=== PATIENT | female | born 1960 | race Caucasian/White ===

== ENCOUNTER 2016-10-06 00:36 | Emergency (ER) | payer OTHER ==
[~2016-10-06 00:36] MED LIST: ADV250INH INH; ALBU17IN INH; ASPI81TA85 PO; ATOR40TA PO; CLAR10CA3 PO; FLON1SPR; GLUC1TAB6 PO; LIDO5DIS36 TD; LISI10TA4 PO; MELO15TA4 PO; METF1000 PO; NEXI40CA PO; SITA50TAB PO; ZOFR20TA PO
[2016-10-06] MEDS ORDERED: diphenhydrAMINE 25 MG CAP As Ordered ONE (02:10)
[2016-10-06] MEDS ORDERED: predniSONE 20 MG TAB As Ordered ONE (02:10)
--- NOTE | 2016-10-06 02:18 | EDDOCDS ---
Nurse's Notes [facility] Name: Ginny Méndez Age: 55 yrs Sex: Female : 1960 Arrival Date: 10/06/2016 Time: 00:36 Bed I4 / M4 Private MD: Diagnosis: Rash and other nonspecific skin eruption-allergic reaction, possibly to ketoconazole Presentation: 10/06 00:48 Presenting complaint: Patient states: rash all over body that started 2 days ago. pt dsf states the rash is spreading and it is very itchy. Onset: The symptoms/episode began/occurred 2 day(s) ago. This patient has not experienced a previous allergic reaction. Anaphylaxis evaluation, the patient reports or I have noted the following symptoms which indicate a significant risk of anaphylaxis: no signs or symptoms of anaphylaxis were noted. Adult Sepsis Screening: The patient does not have new or worsening altered mentation. Patient's respiratory rate is less than 22. Systolic blood pressure is greater than 100. Patient has a qSOFA score of 0- Negative Sepsis Screen. Suicide/Homicide risk assessment- the patient denies having any suicidal and/or homicidal ideations and does not present with any other emotional, behavioral or mental health complaints. Status: The patient is a dependent. Transition of care: patient was not received from another setting of care. 00:48 Acuity: YOIL Level 4 dsf 00:48 Method Of Arrival: Walkin/Carried/Asstd dsf Triage Assessment: 00:53 General: Appears in no apparent distress, Behavior is appropriate for age, cooperative. dsf Pain: Denies pain. Pt Declines HIV testing. Respiratory: Airway is patent Respiratory effort is even, unlabored, Respiratory pattern is regular, symmetrical, Reports no respiratory complaints. Derm: Reports itching. Historical: - Allergies: Keflex (Hives); - Home Meds: 1. Benadryl 50 mg Oral cap as needed (Last dose: 10/05/2016 21:00) 2. Advair Diskus 250-50 mcg/dose Inhl dsdv 1 puff 2 times per day 3. Flonase 50 mcg/actuation Nasal spsn 2 sprays once daily 4. metformin 1,000 mg Oral tab 1 tab 2 times per day 5. Januvia 100 mg oral tab 1 tab once daily 6. lisinopril 10 mg Oral tab 1 tab once daily 7. Nexium 40 mg Oral cpDR 1 cap once daily 8. meloxicam 15 mg oral tab 1 tab once daily 9. aspirin 81 mg Oral chew 1 tab once daily 10. loratadine 10 mg Oral tab 1 tab once daily 11. glipizide 5 mg Oral tab 1 tab once daily 12. albuterol sulfate 90 mcg/actuation Inhl HFAA 2 puffs every 4 hours - PMHx: Hypercholesterolemia; Hypertension; Diabetes - NIDDM: controlled; Sleep Apnea w/ CPAP; Asthma; - PSHx: tummy tuck; Cholecystectomy (2009); Gastric Bypass (2007); right ankle compound fx 2005; - Social history: Smoking status: Patient states was never smoker of tobacco. No barriers to communication noted, The patient speaks fluent Japanese, Speaks appropriately for age. - Family history: Not pertinent. - : The pt / caregiver states he / she is not on anticoagulants. Home medication list is obtained from the patient. - Exposure Risk Screening:: None identified. Screenin:16 Screening information is obtained from the patient. Fall risk: No risks identified. ld5 Assistance ADL's: requires no assistance with activities of daily living. Abuse/DV Screen: The patient / caregiver reports he/she is: not in a situation that causes fear, pain or injury. Nutritional screening: No deficits noted. Advance Directives: There is no active DNR order. home support is adequate. Assessment: 02:16 General: Appears in no apparent distress, Behavior is cooperative. Pain: Denies pain. ld5 Neurological: Level of Consciousness is awake, alert. Respiratory: Airway is patent Respiratory effort is even, unlabored. Derm: Reports itchy rash throughout body. Vital Signs: 00:48 BP 181 / 93; Pulse 86; Resp 20; Temp 97.7(O); Pulse Ox 100% on R/A; Weight 120.2 kg dsf (R); Height 5 ft. 9 in. (175.26 cm) (R); Pain 0/10; 02:16 BP 167 / 72 LA (man/); ld5 00:48 Body Mass Index 39.13 (120.20 kg, 175.26 cm) [facility] Vitals: 00:48 Log In Time: October 06, 2016 at 00:36. [facility] ED Course: 00:38 Patient visited by Carolina Chavez. gjb 00:38 Patient moved to Waiting gjb 00:46 Patient moved to Triage 1 cz 00:49 Triage Initiated dsf 00:54 Patient moved to Pre RCE dsf 01:50 Patient moved to I4 / M4 cz 01:52 Patient visited by Benjamin Christian PCA. kb5 01:56 Addy Murillo [facility]-C [facility]. ar2 01:56 Papa Souza DO is Attending Physician. ar2 01:56 Patient visited by Addy Murillo PA-C. ar2 02:16 The patient / caregiver is instructed regarding the plan of care and ED course. Patient ld5 has correct armband on for positive identification. 02:16 No IV's were initiated during this patient's visit. No procedures done that require ld5 assistance. 02:17 Patient visited by Juanita Dumont RN. ld5 Administered Medications: 02:15 Drug: diphenhydrAMINE 50 mg [diphenhydramine 25 mg capsule (2 caps)] Route: PO; ld5 02:15 Drug: predniSONE 20 mg [prednisone 20 mg tablet (1 tabs)] Route: PO; ld5 Order Results: There are currently no results for this order. Outcome: 02:09 Discharge ordered by Provider. ar2 02:16 Discharge Assessment: Patient awake, alert and oriented x 3. No cognitive and/or ld5 functional deficits noted. Patient verbalized understanding of disposition instructions. patient administered narcotics - no. The following High Risk Discharge criteria are identified: None. Discharged to home ambulatory, with significant other. Condition: stable. Discharge instructions given to patient, Instructed on discharge instructions, follow up and referral plans. medication usage, no driving heavy equipment, Demonstrated understanding of instructions, medications, Pt was receptive of discharge instructions/ teaching. Prescriptions given X 2. No special radiology studies were completed. Property :Personal belongings accompany Pt. 02:17 Patient left the ED. ld5 Signatures: Sivakumar Asif RN RN cz Bancroft, Kristopher, PCA [employer] kb5 Addy Murillo PA-C PA-C ar2 Juanita Dumont RN RN ld5 Alexus Saleh RN RN dsf Beck, Gabriela [facility] MTDD
--- NOTE | 2016-10-06 02:18 | EDDOCDS ---
Physician Documentation [facility] Name: Ginny Méndez Age: 55 yrs Sex: Female : 1960 Arrival Date: 10/06/2016 Time: 00:36 Bed I4 / M4 Private MD: Disposition: 10/06/16 02:09 Discharged to Home/Self Care. Impression: Rash and other nonspecific skin eruption - allergic reaction, possibly to ketoconazole. - Condition is Stable. - Discharge Instructions: Drug Rash. - Prescriptions for Benadryl 25 mg Oral Capsule - take 1 capsule by ORAL route every 6 hours As needed; 30 tablet. Prednisone 20 mg Oral Tablet - take 1 tablet by ORAL route once daily for 4 days; 4 tablet. - Medication Reconciliation, Local Pharmacy Hours form. - Follow up: Emergency Department; When: As needed; Reason: Trouble breathing, Worsening of conditions. - Problem is new. - Symptoms are unchanged. Historical: - Allergies: Keflex (Hives); - Home Meds: 1. Benadryl 50 mg Oral cap as needed (Last dose: 10/05/2016 21:00) 2. Advair Diskus 250-50 mcg/dose Inhl dsdv 1 puff 2 times per day 3. Flonase 50 mcg/actuation Nasal spsn 2 sprays once daily 4. metformin 1,000 mg Oral tab 1 tab 2 times per day 5. Januvia 100 mg oral tab 1 tab once daily 6. lisinopril 10 mg Oral tab 1 tab once daily 7. Nexium 40 mg Oral cpDR 1 cap once daily 8. meloxicam 15 mg oral tab 1 tab once daily 9. aspirin 81 mg Oral chew 1 tab once daily 10. loratadine 10 mg Oral tab 1 tab once daily 11. glipizide 5 mg Oral tab 1 tab once daily 12. albuterol sulfate 90 mcg/actuation Inhl HFAA 2 puffs every 4 hours - PMHx: Hypercholesterolemia; Hypertension; Diabetes - NIDDM: controlled; Sleep Apnea w/ CPAP; Asthma; - PSHx: tummy tuck; Cholecystectomy (2009); Gastric Bypass (2007); right ankle compound fx 2005; - Social history: Smoking status: Patient states was never smoker of tobacco. No barriers to communication noted, The patient speaks fluent Cuban, Speaks appropriately for age. - Family history: Not pertinent. - : The pt / caregiver states he / she is not on anticoagulants. Home medication list is obtained from the patient. - Exposure Risk Screening:: None identified. Vital Signs: 10/06 00:48 BP 181 / 93; Pulse 86; Resp 20; Temp 97.7(O); Pulse Ox 100% on R/A; Weight 120.2 kg / dsf 265 lbs (R); Height 5 ft. 9 in. (175.26 cm) (R); Pain 0/10; 02:16 BP 167 / 72 LA (man/); ld5 00:48 Body Mass Index 39.13 (120.20 kg, 175.26 cm) dsf MDM: 02:06 diphenhydrAMINE 50 mg PO once ordered. ar2 02:06 predniSONE 20 mg PO once; administer with food or milk ordered. ar2 Administered Medications: 02:15 Drug: diphenhydrAMINE 50 mg [diphenhydramine 25 mg capsule (2 caps)] Route: PO; ld5 02:15 Drug: predniSONE 20 mg [prednisone 20 mg tablet (1 tabs)] Route: PO; ld5 Signatures: Addy Murillo PA-C PA-C ar2 Juanita Dumont RN RN ld5 Alexus Saleh RN RN dsf MTDD
--- NOTE | 2016-10-08 03:18 | EDDOCDS ---
Nurse's Notes [facility] Name: Ginny Méndez Age: 55 yrs Sex: Female : 1960 Arrival Date: 10/06/2016 Time: 00:36 Bed I4 / M4 Private MD: Diagnosis: Rash and other nonspecific skin eruption-allergic reaction, possibly to ketoconazole Presentation: 10/06 00:48 Presenting complaint: Patient states: rash all over body that started 2 days ago. pt dsf states the rash is spreading and it is very itchy. Onset: The symptoms/episode began/occurred 2 day(s) ago. This patient has not experienced a previous allergic reaction. Anaphylaxis evaluation, the patient reports or I have noted the following symptoms which indicate a significant risk of anaphylaxis: no signs or symptoms of anaphylaxis were noted. Adult Sepsis Screening: The patient does not have new or worsening altered mentation. Patient's respiratory rate is less than 22. Systolic blood pressure is greater than 100. Patient has a qSOFA score of 0- Negative Sepsis Screen. Suicide/Homicide risk assessment- the patient denies having any suicidal and/or homicidal ideations and does not present with any other emotional, behavioral or mental health complaints. Status: The patient is a dependent. Transition of care: patient was not received from another setting of care. 00:48 Acuity: YOLI Level 4 dsf 00:48 Method Of Arrival: Walkin/Carried/Asstd dsf Triage Assessment: 00:53 General: Appears in no apparent distress, Behavior is appropriate for age, cooperative. dsf Pain: Denies pain. Pt Declines HIV testing. Respiratory: Airway is patent Respiratory effort is even, unlabored, Respiratory pattern is regular, symmetrical, Reports no respiratory complaints. Derm: Reports itching. Historical: - Allergies: Keflex (Hives); - Home Meds: 1. Benadryl 50 mg Oral cap as needed (Last dose: 10/05/2016 21:00) 2. Advair Diskus 250-50 mcg/dose Inhl dsdv 1 puff 2 times per day 3. Flonase 50 mcg/actuation Nasal spsn 2 sprays once daily 4. metformin 1,000 mg Oral tab 1 tab 2 times per day 5. Januvia 100 mg oral tab 1 tab once daily 6. lisinopril 10 mg Oral tab 1 tab once daily 7. Nexium 40 mg Oral cpDR 1 cap once daily 8. meloxicam 15 mg oral tab 1 tab once daily 9. aspirin 81 mg Oral chew 1 tab once daily 10. loratadine 10 mg Oral tab 1 tab once daily 11. glipizide 5 mg Oral tab 1 tab once daily 12. albuterol sulfate 90 mcg/actuation Inhl HFAA 2 puffs every 4 hours - PMHx: Hypercholesterolemia; Hypertension; Diabetes - NIDDM: controlled; Sleep Apnea w/ CPAP; Asthma; - PSHx: tummy tuck; Cholecystectomy (2009); Gastric Bypass (2007); right ankle compound fx 2005; - Social history: Smoking status: Patient states was never smoker of tobacco. No barriers to communication noted, The patient speaks fluent Amharic, Speaks appropriately for age. - Family history: Not pertinent. - : The pt / caregiver states he / she is not on anticoagulants. Home medication list is obtained from the patient. - Exposure Risk Screening:: None identified. Screenin:16 Screening information is obtained from the patient. Fall risk: No risks identified. ld5 Assistance ADL's: requires no assistance with activities of daily living. Abuse/DV Screen: The patient / caregiver reports he/she is: not in a situation that causes fear, pain or injury. Nutritional screening: No deficits noted. Advance Directives: There is no active DNR order. home support is adequate. Assessment: 02:16 General: Appears in no apparent distress, Behavior is cooperative. Pain: Denies pain. ld5 Neurological: Level of Consciousness is awake, alert. Respiratory: Airway is patent Respiratory effort is even, unlabored. Derm: Reports itchy rash throughout body. Vital Signs: 00:48 BP 181 / 93; Pulse 86; Resp 20; Temp 97.7(O); Pulse Ox 100% on R/A; Weight 120.2 kg dsf (R); Height 5 ft. 9 in. (175.26 cm) (R); Pain 0/10; 02:16 BP 167 / 72 LA (man/); ld5 00:48 Body Mass Index 39.13 (120.20 kg, 175.26 cm) [facility] Vitals: 00:48 Log In Time: October 06, 2016 at 00:36. [facility] ED Course: 00:38 Patient visited by Chavez, Carolina. gjb 00:38 Patient moved to Waiting gjb 00:46 Patient moved to Triage 1 cz 00:49 Triage Initiated dsf 00:54 Patient moved to Pre RCE dsf 01:50 Patient moved to I4 / M4 cz 01:52 Patient visited by Benjamin Christian PCA. kb5 01:56 Addy Murillo PA-C is PHCP. ar2 01:56 Papa Souza DO is Attending Physician. ar2 01:56 Patient visited by Addy Murillo PA-C. ar2 02:16 The patient / caregiver is instructed regarding the plan of care and ED course. Patient ld5 has correct armband on for positive identification. 02:16 No IV's were initiated during this patient's visit. No procedures done that require ld5 assistance. 02:17 Patient visited by Juanita Dumont RN. ld5 12:02 [facility] Payment Agreement was scanned into [employer] and attached to record. lg 02 12:13 T-Sheet-- Draft Copy was scanned into [employer] and attached to record. gb Administered Medications: 10/06 02:15 Drug: diphenhydrAMINE 50 mg [diphenhydramine 25 mg capsule (2 caps)] Route: PO; ld5 02:15 Drug: predniSONE 20 mg [prednisone 20 mg tablet (1 tabs)] Route: PO; ld5 Order Results: There are currently no results for this order. Outcome: 02:09 Discharge ordered by Provider. ar2 02:16 Discharge Assessment: Patient awake, alert and oriented x 3. No cognitive and/or ld5 functional deficits noted. Patient verbalized understanding of disposition instructions. patient administered narcotics - no. The following High Risk Discharge criteria are identified: None. Discharged to home ambulatory, with significant other. Condition: stable. Discharge instructions given to patient, Instructed on discharge instructions, follow up and referral plans. medication usage, no driving heavy equipment, Demonstrated understanding of instructions, medications, Pt was receptive of discharge instructions/ teaching. Prescriptions given X 2. No special radiology studies were completed. Property :Personal belongings accompany Pt. 02:17 Patient left the ED. ld5 Signatures: Sivakumar Asif RN RN cz Barnhardt, Gloria, Reg Reg gb Corrie Cardoso, Reg Reg lg Benjamin Christian PCA [employer] G[employer] SPECIALIST kb5 Addy Murillo, PAPatrick PAHarjitC ar2 Juanita Dumont,RN RN ld5 Alexus Saleh,RN RN Carolina Cano Chart Complete MTDD
--- NOTE | 2016-10-08 03:18 | EDDOCDS ---
Physician Documentation [facility] Name: Ginny Méndez Age: 55 yrs Sex: Female : 1960 Arrival Date: 10/06/2016 Time: 00:36 Bed I4 / M4 Private MD: Disposition: 10/06/16 02:09 Discharged to Home/Self Care. Impression: Rash and other nonspecific skin eruption - allergic reaction, possibly to ketoconazole. - Condition is Stable. - Discharge Instructions: Drug Rash. - Prescriptions for Benadryl 25 mg Oral Capsule - take 1 capsule by ORAL route every 6 hours As needed; 30 tablet. Prednisone 20 mg Oral Tablet - take 1 tablet by ORAL route once daily for 4 days; 4 tablet. - Medication Reconciliation, Local Pharmacy Hours form. - Follow up: Emergency Department; When: As needed; Reason: Trouble breathing, Worsening of conditions. - Problem is new. - Symptoms are unchanged. Historical: - Allergies: Keflex (Hives); - Home Meds: 1. Benadryl 50 mg Oral cap as needed (Last dose: 10/05/2016 21:00) 2. Advair Diskus 250-50 mcg/dose Inhl dsdv 1 puff 2 times per day 3. Flonase 50 mcg/actuation Nasal spsn 2 sprays once daily 4. metformin 1,000 mg Oral tab 1 tab 2 times per day 5. Januvia 100 mg oral tab 1 tab once daily 6. lisinopril 10 mg Oral tab 1 tab once daily 7. Nexium 40 mg Oral cpDR 1 cap once daily 8. meloxicam 15 mg oral tab 1 tab once daily 9. aspirin 81 mg Oral chew 1 tab once daily 10. loratadine 10 mg Oral tab 1 tab once daily 11. glipizide 5 mg Oral tab 1 tab once daily 12. albuterol sulfate 90 mcg/actuation Inhl HFAA 2 puffs every 4 hours - PMHx: Hypercholesterolemia; Hypertension; Diabetes - NIDDM: controlled; Sleep Apnea w/ CPAP; Asthma; - PSHx: tummy tuck; Cholecystectomy (2009); Gastric Bypass (2007); right ankle compound fx 2005; - Social history: Smoking status: Patient states was never smoker of tobacco. No barriers to communication noted, The patient speaks fluent Cape Verdean, Speaks appropriately for age. - Family history: Not pertinent. - : The pt / caregiver states he / she is not on anticoagulants. Home medication list is obtained from the patient. - Exposure Risk Screening:: None identified. Vital Signs: 10/06 00:48 BP 181 / 93; Pulse 86; Resp 20; Temp 97.7(O); Pulse Ox 100% on R/A; Weight 120.2 kg / dsf 265 lbs (R); Height 5 ft. 9 in. (175.26 cm) (R); Pain 0/10; 02:16 BP 167 / 72 LA (man/); ld5 00:48 Body Mass Index 39.13 (120.20 kg, 175.26 cm) dsf MDM: 02:06 diphenhydrAMINE 50 mg PO once ordered. ar2 02:06 predniSONE 20 mg PO once; administer with food or milk ordered. ar2 12:02 [facility] Payment Agreement was scanned into [employer] and attached to record. lg 10/07 12:13 T-Sheet-- Draft Copy was scanned into [employer] and attached to record. gb Administered Medications: 10/06 02:15 Drug: diphenhydrAMINE 50 mg [diphenhydramine 25 mg capsule (2 caps)] Route: PO; ld5 02:15 Drug: predniSONE 20 mg [prednisone 20 mg tablet (1 tabs)] Route: PO; ld5 Signatures: Judi Rapp, Reg Reg gb Corrie Cardoso, Reg Reg lg Addy Murillo PA-C PA-C ar2 Juanita Dumont RN RN ld5 Alexus Saleh RN RN dsf The chart was reviewed and I authenticate all verbal orders and agree with the evaluation and treatment provided.Attachments: 12: [facility] Payment Agreement 10/07 12:13 T-Sheet-- Draft Copy gb Chart Complete MTDD
--- NOTE | 2016-10-08 03:18 | EDDOCDS ---
Physician Documentation [facility] Name: Ginny Méndez Age: 55 yrs Sex: Female : 1960 Arrival Date: 10/06/2016 Time: 00:36 Bed I4 / M4 Private MD: Disposition: 10/06/16 02:09 Discharged to Home/Self Care. Impression: Rash and other nonspecific skin eruption - allergic reaction, possibly to ketoconazole. - Condition is Stable. - Discharge Instructions: Drug Rash. - Prescriptions for Benadryl 25 mg Oral Capsule - take 1 capsule by ORAL route every 6 hours As needed; 30 tablet. Prednisone 20 mg Oral Tablet - take 1 tablet by ORAL route once daily for 4 days; 4 tablet. - Medication Reconciliation, Local Pharmacy Hours form. - Follow up: Emergency Department; When: As needed; Reason: Trouble breathing, Worsening of conditions. - Problem is new. - Symptoms are unchanged. Historical: - Allergies: Keflex (Hives); - Home Meds: 1. Benadryl 50 mg Oral cap as needed (Last dose: 10/05/2016 21:00) 2. Advair Diskus 250-50 mcg/dose Inhl dsdv 1 puff 2 times per day 3. Flonase 50 mcg/actuation Nasal spsn 2 sprays once daily 4. metformin 1,000 mg Oral tab 1 tab 2 times per day 5. Januvia 100 mg oral tab 1 tab once daily 6. lisinopril 10 mg Oral tab 1 tab once daily 7. Nexium 40 mg Oral cpDR 1 cap once daily 8. meloxicam 15 mg oral tab 1 tab once daily 9. aspirin 81 mg Oral chew 1 tab once daily 10. loratadine 10 mg Oral tab 1 tab once daily 11. glipizide 5 mg Oral tab 1 tab once daily 12. albuterol sulfate 90 mcg/actuation Inhl HFAA 2 puffs every 4 hours - PMHx: Hypercholesterolemia; Hypertension; Diabetes - NIDDM: controlled; Sleep Apnea w/ CPAP; Asthma; - PSHx: tummy tuck; Cholecystectomy (2009); Gastric Bypass (2007); right ankle compound fx 2005; - Social history: Smoking status: Patient states was never smoker of tobacco. No barriers to communication noted, The patient speaks fluent Japanese, Speaks appropriately for age. - Family history: Not pertinent. - : The pt / caregiver states he / she is not on anticoagulants. Home medication list is obtained from the patient. - Exposure Risk Screening:: None identified. Vital Signs: 10/06 00:48 BP 181 / 93; Pulse 86; Resp 20; Temp 97.7(O); Pulse Ox 100% on R/A; Weight 120.2 kg / dsf 265 lbs (R); Height 5 ft. 9 in. (175.26 cm) (R); Pain 0/10; 02:16 BP 167 / 72 LA (man/); ld5 00:48 Body Mass Index 39.13 (120.20 kg, 175.26 cm) dsf MDM: 02:06 diphenhydrAMINE 50 mg PO once ordered. ar2 02:06 predniSONE 20 mg PO once; administer with food or milk ordered. ar2 12:02 [facility] Payment Agreement was scanned into [employer] and attached to record. lg 10/07 12:13 T-Sheet-- Draft Copy was scanned into [employer] and attached to record. gb Administered Medications: 10/06 02:15 Drug: diphenhydrAMINE 50 mg [diphenhydramine 25 mg capsule (2 caps)] Route: PO; ld5 02:15 Drug: predniSONE 20 mg [prednisone 20 mg tablet (1 tabs)] Route: PO; ld5 Signatures: Judi Rapp, Reg Reg gb Corrie Cardoso, Reg Reg lg Addy Murillo PA-C PA-C ar2 Juanita Dumont RN RN ld5 Alexus Saleh RN RN dsf The chart was reviewed and I authenticate all verbal orders and agree with the evaluation and treatment provided.Attachments: 12: [facility] Payment Agreement 10/07 12:13 T-Sheet-- Draft Copy gb Chart Complete MTDD
== END 2016-10-06 02:17 | disposition home or self-care (01) ==
LOC: M ED 00:36
DX: T78.40XA Allergy, unspecified, initial encounter (principal); R21 Rash and other nonspecific skin eruption; Y92.89 Other specified places as the place of occurrence of the external cause; I10 Essential (primary) hypertension; E11.9 Type 2 diabetes mellitus without complications; J45.909 Unspecified asthma, uncomplicated; G47.33 Obstructive sleep apnea (adult) (pediatric); E78.00 Pure hypercholesterolemia, unspecified; Z98.84 Bariatric surgery status; Z79.899 Other long term (current) drug therapy; Z79.84 Long term (current) use of oral hypoglycemic drugs; Z79.82 Long term (current) use of aspirin; Z88.1 Allergy status to other antibiotic agents

== ENCOUNTER → 2016-10-22 | Outpatient (REF) | payer OTHER ==
[2016-10-22 19:24] LABS: PERCENT SATURATION 9.9 % (13.2-37.4)
[2016-10-26 15:11] LABS: SOLUBLE TRANSFERRIN RECEPTOR 17.7 nmol/L (12.2-27.3)
== END ==
LOC: M LAB REF 16:50
PROVIDERS: ATTEND Internal Medicine Medical Oncology
DX: D50.9 Iron deficiency anemia, unspecified (principal)

== ENCOUNTER 2016-11-23 14:38 | Emergency (ER) | payer OTHER ==
[~2016-11-23] VITALS: Ht 175.3 cm; Wt 120.2 kg
[2016-11-23] MEDS ORDERED: TYLE325T5 PO (15:00)
[2016-11-23] MEDS ORDERED: ACETAMINOPHEN 325 MG TAB PO ONE (16:15)
[2016-11-23 16:34] VITALS: BP 152/81
--- NOTE | 2016-11-24 07:25 | REP ---
LEFT KNEE SERIES, COMPLETE: 11/23/2016. Comparison: MRI 04/16/2012. Clinical history: Knee pain. There is tricompartment osteoarthritis with spurs of the tibial spines, medial lateral margin of the knee and at the patellofemoral joint where the largest spurs are noted. Small suprapatellar effusion is difficult to exclude and in fact suspected. There is narrowing of the patellofemoral joint laterally with significant chondromalacia, medially also shows mild narrowing. There are some calcific deposits or loose bodies in the intercondylar notch. Spur at the insertion of the patellar tendon on the tibial tubercle. Tiny spur at the quadriceps insertion. No tibial plateau fracture. I see no loose body or osteochondral defect. Proximal tibia and fibula show normal articulation. Impression: 1. Tricompartment osteoarthritis, most severe in the patellofemoral joint with some small loose bodies suggested in the intercondylar notch and small suprapatellar effusion. 2. No other significant finding. Signed by Monster Cash MD 11/24/2016 08:04 A
== END 2016-11-23 16:36 | disposition home or self-care (01) ==
LOC: M ED 15:47
DX: M17.12 Unilateral primary osteoarthritis, left knee (principal); J45.909 Unspecified asthma, uncomplicated; K21.9 Gastro-esophageal reflux disease without esophagitis; E11.9 Type 2 diabetes mellitus without complications; E78.00 Pure hypercholesterolemia, unspecified; Z79.899 Other long term (current) drug therapy; Z79.84 Long term (current) use of oral hypoglycemic drugs; Z79.51 Long term (current) use of inhaled steroids; Z79.82 Long term (current) use of aspirin; Z88.8 Allergy status to other drugs, medicaments and biological substances

== ENCOUNTER → 2016-12-23 | Outpatient (REF) | payer OTHER ==
[~2016-12-23] MED LIST changes: +TYLE325T5 PO
[2016-12-23 13:46] LABS: PERCENT SATURATION 24.5 % (13.2-37.4)
== END ==
LOC: M LAB REF 12:55
PROVIDERS: ATTEND Internal Medicine Medical Oncology
DX: D50.9 Iron deficiency anemia, unspecified (principal)

== ENCOUNTER → 2017-04-28 | Outpatient (REF) | payer OTHER ==
[~2017-04-28] MED LIST changes: -ATOR40TA PO; +ATOR40TA75 PO; -LIDO5DIS36 TD; +LIDO5DIS41 TD; -METF1000 PO; +METF10004 PO
== END ==
LOC: M LAB REF 13:11
PROVIDERS: ATTEND Internal Medicine Medical Oncology
DX: D50.9 Iron deficiency anemia, unspecified (principal)

== ENCOUNTER → 2017-10-27 | Outpatient (REF) | payer OTHER ==
[2017-10-27 14:25] LABS: FERRITIN 402 NG/ML (8-252); IRON (FE) 38 UG/DL (50-170); PERCENT SATURATION 15.4 % (13.2-45.0); TOTAL IRON BINDING CAPACITY 247 UG/DL (250-450)
== END ==
LOC: M LAB REF 13:50
DX: D50.9 Iron deficiency anemia, unspecified (principal)

== ENCOUNTER → 2018-05-06 | Outpatient (REF) | payer OTHER ==
[2018-05-06 14:17] LABS: FERRITIN 414 NG/ML (8-252); IRON (FE) 40 UG/DL (50-170); PERCENT SATURATION 15.7 % (13.2-45.0); TOTAL IRON BINDING CAPACITY 255 UG/DL (250-450)
== END ==
LOC: M LAB REF 13:24
DX: D50.8 Other iron deficiency anemias (principal); K90.9 Intestinal malabsorption, unspecified

== ENCOUNTER → 2018-07-03 | Outpatient (REF) | payer OTHER ==
[2018-07-03 13:16] LABS: BASO % 0.4 % (0.0-1.0); EOS # 0.2 10^3/uL (0.0-0.50); EOS % 2.8 % (0.0-3.0); HEMATOCRIT 40.8 % (36.0-47.0); IMMATURE GRANULOCYTE % 0.3 % (0-3.0); LYMPH # 1.6 10^3/uL (1.5-4.5); LYMPH % 20.8 % (24.0-44.0); MEAN CORPUSCULAR HEMOGLOBIN 26.9 pg (27.0-33.0); MEAN CORPUSCULAR HGB CONC 31.9 g/dl (32.0-36.5); MEAN CORPUSCULAR VOLUME 84.3 fl (80.0-96.0); MONO # 0.5 10^3/uL (0.0-0.8); MONO % 6.5 % (0.0-5.0); NEUTROPHILS # 5.4 10^3/uL (1.8-7.7); NEUTROPHILS % 69.2 % (36.0-66.0); PLATELET COUNT, AUTOMATED 359 10^3/uL (150-450); RED BLOOD COUNT 4.84 10^6/uL (4.00-5.40); RED CELL DISTRIBUTION WIDTH 12.9 % (11.5-14.5); WHITE BLOOD COUNT 7.8 10^3/uL (4.0-10.0)
[2018-07-03 13:24] LABS: ALBUMIN/GLOBULIN RATIO 1.25 (1.00-1.93); ALKALINE PHOSPHATASE 69 U/L (45-117); ALT/SGPT 22 U/L (12-78); ANION GAP 7 MEQ/L (8-16); AST/SGOT 15 U/L (7-37); BILIRUBIN,TOTAL 0.6 MG/DL (0.2-1.0); BLOOD UREA NITROGEN 18 MG/DL (7-18); CALCIUM LEVEL 9.6 MG/DL (8.5-10.1); CARBON DIOXIDE LEVEL 28 MEQ/L (21-32); CHLORIDE LEVEL 104 MEQ/L (98-107); CHOLESTEROL LEVEL 131 MG/DL (<200); CHOLESTEROL RISK RATIO 2.568 (<5); CREATININE FOR GFR 0.74 MG/DL (0.55-1.30); GLOMERULAR FILTRATION RATE > 60.0 (>51); GLUCOSE, FASTING 157 MG/DL (70-100); HDL CHOLESTEROL 51 MG/DL (>40); LDL CHOLESTEROL 62 MG/DL (<100); NON-HDL-C 80 MG/DL; NT-PRO BNP 56 PG/ML (<125); POTASSIUM SERUM 4.8 MEQ/L (3.5-5.1); SODIUM LEVEL 139 MEQ/L (136-145); THYROID STIMULATING HORMONE 0.864 uIU/ML (0.358-3.740); TOTAL PROTEIN 7.2 GM/DL (6.4-8.2); TRIGLYCERIDES LEVEL 88 MG/DL (<150)
== END ==
LOC: M LABDRWAD 12:39
DX: I10 Essential (primary) hypertension (principal); Z68.38 Body mass index [BMI] 38.0-38.9, adult; R94.31 Abnormal electrocardiogram [ECG] [EKG]; I35.9 Nonrheumatic aortic valve disorder, unspecified

== ENCOUNTER 2018-07-14 17:30 | Emergency (ER) | payer OTHER ==
[2018-07-14 19:32] LABS: BASO % 0.7 % (0.0-1.0); EOS % 2.5 % (0.0-3.0); HEMATOCRIT 40.8 % (36.0-47.0); HEMOGLOBIN 12.9 g/dl (12.0-15.5); IMMATURE GRANULOCYTE % 0.2 % (0-3.0); LYMPH % 25.8 % (24.0-44.0); MEAN CORPUSCULAR HEMOGLOBIN 26.9 pg (27.0-33.0); MEAN CORPUSCULAR HGB CONC 31.6 g/dl (32.0-36.5); MEAN CORPUSCULAR VOLUME 85.2 fl (80.0-96.0); NEUTROPHILS % 63.8 % (36.0-66.0); PLATELET COUNT, AUTOMATED 330 10^3/uL (150-450); RED BLOOD COUNT 4.79 10^6/uL (4.00-5.40); RED CELL DISTRIBUTION WIDTH 13.2 % (11.5-14.5); WHITE BLOOD COUNT 8.9 10^3/uL (4.0-10.0)
[2018-07-14 19:33] LABS: BASO # 0.1 10^3/uL (0.0-0.2); EOS # 0.2 10^3/uL (0.0-0.50); LYMPH # 2.3 10^3/uL (1.5-4.5); MONO # 0.6 10^3/uL (0.0-0.8); NEUTROPHILS # 5.7 10^3/uL (1.8-7.7)
[2018-07-14 19:36] LABS: INR 1.03; PROTHROMBIN TIME 13.6 SECONDS (12.1-14.4)
[2018-07-14 19:37] LABS: PARTIAL THROMBOPLASTIN TIME 38.5 SECONDS (25.4-37.6)
[2018-07-14 19:39] LABS: D-DIMER QUANT 579.09 ng/ml (<500)
[2018-07-14 20:01] LABS: ANION GAP 8 MEQ/L (8-16); BLOOD UREA NITROGEN 19 MG/DL (7-18); C REACTIVE PROTEIN QUANTITATIV 0.52 MG/DL (0.00-0.30); CALCIUM LEVEL 9.4 MG/DL (8.5-10.1); CARBON DIOXIDE LEVEL 26 MEQ/L (21-32); CHLORIDE LEVEL 104 MEQ/L (98-107); CK-MB VALUE MASS < 1.0 NG/ML (<3.6); CPK CREATINE PHOSPHOKINASE 66 U/L (26-192); CREATININE FOR GFR 0.84 MG/DL (0.55-1.30); GLOMERULAR FILTRATION RATE > 60.0 (>51); GLUCOSE, FASTING 119 MG/DL (70-100); MB/CK RELATIVE INDEX 1.52 (< OR =4); POTASSIUM SERUM 4.4 MEQ/L (3.5-5.1); SODIUM LEVEL 138 MEQ/L (136-145); THYROID STIMULATING HORMONE 0.732 uIU/ML (0.358-3.740); TROPONIN I < 0.02 NG/ML (< 0.10)
[2018-07-14] MEDS ORDERED: ISOVUE-370 76% 100ML VIAL (Q9967) As Ordered (20:04)
[2018-07-14 21:14] LABS: CPK CREATINE PHOSPHOKINASE 57 U/L (26-192); MB/CK RELATIVE INDEX 1.75 (< OR =4); TROPONIN I < 0.02 NG/ML (< 0.10)
== END 2018-07-14 21:52 | disposition home or self-care (01) ==
LOC: M ED 17:30
DX: R07.89 Other chest pain (principal); R42 Dizziness and giddiness; R53.83 Other fatigue; R11.0 Nausea; E11.9 Type 2 diabetes mellitus without complications; I10 Essential (primary) hypertension; E78.5 Hyperlipidemia, unspecified; G47.33 Obstructive sleep apnea (adult) (pediatric); K31.84 Gastroparesis; Z98.84 Bariatric surgery status; Z88.1 Allergy status to other antibiotic agents; Z79.899 Other long term (current) drug therapy; Z79.51 Long term (current) use of inhaled steroids; Z79.82 Long term (current) use of aspirin; Z79.84 Long term (current) use of oral hypoglycemic drugs
CPT/HCPCS: Q9967

== ENCOUNTER 2018-09-22 09:48 | Inpatient (IN) | payer OTHER ==
[~2018-09-22 09:48] MED LIST changes: +AMLO10TA5 PO; +BENA40TA7 PO; +DOCU100C16 PO; +LOTR10CA2 PO; +MELO15TA28 PO; -MELO15TA4 PO; +METF500T13 PO; +OXYB5TAB PO; +SIME40TA PO; +VANCOMYCIN HCL 1,000 MG, VIAL MATE ADAPTER 1 EACH in D5W 250 ML IV ONE; -ZOFR20TA PO; +ZOFR4TAB16 PO
[2018-09-22] MEDS ORDERED: NS 1,000 ML IV SCH (10:43)
[2018-09-22] MEDS ORDERED: MORPHINE 4 MG/ML 1ML VIAL/SYRINGE (J2270) IV ONE (10:45)
[2018-09-22] MEDS ORDERED: ONDANSETRON 4MG/2ML VIAL (J2405) IV ONE (10:45)
[2018-09-22 11:02] LABS: BASO # 0.1 10^3/uL (0.0-0.2); BASO % 0.4 % (0.0-1.0); EOS # 0.1 10^3/uL (0.0-0.50); EOS % 0.7 % (0.0-3.0); HEMATOCRIT 38.6 % (36.0-47.0); HEMOGLOBIN 12.4 g/dl (12.0-15.5); LYMPH # 0.8 10^3/uL (1.5-4.5); LYMPH % 5.8 % (24.0-44.0); MEAN CORPUSCULAR HEMOGLOBIN 27.9 pg (27.0-33.0); MEAN CORPUSCULAR HGB CONC 32.1 g/dl (32.0-36.5); MEAN CORPUSCULAR VOLUME 86.9 fl (80.0-96.0); MONO # 0.5 10^3/uL (0.0-0.8); MONO % 3.5 % (0.0-5.0); NEUTROPHILS # 12.3 10^3/uL (1.8-7.7); NEUTROPHILS % 88.9 % (36.0-66.0); PLATELET COUNT, AUTOMATED 302 10^3/uL (150-450); RED BLOOD COUNT 4.44 10^6/uL (4.00-5.40); WHITE BLOOD COUNT 13.8 10^3/uL (4.0-10.0)
--- NOTE | 2018-09-22 11:08 | REP ---
LEFT HIP, AP PELVIS, THREE VIEWS: HISTORY: Fall. There is a nondisplaced intertrochanteric fracture of the left femur. There is no dislocation. There is mild narrowing of the hip joint spaces. An ossified density is present lateral to the left acetabulum. This may represent an old avulsion fracture fragment or ligamentous or tendon calcification. IMPRESSION: Nondisplaced intertrochanteric fracture of the left femur. Electronically Signed by Sunil Simms MD 09/22/2018 11:22 A
[2018-09-22 11:13] LABS: INR 0.97
[2018-09-22 11:36] LABS: BLOOD UREA NITROGEN 18 MG/DL (7-18); CALCIUM LEVEL 9.4 MG/DL (8.5-10.1); CARBON DIOXIDE LEVEL 24 MEQ/L (21-32); CHLORIDE LEVEL 106 MEQ/L (98-107); CPK CREATINE PHOSPHOKINASE 59 U/L (26-192); GLOMERULAR FILTRATION RATE > 60.0 (>51); GLUCOSE, FASTING 170 MG/DL (70-100); MB/CK RELATIVE INDEX 1.86 (< OR =4); POTASSIUM SERUM 4.4 MEQ/L (3.5-5.1); SODIUM LEVEL 140 MEQ/L (136-145); TROPONIN I < 0.02 NG/ML (< 0.10)
--- NOTE | 2018-09-22 11:38 | REP ---
PORTABLE CHEST X-RAY: SINGLE VIEW. HISTORY: Preop. COMPARISON STUDY: July 14, 2018 FINDINGS: The lungs are well inflated and clear. The pleural angles are sharp. Heart size is normal. Pulmonary vasculature is not increased. There is a metallic orthopedic plate in the right humerus. Mild degenerative changes are seen in the thoracic spine. IMPRESSION: No active disease. Electronically Signed by Byron Charles MD 09/22/2018 08:32 P
[2018-09-22] MEDS: MORPHINE 4 MG/ML 1ML VIAL/SYRINGE (J2270) IV PRN ×4 (12:07→19:35)
[2018-09-22] MEDS ORDERED: JANU100T PO (12:46)
[2018-09-22] MEDS ORDERED: ACE65ERTAB PO ×2 (12:46)
[2018-09-22] MEDS ORDERED: [UNRECOGNIZED DRUG - CODE] EX (12:46)
[2018-09-22] MEDS ORDERED: SIME80TA PO (12:46)
[2018-09-22] MEDS ORDERED: PANT40TA3 PO (12:46)
[2018-09-22] MEDS ORDERED: [UNRECOGNIZED DRUG - CODE] TOP (12:46)
[2018-09-22] MEDS ORDERED: ASCO10003 PO (12:49)
[2018-09-22] MEDS ORDERED: CALC1TAB19 PO (12:49)
[2018-09-22] MEDS ORDERED: HM C500T3 PO (12:49)
[2018-09-22] MEDS ORDERED: VITMTA PO (12:49)
[2018-09-22] MEDS ORDERED: PROAAER10 INH (12:49)
[2018-09-22] MEDS ORDERED: FIBE625T PO (12:49)
--- NOTE | 2018-09-22 15:13 | CR ---
DATE OF CONSULTATION: 09/22/2018 Chief complaint is left hip pain. HISTORY: This is a 57-year-old woman with a history of diabetes with a recent cardiac workup for possible chest pain who fell today. She tripped over her shoes and fell on her left hip. Complains of left hip pain. I was asked to evaluate her for a left hip fracture, which is an intertrochanteric minimally displaced. She denies any other injury. Her past medical history is notable for diabetes, possible cardiac issues. Albuterol, Tylenol, amlodipine, aspirin, atorvastatin, benazepril, Colace, Nexium, Flonase, glipizide, loratadine, Lotrel, metformin, Zofran, oxybutynin, Advair, simethicone, Januvia. ALLERGIES include CEPHALOSPORINS causing hives. Past surgical history includes multiple shoulder surgery on the right that were complicated by infections and she required prolonged intravenous (IV) antibiotics and oral antibiotics. Family history is otherwise unremarkable, noncontributory. REVIEW OF SYSTEMS: She denies any current chest pain or shortness of breath. Denies any abdominal pain. Does have a history of diabetes and this recent cardiac workup done by Dr. Bell, which she says was all cleared. Endocrine as noted above with diabetes. PHYSICAL EXAMINATION: She is alert, oriented. No acute distress. HEENT: Extraocular muscles intact. She has regular rate and rhythm to her pulse and nonlabored breathing. Her abdomen is soft, nontender, obese. Her left lower extremity she moves her foot and toes well. She has intact pulses. She has intact sensation distally. Did not attempt to range her left hip but her right hip is non-irritable to range of motion and she is grossly neurologically intact distally. There is some mention of peripheral neuropathy history. X-rays were reviewed and they demonstrate a left intertrochanteric fracture that is minimally displaced. IMPRESSION: Left intertrochanteric hip fracture in a 57-year-old woman. RECOMMENDATIONS: She will need medical clearance and admission. I have talked to her about proceeding with surgical treatment and would anticipate doing an open reduction, internal fixation (ORIF) of the left hip with an intramedullary (IM) alexx and possible plating. She understands the nature this, the risks of bleeding, infection, damage to nerves, vessels, persistent pain, malunion, nonunion, loss of reduction, blood clots, medical problems, , among others. MTDD
[2018-09-22] MEDS ORDERED: ACETAMINOPHEN TAB 650MG DOSE (2X325MG) PO PRN (15:15)
[2018-09-22] MEDS ORDERED: ONDANSETRON 4 MG TAB (S0181) PO PRN (15:15)
[2018-09-22] MEDS ORDERED: VANCOMYCIN HCL 1,000 MG, VIAL MATE ADAPTER 1 EACH in D5W 250 ML IV ONE ×2 (15:15→18:30)
[2018-09-22] MEDS ORDERED: PERCOCET 5MG/325MG TAB PO PRN (15:15)
[2018-09-22] MEDS ORDERED: BISACODYL 5 MG TAB PO PRN (15:15)
[2018-09-22] MEDS: NS 1,000 ML IV SCH (15:45)
--- NOTE | 2018-09-22 15:56 | HPEPDOC ---
[facility] Medical History & Physical Date of Admission Sep 22, 2018 Primary Care Physician: A Attending Physician: MARY KATE MCKEON MD History and Physical CHIEF COMPLAINT: [LEFT HIP PAIN ] HISTORY OF PRESENT ILLNESS: This is a 57 yo female with pmhx of HTN, DM2, mild intermittent asthma, HLD , multiple fractures who presented to the ED after she tripped over her 's shoe lace this morning, after which she started having severe left hip pain. Xray of the left hip in the ED shows nondisplaced intertrochanteric fracture of the left femur.. Patient only complains of left hip and leg pain. She denied fever, chills, chest pain, sob, nausea, vomiting, headache , blurry vision or an y other symptoms PAST MEDICAL HISTORY: HTN DM2 mild intermittent asthma HLD multiple fractures OA enlarged bilateral atrium PAST SURGICAL HISTORY: SOCIAL HISTORY: Marital status: [y]. Tobacco use:[n] ETOH: [occasionally] Illicit drug use: [n] IV drug use: [n] FAMILY HISTORY: Father: [cardiac hx ] Mother: [cardiac hx ] ALLERGIES: keflex - hives REVIEW OF SYSTEMS: All 14 points ROS is negative except what's stated in HPI HOME MEDICATIONS: Please see below. PHYSICAL EXAMINATION: GEN: mod distress due to pain, obese CVS: Normal S1/s2, no murmurs, rubs or gallops, RESP: Lungs are clear to auscultation bilaterally, no crackles, wheezes or rhonchi Abd: soft, nontender, nondistended, + BS MSK: full ROM, 5/5 strength in all extremities except in left lower extremity due to pain , left leg shorter and externally rotated Integumentary: no rash or bruises Neuro: AOAx3, no focal deficit psych: normal mood, good judgement and cooperative LABORATORY DATA: See below. IMAGING: [Nondisplaced intertrochanteric fracture of the left femur.] ASSESSMENT: 57yo female with multiple comorbidities who is found to have left hip fracture and will be going for repair. Patient comorbid conditions are stable . Vital signs are stable, blood sugar is relatively controlled, physical exam is stable - no alarming signs, labs relatively normal. EKG wnl. Patient is clinically optimized for noncardiac surgery. Of Note - patient said she gets very nauseated with anesthesia and usually takes longer to come out of sedation. Also that she has hx of multiple infections s/p surgery. PLAN: 1. ortho following - plan for surgery 2. NPO 3. IVF (can change per ortho) 4. prn pain meds and bowel regimen 5. f/s q4h while npo 6. hypoglycemic protocol 7. f/u vitamin D level 8. bedrest for now, can change after surgery 9. hold po DM2 home meds 10. ISS q6h and f/s q6h 11. resume home bp meds DVT ppx -heparin - starts tomorrow morning GI ppx - protonix - (hx of acid reflux) full code, from home, no svc Vital Signs Vital Signs Date Time Temp Pulse Resp B/P (MAP) Pulse Ox O2 Delivery O2 Flow Rate FiO2 09/22/18 13:52 18 09/22/18 13:00 93 145/70 (95) 96 Room Air 09/22/18 10:07 98.3 Laboratory Data Labs 24H Laboratory Tests 2 09/22/18 10:54: Immature Granulocyte % (Auto) 0.7, White Blood Count 13.8H, Red Blood Count 4.44, Hemoglobin 12.4, Hematocrit 38.6, Mean Corpuscular Volume 86.9, Mean Corpuscular Hemoglobin 27.9, Mean Corpuscular Hemoglobin Concent 32.1, Red Cell Distribution Width 13.7, Platelet Count 302, Neutrophils (%) (Auto) 88.9H, Lymphocytes (%) (Auto) 5.8L, Monocytes (%) (Auto) 3.5, Eosinophils (%) (Auto) 0.7, Basophils (%) (Auto) 0.4, Neutrophils # (Auto) 12.3H, Lymphocytes # (Auto) 0.8L, Monocytes # (Auto) 0.5, Eosinophils # (Auto) 0.1, Basophils # (Auto) 0.1, Nucleated Red Blood Cells % (auto) 0.0, Prothrombin Time 13.0, Prothromb Time International Ratio 0.97, Activated Partial Thromboplast Time 38.0H, Anion Gap 10, Glomerular Filtration Rate > 60.0, Blood Urea Nitrogen 18, Creatinine 0.80, Sodium Level 140, Potassium Level 4.4, Chloride Level 106, Carbon Dioxide Level 24, Calcium Level 9.4, Total Creatine Kinase 59, Creatine Kinase MB 1.0, Creatine Kinase MB Relative Index 1.86, Troponin I < 0.02 CBC/BMP Laboratory Tests 09/22/18 10:54 Red Blood Count 4.44, Mean Corpuscular Volume 86.9, Mean Corpuscular Hemoglobin 27.9, Mean Corpuscular Hemoglobin Concent 32.1, Red Cell Distribution Width 13.7, Neutrophils (%) (Auto) 88.9 H, Lymphocytes (%) (Auto) 5.8 L, Monocytes (%) (Auto) 3.5, Eosinophils (%) (Auto) 0.7, Basophils (%) (Auto) 0.4, Neutrophils # (Auto) 12.3 H, Lymphocytes # (Auto) 0.8 L, Monocytes # (Auto) 0.5, Eosinophils # (Auto) 0.1, Basophils # (Auto) 0.1, Calcium Level 9.4, Total Creatine Kinase 59 Home Medications Scheduled (Urea) 45 % Cre, 1 APLCT TOP QHS APPLY TO TOE (Calcium 600+D3 600-800 mg-Unit) 1 Tab Tab, 3 TAB PO DAILY Acetaminophen (Acetaminophen ER) 650 Mg Tab, 650 MG PO QAM Acetaminophen (Acetaminophen ER) 650 Mg Tab, 1,300 MG PO QHS Amlodipine Besylate (Amlodipine Besylate) 10 Mg Tab, 10 MG PO DAILY Ascorbic Acid (Ascorbic Acid) 1,000 Mg Tab, 1,000 MG PO DAILY Aspirin (Aspir-81) 81 Mg Tab, 81 MG PO QHS Atorvastatin Calcium (Atorvastatin Calcium) 40 Mg Tab, 40 MG PO QHS Benazepril HCl (Benazepril HCl) 40 Mg Tab, 40 MG PO DAILY Calcium Polycarbophil (Fibercon) 625 Mg Tab, 625 MG PO DAILY Cranberry (Hm Cranberry Ultra Streng) 500 Mg Tab, 500 MG PO DAILY Docusate Sodium (Docusate Sodium) 100 Mg Cap, 100 MG PO BID Fluticasone Propionate (Flonase Allergy Relief) 50 Mcg/Act Spr, 2 SPRAYS NA BID Glipizide (Glucotrol Xl) 5 Mg Tab, 5 MG PO DAILY Loratadine (Claritin) 10 Mg Cap, 10 MG PO DAILY Metformin Hydrochloride (Metformin HCl) 1,000 Mg Tab, 1,000 MG PO QAM Metformin Hydrochloride (Metformin HCl) 500 Mg Tab, 500 MG PO QPM Multivitamins *[facility] STOCKED* (Thera M Plus *[facility] STOCKED*) 1 Tab Tab, 1 TAB PO DAILY Oxybutynin Chloride (Oxybutynin Chloride ER) 5 Mg Tab, 5 MG PO DAILY Pantoprazole Sodium (Pantoprazole Sodium) 40 Mg Tab, 40 MG PO DAILY Salmeterol/Fluticasone (Advair Diskus 250-50 Mcg/Dose) 14 Puff/Inhaler Aerp, 1 PUFF INH BID Simethicone (Simethicone) 80 Mg Chew, 80 MG PO BID Sitagliptin Phosphate (Januvia) 100 Mg Tab, 100 MG PO DAILY Scheduled PRN Albuterol Sulfate (Proair Hfa) 108 Mcg/Act Aer, 2 PUFF INH QID PRN for SHORTNESS OF BREATH Lidocaine (Lidoderm) 5 % Dis, 1 PATCH TD DAILY PRN for PAIN APPLY TO RIGHT ANKLE Ondansetron HCl (Zofran) 4 Mg Tab, 4 MG PO for NAUSEA Allergies Coded Allergies: Cephalosporins (Verified Allergy, Intermediate, HIVES, 09/22/18) SEAN LINDSEY MD Sep 22, 2018 15:56
[2018-09-22] MEDS ORDERED: DEXTROSE 50% 50 ML SYRINGE IV PRN (16:00)
[2018-09-22] MEDS ORDERED: GLUCOSE 4 GM CHEW TABLET PO PRN (16:00)
[2018-09-22] MEDS ORDERED: GLUCAGON FOR INJ 1 MG VIAL (J1610) SC PRN (16:00)
[2018-09-22 16:30] VITALS: BP 139/70
[2018-09-22] MEDS: HumaLOG INSULIN (NovoLOG) PER UNIT SC SCH (17:58)
--- NOTE | 2018-09-22 18:10 | IPNPDOC ---
Date Seen The patient was seen on 09/22/18. Progress Note Orthopedic consult interval note Patient is a 57 y/o female with multiple medical comorbidities who sustained a mechanical fall from standing height resulting in a minimally displaced intertrochanteric femur fracture. Please see full dictated orthopedic consult note by Dr. Jordan. Patient has since been evaluated by hospitalist service and found to be medically optimized for surgery. On exam she had pain with logroll, and neurovascularly intact LLE. We will proceed to the OR this evening for L hip cephalomedullary nail fixation. The risks, benefits, indications, and alternatives were discussed with the patient. Given her history of multiple post operative infections, I recommend Perioperative IV Vancomycin and at least 24 hours of IV Vancomycin post operatively. Also recommend strict blood glucose control in the 72 hours following surgery to minimize the risk of infection. I counseled her that I will be her operating surgeon, but her follow up care will be conducted by [facility]. She expressed understanding and informed consent was obtained. We will proceed to the OR when available. VS, I&O, 24H, Javad Vital Signs/I&O Vital Signs Date Time Temp Pulse Resp B/P (MAP) Pulse Ox O2 Delivery O2 Flow Rate FiO2 09/22/18 17:12 18 09/22/18 16:00 86 117/68 (84) 95 Room Air 09/22/18 10:07 98.3 Laboratory Data 24H LABS Laboratory Tests 2 09/22/18 10:54: Immature Granulocyte % (Auto) 0.7, White Blood Count 13.8H, Red Blood Count 4 .44, Hemoglobin 12.4, Hematocrit 38.6, Mean Corpuscular Volume 86.9, Mean Corpuscular Hemoglobin 27.9, Mean Corpuscular Hemoglobin Concent 32.1, Red Cell Distribution Width 13.7, Platelet Count 302, Neutrophils (%) (Auto) 88.9H, Lymphocytes (%) (Auto) 5.8L, Monocytes (%) (Auto) 3.5, Eosinophils (%) (Auto) 0.7, Basophils (%) (Auto) 0.4, Neutrophils # (Auto) 12.3H, Lymphocytes # (Auto) 0.8L, Monocytes # (Auto) 0.5, Eosinophils # (Auto) 0.1, Basophils # (Auto) 0.1, Nucleated Red Blood Cells % (auto) 0.0, Prothrombin Time 13.0, Prothromb Time International Ratio 0.97, Activated Partial Thromboplast Time 38.0H, Anion Gap 10, Glomerular Filtration Rate > 60.0, Blood Urea Nitrogen 18, Creatinine 0.80, Sodium Level 140, Potassium Level 4.4, Chloride Level 106, Carbon Dioxide Level 24, Calcium Level 9.4, Total Creatine Kinase 59, Creatine Kinase MB 1.0, Creatine Kinase MB Relative Index 1.86, Troponin I < 0.02 09/22/18 17:58: CBC/BMP Laboratory Tests 09/22/18 10:54 Red Blood Count 4.44, Mean Corpuscular Volume 86.9, Mean Corpuscular Hemoglobin 27.9, Mean Corpuscular Hemoglobin Concent 32.1, Red Cell Distribution Width 13.7, Neutrophils (%) (Auto) 88.9 H, Lymphocytes (%) (Auto) 5.8 L, Monocytes (%) (Auto) 3.5, Eosinophils (%) (Auto) 0.7, Basophils (%) (Auto) 0.4, Neutrophils # (Auto) 12.3 H, Lymphocytes # (Auto) 0.8 L, Monocytes # (Auto) 0.5, Eosinophils # (Auto) 0.1, Basophils # (Auto) 0.1, Calcium Level 9.4, Total Creatine Kinase 59 HILLARY ONEILL MD Sep 22, 2018 18:10
[2018-09-22] MEDS ORDERED: CLINDAMYCIN 900 MG in APPROPRIATE DILUENT 1 EA IV ONE (18:15)
[2018-09-22] MEDS ORDERED: MORPHINE 4 MG/ML 1ML VIAL/SYRINGE (J2270) As Ordered ONE (19:33)
--- NOTE | 2018-09-22 19:46 | REP ---
PORTABLE, LEFT FEMUR, TWO VIEWS: HISTORY: Fracture. The proximal femur is not seen in the present radiographs. There is no acute fracture or dislocation. There is mild narrowing of the knee joint spaces with associate osteophyte formation. IMPRESSION:There is no acute fracture or dislocation. Electronically Signed by Sunil Simms MD 09/22/2018 07:52 P
[2018-09-22] MEDS ORDERED: ceFAZolin 1GM INJ (J0690 PER 500MG) As Ordered ONE (20:08)
[2018-09-22] MEDS ORDERED: CLINDAMYCIN INJ 900MG/6ML VIAL As Ordered ONE (20:22)
[2018-09-22] MEDS ORDERED: MIDAZOLAM INJ 2 MG/2 ML VIAL (J2250) As Ordered ONE (20:55)
[2018-09-22] MEDS ORDERED: BUPIVACAINE/DEXTROSE 0.75% 2 ML AMP As Ordered ONE (20:55)
[2018-09-22] MEDS ORDERED: fentaNYL 100 MCG/2 ML INJECTION (J3010) As Ordered ONE (20:55)
[2018-09-22] MEDS ORDERED: PROPOFOL 200 MG/20 ML VIAL As Ordered ONE ×2 (20:55→21:42)
[2018-09-22] MEDS ORDERED: KETAMINE HCL 200 MG/20 ML VIAL As Ordered ONE (20:55)
[2018-09-22] MEDS ORDERED: PHENYLephrine HCL 500 MCG/5 ML (100MCG/ML) SYRINGE (J2370) As Ordered ONE (21:10)
[2018-09-22] MEDS: MEPERIDINE INJ 25 MG/ML VIAL (J2175) IV PRN ×2 (22:05→22:10)
[2018-09-22] MEDS ORDERED: MEPERIDINE INJ 25 MG/ML VIAL (J2175) As Ordered ONE (22:11)
[2018-09-22] MEDS ORDERED: LR 1,000 ML IV SCH (22:15)
[2018-09-22] MEDS ORDERED: NORCO, ANEXSIA 5/325MG TABLET (HYDROcodone/ACETAMINOPHEN) PO PRN (22:15)
[2018-09-22] MEDS ORDERED: ONDANSETRON 4MG/2ML VIAL (J2405) IV PRN (22:15)
[2018-09-22] MEDS ORDERED: fentaNYL 100 MCG/2 ML INJECTION (J3010) IV PRN (22:15)
[2018-09-22 23:15] VITALS: BP 140/71
[2018-09-22] MEDS: ASPIRIN 81 MG ENTERIC TAB PO SCH (23:38)
[2018-09-22] MEDS: ATORVASTATIN 20 MG TAB PO SCH (23:38)
[2018-09-22] MEDS: SENOKOT S TAB PO SCH (23:38)
[2018-09-22] MEDS: traMADol 50 MG TAB PO PRN (23:39)
[2018-09-22 23:45] VITALS: BP 171/85
[2018-09-23] VITALS (7 sets, daily range): BP systolic 127–188; BP diastolic 60–83
--- NOTE | 2018-09-23 00:12 | REP ---
Clinical: Status post fixation. Technique: Portable AP and lateral views of the femur. Findings: In conjunction with left hip series, there is evidence for open reduction and fixation with intramedullary alexx through the femoral shaft with fixation screw through the proximal femur and satisfactory reduction at the intertrochanteric fracture line. Overlying postsurgical changes noted. Impression: Satisfactory open reduction and fixation for intertrochanteric femoral neck fracture. Electronically Signed by Eloy Doll MD 09/23/2018 12:03 A
--- NOTE | 2018-09-23 00:15 | REP ---
Clinical: Status post fixation. Technique: Portable AP and cross table lateral views of the left hip Findings: In conjunction with left hip series, there is evidence for open reduction and fixation with intramedullary alexx through the femoral shaft with fixation screw through the proximal femur and satisfactory reduction at the intertrochanteric fracture line. Overlying postsurgical changes noted. Impression: Satisfactory open reduction and fixation for intertrochanteric femoral neck fracture. Electronically Signed by Eloy Doll MD 09/23/2018 12:06 A
[2018-09-23] MEDS: NS 1,000 ML IV SCH (05:23)
[2018-09-23] MEDS ORDERED: HEPARIN SOD (PORCINE) 5000 UNITS/ML VIAL SC SCH (06:00)
[2018-09-23 06:36] LABS: BASO % 0.3 % (0.0-1.0); HEMATOCRIT 32.8 % (36.0-47.0); HEMOGLOBIN 10.8 g/dl (12.0-15.5); LYMPH # 1.1 10^3/uL (1.5-4.5); LYMPH % 10.6 % (24.0-44.0); MEAN CORPUSCULAR HEMOGLOBIN 27.7 pg (27.0-33.0); MEAN CORPUSCULAR HGB CONC 32.9 g/dl (32.0-36.5); MEAN CORPUSCULAR VOLUME 84.1 fl (80.0-96.0); MONO # 0.7 10^3/uL (0.0-0.8); MONO % 6.4 % (0.0-5.0); NEUTROPHILS # 8.6 10^3/uL (1.8-7.7); PLATELET COUNT, AUTOMATED 259 10^3/uL (150-450); WHITE BLOOD COUNT 10.5 10^3/uL (4.0-10.0)
[2018-09-23 07:03] LABS: ALBUMIN 3.4 GM/DL (3.2-5.2); ALT/SGPT 19 U/L (12-78); BILIRUBIN,TOTAL 0.7 MG/DL (0.2-1.0); BLOOD UREA NITROGEN 14 MG/DL (7-18); CALCIUM LEVEL 8.5 MG/DL (8.5-10.1); CARBON DIOXIDE LEVEL 25 MEQ/L (21-32); CHLORIDE LEVEL 104 MEQ/L (98-107); CREATININE FOR GFR 0.67 MG/DL (0.55-1.30); GLOMERULAR FILTRATION RATE > 60.0 (>51); GLUCOSE, FASTING 177 MG/DL (70-100); SODIUM LEVEL 136 MEQ/L (136-145); TOTAL PROTEIN 6.3 GM/DL (6.4-8.2)
[2018-09-23] MEDS: traMADol 50 MG TAB PO PRN ×4 (07:03→22:22)
[2018-09-23] MEDS: HumaLOG INSULIN (NovoLOG) PER UNIT SC SCH ×4 (07:04→21:00)
--- NOTE | 2018-09-23 07:24 | REP ---
Clinical: Open reduction and fixation. Technique: Intraoperative fluoroscopic imaging using portable C-arm technique. Findings: Multiple intraoperative fluoroscopic images demonstrate the patient to be status post intramedullary alexx placement and compression screw for intertrochanteric femoral neck fracture. Total fluoroscopic time 1 minute 40 seconds. Impression: Status post intraoperative fixation for intertrochanteric femoral neck fracture. Electronically Signed by Eloy Doll MD 09/23/2018 07:16 A
[2018-09-23] MEDS: VANCOMYCIN HCL 1,000 MG, VIAL MATE ADAPTER 1 EACH in D5W 250 ML IV SCH ×2 (07:58→19:46)
[2018-09-23] MEDS: oxyBUTYnin *DITROPAN XL* 5 MG TABCR PO SCH (07:59)
[2018-09-23] MEDS: MIRALAX *UNIT DOSE* 17GM PACKET PO SCH (07:59)
[2018-09-23] MEDS: amLODIPine 10 MG TAB PO SCH (08:00)
[2018-09-23] MEDS: BENAZEPRIL 20 MG TAB PO SCH (08:00)
[2018-09-23] MEDS: PANTOPRAZOLE 40MG TAB (PROTONIX) PO SCH (08:00)
[2018-09-23] MEDS: SENOKOT S TAB PO SCH ×2 (08:00→22:20)
--- NOTE | 2018-09-23 08:54 | ECGEPIP ---
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
[2018-09-23] MEDS ORDERED: HumaLOG INSULIN (NovoLOG) PER UNIT SC SCH (12:00)
--- NOTE | 2018-09-23 13:06 | RO ---
DATE OF PROCEDURE: 09/22/2018 PREOPERATIVE DIAGNOSIS: Left intertrochanteric femur fracture. POSTOPERATIVE DIAGNOSIS: Left intertrochanteric femur fracture. PROCEDURE PERFORMED: Left hip closed reduction and cephalomedullary nail fixation. SURGEON: Wei Chamorro MD DIE ASSEMBLER: None. ANESTHESIA PROVIDER: Abdiaziz Talavera DO ANESTHESIA GIVEN: Single-shot spinal and sedation. ESTIMATED BLOOD LOSS: 150 mL. IMPLANTS USED: Synthes TFN-Advanced 11 mm x 380 mm nail with a 100 mm helical blade and two 5-mm interlocking screws measuring 40 and 38 mm in length. ANTIBIOTICS: 900 mg of intravenous (IV) clindamycin and 1 gram IV vancomycin given within 1 hour of incision. MATERIALS SENT TO LABORATORY: None. COMPLICATIONS: None. INDICATION FOR PROCEDURE: Ginny Richmond is a 57-year-old obese diabetic female who sustained a mechanical fall from standing height. resulting in a left intertrochanteric femur fracture. She was admitted to the hospitalist service and found to be medically optimized for surgery. The patient does have a history of surgical site infections after multiple prior procedures. Given the high- risk nature of the patient, I counseled her regarding the risks, benefits, indications, and alternatives of operative versus nonoperative management and recommended cephalomedullary nail fixation with the understanding that she is at a high risk of infection. I recommend perioperative antibiotics and strict blood glucose control in the perioperative period. She expressed understanding and provided informed consent for left hip cephalomedullary nail fixation. I counseled her that I will be her operating surgeon, but her followup care will be conducted by [facility]. She expressed understanding of this arrangement. INTRAOPERATIVE FINDINGS: Stable intertrochanteric femur fracture, stable after fixation. DESCRIPTION OF PROCEDURE: The patient was positively identified in the preoperative holding area. The surgical site was marked. She was then brought to the operating room where she was given single-shot spinal anesthesia. She was positioned supine on the fracture table with all bony prominences appropriately padded. Sequential compression device (SCD) was placed on the nonoperative extremity for deep venous thrombosis (DVT) prophylaxis. I obtained a provisional reduction using traction and rotation and adduction of the leg. I obtained Supervisor Of Officials fluoroscopic C-arm images prior to prepping and draping to confirm provisional reduction. She was then prepped and draped in usual sterile fashion. A final time-out was performed. A 3-cm incision was made about three fingerbreadths proximal and posterior to the tip of the greater trochanter. I dissected through skin and subcutaneous tissue. I introduced a 3.2-mm threaded guidepin into the tip of the greater trochanter, centered on AP and lateral fluoroscopic imaging. It was advanced to the level of the lesser trochanter. I then introduced the opening reamer and placed the opening reamer to an appropriate depth. This was then followed by placement of a ball-tip guidewire down the shaft of the femur to the level of the superior pole of the patella where it was centered on the knee in AP and lateral imaging. I then measured for the length of the nail and elected to place a 380-mm nail. This was then followed by reaming with the 12.5-mm end-cutting reamer in the shaft of the femur, followed by placement of the nail to an appropriate depth. I then made an accessory lateral incision for the helical blade guide, which was introduced and seated on the lateral femoral cortex. After dissecting through skin and subcutaneous tissue and IT band, I then introduced the 3.2-mm guidewire for the helical blade centered in the femoral neck on AP and lateral fluoroscopic imaging. It was then measured, reamed to a depth of 100 mm, and a 100-mm helical blade was inserted in standard fashion. I then obtained AP and lateral hip imaging to confirm no intra-articular penetration of implants and acceptable reduction. After this was completed, I then placed two distal interlocking screws using standard perfect lone pine technique. After all hardware was placed, I obtained final fluoroscopic images of the hip and knee, followed by thorough irrigation of the wound with normal saline mixed with 600 mg clindamycin. The wounds were then closed in layers. The proximal two incisions were closed with 2-0 Vicryl in a buried fashion with walker for the skin. The stab incisions for the distal interlocking screws were closed with walker. Sterile dressings were applied. This ended the procedure. I was present and scrubbed in for all portions of the case. POSTOPERATIVE PLAN: The patient will return to the hospital floor. She will be weightbearing as tolerated to the left lower extremity. She will be on Xarelto for deep venous thrombosis (DVT) prophylaxis. She will begin physical therapy tomorrow and will be discharged home when criteria met. ABBEY
--- NOTE | 2018-09-23 14:20 | IPNPDOC ---
Text Note Date of Service The patient was seen on 09/23/18. NOTE Subjective: Patient states she has mild pain in the left hip however developed relatively controlled. No radiculopathy. Otherwise feels well. No chest shortness of breath. Objective: Vitals: (see below) General: No acute distress, laying comfortably in bed. HEENT: Moist mucous membranes. Neck: No JVD or lymphadenopathy Cardiac: RRR, No murmurs Pulm: Clear to auscultation b/l. No wheezing, rhonchi Abd: NT/ND + BS Ext: Mild swelling of the left hip region. No bleeding noted. Distal pulses intact. No cyanosis. Labs (see below) Assessment/Plan 1. Hip fx status post ORIF- management per orthopedics. Status post Mechanical fall. 2. Diabetes mellitus- sliding scale insulin. Consistent carb diet. 3. History of asthma stable. Will need outpatient follow-up. 4. Hypertension. Continue amlodipine, MARJAN inhibitor, started on hydralazine. DVT prophy: Per orthopedics PT/OT. VS,Fishbone, I+O VS, Fishbone, I+O Laboratory Tests 09/23/18 06:03 Red Blood Count 3.90 L, Mean Corpuscular Volume 84.1, Mean Corpuscular Hemoglobin 27.7, Mean Corpuscular Hemoglobin Concent 32.9, Red Cell Distribution Width 13.6, Neutrophils (%) (Auto) 82.0 H, Lymphocytes (%) (Auto) 10.6 L, Monocytes (%) (Auto) 6.4 H, Eosinophils (%) (Auto) 0.0, Basophils (%) (Auto) 0.3, Neutrophils # (Auto) 8.6 H, Lymphocytes # (Auto) 1.1 L, Monocytes # (Auto) 0.7, Eosinophils # (Auto) 0.0, Basophils # (Auto) 0.0, Calcium Level 8.5, Aspartate Amino Transf (AST/SGOT) 14, Alanine Aminotransferase (ALT/SGPT) 19, Alkaline Phosphatase 52, Total Bilirubin 0.7, Total Protein 6.3 L, Albumin 3.4 Vital Signs Date Time Temp Pulse Resp B/P (MAP) Pulse Ox O2 Delivery O2 Flow Rate FiO2 09/23/18 14:12 18 09/23/18 08:00 168/78 09/23/18 08:00 95 09/23/18 05:45 2.0 09/23/18 03:45 97.8 94 09/22/18 22:50 Nasal Cannula I&O- Last 24 Hours up to 6 AM 09/23/18 06:00 Intake Total 1710 ml Output Total 1050 ml Balance 660 ml MARY KATE MCKEON MD Sep 23, 2018 14:20
[2018-09-23] MEDS: **hydrALAZINE HCL** 25 MG TAB PO SCH ×2 (15:41→22:21)
[2018-09-23] MEDS: RIVAROXABAN 10 MG TAB (XARELTO) PO SCH (17:42)
[2018-09-23] MEDS: ACETAMINOPHEN TAB 650MG DOSE (2X325MG) PO PRN (17:43)
[2018-09-23] MEDS: ASPIRIN 81 MG ENTERIC TAB PO SCH (22:20)
[2018-09-23] MEDS: ATORVASTATIN 20 MG TAB PO SCH (22:20)
[2018-09-24] MEDS ORDERED: CALCIUM CARBONATE 500 MG CHEW U/D PO ONE (00:15)
[2018-09-24] MEDS: ACETAMINOPHEN TAB 650MG DOSE (2X325MG) PO PRN (04:15)
[2018-09-24] MEDS ORDERED: ALBUTEROL SULFATE 2.5 MG/0.5 ML INH NEB SOLN NEB PRN (05:00)
[2018-09-24 06:00] VITALS: BP 146/72
[2018-09-24] MEDS: **hydrALAZINE HCL** 25 MG TAB PO SCH ×3 (06:19→21:18)
[2018-09-24 06:20] LABS: BASO % 0.3 % (0.0-1.0); EOS # 0.1 10^3/uL (0.0-0.50); EOS % 1.4 % (0.0-3.0); HEMATOCRIT 31.7 % (36.0-47.0); HEMOGLOBIN 10.2 g/dl (12.0-15.5); LYMPH # 1.3 10^3/uL (1.5-4.5); LYMPH % 13.8 % (24.0-44.0); MEAN CORPUSCULAR HEMOGLOBIN 27.5 pg (27.0-33.0); MEAN CORPUSCULAR HGB CONC 32.2 g/dl (32.0-36.5); MEAN CORPUSCULAR VOLUME 85.4 fl (80.0-96.0); MONO # 0.8 10^3/uL (0.0-0.8); NEUTROPHILS # 6.8 10^3/uL (1.8-7.7); NEUTROPHILS % 75.2 % (36.0-66.0); PLATELET COUNT, AUTOMATED 226 10^3/uL (150-450); RED BLOOD COUNT 3.71 10^6/uL (4.00-5.40); WHITE BLOOD COUNT 9.1 10^3/uL (4.0-10.0)
[2018-09-24 06:44] LABS: ALBUMIN 3.1 GM/DL (3.2-5.2); ALT/SGPT 16 U/L (12-78); BILIRUBIN,TOTAL 0.6 MG/DL (0.2-1.0); BLOOD UREA NITROGEN 14 MG/DL (7-18); CALCIUM LEVEL 8.5 MG/DL (8.5-10.1); CARBON DIOXIDE LEVEL 26 MEQ/L (21-32); CHLORIDE LEVEL 104 MEQ/L (98-107); CREATININE FOR GFR 0.67 MG/DL (0.55-1.30); GLOMERULAR FILTRATION RATE > 60.0 (>51); GLUCOSE, FASTING 180 MG/DL (70-100); POTASSIUM SERUM 3.9 MEQ/L (3.5-5.1); SODIUM LEVEL 136 MEQ/L (136-145); TOTAL PROTEIN 6.4 GM/DL (6.4-8.2)
[2018-09-24] MEDS: ADVAIR HFA 230/21MCG INHALER INH SCH ×2 (08:03→19:40)
[2018-09-24] MEDS: oxyBUTYnin *DITROPAN XL* 5 MG TABCR PO SCH (08:52)
[2018-09-24] MEDS: SENOKOT S TAB PO SCH ×2 (08:52→21:15)
[2018-09-24] MEDS: BENAZEPRIL 20 MG TAB PO SCH (08:52)
[2018-09-24] MEDS: HumaLOG INSULIN (NovoLOG) PER UNIT SC SCH ×4 (08:52→21:00)
[2018-09-24] MEDS: amLODIPine 10 MG TAB PO SCH (08:52)
[2018-09-24] MEDS: PANTOPRAZOLE 40MG TAB (PROTONIX) PO SCH (08:52)
[2018-09-24] MEDS: traMADol 50 MG TAB PO PRN ×3 (08:53→21:15)
[2018-09-24] MEDS: MIRALAX *UNIT DOSE* 17GM PACKET PO SCH (08:53)
[2018-09-24 14:00] VITALS: BP 133/68
--- NOTE | 2018-09-24 16:25 | IPNPDOC ---
Text Note Date of Service The patient was seen on 09/24/18. NOTE Subjective: Patient feels well today. States that she still has left hip pain however it is reasonably controlled. No radiculopathy. No abdominal pain. No nausea or vomiting. Objective: Vitals: (see below) General: No acute distress, laying comfortably in bed. HEENT: Moist mucous membranes. Neck: No JVD or lymphadenopathy Cardiac: RRR, No murmurs Pulm: Clear to auscultation b/l. No wheezing, rhonchi Abd: NT/ND + BS Ext: Mild swelling of the left hip region. No bleeding noted. Bandage is intact. Distal pulses intact. No cyanosis. Labs (see below) Assessment/Plan 1. Hip fx status post ORIF- management per orthopedics. Status post Mechanical fall. 2. Diabetes mellitus- sliding scale insulin. Consistent carb diet. 3. History of asthma stable. Will need outpatient follow-up. 4. Hypertension. Continue amlodipine, MARJAN inhibitor, hydralazine. DVT prophy: Per orthopedics PT/OT. VS,Fishbone, I+O VS, Fishbone, I+O Laboratory Tests 09/24/18 05:50 Red Blood Count 3.71 L, Mean Corpuscular Volume 85.4, Mean Corpuscular Hemo globin 27.5, Mean Corpuscular Hemoglobin Concent 32.2, Red Cell Distribution Width 13.5, Neutrophils (%) (Auto) 75.2 H, Lymphocytes (%) (Auto) 13.8 L, Monocytes (%) (Auto) 9.0 H, Eosinophils (%) (Auto) 1.4, Basophils (%) (Auto) 0.3, Neutrophils # (Auto) 6.8, Lymphocytes # (Auto) 1.3 L, Monocytes # (Auto) 0.8, Eosinophils # (Auto) 0.1, Basophils # (Auto) 0.0, Calcium Level 8.5, Aspartate Amino Transf (AST/SGOT) 10, Alanine Aminotransferase (ALT/SGPT) 16, Alkaline Phosphatase 50, Total Bilirubin 0.6, Total Protein 6.4, Albumin 3.1 L Vital Signs Date Time Temp Pulse Resp B/P (MAP) Pulse Ox O2 Delivery O2 Flow Rate FiO2 09/24/18 16:06 16 09/24/18 15:09 146/72 09/24/18 06:00 98.0 89 94 2.0 09/22/18 22:50 Nasal Cannula I&O- Last 24 Hours up to 6 AM 09/24/18 06:00 Intake Total 2120 ml Output Total 1200 ml Balance 920 ml MARY KATE MCKEON MD Sep 24, 2018 16:25
[2018-09-24] MEDS: RIVAROXABAN 10 MG TAB (XARELTO) PO SCH (17:45)
[2018-09-24] MEDS: ATORVASTATIN 20 MG TAB PO SCH (21:15)
[2018-09-24] MEDS: ASPIRIN 81 MG ENTERIC TAB PO SCH (21:15)
[2018-09-24 22:00] VITALS: BP 109/55
[2018-09-25 06:00] VITALS: BP 130/59
[2018-09-25] MEDS: **hydrALAZINE HCL** 25 MG TAB PO SCH ×2 (06:03→14:33)
[2018-09-25] MEDS: traMADol 50 MG TAB PO PRN ×3 (06:04→18:51)
[2018-09-25 07:02] LABS: BASO % 0.4 % (0.0-1.0); EOS # 0.1 10^3/uL (0.0-0.50); EOS % 0.8 % (0.0-3.0); HEMOGLOBIN 9.7 g/dl (12.0-15.5); LYMPH # 1.7 10^3/uL (1.5-4.5); LYMPH % 16.1 % (24.0-44.0); MEAN CORPUSCULAR HEMOGLOBIN 27.3 pg (27.0-33.0); MEAN CORPUSCULAR HGB CONC 32.3 g/dl (32.0-36.5); MEAN CORPUSCULAR VOLUME 84.5 fl (80.0-96.0); MONO # 0.9 10^3/uL (0.0-0.8); MONO % 8.7 % (0.0-5.0); NEUTROPHILS # 7.8 10^3/uL (1.8-7.7); NEUTROPHILS % 73.5 % (36.0-66.0); PLATELET COUNT, AUTOMATED 247 10^3/uL (150-450); RED BLOOD COUNT 3.55 10^6/uL (4.00-5.40); WHITE BLOOD COUNT 10.6 10^3/uL (4.0-10.0)
[2018-09-25 07:23] LABS: ALBUMIN 3.1 GM/DL (3.2-5.2); ALT/SGPT 16 U/L (12-78); BILIRUBIN,TOTAL 0.8 MG/DL (0.2-1.0); BLOOD UREA NITROGEN 21 MG/DL (7-18); CALCIUM LEVEL 8.6 MG/DL (8.5-10.1); CARBON DIOXIDE LEVEL 24 MEQ/L (21-32); CHLORIDE LEVEL 101 MEQ/L (98-107); CREATININE FOR GFR 0.82 MG/DL (0.55-1.30); GLOMERULAR FILTRATION RATE > 60.0 (>51); GLUCOSE, FASTING 195 MG/DL (70-100); POTASSIUM SERUM 3.8 MEQ/L (3.5-5.1); SODIUM LEVEL 135 MEQ/L (136-145); TOTAL PROTEIN 6.8 GM/DL (6.4-8.2)
[2018-09-25] MEDS: ADVAIR HFA 230/21MCG INHALER INH SCH ×2 (07:38→21:06)
[2018-09-25 08:05] VITALS: BP 148/70
--- NOTE | 2018-09-25 08:24 | IPN ---
DATE: 09/25/2018 CHIEF COMPLAINT: Postoperative day #3 for intramedullary (IM) nail long (of displaced intratrochanteric hip fracture. HISTORY OF PRESENT ILLNESS: This 57-year-old female sustained a displaced left intratrochanteric hip fracture. This was fixed by Dr. Chamorro three days ago now. She is doing well. She has no complaints of chest pain, shortness of breath, chills or any other constitutional symptoms. PHYSICAL EXAMINATION: This morning reveals respiratory rate of 18 and blood pressure 130/67. Temperature 97.9. Pulse rate 82 and 96% on room air. She is alert and oriented times three. Mood and affect is pleasant and positive. Thigh compartments are soft. There is no obvious strikethrough on dressings. Normal sensation in her lower extremities and the feet. She is able to wiggle toes and dorsiflex and plantarflex her feet. They appear warm and well perfused with good pedal pulses. LABORATORY EXAM: Reveal a hemoglobin of 9.7. This is trending down from before surgery of 12.4, but appears to be stable over the last three days. Chemistries are overall normal. ASSESSMENT AND PLAN: This 57-year-old female who is on postoperative day #3 from a left hip long IM nail for intratrochanteric hip fracture is doing well. We encouraged her to mobilize, weightbearing as tolerated. She is on rivaroxaban 10 mg by mouth daily for deep venous thrombosis (DVT) prophylaxis and sequential compressive device (SCD) while she is in bed. We encouraged her to mobilize and do some deep breathing. We will see how she does.
[2018-09-25] MEDS: HumaLOG INSULIN (NovoLOG) PER UNIT SC SCH ×4 (08:25→20:02)
[2018-09-25] MEDS: MIRALAX *UNIT DOSE* 17GM PACKET PO SCH (08:26)
[2018-09-25] MEDS: SENOKOT S TAB PO SCH ×2 (08:26→20:02)
[2018-09-25] MEDS: BENAZEPRIL 20 MG TAB PO SCH (08:26)
[2018-09-25] MEDS: amLODIPine 10 MG TAB PO SCH (08:26)
[2018-09-25] MEDS: oxyBUTYnin *DITROPAN XL* 5 MG TABCR PO SCH (08:26)
[2018-09-25] MEDS: PANTOPRAZOLE 40MG TAB (PROTONIX) PO SCH (08:26)
[2018-09-25 14:00] VITALS: BP 126/66
[2018-09-25 14:33] VITALS: BP 126/66
[2018-09-25] MEDS: RIVAROXABAN 10 MG TAB (XARELTO) PO SCH (17:31)
[2018-09-25] MEDS: ATORVASTATIN 20 MG TAB PO SCH (20:02)
[2018-09-25] MEDS: ASPIRIN 81 MG ENTERIC TAB PO SCH (20:02)
--- NOTE | 2018-09-26 15:41 | DS.PDOC ---
Discharge Summary General Date of Admission Sep 22, 2018 at 15:05 Date of Discharge 09/26/18 Attending Physician: MARY KATE MCKEON MD Specialist/Consultants Involve: Dakota Jordan Discharge Summary PROCEDURES PERFORMED DURING STAY: ORIF ADMITTING/DISCHARGE DIAGNOSES: 1. Hip fx status post ORIF- management per orthopedics. Status post Mechanical fall. 2. Diabetes mellitus 3. History of asthma stable. 4. Hypertension. COMPLICATIONS/CHIEF COMPLAINT: Hip pain HISTORY OF PRESENT ILLNESS/HOSPITAL COURSE: This is a 57 y/o F with PMHx HTN, DM, asthma who present with mechanical fall. Pt had tripped over her husbands shoe laces, fell and had a hip fx. Orthopedics were consulted, and patient underwent a ORIF. Pt tolerated procedure well. Pt's BP medications have been adjusted. Pt is now hemodynamically stable, accepted by ARU, and will be d/c to Dr. Kidd's service. Pt is to return to ED if symptoms worsen. DISCHARGE MEDICATIONS: Please see below. ALLERGIES: Please see below. PHYSICAL EXAMINATION ON DISCHARGE: Vitals: (see below) General: No acute distress, laying comfortably in bed. HEENT: Moist mucous membranes. Neck: No JVD or lymphadenopathy Cardiac: RRR, No murmurs Pulm: Clear to auscultation b/l. No wheezing, rhonchi Abd: NT/ND + BS Ext: Mild swelling of the left hip region. No bleeding noted. Bandage is intact. Distal pulses intact. No cyanosis. LABORATORY DATA: Please see below. PROGNOSIS: Fair ACTIVITY: As tolerated. DIET: Consistent carb diet DISCHARGE PLAN/DISPOSITION: ARU DISCHARGE INSTRUCTIONS: 1. F/u with PCP and nephrology in 1 week. Return to ED if symptoms worsen. DISCHARGE CONDITION: Stable. TIME SPENT ON DISCHARGE: Greater than 30 minutes. Vital Signs/I&Os Vital Signs Date Time Temp Pulse Resp B/P (MAP) Pulse Ox O2 Delivery O2 Flow Rate FiO2 09/25/18 19:21 18 09/25/18 14:33 126/66 09/25/18 14:00 97.6 101 95 09/24/18 22:00 2.0 09/22/18 22:50 Nasal Cannula I&O- Last 24 Hours up to 6 AM 09/26/18 06:00 Intake Total 680 ml Balance 680 ml Laboratory Data Labs 24H Laboratory Tests 2 09/25/18 16:52: Bedside Glucose (Misc Panel) 186H 09/25/18 20:01: Bedside Glucose (Misc Panel) 202H FSBS Laboratory Tests Test 09/25/18 16:52 09/25/18 20:01 Range/Units Bedside Glucose (Misc Panel) 186 202 70-105 MG/DL Discharge Medications Scheduled (Urea) 45 % Cre, 1 APLCT TOP QHS, (Reported) APPLY TO TOE (Calcium 600+D3 600-800 mg-Unit) 1 Tab Tab, 3 TAB PO DAILY, (Reported) Acetaminophen (Acetaminophen ER) 650 Mg Tab, 650 MG PO QAM, (Reported) Amlodipine Besylate (Amlodipine Besylate) 10 Mg Tab, 10 MG PO DAILY, (Reported) Ascorbic Acid (Ascorbic Acid) 1,000 Mg Tab, 1,000 MG PO DAILY, (Reported) Aspirin (Aspir-81) 81 Mg Tab, 81 MG PO QHS, (Reported) Atorvastatin Calcium (Atorvastatin Calcium) 40 Mg Tab, 40 MG PO QHS, (Reported) Benazepril HCl (Benazepril HCl) 40 Mg Tab, 40 MG PO DAILY, (Reported) Calcium Polycarbophil (Fibercon) 625 Mg Tab, 625 MG PO DAILY, (Reported) Cranberry (Hm Cranberry Ultra Streng) 500 Mg Tab, 500 MG PO DAILY, (Reported) Docusate Sodium (Docusate Sodium) 100 Mg Cap, 100 MG PO BID, (Reported) Fluticasone Propionate (Flonase Allergy Relief) 50 Mcg/Act Spr, 2 SPRAYS NA BID, (Reported) Glipizide (Glucotrol Xl) 5 Mg Tab, 5 MG PO DAILY, (Reported) Loratadine (Claritin) 10 Mg Cap, 10 MG PO DAILY, (Reported) Metformin Hydrochloride (Metformin HCl) 1,000 Mg Tab, 1,000 MG PO QAM, (Reported) Metformin Hydrochloride (Metformin HCl) 500 Mg Tab, 500 MG PO QPM, (Reported) Multivitamins *[facility] STOCKED* (Thera M Plus *[facility] STOCKED*) 1 Tab Tab, 1 TAB PO DAILY, (Reported) Oxybutynin Chloride (Oxybutynin Chloride ER) 5 Mg Tab, 5 MG PO DAILY, (Reported) Pantoprazole Sodium (Pantoprazole Sodium) 40 Mg Tab, 40 MG PO DAILY, (Reported) Salmeterol/Fluticasone (Advair Diskus 250-50 Mcg/Dose) 14 Puff/Inhaler Aerp, 1 PUFF INH BID, (Reported) Simethicone (Simethicone) 80 Mg Chew, 80 MG PO BID, (Reported) Sitagliptin Phosphate (Januvia) 100 Mg Tab, 100 MG PO DAILY, (Reported) Scheduled PRN Albuterol Sulfate (Proair Hfa) 108 Mcg/Act Aer, 2 PUFF INH QID PRN for SHORTNESS OF BREATH, (Reported) Lidocaine (Lidoderm) 5 % Dis, 1 PATCH TD DAILY PRN for PAIN, (Reported) APPLY TO RIGHT ANKLE Ondansetron HCl (Zofran) 4 Mg Tab, 4 MG PO for NAUSEA, (Reported) Allergies Coded Allergies: Cephalosporins (Verified Allergy, Intermediate, HIVES, 09/22/18) MARY KATE MCKEON MD Sep 26, 2018 15:41
== END 2018-09-25 20:50 | DRG 482 ==
LOC: EDBD 09:48 → M ED 09:48 → M ED INP 15:05 → M MS5PR 16:42 → M PM&R 09-25 21:04 → M MS5PR 09-25 21:04
PROVIDERS: ADMIT Internal Medicine; ATTEND Internal Medicine
PROC: 0QS734Z Reposition Left Upper Femur with Internal Fixation Device, Percutaneous Approach (ICD-10-PCS; principal; 2018-09-22 18:00)
DX: S72.142A Displaced intertrochanteric fracture of left femur, initial encounter for closed fracture (principal); I10 Essential (primary) hypertension; E11.51 Type 2 diabetes mellitus with diabetic peripheral angiopathy without gangrene; J45.909 Unspecified asthma, uncomplicated; W18.09XA Striking against other object with subsequent fall, initial encounter; Y92.009 Unspecified place in unspecified non-institutional (private) residence as the place of occurrence of the external cause; Z79.899 Other long term (current) drug therapy; Z79.82 Long term (current) use of aspirin; Z88.8 Allergy status to other drugs, medicaments and biological substances

== ENCOUNTER 2018-09-25 16:58 | Inpatient (IN) | payer OTHER ==
[~2018-09-25] VITALS: Ht 175.3 cm; Wt 115.8 kg
[~2018-09-25 16:58] MED LIST changes: +ACE65ERTAB PO; +ASCO10003 PO; +CALC1TAB19 PO; +FIBE625T PO; +HM C500T3 PO; +JANU100T PO; +PANT40TA3 PO; +PROAAER10 INH; +SIME80TA PO; -VANCOMYCIN HCL 1,000 MG, VIAL MATE ADAPTER 1 EACH in D5W 250 ML IV ONE; +VITMTA PO; +[UNRECOGNIZED DRUG - CODE] EX; +[UNRECOGNIZED DRUG - CODE] TOP
[2018-09-25] MEDS ORDERED: BISACODYL 10 MG SUPP PR PRN (18:30)
[2018-09-25] MEDS ORDERED: DEXTROSE 50% 50 ML SYRINGE IV PRN (18:30)
[2018-09-25] MEDS ORDERED: ALBUTEROL 90 MCG/ACT 8GM HFA INHALER INH PRN (18:30)
[2018-09-25] MEDS ORDERED: GLUCOSE 4 GM CHEW TABLET PO PRN (18:30)
[2018-09-25] MEDS ORDERED: GLUCAGON FOR INJ 1 MG VIAL (J1610) SC PRN (18:30)
[2018-09-25] MEDS ORDERED: ACETAMINOPHEN TAB 650MG DOSE (2X325MG) PO PRN (18:30)
[2018-09-25] MEDS ORDERED: PERCOCET 5MG/325MG TAB PO PRN (18:30)
[2018-09-25] MEDS ORDERED: ONDANSETRON 4 MG TAB (S0181) PO PRN (18:30)
[2018-09-25] MEDS ORDERED: MOM 30ML SUSPENSION UDC PO PRN (18:30)
[2018-09-25 20:45] VITALS: BP 140/69
[2018-09-26] MEDS: **hydrALAZINE HCL** 25 MG TAB PO SCH ×4 (00:26→21:48)
[2018-09-26] MEDS: PERCOCET 5MG/325MG TAB PO SCH ×3 (00:28→12:17)
[2018-09-26] MEDS: ACETAMINOPHEN 325 MG TAB PO SCH ×4 (00:28→21:41)
[2018-09-26] MEDS: FERROUS GLUCONATE 324 MG TAB PO SCH ×2 (00:29→08:25)
[2018-09-26] MEDS: DOCUSATE SODIUM 100 MG CAP PO SCH ×3 (00:29→21:40)
[2018-09-26] MEDS: GABAPENTIN 100 MG CAP PO SCH ×2 (00:29→08:25)
[2018-09-26] MEDS: SENNA 8.6 MG TAB (SENOKOT) PO SCH ×2 (00:29→21:41)
[2018-09-26 00:37] LABS: APPEARANCE, URINE HAZY (CLEAR); BACTERIA, URINE AUTO 1+ (NEGATIVE); BILIRUBIN, URINE AUTO NEGATIVE (NEGATIVE); BLOOD, URINE BLOOD NEGATIVE (NEGATIVE); COLOR, URINE YELLOW (YELLOW); GLUCOSE, URINE (UA) AUTO NEGATIVE (NEGATIVE); KETONE, URINE AUTO NEGATIVE (NEGATIVE); LEUKOCYTE ESTERASE, URINE AUTO NEGATIVE (NEGATIVE); MUCUS, URINE SMALL (NEGATIVE); NITRITE, URINE AUTO NEGATIVE (NEGATIVE); PROTEIN, URINE AUTO 1+ mg/dL (NEGATIVE); RBC, URINE AUTO 3 /HPF (0-3); SPECIFIC GRAVITY URINE AUTO 1.019 (1.002-1.035); SQUAMOUS EPITHELIAL CELL UR AU 2 /HPF (0-6); UROBILINOGEN, URINE AUTO 0.2 mg/dL (0.0-2.0); WBC, URINE AUTO 6 /HPF (0-3)
[2018-09-26 06:00] VITALS: BP 147/67
[2018-09-26] MEDS: HumaLOG INSULIN (NovoLOG) PER UNIT SC SCH ×3 (08:19→17:24)
[2018-09-26] MEDS: oxyBUTYnin *DITROPAN XL* 5 MG TABCR PO SCH (08:20)
[2018-09-26] MEDS: PANTOPRAZOLE 40MG TAB (PROTONIX) PO SCH (08:20)
[2018-09-26] MEDS: amLODIPine 10 MG TAB PO SCH (08:25)
[2018-09-26] MEDS: BENAZEPRIL 20 MG TAB PO SCH (08:25)
[2018-09-26 08:46] LABS: BASO # 0.1 10^3/uL (0.0-0.2); BASO % 0.4 % (0.0-1.0); EOS # 0.2 10^3/uL (0.0-0.50); EOS % 1.6 % (0.0-3.0); HEMATOCRIT 31.4 % (36.0-47.0); HEMOGLOBIN 9.9 g/dl (12.0-15.5); LYMPH # 1.4 10^3/uL (1.5-4.5); LYMPH % 11.2 % (24.0-44.0); MEAN CORPUSCULAR HEMOGLOBIN 27.6 pg (27.0-33.0); MEAN CORPUSCULAR HGB CONC 31.5 g/dl (32.0-36.5); MEAN CORPUSCULAR VOLUME 87.5 fl (80.0-96.0); MONO # 0.8 10^3/uL (0.0-0.8); MONO % 6.4 % (0.0-5.0); NEUTROPHILS # 9.9 10^3/uL (1.8-7.7); NEUTROPHILS % 79.9 % (36.0-66.0); PLATELET COUNT, AUTOMATED 308 10^3/uL (150-450); RED BLOOD COUNT 3.59 10^6/uL (4.00-5.40); WHITE BLOOD COUNT 12.5 10^3/uL (4.0-10.0)
[2018-09-26] MEDS: ADVAIR HFA 230/21MCG INHALER INH SCH ×2 (09:00→20:38)
[2018-09-26 09:17] LABS: BILIRUBIN,TOTAL 0.8 MG/DL (0.2-1.0); CALCIUM LEVEL 8.5 MG/DL (8.5-10.1); CREATININE FOR GFR 1.34 MG/DL (0.55-1.30); GLOMERULAR FILTRATION RATE 43.1 (>51); POTASSIUM SERUM 3.8 MEQ/L (3.5-5.1); TOTAL PROTEIN 6.2 GM/DL (6.4-8.2)
[2018-09-26 13:40] VITALS: BP 131/66
[2018-09-26] MEDS ORDERED: NS 1,000 ML IV ONE (14:00)
--- NOTE | 2018-09-26 17:17 | HPEPDOC ---
Neurosurgical Physician Assistant Note DATE OF ADMISSION: Sep 25, 2018 at 21:47 SOURCE OF ADMISSION INFORMATION: patient and [facility] records CHIEF COMPLAINT: left hip fracture HISTORY OF PRESENT ILLNESS: 57F pmh multiple fractures HTN, DM2, HLD, obesity who fell at home over her 's shoe lace and presented to [facility] ED on 09/22/18 complaining of left leg pain and difficulty walking. She denied any dizziness, LOC or head trauma. Imaging revealed a "Nondisplaced intertrochanteric fracture of the left femur." She was evaluated by orthopedic surgery who performed an ORIF and follow-up X-rays on 09/22/18 showed, "Satisfactory open reduction and fixation for intertrochanteric femoral neck fracture" She had no immediate complications however did have leukocytosis and uncontrolled blood sugars. Her blood pressure was elevated and hydralazine started for better control. She was evaluated by therapy and found to have deficits in ambulation and ADLs and deemed medically appropriate for discharge to ARU on 09/25/18. REVIEW OF SYSTEMS: The following is a completed review of systems and has been reviewed. Review of systems otherwise unremarkable. PAIN: Patient self reports left hip and right ankle pain (chronic) EYES: Negative for recent vision loss EARS, NOSE, & THROAT: no dysphagia, sore throat, rhinorrhea, or hearing loss CARDIOVASCULAR: denies chest pain or palpitations PULMONARY: Negative. Denies shortness of breath or cough GASTROINTESTINAL: +diarrhea GENITOURINARY: No dysuria or hematuria MUSCULOSKELETAL: left hip fracture NEUROLOGICAL: no seizure or tremor SKIN: left hip incision PSYCHIATRIC: Unremarkable All other review of systems found to be negative. PAST MEDICAL HISTORY: HTN, DM2, HLD, obesity, asthma, multiple fractures PAST SURGICAL HISTORY: -multiple right shoulder surgeries on the right that were complicated by infections -right ankle surgery ALLERGIES: Please see below. MEDICATIONS: Please see below. SOCIAL HISTORY: Lives with , denies ETOH, smoking, or drugs DIET: Regular PHYSICAL EXAMINATION: VITAL SIGNS: Please see below. GENERAL: Pleasant and cooperative. No acute distress. HEENT: PERRL. Extraocular movements intact. Clear conjunctiva. CARDIOVASCULAR: Regular rate and rhythm. No murmurs, rubs, or gallops. LUNGS: Clear to auscultation bilaterally. No wheezes. No rhonchi ABDOMEN: Soft, nontender, +distended. Positive bowel sounds. Normal active bowel sounds NEUROLOGICAL: Alert and oriented times three. Cranial nerves II through XII grossly intact. Sensation grossly intact including dorsum of left foot first web space EXTREMITIES: 5\\5 strength bilateral upper extremities. 5\\5 strength right lower extremity. 5/5 strength in left ankle Df and EHL (exam limited due to pain) SKIN: left hip incision with scant sanguinous drainage IMAGING: Imaging documentation personally reviewed by record FUNCTIONAL STATUS: Premorbid: Independent with all activities of daily life as well as mobility. On Admission: SBA functional transfers and ambulation with RW, Mod assist for meal prep, at times Mod-assist for bed mobility secondary to pain GOALS: Modified Independent with RW ambulating, stair negotiation, upper and lower body dressing, bathing, pain control, medical optimization, family trainin g, assess for DME needs. ASSESSMENT:57-year-old F with past medical history of HTN and DM who presents status post fall with left hip fracture s/p ORIF PLAN: 1. Rehab: PT/OT, assess for DME 2. Ortho: s.p left hip fracture with ORIF on 09/21/18, WBAT-ortho consulted 3 Neuro: stable 4. CArdio: mh HTN continue BP meds, adjust prn, medicine consulted 5. resp: pmh asthma and SIMON, continue breathing treatments, encourage incentive spirometry, CPAP at night 6. Endo: pmh DM, continue insulin and adjust prn 7. : f/u admission UA and Ucx, monitor PVRs 8. GI ppx: protonix, optimize bowel meds 9. Skin: monitor incision for infection 10. Dispo: TBD POST ADMISSION PHYSICIAN EVALUATION: Medical and functional status: Description of medical status, medical assessment: As above. Rehabilitation diagnosis and current and prior cold morbid medical conditions as above. Risk of complications and plans to mitigate them as above. Description of functional status current status is as above. Prior status as above. Status compared to preadmission: There are no clinically significant differences between the patient's current status and the information described on the preadmission screening document. Treatment plan anticipated: Treatment plan is as described above. Required disciplines including physical therapy, occupational therapy, others as noted above Intensity of services: 3 hours a day, 6 days a week. Special considerations: There are no specific special or safety considerations that would likely preclude immediate implementation of an intensive rehabilitation program or subsequently influence the plan of care. ATTESTATION: Considering all the information above, it is my best judgment that this patient requires intensive rehabilitation therapy as described above and an inpatient hospital environment due to the complexity of nursing, medical, and rehabilitation needs required by the patient. Furthermore, this patient can reasonably be expected to participate in an benefit from an inpatient rehabilitation stay with an interdisciplinary team approach to the delivery of rehabilitation care under the direction and supervision of rehabilitation physician PROGNOSIS: Excellent ESTIMATED LENGTH OF STAY:8-12 days. PROJECTED DISCHARGE DESTINATION: Home with family support and any durable medical equipment required to increase functional safety and mobility TIME SPENT COUNSELING AND COORDINATING INITIAL CARE: Greater than 70 minutes. Vital Signs Vital Sign - Last 24 Hours 09/25/18 09/26/18 09/26/18 09/26/18 20:45 00:26 00:28 00:30 Temp 98.3 Pulse 108 Resp 20 18 18 B/P (MAP) 140/69 (92) 140/69 Pulse Ox 92 94 09/26/18 09/26/18 09/26/18 09/26/18 06:00 06:39 08:21 08:25 Temp 97.6 Pulse 96 92 Resp 20 20 B/P (MAP) 147/67 (93) 147/67 155/70 Pulse Ox 90 09/26/18 09/26/18 09/26/18 09/26/18 12:17 13:00 13:30 13:40 Temp 97.2 Pulse 80 Resp 18 18 18 B/P (MAP) 131/66 131/66 (87) Pulse Ox 94 Laboratory Data CBC/BMP Laboratory Tests 09/26/18 08:28 Red Blood Count 3.59 L, Mean Corpuscular Volume 87.5, Mean Corpuscular Hemoglobin 27.6, Mean Corpuscular Hemoglobin Concent 31.5 L, Red Cell Distribution Width 13.5, Neutrophils (%) (Auto) 79.9 H, Lymphocytes (%) (Auto) 11.2 L, Monocytes (%) (Auto) 6.4 H, Eosinophils (%) (Auto) 1.6, Basophils (%) (Auto) 0.4, Neutrophils # (Auto) 9.9 H, Lymphocytes # (Auto) 1.4 L, Monocytes # (Auto) 0.8, Eosinophils # (Auto) 0.2, Basophils # (Auto) 0.1, Calcium Level 8.5, Aspartate Amino Transf (AST/SGOT) 14, Alanine Aminotransferase (ALT/SGPT) 24, Alkaline Phosphatase 56, Total Bilirubin 0.8, Total Protein 6.2 L, Albumin 3.0 L Labs 24H Laboratory Tests 2 09/26/18 00:19: Urine Appearance HAZY, Urine Color YELLOW, Urine pH 5.0, Urine Specific [place] 1.019, Urine Protein 1+H, Urine Glucose (UA) NEGATIVE, Urine Ketones NEGATIVE, Urine Urobilinogen 0.2, Urine Bilirubin NEGATIVE, Urine Leukocyte Esterase NEGATIVE, Urine Blood NEGATIVE, Urine Nitrite NEGATIVE, Urine WBC (Auto) 6H, Urine RBC (Auto) 3, Urine Hyaline Casts (Auto) 18, Urine Bacteria (Auto) 1+H, Urine Squamous Epithelial Cells 2, Urine Mucus (Auto) SMALL, Urine Sperm (Auto) 09/26/18 08:28: Immature Granulocyte % (Auto) 0.5, White Blood Count 12.5H, Red Blood Count 3.59L, Hemoglobin 9.9L, Hematocrit 31.4L, Mean Corpuscular Volume 87.5, Mean Cor puscular Hemoglobin 27.6, Mean Corpuscular Hemoglobin Concent 31.5L, Red Cell Distribution Width 13.5, Platelet Count 308, Neutrophils (%) (Auto) 79.9H, Lymphocytes (%) (Auto) 11.2L, Monocytes (%) (Auto) 6.4H, Eosinophils (%) (Auto) 1.6, Basophils (%) (Auto) 0.4, Neutrophils # (Auto) 9.9H, Lymphocytes # (Auto) 1.4L, Monocytes # (Auto) 0.8, Eosinophils # (Auto) 0.2, Basophils # (Auto) 0.1, Nucleated Red Blood Cells % (auto) 0.0, Anion Gap 11, Glomerular Filtration Rate 43.1L, Blood Urea Nitrogen 39#H, Creatinine 1.34#H, Sodium Level 133L, Potassium Level 3.8, Chloride Level 100, Carbon Dioxide Level 22, Calcium Level 8.5, Aspartate Amino Transf (AST/SGOT) 14, Alanine Aminotransferase (ALT/SGPT) 24, Alkaline Phosphatase 56, Total Bilirubin 0.8, Total Protein 6.2L, Albumin 3.0L, Albumin/Globulin Ratio 0.94L Microbiology Microbiology 09/26/18 Urine Culture, Received Pending Home Medications Scheduled (Urea) 45 % Cre, 1 APLCT TOP QHS, (Reported) APPLY TO TOE (Calcium 600+D3 600-800 mg-Unit) 1 Tab Tab, 3 TAB PO DAILY, (Reported) Acetaminophen (Acetaminophen ER) 650 Mg Tab, 650 MG PO QAM, (Reported) Amlodipine Besylate (Amlodipine Besylate) 10 Mg Tab, 10 MG PO DAILY, (Reported) Ascorbic Acid (Ascorbic Acid) 1,000 Mg Tab, 1,000 MG PO DAILY, (Reported) Aspirin (Aspir-81) 81 Mg Tab, 81 MG PO QHS, (Reported) Atorvastatin Calcium (Atorvastatin Calcium) 40 Mg Tab, 40 MG PO QHS, (Reported) Benazepril HCl (Benazepril HCl) 40 Mg Tab, 40 MG PO DAILY, (Reported) Calcium Polycarbophil (Fibercon) 625 Mg Tab, 625 MG PO DAILY, (Reported) Cranberry (Hm Cranberry Ultra Streng) 500 Mg Tab, 500 MG PO DAILY, (Reported) Docusate Sodium (Docusate Sodium) 100 Mg Cap, 100 MG PO BID, (Reported) Fluticasone Propionate (Flonase Allergy Relief) 50 Mcg/Act Spr, 2 SPRAYS NA BID, (Reported) Glipizide (Glucotrol Xl) 5 Mg Tab, 5 MG PO DAILY, (Reported) Loratadine (Claritin) 10 Mg Cap, 10 MG PO DAILY, (Reported) Metformin Hydrochloride (Metformin HCl) 1,000 Mg Tab, 1,000 MG PO QAM, (Reported) Metformin Hydrochloride (Metformin HCl) 500 Mg Tab, 500 MG PO QPM, (Reported) Multivitamins *[facility] STOCKED* (Thera M Plus *[facility] STOCKED*) 1 Tab Tab, 1 TAB PO DAILY, (Reported) Oxybutynin Chloride (Oxybutynin Chloride ER) 5 Mg Tab, 5 MG PO DAILY, (Reported) Pantoprazole Sodium (Pantoprazole Sodium) 40 Mg Tab, 40 MG PO DAILY, (Reported) Salmeterol/Fluticasone (Advair Diskus 250-50 Mcg/Dose) 14 Puff/Inhaler Aerp, 1 PUFF INH BID, (Reported) Simethicone (Simethicone) 80 Mg Chew, 80 MG PO BID, (Reported) Sitagliptin Phosphate (Januvia) 100 Mg Tab, 100 MG PO DAILY, (Reported) Scheduled PRN Albuterol Sulfate (Proair Hfa) 108 Mcg/Act Aer, 2 PUFF INH QID PRN for SHORTNESS OF BREATH, (Reported) Lidocaine (Lidoderm) 5 % Dis, 1 PATCH TD DAILY PRN for PAIN, (Reported) APPLY TO RIGHT ANKLE Ondansetron HCl (Zofran) 4 Mg Tab, 4 MG PO for NAUSEA, (Reported) Allergies Coded Allergies: Cephalosporins (Verified Allergy, Intermediate, HIVES, 09/22/18) SHANE ANGLIN MD Sep 26, 2018 13:50
[2018-09-26] MEDS: RIVAROXABAN 10 MG TAB (XARELTO) PO SCH (17:23)
[2018-09-26] MEDS: oxyCODONE 5MG TAB PO SCH ×2 (17:24→21:41)
--- NOTE | 2018-09-26 18:34 | CR.PDOC ---
General Date of Consultation: Sep 26, 2018 Referring Provider: SHANE ANGLIN MD Primary Care Physician: A Attending Physician: SEAN LINDSEY MD Consultation REASON FOR CONSULTATION/CHIEF COMPLAINT: Medical management HISTORY OF PRESENT ILLNESS: Patient is a 57-year-old female with past medical history of multiple fractures, hypertension, diabetes type 2 mef-ldzymar-ryp endent, hyperlipidemia, obesity who suffered a nondisplaced intertrochanteric fracture of the left femur after tripping on her 's oxygen. Presented to the [facility] ED on 09/22/2018 complaining of difficulty walking. Orthopedic surgery was consulted who performed an ORIF. She was able to tolerate procedure without difficulty. She was transferred to rehabilitation for continued therapy. Hospital team was consulted for medical management ALLERGIES: Please see below. HOME MEDICATIONS: Please see below. PAST MEDICAL HISTORY: Hyperlipidemia. Type 2 diabetes, [id number]. Hypertension Obesity. SIMON Fractures, multiple Asthma PAST SURGICAL HISTORY: -multiple right shoulder surgeries on the right that were complicated by infections -right ankle surgery -Left hip fracture ORIF ALLERGIES: Please see below. MEDICATIONS: Please see below. SOCIAL HISTORY: Lives with , denies ETOH, smoking, or drugs ROS CONSTITUTIONAL: No fevers, denies chills, denies weight loss, denies lethargy HEENT: No rhinorrhea, no itchy eyes, no congesion, CARDIOVASCULAR: No murmurs no palpitations and arrhythmias RESPIRATORY: Not cough, No SOB, no issues to report GASTROINTESTINAL: No nausea, no vomiting, no difficulty swallowing, no pain with eating, no diarrhea HEMATOLOGICAL: No bleeding GENITOURINARY: Admits to bladder fullness HEMATOLOGIC/LYMPHATIC: No swelling MSK: Admits to hip pain GENERAL APPEARANCE: Alert no acute distress. , Obese female SKIN: Warm, well perfused. LUNGS: Clear to auscultation bilaterally. HEART: Normal S1, S2. No murmurs, no rubs, no gallops ABDOMEN: Soft. No masses. Bowel sounds are present. EXTREMITIES: Moves all extremities equally. No gross deformities. 5 out of 5 bilateral upper extremity, 5 out of 5 strength. Right lower extremity, left lower extremity strength testing is limited due to pain PULSES: 2+ upper and lower extremity . ASSESSMENT:57-year-old F with past medical history of HTN and DM who presents status post fall with left hip fracture s/p ORIF. Medical team was consulted for medication management. During rehabilitation. PLAN: #Diabetes -Levemir 10 units subcutaneous daily at bedtime -Sliding scale insulin -Consistent carb harder diet -Hold home diabetic meds Amaryl edema discharge #Bladder fullness -UA was positive for 1+ protein, positive for WBC of 6, 1+ bacteria, squamous epithelial cells. 2. Most likely this is a contaminated source. Culture pending. -Patient complaining of bladder fullness. However, this is occasion. She has no dysuria, she has no frequency. She states her pain is more of a fullness se nsation, indicating a need to urinate. She does have a history of stress incontinence management. Oxybutynin. We'll continue -If patient's symptoms does not improve, consider repeat UA -Post void bladder scan has been # HTN -Well-controlled on current medication #SIMON, -May use home #Hyperlipidemia. Continue home meds #Rehabilitation -continue OT and PT. #DVT prophylaxis -Xarelto Vital Signs/I&O Vital Signs Date Time Temp Pulse Resp B/P (MAP) Pulse Ox O2 Delivery O2 Flow Rate FiO2 09/26/18 18:07 18 09/26/18 13:40 97.2 80 131/66 (87) 94 I&O- Last 24 Hours up to 6 AM 09/26/18 06:00 Intake Total 120 ml Output Total 150 ml Balance -30 ml Laboratory Data Labs 24H Laboratory Tests 2 09/26/18 00:19: Urine Appearance HAZY, Urine Color YELLOW, Urine pH 5.0, Urine Specific [place] 1.019, Urine Protein 1+H, Urine Glucose (UA) NEGATIVE, Urine Ketones NEGATIVE, Urine Urobilinogen 0.2, Urine Bilirubin NEGATIVE, Urine Leukocyte Esterase NEGA TIVE, Urine Blood NEGATIVE, Urine Nitrite NEGATIVE, Urine WBC (Auto) 6H, Urine RBC (Auto) 3, Urine Hyaline Casts (Auto) 18, Urine Bacteria (Auto) 1+H, Urine Squamous Epithelial Cells 2, Urine Mucus (Auto) SMALL, Urine Sperm (Auto) 09/26/18 06:25: Bedside Glucose (Misc Panel) 202H 09/26/18 08:28: Immature Granulocyte % (Auto) 0.5, White Blood Count 12.5H, Red Blood Count 3.59L, Hemoglobin 9.9L, Hematocrit 31.4L, Mean Corpuscular Volume 87.5, Mean Corpuscular Hemoglobin 27.6, Mean Corpuscular Hemoglobin Concent 31.5L, Red Cell Distribution Width 13.5, Platelet Count 308, Neutrophils (%) (Auto) 79.9H, Lymphocytes (%) (Auto) 11.2L, Monocytes (%) (Auto) 6.4H, Eosinophils (%) (Auto) 1.6, Basophils (%) (Auto) 0.4, Neutrophils # (Auto) 9.9H, Lymphocytes # (Auto) 1.4L, Monocytes # (Auto) 0.8, Eosinophils # (Auto) 0.2, Basophils # (Auto) 0.1, Nucleated Red Blood Cells % (auto) 0.0, Anion Gap 11, Glomerular Filtration Rate 43.1L, Blood Urea Nitrogen 39#H, Creatinine 1.34#H, Sodium Level 133L, Potassium Level 3.8, Chloride Level 100, Carbon Dioxide Level 22, Calcium Level 8.5, Aspartate Amino Transf (AST/SGOT) 14, Alanine Aminotransferase (ALT/SGPT) 24, Alkaline Phosphatase 56, Total Bilirubin 0.8, Total Protein 6.2L, Albumin 3.0L, Albumin/Globulin Ratio 0.94L 09/26/18 12:12: Bedside Glucose (Misc Panel) 208H 09/26/18 17:07: Bedside Glucose (Misc Panel) 148H CBC/BMP Laboratory Tests 09/26/18 08:28 Red Blood Count 3.59 L, Mean Corpuscular Volume 87.5, Mean Corpuscular Hemoglobin 27.6, Mean Corpuscular Hemoglobin Concent 31.5 L, Red Cell Distribution Width 13.5, Neutrophils (%) (Auto) 79.9 H, Lymphocytes (%) (Auto) 11.2 L, Monocytes (%) (Auto) 6.4 H, Eosinophils (%) (Auto) 1.6, Basophils (%) (Auto) 0.4, Neutrophils # (Auto) 9.9 H, Lymphocytes # (Auto) 1.4 L, Monocytes # (Auto) 0.8, Eosinophils # (Auto) 0.2, Basophils # (Auto) 0.1, Calcium Level 8.5, Aspartate Amino Transf (AST/SGOT) 14, Alanine Aminotransferase (ALT/SGPT) 24, Alkaline Phosphatase 56, Total Bilirubin 0.8, Total Protein 6.2 L, Albumin 3.0 L Microbiology Microbiology 09/26/18 Urine Culture, Received Pending Allergies Coded Allergies: Cephalosporins (Verified Allergy, Intermediate, HIVES, 09/22/18) Home Medications Scheduled (Urea) 45 % Cre, 1 APLCT TOP QHS, (Reported) APPLY TO TOE (Calcium 600+D3 600-800 mg-Unit) 1 Tab Tab, 3 TAB PO DAILY, (Reported) Acetaminophen (Acetaminophen ER) 650 Mg Tab, 650 MG PO QAM, (Reported) Amlodipine Besylate (Amlodipine Besylate) 10 Mg Tab, 10 MG PO DAILY, (Reported) Ascorbic Acid (Ascorbic Acid) 1,000 Mg Tab, 1,000 MG PO DAILY, (Reported) Aspirin (Aspir-81) 81 Mg Tab, 81 MG PO QHS, (Reported) Atorvastatin Calcium (Atorvastatin Calcium) 40 Mg Tab, 40 MG PO QHS, (Reported) Benazepril HCl (Benazepril HCl) 40 Mg Tab, 40 MG PO DAILY, (Reported) Calcium Polycarbophil (Fibercon) 625 Mg Tab, 625 MG PO DAILY, (Reported) Cranberry (Circa Cranberry Ultra Streng) 500 Mg Tab, 500 MG PO DAILY, (Reported) Docusate Sodium (Docusate Sodium) 100 Mg Cap, 100 MG PO BID, (Reported) Fluticasone Propionate (Flonase Allergy Relief) 50 Mcg/Act Spr, 2 SPRAYS NA BID, (Reported) Glipizide (Glucotrol Xl) 5 Mg Tab, 5 MG PO DAILY, (Reported) Loratadine (Claritin) 10 Mg Cap, 10 MG PO DAILY, (Reported) Metformin Hydrochloride (Metformin HCl) 1,000 Mg Tab, 1,000 MG PO QAM, (Reported) Metformin Hydrochloride (Metformin HCl) 500 Mg Tab, 500 MG PO QPM, (Reported) Multivitamins *[facility]OCK[facility]* (Thera M Plus *[facility]OCK[facility]*) 1 Tab Tab, 1 TAB PO DAILY, (Reported) Oxybutynin Chloride (Oxybutynin Chloride ER) 5 Mg Tab, 5 MG PO DAILY, (Reported) Pantoprazole Sodium (Pantoprazole Sodium) 40 Mg Tab, 40 MG PO DAILY, (Reported) Salmeterol/Fluticasone (Advair Diskus 250-50 Mcg/Dose) 14 Puff/Inhaler Aerp, 1 PUFF INH BID, (Reported) Simethicone (Simethicone) 80 Mg Chew, 80 MG PO BID, (Reported) Sitagliptin Phosphate (Januvia) 100 Mg Tab, 100 MG PO DAILY, (Reported) Scheduled PRN Albuterol Sulfate (Proair Hfa) 108 Mcg/Act Aer, 2 PUFF INH QID PRN for SHORTNESS OF BREATH, (Reported) Lidocaine (Lidoderm) 5 % Dis, 1 PATCH TD DAILY PRN for PAIN, (Reported) APPLY TO RIGHT ANKLE Ondansetron HCl (Zofran) 4 Mg Tab, 4 MG PO for NAUSEA, (Reported) GME ATTESTATION GME ATTESTATION My faculty preceptor for this patient encounter was physically present during the encounter and was fully available. All aspects of the patient interview, examination, medical decision making process, and medical care plan development were reviewed and approved by the faculty preceptor. The faculty preceptor is aware and concurs with the plan as stated in the body of this note and will attest to such by his/her cosignature. DOREEN ORO DO Sep 26, 2018 18:34
[2018-09-26 20:00] VITALS: BP 109/56
[2018-09-26] MEDS: ASPIRIN 81 MG CHEW TABLET PO SCH (21:40)
[2018-09-26] MEDS: ATORVASTATIN 20 MG TAB PO SCH (21:42)
[2018-09-26] MEDS: LEVEMIR (INSULIN DETEMIR) 1 UNITS/0.01ML SC SCH (21:43)
[2018-09-27 06:00] VITALS: BP 134/60
[2018-09-27] MEDS: **hydrALAZINE HCL** 25 MG TAB PO SCH ×3 (06:04→21:04)
[2018-09-27] MEDS: DOCUSATE SODIUM 100 MG CAP PO SCH ×2 (08:24→21:04)
[2018-09-27] MEDS: oxyCODONE 5MG TAB PO SCH ×4 (08:24→21:05)
[2018-09-27] MEDS: PANTOPRAZOLE 40MG TAB (PROTONIX) PO SCH (08:24)
[2018-09-27] MEDS: oxyBUTYnin *DITROPAN XL* 5 MG TABCR PO SCH (08:25)
[2018-09-27] MEDS: BENAZEPRIL 20 MG TAB PO SCH (08:25)
[2018-09-27] MEDS: amLODIPine 10 MG TAB PO SCH (08:25)
[2018-09-27] MEDS: ACETAMINOPHEN 325 MG TAB PO SCH ×3 (08:25→21:05)
[2018-09-27] MEDS: HumaLOG INSULIN (NovoLOG) PER UNIT SC SCH ×3 (08:26→17:23)
[2018-09-27] MEDS: ADVAIR HFA 230/21MCG INHALER INH SCH ×2 (08:56→21:10)
[2018-09-27 11:49] LABS: BASO % 0.4 % (0.0-1.0); EOS # 0.1 10^3/uL (0.0-0.50); EOS % 1.2 % (0.0-3.0); HEMATOCRIT 28.1 % (36.0-47.0); HEMOGLOBIN 8.9 g/dl (12.0-15.5); LYMPH # 0.9 10^3/uL (1.5-4.5); LYMPH % 9.7 % (24.0-44.0); MEAN CORPUSCULAR HEMOGLOBIN 27.1 pg (27.0-33.0); MEAN CORPUSCULAR HGB CONC 31.7 g/dl (32.0-36.5); MEAN CORPUSCULAR VOLUME 85.4 fl (80.0-96.0); MONO # 0.8 10^3/uL (0.0-0.8); MONO % 8.6 % (0.0-5.0); NEUTROPHILS # 7.7 10^3/uL (1.8-7.7); NEUTROPHILS % 79.8 % (36.0-66.0); PLATELET COUNT, AUTOMATED 319 10^3/uL (150-450); RED BLOOD COUNT 3.29 10^6/uL (4.00-5.40); WHITE BLOOD COUNT 9.6 10^3/uL (4.0-10.0)
[2018-09-27 12:21] LABS: ALBUMIN 2.9 GM/DL (3.2-5.2); CALCIUM LEVEL 8.5 MG/DL (8.5-10.1); CREATININE FOR GFR 1.11 MG/DL (0.55-1.30); GLOMERULAR FILTRATION RATE 53.6 (>51); POTASSIUM SERUM 3.8 MEQ/L (3.5-5.1); TOTAL PROTEIN 6.7 GM/DL (6.4-8.2)
[2018-09-27 14:00] VITALS: BP 128/76
[2018-09-27] MEDS: RIVAROXABAN 10 MG TAB (XARELTO) PO SCH (17:22)
[2018-09-27] MEDS ORDERED: MAGNESIUM CITRATE 300 ML BTL PO ONE (18:30)
[2018-09-27 20:00] VITALS: BP 116/58
[2018-09-27] MEDS: SENNA 8.6 MG TAB (SENOKOT) PO SCH (21:03)
[2018-09-27] MEDS: ATORVASTATIN 20 MG TAB PO SCH (21:03)
[2018-09-27] MEDS: ASPIRIN 81 MG CHEW TABLET PO SCH (21:04)
[2018-09-27] MEDS: LEVEMIR (INSULIN DETEMIR) 1 UNITS/0.01ML SC SCH (21:06)
[2018-09-28] MEDS: **hydrALAZINE HCL** 25 MG TAB PO SCH ×3 (05:20→21:45)
[2018-09-28] MEDS: ACETAMINOPHEN TAB 650MG DOSE (2X325MG) PO PRN (05:30)
[2018-09-28 06:00] VITALS: BP 140/70
[2018-09-28] MEDS: ADVAIR HFA 230/21MCG INHALER INH SCH ×2 (07:55→21:32)
[2018-09-28] MEDS: DOCUSATE SODIUM 100 MG CAP PO SCH ×2 (08:21→20:28)
[2018-09-28] MEDS: HumaLOG INSULIN (NovoLOG) PER UNIT SC SCH ×4 (08:21→17:46)
[2018-09-28] MEDS: PANTOPRAZOLE 40MG TAB (PROTONIX) PO SCH (08:21)
[2018-09-28] MEDS: amLODIPine 10 MG TAB PO SCH (08:21)
[2018-09-28] MEDS: oxyBUTYnin *DITROPAN XL* 5 MG TABCR PO SCH (08:21)
[2018-09-28] MEDS: oxyCODONE 5MG TAB PO SCH ×4 (08:22→20:29)
[2018-09-28] MEDS: ACETAMINOPHEN 325 MG TAB PO SCH ×3 (08:23→20:28)
--- NOTE | 2018-09-28 10:11 | REP ---
KUB ABDOMEN/PELVIS: Two KUB films of abdomen/pelvis are performed. There is marked distention of the transverse and left colon with air with maximum diameter of the right transverse colon 14 cm. There is no definite significant small bowel dilatation. Air is seen throughout a nondistended right colon. Three calcific densities overlying the right renal shadow probably represent renal calculi, measuring up to 1 cm in diameter. Metallic clips are seen in the right upper quadrant. There are mild degenerative changes of the spine. Multiple metallic clips overly the pelvis. There is metallic internal fixation in the proximal left femur. IMPRESSION: Marked distention of the transverse and left colon with air with a maximum diameter of approximately 14 cm. This probably represents an ileus. I do not see definite significant small bowel dilatation. There appear to be three right renal calculi. Electronically Signed by Bryant Woods MD 09/28/2018 10:39 P
[2018-09-28] MEDS ORDERED: SIMETHICONE 80 MG CHEW TAB PO PRN (10:45)
[2018-09-28 12:10] LABS: CLOSTRIDIUM DIFFICILE PCR NEGATIVE (NEGATIVE)
[2018-09-28 14:00] VITALS: BP 130/65
--- NOTE | 2018-09-28 14:35 | IPNPDOC ---
Date Seen The patient was seen on 09/28/18. Progress Note HPI: Patient is a 57-year-old female obesity who suffered a nondisplaced intertrochanteric fracture of the left femur after tripping on her 's oxygen. Presented to the [facility] ED on 09/22/2018 complaining of difficulty walking. Orthopedic surgery was consulted who performed an ORIF. She was able to tolerate procedure without difficulty. She was transferred to the care of YARITZA Low, for continued therapy. No acute medical complaints today. Denies any fevers, chills, weakness, fatigue, Headache, Chest Pain, Shortness of breath, cough, palpitations, abdominal pain, N/V/D or changes in bowel or bladder habits. PAST MEDICAL HISTORY: HLD Type 2 diabetes, [id number]. Hypertension Obesity. SIMON Fractures, multiple Asthma PAST SURGICAL HISTORY: multiple right shoulder surgeries on the right that were complicated by infections right ankle surgery Left hip fracture ORIF PE: GEN: 57yoF, appears stated age. Well-nourished, well developed. No acute distress. Alert and oriented x 3. Pleasant, interactive. HEENT: Normocephalic, atraumatic. Sclera are nonicteric. Conjunctiva without injection. Nose midline. Nasal turbinates without bogginess. Moist mucous membranes. CHEST: Regular rate and rhythm, +S1, +S2 LUNGS: Clear to auscultation bilaterally. No wheezes, rales, or rhonchi. Breathing appears symmetric and easy. Patient is speaking in full sentences. No accessory muscle use. ABD: Round, soft, non-tender, non-distended. +Bowel sounds throughout. No rebound or guarding. EXT: Pulses 2+ bilaterally dorsalis pedis and radial. No lower extremity edema appreciated. SKIN: [place], dry, warm. Capillary refill <2sec. No rashes. NEURO: Alert and oriented x 3. Cranial nerves III-XII are intact. No focal deficits appreciated. UC 09/26/18 negative. A&P: Patient is a 57-year-old female obesity who suffered a nondisplaced intertrochanteric fracture of the left femur after tripping on her 's oxygen. Presented to the [facility] ED on 09/22/2018 complaining of difficulty walking. Orthopedic surgery was consulted who performed an ORIF. She was able to tolerate procedure without difficulty. She was transferred to the care of Dr Mcelroy, ARU, for continued therapy. Lt femur fracture/S/P ORIF. Mgmt as per Orthopedic surgery. PT/OT/ST as per ARU bowel care as per ARU pain control as per ARU DVT prophylaxis Xarelto as per orthopedics. Disposition as per ARU. Diabetes CC diet Levemir SSI. Amaryl on HOLD. ASA81 mg daily. OAB. Ditropan. HTN. Norvasc 10 mg daily. Hydralazine 25mg Q8 SIMON, Home CPAP HLD. Lipitor 40 mg daily. GERD. PPI. COPD. Advair/Alb prn. VS, I&O, 24H, Fishbone Vital Signs/I&O Vital Signs Date Time Temp Pulse Resp B/P (MAP) Pulse Ox O2 Delivery O2 Flow Rate FiO2 09/28/18 14:00 97.8 92 18 130/65 (86) 99 I&O- Last 24 Hours up to 6 AM 09/28/18 06:00 Intake Total 1260 ml Output Total 1450 ml Balance -190 ml Laboratory Data 24H LABS Laboratory Tests 2 09/27/18 16:26: Bedside Glucose (Misc Panel) 159H 09/27/18 21:11: Bedside Glucose (Misc Panel) 171H 09/28/18 05:52: Bedside Glucose (Misc Panel) 182H 09/28/18 11:04: Stool Clostridium difficile Result NEGATIVE, Clostridium difficile (PCR)(LAB) NEGATIVE 09/28/18 11:29: Bedside Glucose (Misc Panel) 226H Microbiology Microbiology 09/26/18 Urine Culture - Final, Complete Winsome Hartley Sep 28, 2018 14:35
[2018-09-28] MEDS: RIVAROXABAN 10 MG TAB (XARELTO) PO SCH (17:47)
[2018-09-28 20:00] VITALS: BP 133/61
[2018-09-28] MEDS: ATORVASTATIN 20 MG TAB PO SCH (20:28)
[2018-09-28] MEDS: SENNA 8.6 MG TAB (SENOKOT) PO SCH (20:28)
[2018-09-28] MEDS: ASPIRIN 81 MG CHEW TABLET PO SCH (20:28)
[2018-09-28] MEDS: LEVEMIR (INSULIN DETEMIR) 1 UNITS/0.01ML SC SCH (20:30)
[2018-09-28] MEDS: CALCIUM CARBONATE 500 MG CHEW U/D PO PRN (21:44)
[2018-09-29] MEDS: CALCIUM CARBONATE 500 MG CHEW U/D PO PRN (01:47)
[2018-09-29 06:00] VITALS: BP 139/63
[2018-09-29] MEDS: **hydrALAZINE HCL** 25 MG TAB PO SCH ×3 (06:08→21:20)
[2018-09-29] MEDS: ACETAMINOPHEN TAB 650MG DOSE (2X325MG) PO PRN (06:09)
[2018-09-29] MEDS: HumaLOG INSULIN (NovoLOG) PER UNIT SC SCH (08:54)
[2018-09-29] MEDS: PANTOPRAZOLE 40MG TAB (PROTONIX) PO SCH (08:55)
[2018-09-29] MEDS: ACETAMINOPHEN 325 MG TAB PO SCH ×3 (08:55→20:50)
[2018-09-29] MEDS: oxyBUTYnin *DITROPAN XL* 5 MG TABCR PO SCH (08:55)
[2018-09-29] MEDS: amLODIPine 10 MG TAB PO SCH (08:55)
[2018-09-29] MEDS: oxyCODONE 5MG TAB PO SCH ×4 (08:55→20:50)
[2018-09-29] MEDS: DOCUSATE SODIUM 100 MG CAP PO SCH (08:56)
[2018-09-29] MEDS: ADVAIR HFA 230/21MCG INHALER INH SCH ×2 (09:25→21:00)
[2018-09-29] MEDS ORDERED: metFORMIN (GLUCOPHAGE) 1000 MG TABLET PO SCH (10:00)
--- NOTE | 2018-09-29 10:25 | IPNPDOC ---
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 REVIEW OF SYSTEMS: The following is a completed review of systems and has been reviewed. Review of systems otherwise unremarkable. PAIN: Patient self reports left hip and right ankle pain (chronic) EYES: Negative for recent vision loss EARS, NOSE, & THROAT: no dysphagia, sore throat, rhinorrhea, or hearing loss CARDIOVASCULAR: denies chest pain or palpitations PULMONARY: Negative. Denies shortness of breath or cough GASTROINTESTINAL: +diarrhea GENITOURINARY: No dysuria or hematuria MUSCULOSKELETAL: left hip fracture NEUROLOGICAL: no seizure or tremor SKIN: left hip incision PSYCHIATRIC: Unremarkable All other review of systems found to be negative. PHYSICAL EXAMINATION: VITAL SIGNS: Please see below. GENERAL: Pleasant and cooperative. No acute distress. HEENT: PERRL. Extraocular movements intact. Clear conjunctiva. CARDIOVASCULAR: Regular rate and rhythm. No murmurs, rubs, or gallops. LUNGS: Clear to auscultation bilaterally. No wheezes. No rhonchi ABDOMEN: Soft, nontender, + mild distended. Positive bowel sounds. Normal active bowel sounds NEUROLOGICAL: Alert and oriented times three. Cranial nerves II through XII grossly intact. Sensation grossly intact including dorsum of left foot first web space EXTREMITIES: 5\5 strength bilateral upper extremities. 5\5 strength right lower extremity. 5/5 strength in left ankle Df and EHL (exam limited due to pain) SKIN: left hip incision with scant sanguinous drainage ASSESSMENT:57-year-old F with past medical history of HTN and DM who presents status post fall with left hip fracture s/p ORIF PLAN: 1. Rehab: PT/OT, assess for DME, ambulating with RW 2. Ortho: s.p left hip fracture with ORIF on 09/21/18, WBAT-ortho consulted 3 Neuro: stable 4. CArdio: pmh HTN continue BP meds, adjust prn, medicine consulted 5. resp: pmh asthma and SIMON, continue breathing treatments, encourage incentive spirometry, CPAP at night 6. Endo: pmh DM, continue insulin and adjust prn 7. : admission UA and Ucx negative, monitor PVRs, continue oxybutynin 8. GI ppx: protonix, optimize bowel meds- patient with distended abdomen and diarrhea persistent through the weekend, c. diff ordered which is negative, KUB showed dilated colon without obstruction, patient passing gas and stool, distension improved today after mag citrate, will continue to monitor, will add simethicone as aptient takes this at home 9. Skin: monitor incision for infection 10. Pain: Tylenol and oxycodone 10. Dispo: TBD, progressing towards goals Allergies Coded Allergies: Cephalosporins (Verified Allergy, Intermediate, HIVES, 09/22/18) Vital Signs Vital Signs Date Time Temp Pulse Resp B/P (MAP) Pulse Ox O2 Delivery O2 Flow Rate FiO2 09/29/18 08:55 18 09/29/18 08:55 74 139/63 09/29/18 06:00 97.6 96 Laboratory Data Labs 24H Laboratory Tests 2 09/28/18 11:04: Stool Clostridium difficile Result NEGATIVE, Clostridium difficile (PCR)(LAB) NEGATIVE 09/28/18 11:29: Bedside Glucose (Misc Panel) 226H 09/28/18 16:35: Bedside Glucose (Misc Panel) 245H 09/28/18 20:14: Bedside Glucose (Misc Panel) 120H 09/29/18 06:11: Bedside Glucose (Misc Panel) 186H Microbiology Microbiology 09/26/18 Urine Culture - Final, Complete Current Medications Current Medications Current Medications Acetaminophen (Tylenol Tab) 650 mg DAILYPRN PRN PO PAIN / FEVER Last administered on 09/29/18at 06:09; Start 09/26/18 at 12:45 Acetaminophen (Tylenol Tab) 650 mg Q4HP PRN PO fever/MILD PAIN (PS 1-4); Start 09/25/18 at 18:30; Stop 09/26/18 at 12:36; Status DC Acetaminophen (Tylenol Tab) 975 mg TID PO Last administered on 09/28/18at 20:28; Start 09/25/18 at 21:00 Albuterol Sulfate (Proventil, Ventolin Hfa) 2 puff Q4HP PRN INH SHORTNESS OF BREATH; Start 09/25/18 at 18:30 Amlodipine Besylate (Norvasc) 10 mg DAILY PO Last administered on 09/29/18at 08:55; Start 09/26/18 at 09:00 Aspirin (Aspirin Chewable) 81 mg DAILY@2100 PO Last administered on 09/28/18at 20:28; Start 09/26/18 at 21:00 Atorvastatin Calcium (Lipitor) 40 mg QHS PO Last administered on 09/28/18at 20:28; Start 09/26/18 at 21:00 Benazepril HCl (Lotensin) 40 mg DAILY PO Last administered on 09/27/18at 08:25; Start 09/26/18 at 09:00; Stop 09/27/18 at 10:22; Status DC Bisacodyl (Dulcolax Suppository) 10 mg DAILYPRN PRN NC CONSTIPATION; Start 09/25/18 at 18:30 Calcium Carbonate (Tums) 1,000 mg Q4HP PRN PO HEARTBURN Last administered on 09/29/18at 01:47; Start 09/28/18 at 21:45 Dextrose (Dextrose 50%) 25 ml ASDIRECTED PRN IV SEE LABEL COMMENTS; Start 09/25/18 at 18:30 Docusate Sodium (Colace) 100 mg BID PO Last administered on 09/28/18at 20:28; Start 09/25/18 at 21:00 Ferrous Gluconate (Fergon) 324 mg BID PO ; Start 09/25/18 at 21:00; Stop 09/26/18 at 13:43; Status DC Gabapentin (Neurontin) 100 mg TID PO ; Start 09/25/18 at 21:00; Stop 09/26/18 at 13:43; Status DC Glucagon (Glucagon) 1 mg ASDIRECTED PRN SC SEE LABEL COMMENTS; Start 09/25/18 at 18:30 Glucose (Glucose) 16 GM ASDIRECTED PRN PO SEE LABEL COMMENTS; Start 09/25/18 at 18:30 Home Med (Med Rec Complete!) ASDIRECTED XX ; Start 09/25/18 at 23:45; Stop 09/25/18 at 23:45; Status DC Hydralazine HCl (Apresoline) 25 mg Q8H PO Last administered on 09/29/18at 06:08; Start 09/25/18 at 22:00 Insulin Detemir (Levemir Insulin) 5 units QHS SC ; Start 09/29/18 at 21:00 Insulin Detemir (Levemir Insulin) 10 units QHS SC Last administered on 09/28/18at 20:30; Start 09/26/18 at 21:00; Stop 09/29/18 at 10:04; Status DC Insulin Human Lispro (HumaLOG INSULIN) SEE PROTOCOL TABLE AC SC Last administered on 09/29/18at 08:54; Start 09/26/18 at 07:30; Stop 09/29/18 at 10:04; Status DC Magnesium Hydroxide (Milk Of Magnesia) 30 ml DAILYPRN PRN PO CONSTIPATION; Start 09/25/18 at 18:30 Metformin HCl (Glucophage) 500 mg DAILY@1800 PO ; Start 09/29/18 at 18:00 Metformin HCl (Glucophage) 1,000 mg DAILY@0800 PO ; Start 09/29/18 at 10:00 Metformin HCl (Glucophage) 1,000 mg QAM PO ; Start 09/29/18 at 10:00; Stop 09/29/18 at 10:03; Status DC Ondansetron HCl (Zofran) 4 mg Q6HP PRN PO NAUSEA; Start 09/25/18 at 18:30 Oxybutynin Chloride (Ditropan Xl) 5 mg DAILY PO Last administered on 09/29/18at 08:55; Start 09/26/18 at 09:00 Oxycodone HCl (Roxicodone, Oxyir) 5 mg QID PO Last administered on 09/29/18at 08:55; Start 09/26/18 at 17:00 Oxycodone/ Acetaminophen (Percocet 5mg/ 325mg Tablet) 1 tab Q4HP PRN PO MILD/MODERATE PAIN (PS 1-7); Start 09/25/18 at 18:30; Stop 09/25/18 at 19:49; Status DC Oxycodone/ Acetaminophen (Percocet 5mg/ 325mg Tablet) 1 tab QID PO Last administered on 09/26/18at 12:17; Start 09/25/18 at 21:00; Stop 09/26/18 at 12:36; Status DC Pantoprazole Sodium (Protonix) 40 mg DAILY PO Last administered on 09/29/18at 08:55; Start 09/26/18 at 09:00 Rivaroxaban (Xarelto) 10 mg DAILY@1800 PO Last administered on 09/28/18at 17:47; Start 09/26/18 at 18:00; Stop 10/27/18 at 23:55 Salmeterol Xinafoate/ Fluticasone (Advair Hfa 230/ 21) 2 puff BID INH Last administered on 09/28/18at 21:32; Start 09/26/18 at 09:00 Senna (Senokot) 1 tab QHS PO Last administered on 09/28/18 20:28; Start 09/25/18 at 21:00 Simethicone (Mylicon) 80 mg Q6HP PRN PO GAS PAIN Last administered on 09/28/18 20:40; Start 09/28/18 at 10:45 SHANE ANGLIN MD Sep 29, 2018 10:25
--- NOTE | 2018-09-29 10:27 | IPNPDOC ---
PM&R Progress Note DATE OF SERVICE: Sep 29, 2018 Admissions Manager Rn Progress Note Subjective: Patient reports she had loose stools all night and feel gaseous, denies nausea or abdominal discomfort. She denies fevers or chills. REVIEW OF SYSTEMS: The following is a completed review of systems and has been reviewed. Review of systems otherwise unremarkable. PAIN: Patient self reports left hip and right ankle pain (chronic) EYES: Negative for recent vision loss EARS, NOSE, & THROAT: no dysphagia, sore throat, rhinorrhea, or hearing loss CARDIOVASCULAR: denies chest pain or palpitations PULMONARY: Negative. Denies shortness of breath or cough GASTROINTESTINAL: +diarrhea GENITOURINARY: No dysuria or hematuria MUSCULOSKELETAL: left hip fracture NEUROLOGICAL: no seizure or tremor SKIN: left hip incision PSYCHIATRIC: Unremarkable All other review of systems found to be negative. PHYSICAL EXAMINATION: VITAL SIGNS: Please see below. GENERAL: Pleasant and cooperative. No acute distress. HEENT: PERRL. Extraocular movements intact. Clear conjunctiva. CARDIOVASCULAR: Regular rate and rhythm. No murmurs, rubs, or gallops. LUNGS: Clear to auscultation bilaterally. No wheezes. No rhonchi ABDOMEN: Soft, nontender, + mild distended (improving) Positive bowel sounds.hyperactive bowel sounds NEUROLOGICAL: Alert and oriented times three. Cranial nerves II through XII grossly intact. Sensation grossly intact including dorsum of left foot first web space EXTREMITIES: 5\5 strength bilateral upper extremities. 5\5 strength right lower extremity. 5/5 strength in left ankle Df and EHL (exam limited due to pain) SKIN: left hip incision with scant sanguinous drainage ASSESSMENT:57-year-old F with past medical history of HTN and DM who presents status post fall with left hip fracture s/p ORIF PLAN: 1. Rehab: PT/OT, assess for DME, ambulating further with RW 2. Ortho: s.p left hip fracture with ORIF on 09/21/18, WBAT-ortho consulted 3 Neuro: stable 4. CArdio: pmh HTN continue BP meds, adjust prn, medicine consulted 5. resp: pmh asthma and SIMON, continue breathing treatments, encourage incentive spirometry, CPAP at night 6. Endo: pmh DM, continue insulin and adjust prn, will add back metformin 7. : admission UA and Ucx negative, monitor PVRs, continue oxybutynin 8. GI ppx: protonix, optimize bowel meds- patient with distended abdomen and diarrhea persistent through the weekend, c. diff ordered which is negative, KUB showed dilated colon without obstruction, patient passing gas and stool, distension improved today after mag citrate, will continue to monitor, continue simethicone, will add Imodium prn loose stool 9. Skin: monitor incision for infection 10. Pain: Tylenol and oxycodone 10. Dispo: 10/05/18 to home progressing towards goals Allergies Coded Allergies: Cephalosporins (Verified Allergy, Intermediate, HIVES, 09/22/18) Vital Signs Vital Signs Date Time Temp Pulse Resp B/P (MAP) Pulse Ox O2 Delivery O2 Flow Rate FiO2 09/29/18 08:55 18 09/29/18 08:55 74 139/63 09/29/18 06:00 97.6 96 Laboratory Data Labs 24H Laboratory Tests 2 09/28/18 11:04: Stool Clostridium difficile Result NEGATIVE, Clostridium difficile (PCR)(LAB) NEGATIVE 09/28/18 11:29: Bedside Glucose (Misc Panel) 226H 09/28/18 16:35: Bedside Glucose (Misc Panel) 245H 09/28/18 20:14: Bedside Glucose (Misc Panel) 120H 09/29/18 06:11: Bedside Glucose (Misc Panel) 186H Microbiology Microbiology 09/26/18 Urine Culture - Final, Complete Current Medications Current Medications Current Medications Acetaminophen (Tylenol Tab) 650 mg DAILYPRN PRN PO PAIN / FEVER Last administered on 09/29/18at 06:09; Start 09/26/18 at 12:45 Acetaminophen (Tylenol Tab) 650 mg Q4HP PRN PO fever/MILD PAIN (PS 1-4); Start 09/25/18 at 18:30; Stop 09/26/18 at 12:36; Status DC Acetaminophen (Tylenol Tab) 975 mg TID PO Last administered on 09/28/18at 20:28; Start 09/25/18 at 21:00 Albuterol Sulfate (Proventil, Ventolin Hfa) 2 puff Q4HP PRN INH SHORTNESS OF BREATH; Start 09/25/18 at 18:30 Amlodipine Besylate (Norvasc) 10 mg DAILY PO Last administered on 09/29/18at 08:55; Start 09/26/18 at 09:00 Aspirin (Aspirin Chewable) 81 mg DAILY@2100 PO Last administered on 09/28/18at 20:28; Start 09/26/18 at 21:00 Atorvastatin Calcium (Lipitor) 40 mg QHS PO Last administered on 09/28/18at 20:28; Start 09/26/18 at 21:00 Benazepril HCl (Lotensin) 40 mg DAILY PO Last administered on 09/27/18at 08:25; Start 09/26/18 at 09:00; Stop 09/27/18 at 10:22; Status DC Bisacodyl (Dulcolax Suppository) 10 mg DAILYPRN PRN HI CONSTIPATION; Start 09/25/18 at 18:30 Calcium Carbonate (Tums) 1,000 mg Q4HP PRN PO HEARTBURN Last administered on 09/29/18at 01:47; Start 09/28/18 at 21:45 Dextrose (Dextrose 50%) 25 ml ASDIRECTED PRN IV SEE LABEL COMMENTS; Start 09/25/18 at 18:30 Docusate Sodium (Colace) 100 mg BID PO Last administered on 09/28/18at 20:28; Start 09/25/18 at 21:00 Ferrous Gluconate (Fergon) 324 mg BID PO ; Start 09/25/18 at 21:00; Stop 09/26/18 at 13:43; Status DC Gabapentin (Neurontin) 100 mg TID PO ; Start 09/25/18 at 21:00; Stop 09/26/18 at 13:43; Status DC Glucagon (Glucagon) 1 mg ASDIRECTED PRN SC SEE LABEL COMMENTS; Start 09/25/18 at 18:30 Glucose (Glucose) 16 GM ASDIRECTED PRN PO SEE LABEL COMMENTS; Start 09/25/18 at 18:30 Home Med (Med Rec Complete!) ASDIRECTED XX ; Start 09/25/18 at 23:45; Stop 09/25/18 at 23:45; Status DC Hydralazine HCl (Apresoline) 25 mg Q8H PO Last administered on 09/29/18at 06:08; Start 09/25/18 at 22:00 Insulin Detemir (Levemir Insulin) 5 units QHS SC ; Start 09/29/18 at 21:00 Insulin Detemir (Levemir Insulin) 10 units QHS SC Last administered on 09/28/18at 20:30; Start 09/26/18 at 21:00; Stop 09/29/18 at 10:04; Status DC Insulin Human Lispro (HumaLOG INSULIN) SEE PROTOCOL TABLE AC SC Last administered on 09/29/18at 08:54; Start 09/26/18 at 07:30; Stop 09/29/18 at 10:04; Status DC Magnesium Hydroxide (Milk Of Magnesia) 30 ml DAILYPRN PRN PO CONSTIPATION; Start 09/25/18 at 18:30 Metformin HCl (Glucophage) 500 mg DAILY@1800 PO ; Start 09/29/18 at 18:00 Metformin HCl (Glucophage) 1,000 mg DAILY@0800 PO ; Start 09/29/18 at 10:00 Metformin HCl (Glucophage) 1,000 mg QAM PO ; Start 09/29/18 at 10:00; Stop 09/29/18 at 10:03; Status DC Ondansetron HCl (Zofran) 4 mg Q6HP PRN PO NAUSEA; Start 09/25/18 at 18:30 Oxybutynin Chloride (Ditropan Xl) 5 mg DAILY PO Last administered on 09/29/18at 08:55; Start 09/26/18 at 09:00 Oxycodone HCl (Roxicodone, Oxyir) 5 mg QID PO Last administered on 09/29/18at 08:55; Start 09/26/18 at 17:00 Oxycodone/ Acetaminophen (Percocet 5mg/ 325mg Tablet) 1 tab Q4HP PRN PO MILD/M ODERATE PAIN (PS 1-7); Start 09/25/18 at 18:30; Stop 09/25/18 at 19:49; Status DC Oxycodone/ Acetaminophen (Percocet 5mg/ 325mg Tablet) 1 tab QID PO Last administered on 09/26/18at 12:17; Start 09/25/18 at 21:00; Stop 09/26/18 at 12:36; Status DC Pantoprazole Sodium (Protonix) 40 mg DAILY PO Last administered on 09/29/18at 08:55; Start 09/26/18 at 09:00 Rivaroxaban (Xarelto) 10 mg DAILY@1800 PO Last administered on 09/28/18at 17:47; Start 09/26/18 at 18:00; Stop 10/27/18 at 23:55 Salmeterol Xinafoate/ Fluticasone (Advair Hfa 230/ 21) 2 puff BID INH Last administered on 09/28/18at 21:32; Start 09/26/18 at 09:00 Senna (Senokot) 1 tab QHS PO Last administered on 09/28/18at 20:28; Start 09/25/18 at 21:00 Simethicone (Mylicon) 80 mg Q6HP PRN PO GAS PAIN Last administered on 09/28/18at 20:40; Start 09/28/18 at 10:45 SHANE ANGLIN MD Sep 29, 2018 10:27
[2018-09-29] MEDS ORDERED: LOPERAMIDE 2 MG CAP PO PRN (10:30)
[2018-09-29] MEDS: SIMETHICONE 80 MG CHEW TAB PO SCH ×3 (10:43→20:48)
[2018-09-29] MEDS: metFORMIN (GLUCOPHAGE) 1000 MG TABLET PO SCH (10:43)
[2018-09-29 14:00] VITALS: BP 147/65
--- NOTE | 2018-09-29 14:28 | IPNPDOC ---
Date Seen The patient was seen on 09/29/18. Progress Note HPI: Patient is a 57-year-old female obesity who suffered a nondisplaced intertrochanteric fracture of the left femur after tripping on her 's ox ygen. Presented to the [facility] ED on 09/22/2018 complaining of difficulty walking. Orthopedic surgery was consulted who performed an ORIF. She was able to tolerate procedure without difficulty. She was transferred to the care of YARITZA Low, for continued therapy. Pt has been OOB with therapy. Denies any fevers, chills, weakness, fatigue, Headache, Chest Pain, Shortness of breath, cough, palpitations, abdominal pain, N/V/D or changes in bowel or bladder habits. PAST MEDICAL HISTORY: HLD Type 2 diabetes, [id number]. Hypertension Obesity. SIMON Fractures, multiple Asthma PAST SURGICAL HISTORY: multiple right shoulder surgeries on the right that were complicated by infections right ankle surgery Left hip fracture ORIF PE: GEN: yo, appears stated age. Well-nourished, well developed. No acute distress. Alert and oriented x 3. Pleasant, interactive. HEENT: Normocephalic, atraumatic. Sclera are nonicteric. Conjunctiva without injection. Nose midline. Nasal turbinates without bogginess. EACs both patent BL. Moist mucous membranes. CHEST: Regular rate and rhythm, +S1, +S2 LUNGS: Clear to auscultation bilaterally. No wheezes, rales, or rhonchi. Breathing appears symmetric and easy. ABD: Round, soft, non-tender, non-distended. +Bowel sounds throughout. No rebound or guarding. EXT: Pulses 2+ bilaterally dorsalis pedis and radial. No lower extremity edema appreciated. SKIN: [place], dry, warm. No rashes. NEURO: Alert and oriented x 3. Cranial nerves III-XII are intact. No focal deficits appreciated. UC 09/26/18 negative. A&P: Patient is a 57-year-old female obesity who suffered a nondisplaced int ertrochanteric fracture of the left femur after tripping on her 's oxygen. Presented to the [facility] ED on 09/22/2018 complaining of difficulty walking. Orthopedic surgery was consulted who performed an ORIF. She was able to tolerate procedure without difficulty. She was transferred to the care of Dr Mcelroy, ARU, for continued therapy. Lt femur fracture/S/P ORIF. Mgmt as per Orthopedic surgery. PT/OT/ST as per ARU bowel care as per ARU pain control as per ARU DVT prophylaxis Xarelto as per orthopedics. Disposition as per ARU. Diabetes CC diet Levemir SSI. Amaryl on HOLD. ASA81 mg daily. OAB. Ditropan. HTN. Norvasc 10 mg daily. Hydralazine 25mg Q8 BP 139/63. SIMON, Home CPAP HLD. Lipitor 40 mg daily. GERD. PPI. COPD. Advair/Alb prn. VS, I&O, 24H, Fishbone Vital Signs/I&O Vital Signs Date Time Temp Pulse Resp B/P (MAP) Pulse Ox O2 Delivery O2 Flow Rate FiO2 09/29/18 12:27 18 09/29/18 08:55 74 139/63 09/29/18 06:00 97.6 96 I&O- Last 24 Hours up to 6 AM 09/29/18 06:00 Intake Total 700 ml Output Total 1900 ml Balance -1200 ml Laboratory Data 24H LABS Laboratory Tests 2 09/28/18 16:35: Bedside Glucose (Misc Panel) 245H 09/28/18 20:14: Bedside Glucose (Misc Panel) 120H 09/29/18 06:11: Bedside Glucose (Misc Panel) 186H Microbiology Microbiology 09/26/18 Urine Culture - Final, Complete Winsome Hartley Sep 29, 2018 14:28
[2018-09-29] MEDS: RIVAROXABAN 10 MG TAB (XARELTO) PO SCH (17:59)
[2018-09-29] MEDS ORDERED: metFORMIN (GLUCOPHAGE) 500 MG TAB PO SCH (18:00)
[2018-09-29 20:00] VITALS: BP 113/58
[2018-09-29] MEDS: ATORVASTATIN 20 MG TAB PO SCH (20:48)
[2018-09-29] MEDS: ASPIRIN 81 MG CHEW TABLET PO SCH (20:48)
[2018-09-29] MEDS: LEVEMIR (INSULIN DETEMIR) 1 UNITS/0.01ML SC SCH (20:49)
[2018-09-30] MEDS: **hydrALAZINE HCL** 25 MG TAB PO SCH (05:16)
[2018-09-30 06:00] VITALS: BP 157/80
[2018-09-30 07:35] LABS: BASO % 0.4 % (0.0-1.0); EOS # 0.3 10^3/uL (0.0-0.50); EOS % 4.4 % (0.0-3.0); HEMATOCRIT 29.4 % (36.0-47.0); HEMOGLOBIN 9.4 g/dl (12.0-15.5); LYMPH # 1.4 10^3/uL (1.5-4.5); LYMPH % 20.1 % (24.0-44.0); MEAN CORPUSCULAR HEMOGLOBIN 27.6 pg (27.0-33.0); MEAN CORPUSCULAR VOLUME 86.5 fl (80.0-96.0); MONO # 0.5 10^3/uL (0.0-0.8); MONO % 7.9 % (0.0-5.0); NEUTROPHILS # 4.6 10^3/uL (1.8-7.7); NEUTROPHILS % 66.8 % (36.0-66.0); PLATELET COUNT, AUTOMATED 358 10^3/uL (150-450); WHITE BLOOD COUNT 6.8 10^3/uL (4.0-10.0)
[2018-09-30 07:55] LABS: BLOOD UREA NITROGEN 21 MG/DL (7-18); CALCIUM LEVEL 8.9 MG/DL (8.5-10.1); CARBON DIOXIDE LEVEL 25 MEQ/L (21-32); CHLORIDE LEVEL 103 MEQ/L (98-107); CREATININE FOR GFR 0.74 MG/DL (0.55-1.30); GLOMERULAR FILTRATION RATE > 60.0 (>51); GLUCOSE, FASTING 179 MG/DL (70-100); POTASSIUM SERUM 3.8 MEQ/L (3.5-5.1); SODIUM LEVEL 137 MEQ/L (136-145)
[2018-09-30] MEDS: oxyBUTYnin *DITROPAN XL* 5 MG TABCR PO SCH (08:48)
[2018-09-30] MEDS: SIMETHICONE 80 MG CHEW TAB PO SCH ×3 (08:48→20:47)
[2018-09-30] MEDS: amLODIPine 10 MG TAB PO SCH (08:49)
[2018-09-30] MEDS: PANTOPRAZOLE 40MG TAB (PROTONIX) PO SCH (08:49)
[2018-09-30] MEDS: metFORMIN (GLUCOPHAGE) 1000 MG TABLET PO SCH ×2 (08:49→22:39)
[2018-09-30] MEDS: oxyCODONE 5MG TAB PO SCH (08:49)
[2018-09-30] MEDS: ACETAMINOPHEN 325 MG TAB PO SCH ×3 (08:50→20:46)
[2018-09-30] MEDS: ADVAIR HFA 230/21MCG INHALER INH SCH ×2 (09:00→20:57)
[2018-09-30] MEDS ORDERED: NS 1,000 ML IV ONE (10:30)
[2018-09-30] MEDS ORDERED: ISOVUE-370 76% 100ML VIAL (Q9967) As Ordered ONE (10:55)
[2018-09-30 11:37] LABS: CPK CREATINE PHOSPHOKINASE 72 U/L (26-192); TROPONIN I < 0.02 NG/ML (< 0.10)
--- NOTE | 2018-09-30 12:25 | ECGEPIP ---
Stationary ECG Study [facility] Test Date: 2018-09-30 Pat Name: ARNULFO WILSON Department: Room: [place] [address] Gender: F [employer] Groom: WALTER : 1960 Requested By: SHANE ANGLIN Order Number: [id number] Reading MD: Paty Echeverria Measurements Intervals [place] Rate: 71 P: 58 KS: 203 QRS: 15 QRSD: 104 T: 15 QT: 371 QTc: 404 Interpretive Statements SINUS RHYTHM 1ST DEGREE BLOCK POSSIBLE INFERIOR MYOCARDIAL INFARCTION, PROBABLY OLD WITH POSTERIOR EXTENSION SMALL Q OF QUESTIONABLE SIGNIFANCE NEW IN AVF WITH SOME EXTENSION OF R IN V1 SINCE 09/22/18 Electronically Signed On 09-30-2018 12:24:37 EST by Paty Echeverria
[2018-09-30] MEDS: DULoxetine 30 MG CAP (CYMBALTA) PO SCH (12:40)
--- NOTE | 2018-09-30 12:58 | REP ---
Bilateral lower extremity Duplex Doppler venous ultrasound: Real time compression and duplex Doppler interrogation of the bilateral lower extremity deep venous system is performed. Bilaterally, the common femoral, superficial femoral and popliteal veins are fully compressible with transducer pressure and demonstrate normal spontaneous and phasic flow, without evidence of deep venous thrombosis. Impression: No evidence of deep venous thrombosis of the bilateral lower extremity femoral popliteal venous system. Electronically Signed by Bryant Woods MD 09/30/2018 12:49 P
[2018-09-30 14:00] VITALS: BP 161/74
[2018-09-30] MEDS ORDERED: IPRATROPIUM 0.5MG/ALBUTEROL 2.5MG INH SOL UD 3ML (DUONEB)(J7620) NEB SCH (14:00)
--- NOTE | 2018-09-30 14:41 | IPNPDOC ---
Date Seen The patient was seen on 09/30/18. Progress Note HPI: Patient is a 57-year-old female obesity who suffered a nondisplaced intertrochanteric fracture of the left femur after tripping on her 's oxygen. Presented to the [facility] ED on 09/22/2018 complaining of difficulty walking. Orthopedic surgery was consulted who performed an ORIF. She was able to tolerate procedure without difficulty. She was transferred to the care of YARITZA Low, for continued therapy. Pt has been OOB with therapy today. She had reported some chest heaviness after taking oxycodone. She states she has had side effects with pain meds in the past as well. She denies CP with activity, dyspnea, cough. Denies any fevers, chills, weakness, fatigue, Headache, palpitations, abdominal pain, N/V/D or changes in bowel or bladder habits. PAST MEDICAL HISTORY: HLD Type 2 diabetes, [id number]. Hypertension Obesity. SIMON Fractures, multiple Asthma PAST SURGICAL HISTORY: multiple right shoulder surgeries on the right that were complicated by infe ctions right ankle surgery Left hip fracture ORIF PE: GEN: yo, appears stated age. Well-nourished, well developed. No acute distress. Alert and oriented x 3. Pleasant, interactive. HEENT: Normocephalic, atraumatic. Sclera are nonicteric. Conjunctiva without injection. Moist mucous membranes. CHEST: Regular rate and rhythm, +S1, +S2 LUNGS: Clear to auscultation bilaterally. No wheezes, rales, or rhonchi. Breathing appears symmetric and easy. ABD: Round, soft, non-tender, non-distended. +Bowel sounds throughout. No rebound or guarding. EXT: Pulses 2+ bilaterally dorsalis pedis and radial. No lower extremity edema appreciated. SKIN: [place], dry, warm. No rashes. NEURO: Alert and oriented x 3. Cranial nerves III-XII are intact. No focal deficits appreciated. UC 09/26/18 negative. EKG SINUS RHYTHM 1ST DEGREE BLOCK POSSIBLE INFERIOR MYOCARDIAL INFARCTION, PROBABLY OLD WITH POSTERIOR EXTENSION SMALL Q OF QUESTIONABLE SIGNIFANCE NEW IN AVF WITH SOME EXTENSION OF R IN V1 SINCE 09/22/18 Electronically Signed On 09-30-2018 12:24:37 EST by Paty Echeverria A&P: Patient is a 57-year-old female obesity who suffered a nondisplaced intertrochanteric fracture of the left femur after tripping on her 's oxygen. Presented to the [facility] ED on 09/22/2018 complaining of difficulty walking. Orthopedic surgery was consulted who performed an ORIF. She was able to tolerate procedure without difficulty. She was transferred to the care of Dr Mcelroy, ARU, for continued therapy. Lt femur fracture/S/P ORIF. Mgmt as per Orthopedic surgery. PT/OT/ST as per ARU bowel care as per ARU pain control as per ARU DVT prophylaxis Xarelto as per orthopedics. Disposition as per ARU. Chest discomfort. Pt denies any discomfort currently. VSS. HR 88bpm. RR 18 bpm. Sat 97 RA EKG with no acute changes. CIP/Troponin pending. LE U/S pending. Consider CTA chest pending results. Pt remains on Xarelto 10 mg daily. Duonebs added. Diabetes CC diet Levemir SSI. Amaryl/Metformin on HOLD. ASA81 mg daily. OAB. Ditropan. HTN. Norvasc 10 mg daily. Hydralazine 25mg Q8 SBP 113-157. SIMON, Home CPAP HLD. Lipitor 40 mg daily. GERD. PPI. COPD. Duoneb added. Advair [facility]O Vital Signs Date Time Temp Pulse Resp B/P (MAP) Pulse Ox O2 Delivery O2 Flow Rate FiO2 09/30/18 09:19 18 09/30/18 08:49 88 157/80 09/30/18 06:00 98.3 97 I&O- Last 24 Hours up to 6 AM 09/30/18 06:00 Intake Total 720 ml Output Total 600 ml Balance 120 ml Laboratory Data 24H LABS Laboratory Tests 2 09/29/18 16:50: Bedside Glucose (Misc Panel) 162H 09/29/18 20:18: Bedside Glucose (Misc Panel) 194H 09/30/18 05:14: Bedside Glucose (Misc Panel) 158H 09/30/18 07:13: Immature Granulocyte % (Auto) 0.4, White Blood Count 6.8, Red Blood Count 3.40L, Hemoglobin 9.4L, Hematocrit 29.4L, Mean Corpuscular Volume 86.5, Mean Corpuscular Hemoglobin 27.6, Mean Corpuscular Hemoglobin Concent 32.0, Red Cell Distribution Width 13.4, Platelet Count 358, Neutrophils (%) (Auto) 66.8H, Lymphocytes (%) (Auto) 20.1L, Monocytes (%) (Auto) 7.9H, Eosinophils (%) (Auto) 4.4H, Basophils (%) (Auto) 0.4, Neutrophils # (Auto) 4.6, Lymphocytes # (Auto) 1.4L, Monocytes # (Auto) 0.5, Eosinophils # (Auto) 0.3, Basophils # (Auto) 0.0, Nucleated Red Blood Cells % (auto) 0.0, Anion Gap 9, Glomerular Filtration Rate > 60.0, Blood Urea Nitrogen 21H, Creatinine 0.74, Sodium Level 137, Potassium Level 3.8, Chloride Level 103, Carbon Dioxide Level 25, Calcium Level 8.9 09/30/18 10:54: Total Creatine Kinase 72, Troponin I < 0.02 CBC/BMP Laboratory Tests 09/30/18 07:13 Red Blood Count 3.40 L, Mean Corpuscular Volume 86.5, Mean Corpuscular Hemoglobin 27.6, Mean Corpuscular Hemoglobin Concent 32.0, Red Cell Distribution Width 13.4, Neutrophils (%) (Auto) 66.8 H, Lymphocytes (%) (Auto) 20.1 L, Monocytes (%) (Auto) 7.9 H, Eosinophils (%) (Auto) 4.4 H, Basophils (%) (Auto) 0.4, Neutrophils # (Auto) 4.6, Lymphocytes # (Auto) 1.4 L, Monocytes # (Auto) 0.5, Eosinophils # (Auto) 0.3, Basophils # (Auto) 0.0, Calcium Level 8.9 Microbiology Microbiology 09/26/18 Urine Culture - Final, Complete Winsome Hartley Sep 30, 2018 14:41
[2018-09-30] MEDS: ENALAPRIL MALEATE 5 MG TAB PO SCH (15:30)
[2018-09-30] MEDS: RIVAROXABAN 10 MG TAB (XARELTO) PO SCH (17:18)
[2018-09-30] MEDS: SUCRALFATE 1 GM TAB PO SCH ×2 (17:18→20:46)
[2018-09-30 20:00] VITALS: BP 110/59
[2018-09-30] MEDS: LEVEMIR (INSULIN DETEMIR) 1 UNITS/0.01ML SC SCH (20:45)
[2018-09-30] MEDS: ASPIRIN 81 MG CHEW TABLET PO SCH (20:47)
[2018-09-30] MEDS: ATORVASTATIN 20 MG TAB PO SCH (20:47)
--- NOTE | 2018-09-30 21:57 | IPNPDOC ---
PM&R Progress Note DATE OF SERVICE: Sep 30, 2018 Account Maintenance Representative Progress Note Subjective: Patient reports she has been having shortness of breath after she takes oxycodone and has chest pressure that diminishes as the oxycodone wears off. She also reports a burning sensation in her stomach region. EKG was ordered and cardiac enzymes obtained, which were negative for acute AL and her dyspnea improved following administration of her inhaler and throughout the day. Dopplers were ordered to rule out DVT and were negative. REVIEW OF SYSTEMS: The following is a completed review of systems and has been reviewed. Review of systems otherwise unremarkable. PAIN: Patient self reports left hip and right ankle pain (chronic) EYES: Negative for recent vision loss EARS, NOSE, & THROAT: no dysphagia, sore throat, rhinorrhea, or hearing loss CARDIOVASCULAR: denies chest pain or palpitations PULMONARY: Negative. Denies shortness of breath or cough GASTROINTESTINAL: +diarrhea-improving GENITOURINARY: No dysuria or hematuria MUSCULOSKELETAL: left hip fracture NEUROLOGICAL: no seizure or tremor SKIN: left hip incision PSYCHIATRIC: Unremarkable All other review of systems found to be negative. PHYSICAL EXAMINATION: VITAL SIGNS: Please see below. GENERAL: Pleasant and cooperative. No acute distress. HEENT: PERRL. Extraocular movements intact. Clear conjunctiva. CARDIOVASCULAR: Regular rate and rhythm. No murmurs, rubs, or gallops. LUNGS: Clear to auscultation bilaterally. No wheezes. No rhonchi ABDOMEN: Soft, nontender, + mild distended (improving) Positive bowel sounds.hyperactive bowel sounds NEUROLOGICAL: Alert and oriented times three. Cranial nerves II through XII grossly intact. Sensation grossly intact including dorsum of left foot first web space EXTREMITIES: 5\5 strength bilateral upper extremities. 5\5 strength right lower extremity. 5/5 strength in left ankle Df and EHL (exam limited due to pain) SKIN: left hip incision with scant sanguinous drainage Negtive Hommans bilat ASSESSMENT:57-year-old F with past medical history of HTN and DM who presents status post fall with left hip fracture s/p ORIF PLAN: 1. Rehab: PT/OT, assess for DME, ambulating further with RW, room privileges 2. Ortho: s.p left hip fracture with ORIF on 09/21/18, WBAT-ortho consulted 3 Neuro: stable 4. CArdio: pmh HTN continue BP meds, adjust prn, medicine consulted -episode of chest discomfort today with shortness of rbeath EKG unchanged when compared to mot recent, and cardiac enzymes negative, symptoms resolved after use of inhaler 5. resp: pmh asthma and SIMON, continue breathing treatments, encourage incentive spirometry, CPAP at night 6. Endo: pmh DM, continue insulin and adjust prn, metformin 7. : admission UA and Ucx negative, monitor PVRs, continue oxybutynin 8. GI ppx: protonix, optimize bowel meds- patient with distended abdomen and diarrhea persistent through the weekend, c. diff ordered which is negative, KUB showed dilated colon without obstruction, patient passing gas and stool, distension improving will continue to monitor, continue simethicone, will add Imodium prn loose stool and Carafate for indigestion 9. Skin: monitor incision for infection 10. Pain: Tylenol and Cymbalta, will stop oxycodone as this causes her sensation of shortness of breath 10. Dispo: 10/05/18 to home progressing towards goals Allergies Coded Allergies: Cephalosporins (Verified Allergy, Intermediate, HIVES, 09/22/18) Vital Signs Vital Signs Date Time Temp Pulse Resp B/P (MAP) Pulse Ox O2 Delivery O2 Flow Rate FiO2 09/30/18 15:30 161/74 09/30/18 14:00 97.4 83 18 100 Laboratory Data CBC/BMP Laboratory Tests 09/30/18 07:13 Red Blood Count 3.40 L, Mean Corpuscular Volume 86.5, Mean Corpuscular Hemoglobin 27.6, Mean Corpuscular Hemoglobin Concent 32.0, Red Cell Distribution Width 13.4, Neutrophils (%) (Auto) 66.8 H, Lymphocytes (%) (Auto) 20.1 L, Monocytes (%) (Auto) 7.9 H, Eosinophils (%) (Auto) 4.4 H, Basophils (%) (Auto) 0.4, Neutrophils # (Auto) 4.6, Lymphocytes # (Auto) 1.4 L, Monocytes # (Auto) 0.5, Eosinophils # (Auto) 0.3, Basophils # (Auto) 0.0, Calcium Level 8.9 Labs 24H Laboratory Tests 2 09/30/18 05:14: Bedside Glucose (Misc Panel) 158H 09/30/18 07:13: Immature Granulocyte % (Auto) 0.4, White Blood Count 6.8, Red Blood Count 3.40L, Hemoglobin 9.4L, Hematocrit 29.4L, Mean Corpuscular Volume 86.5, Mean Co rpuscular Hemoglobin 27.6, Mean Corpuscular Hemoglobin Concent 32.0, Red Cell Distribution Width 13.4, Platelet Count 358, Neutrophils (%) (Auto) 66.8H, Lymphocytes (%) (Auto) 20.1L, Monocytes (%) (Auto) 7.9H, Eosinophils (%) (Auto) 4.4H, Basophils (%) (Auto) 0.4, Neutrophils # (Auto) 4.6, Lymphocytes # (Auto) 1.4L, Monocytes # (Auto) 0.5, Eosinophils # (Auto) 0.3, Basophils # (Auto) 0.0, Nucleated Red Blood Cells % (auto) 0.0, Anion Gap 9, Glomerular Filtration Rate > 60.0, Blood Urea Nitrogen 21H, Creatinine 0.74, Sodium Level 137, Potassium Level 3.8, Chloride Level 103, Carbon Dioxide Level 25, Calcium Level 8.9 09/30/18 10:54: Total Creatine Kinase 72, Troponin I < 0.02 09/30/18 16:22: Bedside Glucose (Misc Panel) 179H 09/30/18 20:08: Bedside Glucose (Misc Panel) 146H Microbiology Microbiology 09/26/18 Urine Culture - Final, Complete Current Medications Current Medications Current Medications Acetaminophen (Tylenol Tab) 650 mg DAILYPRN PRN PO PAIN / FEVER Last administered on 09/29/18at 06:09; Start 09/26/18 at 12:45 Acetaminophen (Tylenol Tab) 650 mg Q4HP PRN PO fever/MILD PAIN (PS 1-4); Start 09/25/18 at 18:30; Stop 09/26/18 at 12:36; Status DC Acetaminophen (Tylenol Tab) 975 mg TID PO Last administered on 09/30/18at 20:46; Start 09/25/18 at 21:00 Albuterol Sulfate (Proventil, Ventolin Hfa) 2 puff Q4HP PRN INH SHORTNESS OF BREATH; Start 09/25/18 at 18:30 Albuterol/ Ipratropium (Duoneb (Ipr 0.5mg/Alb 2.5mg)) 3 ml RTID NEB ; Start 09/30/18 at 14:00; Stop 09/30/18 at 16:01; Status DC Amlodipine Besylate (Norvasc) 10 mg DAILY PO Last administered on 09/30/18at 08:49; Start 09/26/18 at 09:00 Aspirin (Aspirin Chewable) 81 mg DAILY@2100 PO Last administered on 09/30/18at 20:47; Start 09/26/18 at 21:00 Atorvastatin Calcium (Lipitor) 40 mg QHS PO Last administered on 09/30/18at 20:47; Start 09/26/18 at 21:00 Benazepril HCl (Lotensin) 40 mg DAILY PO Last administered on 09/27/18at 08:25; Start 09/26/18 at 09:00; Stop 09/27/18 at 10:22; Status DC Bisacodyl (Dulcolax Suppository) 10 mg DAILYPRN PRN NC CONSTIPATION; Start 09/25/18 at 18:30 Calcium Carbonate (Tums) 1,000 mg Q4HP PRN PO HEARTBURN Last administered on 09/29/18at 01:47; Start 09/28/18 at 21:45 Dextrose (Dextrose 50%) 25 ml ASDIRECTED PRN IV SEE LABEL COMMENTS; Start 09/25/18 at 18:30 Docusate Sodium (Colace) 100 mg BID PO Last administered on 09/28/18at 20:28; Start 09/25/18 at 21:00; Stop 09/29/18 at 10:20; Status DC Duloxetine HCl (Cymbalta) 30 mg DAILY PO Last administered on 09/30/18at 12:40; Start 09/30/18 at 09:00 Enalapril Maleate (Vasotec) 5 mg DAILY PO Last administered on 09/30/18at 15:30; Start 09/30/18 at 14:00 Ferrous Gluconate (Fergon) 324 mg BID PO ; Start 09/25/18 at 21:00; Stop 09/26/18 at 13:43; Status DC Gabapentin (Neurontin) 100 mg TID PO ; Start 09/25/18 at 21:00; Stop 09/26/18 at 13:43; Status DC Glucagon (Glucagon) 1 mg ASDIRECTED PRN SC SEE LABEL COMMENTS; Start 09/25/18 at 18:30 Glucose (Glucose) 16 GM ASDIRECTED PRN PO SEE LABEL COMMENTS; Start 09/25/18 at 18:30 Home Med (Med Rec Complete!) ASDIRECTED XX ; Start 09/25/18 at 23:45; Stop 09/25/18 at 23:45; Status DC Hydralazine HCl (Apresoline) 25 mg Q8H PO Last administered on 09/30/18at 05:16; Start 09/25/18 at 22:00; Stop 09/30/18 at 13:55; Status DC Insulin Detemir (Levemir Insulin) 5 units QHS SC Last administered on 09/30/18at 20:45; Start 09/29/18 at 21:00 Insulin Detemir (Levemir Insulin) 10 units QHS SC Last administered on 09/28/18at 20:30; Start 09/26/18 at 21:00; Stop 09/29/18 at 10:04; Status DC Insulin Human Lispro (HumaLOG INSULIN) SEE PROTOCOL TABLE AC SC Last administered on 09/29/18at 08:54; Start 09/26/18 at 07:30; Stop 09/29/18 at 10:04; Status DC Loperamide HCl (Imodium) 2 mg ASDIRECTED PRN PO DIARRHEA; Start 09/29/18 at 10:30 Magnesium Hydroxide (Milk Of Magnesia) 30 ml DAILYPRN PRN PO CONSTIPATION; Start 09/25/18 at 18:30 Metformin HCl (Glucophage) 500 mg DAILY@1800 PO Last administered on 09/29/18at 17:59; Start 09/29/18 at 18:00; Stop 09/30/18 at 10:32; Status DC Metformin HCl (Glucophage) 1,000 mg DAILY@0800 PO Last administered on 09/30/18at 08:49; Start 09/29/18 at 10:00; Stop 09/30/18 at 10:32; Status DC Metformin HCl (Glucophage) 1,000 mg QAM PO ; Start 09/29/18 at 10:00; Stop 09/29/18 at 10:03; Status DC Ondansetron HCl (Zofran) 4 mg Q6HP PRN PO NAUSEA; Start 09/25/18 at 18:30 Oxybutynin Chloride (Ditropan Xl) 5 mg DAILY PO Last administered on 09/30/18 08:48; Start 09/26/18 at 09:00 Oxycodone HCl (Roxicodone, Oxyir) 5 mg QID PO Last administered on 09/30/18 08:49; Start 09/26/18 at 17:00; Stop 09/30/18 at 11:27; Status DC Oxycodone/ Acetaminophen (Percocet 5mg/ 325mg Tablet) 1 tab Q4HP PRN PO MILD/MODERATE PAIN (PS 1-7); Start 09/25/18 at 18:30; Stop 09/25/18 at 19:49; Status DC Oxycodone/ Acetaminophen (Percocet 5mg/ 325mg Tablet) 1 tab QID PO Last administered on 09/26/18 12:17; Start 09/25/18 at 21:00; Stop 09/26/18 at 12:36; Status DC Pantoprazole Sodium (Protonix) 40 mg DAILY PO Last administered on 09/30/18 08:49; Start 09/26/18 at 09:00 Rivaroxaban (Xarelto) 10 mg DAILY@1800 PO Last administered on 09/30/18 17:18; Start 09/26/18 at 18:00; Stop 10/27/18 at 23:55 Salmeterol Xinafoate/ Fluticasone (Advair Hfa 230/ 21) 2 puff BID INH Last administered on 09/30/18 20:57; Start 09/26/18 at 09:00 Senna (Senokot) 1 tab QHS PO Last administered on 09/28/18 20:28; Start 9 at 21:00; Stop 09/29/18 at 10:20; Status DC Simethicone (Mylicon) 80 mg Q6HP PRN PO GAS PAIN Last administered on 09/28/18 20:40; Start 09/28/18 at 10:45; Stop 09/29/18 at 10:20; Status DC Simethicone (Mylicon) 80 mg TID PO Last administered on 09/30/18 20:47; Start 09/29/18 at 09:00 Sucralfate (Carafate) 1 gm TID PO Last administered on 09/30/18at 20:46; Start 09/30/18 at 16:00 SHANE ANGLIN MD Sep 30, 2018 21:57
[2018-10-01 05:26] VITALS: BP 144/67
[2018-10-01 07:08] LABS: BASO % 0.4 % (0.0-1.0); EOS # 0.4 10^3/uL (0.0-0.50); EOS % 4.6 % (0.0-3.0); HEMATOCRIT 28.6 % (36.0-47.0); HEMOGLOBIN 9.4 g/dl (12.0-15.5); LYMPH # 1.3 10^3/uL (1.5-4.5); LYMPH % 17.1 % (24.0-44.0); MEAN CORPUSCULAR HEMOGLOBIN 27.6 pg (27.0-33.0); MEAN CORPUSCULAR HGB CONC 32.9 g/dl (32.0-36.5); MEAN CORPUSCULAR VOLUME 83.9 fl (80.0-96.0); MONO # 0.4 10^3/uL (0.0-0.8); MONO % 5.4 % (0.0-5.0); NEUTROPHILS # 5.6 10^3/uL (1.8-7.7); PLATELET COUNT, AUTOMATED 443 10^3/uL (150-450); RED BLOOD COUNT 3.41 10^6/uL (4.00-5.40); WHITE BLOOD COUNT 7.8 10^3/uL (4.0-10.0)
[2018-10-01 07:35] LABS: BLOOD UREA NITROGEN 16 MG/DL (7-18); CALCIUM LEVEL 9.2 MG/DL (8.5-10.1); CARBON DIOXIDE LEVEL 24 MEQ/L (21-32); CHLORIDE LEVEL 103 MEQ/L (98-107); CREATININE FOR GFR 0.68 MG/DL (0.55-1.30); GLOMERULAR FILTRATION RATE > 60.0 (>51); GLUCOSE, FASTING 162 MG/DL (70-100); POTASSIUM SERUM 3.6 MEQ/L (3.5-5.1); SODIUM LEVEL 138 MEQ/L (136-145)
[2018-10-01] MEDS: ACETAMINOPHEN 325 MG TAB PO SCH ×3 (08:03→20:31)
[2018-10-01] MEDS: metFORMIN (GLUCOPHAGE) 1000 MG TABLET PO SCH ×2 (08:03→18:11)
[2018-10-01] MEDS: oxyBUTYnin *DITROPAN XL* 5 MG TABCR PO SCH (08:34)
[2018-10-01] MEDS: DULoxetine 30 MG CAP (CYMBALTA) PO SCH (08:34)
[2018-10-01] MEDS: PANTOPRAZOLE 40MG TAB (PROTONIX) PO SCH (08:34)
[2018-10-01] MEDS: ENALAPRIL MALEATE 5 MG TAB PO SCH (08:35)
[2018-10-01] MEDS: SIMETHICONE 80 MG CHEW TAB PO SCH ×3 (08:35→20:31)
[2018-10-01] MEDS: SUCRALFATE 1 GM TAB PO SCH ×3 (08:35→20:30)
[2018-10-01] MEDS: amLODIPine 10 MG TAB PO SCH (08:35)
[2018-10-01 09:00] VITALS: BP 139/65
[2018-10-01] MEDS: ADVAIR HFA 230/21MCG INHALER INH SCH ×2 (09:57→19:45)
[2018-10-01 14:00] VITALS: BP 122/60
--- NOTE | 2018-10-01 14:22 | IPNPDOC ---
Date Seen The patient was seen on 10/01/18. Progress Note HPI: Patient is a 57-year-old female obesity who suffered a nondisplaced intertrochanteric fracture of the left femur after tripping on her 's oxygen. Presented to the [facility] ED on 09/22/2018 complaining of difficulty walking. Orthopedic surgery was consulted who performed an ORIF. She was able to tolerate procedure without difficulty. She was transferred to the care of YARITZA Low, for continued therapy. The patient is out of bed to the chair. She states she is feeling well. Denies any fevers, chills, weakness, fatigue, Headache, chest pain, shortness of breath, cough, palpitations, abdominal pain, N/V/D or changes in bowel or bladder habits. PAST MEDICAL HISTORY: HLD Type 2 diabetes, [id number]. Hypertension Obesity. SIMON Fractures, multiple Asthma PAST SURGICAL HISTORY: multiple right shoulder surgeries on the right that were complicated by infectio ns right ankle surgery Left hip fracture ORIF PE: GEN: yo, appears stated age. Well-nourished, well developed. No acute distress. Alert and oriented x 3. Pleasant, interactive. HEENT: Normocephalic, atraumatic. Sclera are nonicteric. Conjunctiva without injection. Moist mucous membranes. CHEST: Regular rate and rhythm, +S1, +S2 LUNGS: Clear to auscultation bilaterally. No wheezes, rales, or rhonchi. Breathing appears symmetric and easy. ABD: Round, soft, non-tender, non-distended. +Bowel sounds throughout. No rebound or guarding. EXT: Pulses 2+ bilaterally dorsalis pedis and radial. No lower extremity edema appreciated. SKIN: [place], dry, warm. No rashes. NEURO: Alert and oriented x 3. Cranial nerves III-XII are intact. No focal deficits appreciated. UC 09/26/18 negative. EKG SINUS RHYTHM 1ST DEGREE BLOCK POSSIBLE INFERIOR MYOCARDIAL INFARCTION, PROBABLY OLD WITH POSTERIOR EXTENSION SMALL Q OF QUESTIONABLE SIGNIFANCE NEW IN AVF WITH SOME EXTENSION OF R IN V1 SINCE 09/22/18 Electronically Signed On 09-30-2018 12:24:37 EST by Paty Echeverria A&P: Patient is a 57-year-old female obesity who suffered a nondisplaced intertrochanteric fracture of the left femur after tripping on her 's oxygen. Presented to the [facility] ED on 09/22/2018 complaining of difficulty walking. Orthopedic surgery was consulted who performed an ORIF. She was able to tolerate procedure without difficulty. She was transferred to the care of Dr Mcelroy, ARU, for continued therapy. Lt femur fracture/S/P ORIF. Mgmt as per Orthopedic surgery. PT/OT/ST as per ARU bowel care as per ARU pain control as per ARU DVT prophylaxis Xarelto as per orthopedics. Disposition as per ARU. Chest discomfort. Resolved, no recurrence VSS. EKG with no acute changes. CIP/Troponin unremarkable. LE U/S negative. Diabetes CC diet Continue metformin Levemir SSI. Amaryl ASA81 mg daily. OAB. Ditropan. HTN. Norvasc 10 mg daily. Hydralazine 25mg Q8 Scheduled SIMON, Home CPAP HLD. Lipitor 40 mg daily. GERD. PPI. COPD. Advair VS, I&O, 24H, Fishbone Vital Signs/I&O Vital Signs Date Time Temp Pulse Resp B/P (MAP) Pulse Ox O2 Delivery O2 Flow Rate FiO2 10/01/18 09:00 97.4 74 18 139/65 (89) 97 I&O- Last 24 Hours up to 6 AM 10/01/18 06:00 Intake Total 680 ml Output Total 0 ml Balance 680 ml Laboratory Data 24H LABS Laboratory Tests 2 09/30/18 16:22: Bedside Glucose (Misc Panel) 179H 09/30/18 20:08: Bedside Glucose (Misc Panel) 146H 10/01/18 06:57: Immature Granulocyte % (Auto) 0.5, White Blood Count 7.8, Red Blood Count 3.41L, Hemoglobin 9.4L, Hematocrit 28.6L, Mean Corpuscular Volume 83.9, Mean Corpuscular Hemoglobin 27.6, Mean Corpuscular Hemoglobin Concent 32.9, Red Cell Distribution Width 13.3, Platelet Count 443, Neutrophils (%) (Auto) 72.0H, Lymph ocytes (%) (Auto) 17.1L, Monocytes (%) (Auto) 5.4H, Eosinophils (%) (Auto) 4.6H, Basophils (%) (Auto) 0.4, Neutrophils # (Auto) 5.6, Lymphocytes # (Auto) 1.3L, Monocytes # (Auto) 0.4, Eosinophils # (Auto) 0.4, Basophils # (Auto) 0.0, Nucleated Red Blood Cells % (auto) 0.0, Anion Gap 11, Glomerular Filtration Rate > 60.0, Blood Urea Nitrogen 16, Creatinine 0.68, Sodium Level 138, Potassium Level 3.6, Chloride Level 103, Carbon Dioxide Level 24, Calcium Level 9.2 CBC/BMP Laboratory Tests 10/01/18 06:57 Red Blood Count 3.41 L, Mean Corpuscular Volume 83.9, Mean Corpuscular H emoglobin 27.6, Mean Corpuscular Hemoglobin Concent 32.9, Red Cell Distribution Width 13.3, Neutrophils (%) (Auto) 72.0 H, Lymphocytes (%) (Auto) 17.1 L, Monocytes (%) (Auto) 5.4 H, Eosinophils (%) (Auto) 4.6 H, Basophils (%) (Auto) 0.4, Neutrophils # (Auto) 5.6, Lymphocytes # (Auto) 1.3 L, Monocytes # (Auto) 0.4, Eosinophils # (Auto) 0.4, Basophils # (Auto) 0.0, Calcium Level 9.2 Microbiology Microbiology 09/26/18 Urine Culture - Final, Complete Winsome Hartley Oct 01, 2018 14:22
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
[2018-10-01] MEDS: RIVAROXABAN 10 MG TAB (XARELTO) PO SCH (18:11)
[2018-10-01 20:00] VITALS: BP 141/67
[2018-10-01] MEDS: ATORVASTATIN 20 MG TAB PO SCH (20:30)
[2018-10-01] MEDS: ASPIRIN 81 MG CHEW TABLET PO SCH (20:31)
[2018-10-01] MEDS: LEVEMIR (INSULIN DETEMIR) 1 UNITS/0.01ML SC SCH (20:34)
[2018-10-02 05:09] VITALS: BP 148/78
[2018-10-02] MEDS ORDERED: XARE10TA PO (06:07)
[2018-10-02] MEDS: ADVAIR HFA 230/21MCG INHALER INH SCH (07:20)
[2018-10-02] MEDS: oxyBUTYnin *DITROPAN XL* 5 MG TABCR PO SCH (08:41)
[2018-10-02 08:42] VITALS: BP 148/78
[2018-10-02] MEDS: SIMETHICONE 80 MG CHEW TAB PO SCH (08:42)
[2018-10-02] MEDS: DULoxetine 30 MG CAP (CYMBALTA) PO SCH (08:42)
[2018-10-02] MEDS: amLODIPine 10 MG TAB PO SCH (08:42)
[2018-10-02] MEDS: ACETAMINOPHEN 325 MG TAB PO SCH (08:42)
[2018-10-02] MEDS: SUCRALFATE 1 GM TAB PO SCH (08:42)
[2018-10-02] MEDS: PANTOPRAZOLE 40MG TAB (PROTONIX) PO SCH (08:42)
[2018-10-02] MEDS: metFORMIN (GLUCOPHAGE) 1000 MG TABLET PO SCH (08:42)
[2018-10-02] MEDS: ENALAPRIL MALEATE 5 MG TAB PO SCH (08:42)
[2018-10-02] MEDS ORDERED: DULO30CA PO (09:54)
[2018-10-02] MEDS ORDERED: INSUDET SC (09:54)
[2018-10-02] MEDS ORDERED: SUCR1TA PO (09:54)
[2018-10-02] MEDS ORDERED: ACET32TAB PO (09:54)
--- NOTE | 2018-10-07 09:33 | PMRDS ---
DATE OF ADMISSION: 09/25/2018 DATE OF DISCHARGE: 10/02/2018 CHIEF COMPLAINT/DISCHARGE DIAGNOSIS: Left hip fracture. HISTORY OF PRESENT ILLNESS: This is a 57-year-old female with a past medical history of multiple fractures, hypertension, diabetes, hyperlipidemia, obesity, who fell at home over her 's shoelace and presented to [facility] emergency department on 09/22/2018 complaining of left leg pain and difficulty walking. She denied any dizziness, loss of consciousness or head trauma. Imaging revealed a nondisplaced intertrochanteric fracture of the left femur. She was evaluated by orthopedic surgery who performed an open reduction internal fixation (ORIF) and follow up x-rays on 09/22/2018 showed "satisfactory open reduction internal fixation for intertrochanteric femoral neck fracture". She had no immediate complications, however, did have leukocytosis and uncontrolled blood sugars. Her blood pressure was elevated and hydralazine started for better control. She was evaluated by therapy and found to have sufficient ambulation and activities of daily living and deemed medically appropriate to ARU on 09/25/2018. PAST MEDICAL HISTORY: Hypertension. Diabetes type 2. Hyperlipidemia. Obesity. Asthma. Multiple fractures. HOSPITAL COURSE: The patient was admitted and enrolled in a comprehensive physical therapy (PT), occupational therapy (OT) program. She received 24 hour nursing supervision and weekly team meetings were held to discuss her progress. Upon arrival, patient complained of abdominal distention and diarrhea with gas. Clostridium difficile was ordered which was negative and KUB was ordered showing dilated colon without obstruction with suspected ileus, however, patient continued to pass gas and produce stool. Her distention improved with the use of simethicone and following a course a magnesium citrate. Patient reported that she continued to have indigestion for which Carafate was ordered and her abdominal symptoms resolved. Her admission UA and urine culture was negative. She voided well and was maintained on Oxybutynin. She was continued on metformin, however additional insulin was ordered for better diabetic control. She used her CPAP at night and initially received breathing treatments, however, reported feeling shaky after getting albuterol so this was discontinued. Patient reported an episode of chest discomfort with shortness of breath. EKG was ordered and was unchanged from prior ones. CK troponins were negative. Patient reported her symptoms resolved after the use of an inhaler. Patient also reported that she had felt short of breath after taking oxycodone and this was discontinued as well and patient was maintained on Tylenol and Cymbalta was added to her regimen for better pain control. Patient progressed quickly, was given room privileges and reported she felt much better on day prior to discharge and was deemed functionally and medically stable to return to home on 10/02/2018 with outpatient orthopedic followup and followup with her primary care physician. DISCHARGE MEDICATIONS: - Tylenol - Cymbalta - insulin - Xarelto - sucralfate - albuterol - amlodipine - ascorbic acid - aspirin - atorvastatin - Benazepril - Flonase - glipizide - loratadine - metformin - multivitamin - oxybutynin - Protonix - Advair - simethicone - sitagliptin FUNCTIONAL HISTORY: Upon discharge, patient was modified independent for sit to stand, stand to sit, able to ambulate 200 feet at modified independent level using rolling walker. She successfully completed a car transfer in occupational therapy. She was modified independent in bathing, independent in upper body dressing, stand by assist for lower body dressing and modified independent for toileting. She was deemed functionally and medically stable to return to home with home services.
== END 2018-10-02 14:30 | disposition home health service (06) | DRG 561 ==
LOC: M PM&R 21:47
PROVIDERS: ADMIT Physical Medicine & Rehabilitation; ATTEND Physical Medicine & Rehabilitation
DX: S72.142D Displaced intertrochanteric fracture of left femur, subsequent encounter for closed fracture with routine healing (principal); W18.30XD Fall on same level, unspecified, subsequent encounter; Y92.019 Unspecified place in single-family (private) house as the place of occurrence of the external cause; I10 Essential (primary) hypertension; E11.9 Type 2 diabetes mellitus without complications; E78.5 Hyperlipidemia, unspecified; E66.9 Obesity, unspecified; J45.909 Unspecified asthma, uncomplicated; Z79.82 Long term (current) use of aspirin; Z79.84 Long term (current) use of oral hypoglycemic drugs; Z79.899 Other long term (current) drug therapy; Z88.1 Allergy status to other antibiotic agents; N32.81 Overactive bladder; G47.33 Obstructive sleep apnea (adult) (pediatric); J44.9 Chronic obstructive pulmonary disease, unspecified; K21.9 Gastro-esophageal reflux disease without esophagitis; I44.0 Atrioventricular block, first degree; I25.2 Old myocardial infarction; R07.9 Chest pain, unspecified

== ENCOUNTER → 2019-01-26 | Outpatient (REF) | payer OTHER ==
[~2019-01-26] MED LIST changes: +ACET32TAB PO; +DULO30CA9 PO; +INSUDET SC; +SUCR1TA PO; +XARE10TA PO
[2019-01-26 15:54] LABS: HEMATOCRIT 40.6 % (36.0-47.0); HEMOGLOBIN 12.5 g/dl (12.0-15.5); MEAN CORPUSCULAR HGB CONC 30.8 g/dl (32.0-36.5); MEAN CORPUSCULAR VOLUME 84.6 fl (80.0-96.0); PLATELET COUNT, AUTOMATED 341 10^3/uL (150-450); WHITE BLOOD COUNT 9.6 10^3/uL (4.0-10.0)
[2019-01-26 16:02] LABS: BLOOD UREA NITROGEN 17 MG/DL (7-18); CALCIUM LEVEL 9.8 MG/DL (8.8-10.2); CARBON DIOXIDE LEVEL 27 MEQ/L (21-32); CHLORIDE LEVEL 108 MEQ/L (98-107); FERRITIN 339 NG/ML (8-252); GLOMERULAR FILTRATION RATE > 60.0 (>45); GLUCOSE, FASTING 91 MG/DL (70-100); IRON (FE) 32 UG/DL (50-170); PERCENT SATURATION 12.1 % (13.2-45.0); POTASSIUM SERUM 4.5 MEQ/L (3.5-5.1); SODIUM LEVEL 142 MEQ/L (136-145); TOTAL IRON BINDING CAPACITY 265 UG/DL (250-450)
[2019-01-26 16:32] LABS: CREATININE, URINE 27.9 MG/DL; MALB URINE SIEMENS 10.3 MG/L; MAU/CREAT RATIO 36.9 MCG/MG (0.0-30.0)
== END ==
LOC: M SFHCPLAZ 13:54
PROVIDERS: ATTEND Family Medicine
DX: D64.9 Anemia, unspecified (principal); I10 Essential (primary) hypertension; E11.9 Type 2 diabetes mellitus without complications

== ENCOUNTER → 2019-02-10 | Outpatient (CLI) | payer OTHER ==
--- NOTE | 2019-02-10 09:21 | REPMRS ---
Patient History The patient states she has not had a clinical breast exam in over a year. Patient is postmenopausal and is nulliparous. Benign stereotactic core biopsy of the right breast, 2017. Digital Woman Screen Mammo: February 10, 2019 - Exam #: [id number] Bilateral MLO, CC, and XCCL view(s) were taken. Technologist: Sharlene Daniel, Technologist Prior study comparison: July 19, 2016, bilateral digital mammo screening bilat, performed at [facility]. June 27, 2015, bilateral digital mammo screening bilat, performed at [facility]. May 15, 2011, bilateral digital woman screen mammo, performed at [facility]. FINDINGS: There are scattered fibroglandular densities. There is a needle biopsy marker clip visualized in the right breast. There has been no change in the appearance of the mammogram from the prior studies. There is a mild amount of scattered fibroglandular density which is fairly symmetric. There is no interval development of dominant mass, architectural distortion, or grouped microcalcification suggestive of malignancy. Assessment: BI-RADS/ACR category 2 mammogram. Benign Findings. Recommendation Routine screening mammogram of both breasts in 1 year (for women over age 40). This patient's Lifetime Breast Cancer Risk is estimated at 11.8 %. This mammogram was interpreted with the aid of an FDA-approved computer-aided dectection system. Electronically Signed By: Bob Charles MD 02/10/19 [id number]
== END ==
LOC: M WHC 06:42
PROVIDERS: ATTEND Family Medicine
DX: Z12.31 Encounter for screening mammogram for malignant neoplasm of breast (principal); Z78.0 Asymptomatic menopausal state; Z86.018 Personal history of other benign neoplasm

== ENCOUNTER → 2019-03-11 | Outpatient (REF) | payer OTHER ==
[~2019-03-11] MED LIST changes: -ACET32TAB PO; +MAPA325T4 PO
[2019-03-11 13:41] LABS: HEMOGLOBIN A1c 6.1 %
[2019-03-11 14:03] LABS: CREATININE, URINE 50.4 MG/DL; MAU/CREAT RATIO 21.8 MCG/MG (0.0-30.0)
== END ==
LOC: M SFHCPLAZ 10:08
PROVIDERS: ATTEND Family Medicine
DX: E11.9 Type 2 diabetes mellitus without complications (principal); R80.9 Proteinuria, unspecified; I10 Essential (primary) hypertension
CPT/HCPCS: 36415; 82043; 83036; G0463

== ENCOUNTER → 2019-06-14 | Outpatient (REF) | payer OTHER ==
[~2019-06-14] MED LIST changes: -OXYB5TAB PO; +OXYB5TAB2 PO
[2019-06-14 10:15] LABS: HEMOGLOBIN A1c 7.1 %
== END ==
LOC: M SFHCPLAZ 08:20
PROVIDERS: ATTEND Family Medicine
DX: E11.9 Type 2 diabetes mellitus without complications (principal)

== ENCOUNTER → 2019-06-15 | Outpatient (REF) | payer OTHER ==
[2019-06-15 11:01] LABS: BASO % 0.5 % (0.0-1.0); EOS # 0.3 10^3/uL (0.0-0.5); EOS % 3.5 % (0.0-3.0); HEMATOCRIT 40.5 % (36.0-47.0); LYMPH # 1.4 10^3/uL (1.5-5.0); LYMPH % 16.9 % (24.0-44.0); MEAN CORPUSCULAR HGB CONC 32.1 g/dl (32.0-36.5); MEAN CORPUSCULAR VOLUME 87.3 fl (80.0-96.0); MONO # 0.6 10^3/uL (0.0-0.8); MONO % 6.8 % (0.0-5.0); NEUTROPHILS # 5.9 10^3/uL (1.5-8.5); NEUTROPHILS % 71.9 % (36.0-66.0); PLATELET COUNT, AUTOMATED 318 10^3/uL (150-450); RED BLOOD COUNT 4.64 10^6/uL (4.00-5.40); WHITE BLOOD COUNT 8.2 10^3/uL (4.0-10.0)
[2019-06-15 11:11] LABS: APPEARANCE, URINE CLEAR (CLEAR); BACTERIA, URINE AUTO NEGATIVE (NEGATIVE); BILIRUBIN, URINE AUTO NEGATIVE (NEGATIVE); BLOOD, URINE BLOOD 3+ (NEGATIVE); COLOR, URINE AMBER (YELLOW); GLUCOSE, URINE (UA) AUTO NEGATIVE (NEGATIVE); KETONE, URINE AUTO NEGATIVE (NEGATIVE); LEUKOCYTE ESTERASE, URINE AUTO TRACE (NEGATIVE); MUCUS, URINE SMALL (NEGATIVE); NITRITE, URINE AUTO POSITIVE (NEGATIVE); PROTEIN, URINE AUTO 1+ mg/dL (NEGATIVE); RBC, URINE AUTO TNTC /HPF (0-3); SQUAMOUS EPITHELIAL CELL UR AU 0 /HPF (0-6); WBC, URINE AUTO 7 /HPF (0-3)
[2019-06-15 11:19] LABS: ERYTHROCYTE SEDIMENTATION RATE 13 mm/hr (0-30)
[2019-06-15 11:46] LABS: ALBUMIN 4.1 GM/DL (3.2-5.2); ALT/SGPT 22 U/L (12-78); BILIRUBIN,TOTAL 0.6 MG/DL (0.2-1.0); BLOOD UREA NITROGEN 18 MG/DL (7-18); C REACTIVE PROTEIN QUANTITATIV 0.44 MG/DL (0.00-0.30); CALCIUM LEVEL 9.5 MG/DL (8.8-10.2); CARBON DIOXIDE LEVEL 23 MEQ/L (21-32); CHLORIDE LEVEL 106 MEQ/L (98-107); CREATININE FOR GFR 0.83 MG/DL (0.55-1.30); GLOMERULAR FILTRATION RATE > 60.0 (>45); GLUCOSE, FASTING 187 MG/DL (70-100); POTASSIUM SERUM 4.7 MEQ/L (3.5-5.1); SODIUM LEVEL 137 MEQ/L (136-145); TOTAL PROTEIN 7.6 GM/DL (6.4-8.2)
== END ==
LOC: M SFHCPLAZ 09:33
PROVIDERS: ATTEND Family Medicine
DX: R30.0 Dysuria (principal); R10.31 Right lower quadrant pain
CPT/HCPCS: 36415; 80053; 81001; 81002; 85025; 85652; 86140; 87086; G0463

== ENCOUNTER → 2019-09-02 | Outpatient (CLI) | payer OTHER ==
[~2019-09-02] MED LIST changes: +BENA40TA5 PO; -BENA40TA7 PO; +OXYB-54 PO; -OXYB5TAB2 PO
[2019-09-02 14:00] LABS: HEMOGLOBIN A1c 6.6 %
== END ==
LOC: M PLALAB 09:32
PROVIDERS: ATTEND Family Medicine
DX: E11.9 Type 2 diabetes mellitus without complications (principal)

== ENCOUNTER → 2019-11-25 | Outpatient (REF) | payer OTHER ==
[2019-11-25 17:15] LABS: BLOOD UREA NITROGEN 23 MG/DL (7-18); CALCIUM LEVEL 9.4 MG/DL (8.8-10.2); CARBON DIOXIDE LEVEL 26 MEQ/L (21-32); CHLORIDE LEVEL 107 MEQ/L (98-107); CREATININE FOR GFR 0.91 MG/DL (0.55-1.30); GLOMERULAR FILTRATION RATE > 60.0 (>45); GLUCOSE, FASTING 158 MG/DL (70-100); MAGNESIUM LEVEL 1.8 MG/DL (1.8-2.4); POTASSIUM SERUM 4.7 MEQ/L (3.5-5.1); SODIUM LEVEL 140 MEQ/L (136-145)
[2019-11-25 17:28] LABS: HEMOGLOBIN A1c 7.4 %
== END ==
LOC: M PLALAB 13:47
PROVIDERS: ATTEND Family Medicine
DX: E11.9 Type 2 diabetes mellitus without complications (principal); I10 Essential (primary) hypertension; G47.62 Sleep related leg cramps

== ENCOUNTER → 2019-12-16 | Outpatient (CLI) | payer OTHER ==
[~2019-12-16] MED LIST changes: +ACET325T43 PO; -MAPA325T4 PO
--- NOTE | 2019-12-17 01:00 | REPPI ---
Clinical: Trauma. Pain. Recent injury. Technique: AP, lateral, bilateral oblique views of the right foot. Findings: Osteopenia and age-related arthritic degenerative changes are appreciated which somewhat limit evaluation for subtle injury. No obvious acute fracture or dislocation identified. Chronic post traumatic arthritic degenerative changes to the ankle noted. Impression: Osteopenia and degenerative changes. No obvious acute fracture or dislocation identified. Electronically Signed by Eloy Doll MD 12/17/2019 12:52 A
== END ==
LOC: M PLAIMG 09:21
PROVIDERS: ATTEND Family Medicine
DX: M79.671 Pain in right foot (principal); S99.921A Unspecified injury of right foot, initial encounter; X58.XXXA Exposure to other specified factors, initial encounter; Y92.89 Other specified places as the place of occurrence of the external cause; Y93.9 Activity, unspecified; Y99.9 Unspecified external cause status
CPT/HCPCS: 73630; G0463

== ENCOUNTER → 2020-05-16 | Outpatient (CLI) | payer OTHER ==
[~2020-05-16] MED LIST changes: -AMLO10TA5 PO; +AMLO1TAB25 PO; -ASPI81TA85 PO; +ASPI81TA86 PO; +PANT40TA29 PO; -PANT40TA3 PO
--- NOTE | 2020-05-24 13:42 | REPPI ---
RIGHT HIP X-RAY: 3-VIEWS HISTORY: Right hip pain. FINDINGS: AP and frog leg views of the right hip show smooth, rounded femoral head and intact hip joint space. There is some mild old trochanteric spurring adjacent to the greater trochanter. Mild vascular calcification is noted. There are scattered abdominal surgical clips. No bony destructive lesion or fracture is seen. Mild gaseous distention of a colonic loop is visible in the abdomen. IMPRESSION: No acute bony abnormality. Postoperative changes in the abdomen. Mild gaseous distention of a loop of colon. MTDD
== END ==
LOC: M PLAIMG 11:03
PROVIDERS: ATTEND Physician Assistant
DX: M25.551 Pain in right hip (principal)

== ENCOUNTER → 2020-06-06 | Outpatient (REF) | payer OTHER ==
[2020-06-06 14:52] LABS: HEMOGLOBIN A1c 6.7 %
[2020-06-06 15:00] LABS: BLOOD UREA NITROGEN 25 MG/DL (7-18); CALCIUM LEVEL 9.5 MG/DL (8.8-10.2); CARBON DIOXIDE LEVEL 25 MEQ/L (21-32); CHLORIDE LEVEL 108 MEQ/L (98-107); CREATININE FOR GFR 0.98 MG/DL (0.55-1.30); GLOMERULAR FILTRATION RATE > 60.0 (>45); GLUCOSE, FASTING 123 MG/DL (70-100); POTASSIUM SERUM 4.5 MEQ/L (3.5-5.1); SODIUM LEVEL 138 MEQ/L (136-145)
== END ==
LOC: M SFHCPLAZ 11:09
PROVIDERS: ATTEND Family Medicine
DX: E11.9 Type 2 diabetes mellitus without complications (principal); I10 Essential (primary) hypertension

== ENCOUNTER → 2020-07-03 | Outpatient (REF) | payer OTHER ==
[~2020-07-03] MED LIST changes: +AMLO10CA22; +JARD1TAB3; +NITR100C2; +ONDA4TAB6
== END ==
LOC: M LAB REF 12:41
PROVIDERS: ATTEND Physician Assistant
DX: N39.0 Urinary tract infection, site not specified (principal)

== ENCOUNTER 2020-07-04 15:56 | Emergency (ER) | payer OTHER ==
[~2020-07-04] VITALS: Ht 175.3 cm; Wt 106.6 kg
[~2020-07-04 15:56] MED LIST changes: -AMLO10CA22; -JARD1TAB3; -NITR100C2; -ONDA4TAB6
[2020-07-04] MEDS ORDERED: ONDA4TAB6 (17:21)
[2020-07-04] MEDS ORDERED: AMLO10CA22 (17:21)
[2020-07-04] MEDS ORDERED: JARD1TAB3 (17:21)
[2020-07-04] MEDS ORDERED: NITR100C2 (17:21)
--- NOTE | 2020-07-04 18:04 | REPVR ---
PROCEDURE INFORMATION: Exam: CT Abdomen And Pelvis Without Contrast Exam date and time: 07/04/2020 4:54 PM Age: 59 years old Clinical indication: Abdominal pain; Localized; Right; Additional info: Right flank pain; R/O stone TECHNIQUE: Imaging protocol: Computed tomography of the abdomen and pelvis without contrast. Radiation optimization: All CT scans at this facility use at least one of these dose optimization techniques: automated exposure control; mA and/or kV adjustment per patient size (includes targeted exams where dose is matched to clinical indication); or iterative reconstruction. COMPARISON: BLADDER (LIMITED PELVIC) US 07/04/2020 1:18 PM FINDINGS: Heart: Mitral annular calcification is present. Liver: Normal. No mass. Gallbladder and bile ducts: The gallbladder is surgically absent, with metallic clips in the gallbladder fossa. Pancreas: Moderate pancreatic atrophy. Spleen: A small medial splenule is present. Adrenal glands: Normal. No mass. Kidneys and ureters: The right kidney shows moderate pelviectasis with mild perinephric stranding, with a 10.1 x 13.4 x 10.2 mm calculus (1201 Hounsfield units; visible on honey blender image, 20 cm from posterior skin surface, 18 cm from anterior skin surface) at the level of the ureteropelvic junction. Bilateral renal calyceal lithiasis, largest on the left measuring 8.8 mm, largest on the right measuring 11.9 mm. 13 mm right renal upper pole probable hemorrhagic cyst (Bosniak 2). Stomach and bowel: Predominantly transverse and descending colonic gaseous distention. Right subdiaphragmatic colonic interposition is present, a normal variant. Sigmoid colonic diverticula are present without evidence of diverticulitis. The patient is status post a gastric bypass procedure with an retrocolic Harley-en-Y loop. Appendix: No evidence of appendicitis. Intraperitoneal space: Unremarkable. No free air. No significant fluid collection. Vasculature: Mild aortic atherosclerotic calcification without aneurysm. The iliac arteries show mild bilateral atherosclerotic calcifications without evidence of aneurysm. Mild aortic valvular calcification is present. Atherosclerotic calcifications are present involving the RCA coronary artery. Lymph nodes: No enlarged lymph nodes. Urinary bladder: Unremarkable as visualized. Reproductive: Unremarkable as visualized. Bones/joints: L3-L4 and L4-L5 degenerative disc disease, with mild spondylosis. Left sliding screw hip prosthesis with partially imaged interlocking intramedullary alexx. There is degenerative disc disease at multiple lumbar spine disk levels. Soft tissues: Multiple lower anterior abdominal wall surgical clips. IMPRESSION: 1. Right obstructive uropathy secondary to a ureteropelvic junction calculus. 2. Bilateral renal calyceal lithiasis. 3. Probable colonic ileus. Clinical correlation is recommended. 4. Diverticulosis. 5. Right renal probable hemorrhagic cyst (Bosniak 2). 6. Previous gastric bypass. 7. Prior cholecystectomy. 8. Coronary atherosclerosis. Electronically signed by: Berto Verduzco On 07/04/2020 18:04:09 PM
[2020-07-04 18:39] LABS: HEMATOCRIT 38.3 % (36.0-47.0); HEMOGLOBIN 12.1 g/dl (12.0-15.5); MEAN CORPUSCULAR HEMOGLOBIN 26.1 pg (27.0-33.0); MEAN CORPUSCULAR HGB CONC 31.6 g/dl (32.0-36.5); MEAN CORPUSCULAR VOLUME 82.7 fl (80.0-96.0); PLATELET COUNT, AUTOMATED 364 10^3/uL (150-450); RED BLOOD COUNT 4.63 10^6/uL (4.00-5.40); WHITE BLOOD COUNT 7.9 10^3/uL (4.0-10.0)
[2020-07-04 19:09] LABS: ATYPICAL LYMPH 2 % (0-5); LYMPHOCYTES 23 % (16-44); MONOCYTES 10 % (0-5); NEUTROPHILS 65 % (28-66); PLATELET ESTIMATE NORMAL (NORMAL)
[2020-07-04 19:22] VITALS: BP 110/59
[2020-07-21] MEDS ORDERED: ASPI1CHW2 (10:10)
[2020-07-21] MEDS ORDERED: LIDO5DIS41 TOP (10:19)
[2020-07-21] MEDS ORDERED: ESTE1TAB4 PO (10:19)
== END 2020-07-04 19:52 | disposition home or self-care (01) ==
LOC: M ED 15:56
DX: N20.1 Calculus of ureter (principal); J45.909 Unspecified asthma, uncomplicated; E11.9 Type 2 diabetes mellitus without complications; E78.5 Hyperlipidemia, unspecified; K21.9 Gastro-esophageal reflux disease without esophagitis; Z79.899 Other long term (current) drug therapy; Z79.51 Long term (current) use of inhaled steroids; Z79.4 Long term (current) use of insulin; Z79.82 Long term (current) use of aspirin

== ENCOUNTER → 2020-07-04 | Outpatient (CLI) | payer OTHER ==
[2020-07-04 13:32] LABS: HEMATOCRIT 39.8 % (36.0-47.0); HEMOGLOBIN 12.2 g/dl (12.0-15.5); MEAN CORPUSCULAR HEMOGLOBIN 26.2 pg (27.0-33.0); MEAN CORPUSCULAR HGB CONC 30.7 g/dl (32.0-36.5); MEAN CORPUSCULAR VOLUME 85.4 fl (80.0-96.0); PLATELET COUNT, AUTOMATED 349 10^3/uL (150-450); RED BLOOD COUNT 4.66 10^6/uL (4.00-5.40); WHITE BLOOD COUNT 6.9 10^3/uL (4.0-10.0)
--- NOTE | 2020-07-04 13:58 | REP ---
INDICATION: RIGHT FLANK PAIN, GROSS HEMATURIA LABS 1ST THEN US. COMPARISON: None. TECHNIQUE: Real-time sonographic evaluation of the kidneys is performed. FINDINGS: Renal cortical echogenicity pattern is normal bilaterally and contours are smooth. There is mild right hydronephrosis. There is no left hydronephrosis. 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 No definite renal stone is seen bilaterally. No definite renal mass is seen. Resistive index right kidney with duplex Doppler evaluation is 0.80. Resistive index left kidney could not be obtained due to body habitus. The right kidney measures 13.7 x 7.3 x 6.8 cm. Left renal dimensions are 11.8 x 6.0 x 5.9 cm. IMPRESSION: Mild right hydronephrosis. <Electronically signed by Bryant Woods > 07/04/20 [id number]
--- NOTE | 2020-07-04 14:00 | REP ---
INDICATION: RIGHT FLANK PAIN, GROSS HEMATURIA LABS 1ST THEN US 2ND. COMPARISON: None. TECHNIQUE: Real-time sonographic evaluation of urinary bladder performed. FINDINGS: Urinary bladder measures 9.1 x 7.5 x 6.8 cm for total volume of 303 cc. No mass or wall thickening is seen. There is no intraluminal calculus. Postvoid residual is 61 cc, 20% of the original volume. With Doppler color evaluation no right ureteral jet is visualized. There is a left ureteral jet visualized. IMPRESSION: No bladder wall mass or calculus. There is no right ureteral jet. I suspect some degree of right ureteral obstruction given the fact that the renal ultrasound today showed mild right hydronephrosis. <Electronically signed by Bryant Woods > 07/04/20 [id number]
[2020-07-04 14:11] LABS: ALBUMIN 3.4 GM/DL (3.2-5.2); BILIRUBIN,TOTAL 0.5 MG/DL (0.2-1.0); CALCIUM LEVEL 9.2 MG/DL (8.8-10.2); CREATININE FOR GFR 1.57 MG/DL (0.55-1.30); GLOMERULAR FILTRATION RATE 35.7 (>45); POTASSIUM SERUM 4.2 MEQ/L (3.5-5.1)
[2020-07-04 14:52] LABS: ATYPICAL LYMPH 2 % (0-5); EOSINOPHILS 4 % (0-3); LYMPHOCYTES 21 % (16-44); MONOCYTES 4 % (0-5); NEUTROPHILS 69 % (28-66); PLATELET ESTIMATE NORMAL (NORMAL)
== END ==
LOC: M LAB 12:29
PROVIDERS: ATTEND Physician Assistant
DX: R10.9 Unspecified abdominal pain (principal); R31.0 Gross hematuria

== ENCOUNTER → 2020-07-18 | Outpatient (CLI) | payer OTHER ==
[~2020-07-18] MED LIST changes: +AMLO10CA22; +JARD1TAB3; +NITR100C2; +ONDA4TAB6
[2020-07-18 10:09] LABS: BASO # 0.1 10^3/uL (0.0-0.2); BASO % 0.8 % (0.0-1.0); EOS # 0.1 10^3/uL (0.0-0.5); EOS % 1.6 % (0.0-3.0); HEMATOCRIT 39.7 % (36.0-47.0); HEMOGLOBIN 11.7 g/dl (12.0-15.5); LYMPH # 1.3 10^3/uL (1.5-5.0); LYMPH % 16.2 % (24.0-44.0); MEAN CORPUSCULAR HEMOGLOBIN 25.5 pg (27.0-33.0); MEAN CORPUSCULAR HGB CONC 29.5 g/dl (32.0-36.5); MEAN CORPUSCULAR VOLUME 86.7 fl (80.0-96.0); MONO # 0.6 10^3/uL (0.0-0.8); MONO % 6.7 % (0.0-5.0); NEUTROPHILS # 6.1 10^3/uL (1.5-8.5); NEUTROPHILS % 74.3 % (36.0-66.0); PLATELET COUNT, AUTOMATED 358 10^3/uL (150-450); RED BLOOD COUNT 4.58 10^6/uL (4.00-5.40); WHITE BLOOD COUNT 8.3 10^3/uL (4.0-10.0)
[2020-07-18 10:27] LABS: APPEARANCE, URINE CLEAR (CLEAR); BACTERIA, URINE AUTO NEGATIVE (NEGATIVE); BILIRUBIN, URINE AUTO NEGATIVE (NEGATIVE); BLOOD, URINE BLOOD NEGATIVE (NEGATIVE); COLOR, URINE YELLOW (YELLOW); GLUCOSE, URINE (UA) AUTO 3+ mg/dL (NEGATIVE); KETONE, URINE AUTO NEGATIVE (NEGATIVE); LEUKOCYTE ESTERASE, URINE AUTO NEGATIVE (NEGATIVE); NITRITE, URINE AUTO NEGATIVE (NEGATIVE); PROTEIN, URINE AUTO NEGATIVE (NEGATIVE); RBC, URINE AUTO 5 /HPF (0-3); SQUAMOUS EPITHELIAL CELL UR AU 0 /HPF (0-6); UROBILINOGEN, URINE AUTO 0.2 mg/dL (0.0-2.0); WBC, URINE AUTO 1 /HPF (0-3)
[2020-07-18 10:29] LABS: BLOOD UREA NITROGEN 18 MG/DL (7-18); CALCIUM LEVEL 9.5 MG/DL (8.8-10.2); CARBON DIOXIDE LEVEL 26 MEQ/L (21-32); CHLORIDE LEVEL 108 MEQ/L (98-107); GLOMERULAR FILTRATION RATE > 60.0 (>45); GLUCOSE, FASTING 115 MG/DL (70-100); POTASSIUM SERUM 4.1 MEQ/L (3.5-5.1); SODIUM LEVEL 140 MEQ/L (136-145)
--- NOTE | 2020-07-18 10:37 | REP ---
INDICATION: CALCULUS OF KIDNEY *LABS 1ST, EKG 2ND, XRY 3RD* COMPARISON: 09/22/2018 TECHNIQUE: PA and lateral. FINDINGS: Mediastinum and cardiac silhouette are stable and within normal limits. Lung badillo demonstrate chronic interstitial changes similar to prior examination. No consolidation, effusion, or pneumothorax. Skeletal structures are intact with age-related degenerative changes noted. Evidence for prior right shoulder repair. Moderate air-filled distention below diaphragm should be correlated clinically. IMPRESSION: No acute cardiopulmonary process. Chronic findings as described above. <Electronically signed by Eloy Doll > 07/18/20 [id number]
--- NOTE | 2020-07-18 11:57 | ECGEPIP ---
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
== END ==
LOC: M LAB 09:04
PROVIDERS: ATTEND Urology
DX: N20.0 Calculus of kidney (principal)

== ENCOUNTER 2020-07-26 11:48 | Day surgery (SDC) | payer OTHER ==
[~2020-07-26] VITALS: Ht 175.3 cm; Wt 103.9 kg
[~2020-07-26 11:48] MED LIST changes: +ASPI1CHW2; +ESTE1TAB4 PO; +LIDO5DIS41 TOP; +LR 1,000 ML IV ONE; +LevoFLOXacin IV 500 MG in IV 1 EA IV ONE
[2020-07-26] MEDS ORDERED: LIDOCAINE 2% 100MG/5ML SDV (FOR ANES.) As Ordered ONE (12:44)
[2020-07-26] MEDS ORDERED: ONDANSETRON 4MG/2ML VIAL As Ordered ONE (12:44)
[2020-07-26] MEDS ORDERED: propofoL 200 MG/20 ML VIAL As Ordered ONE (12:44)
[2020-07-26] MEDS ORDERED: MIDAZOLAM INJ 2MG/2ML VIAL (J2250 PER 1MG) As Ordered ONE (12:45)
[2020-07-26] MEDS ORDERED: dexameTHASONE 4 MG/ML 1ML VIAL (J1100 PER 1MG) As Ordered ONE (12:45)
[2020-07-26] MEDS ORDERED: fentaNYL 100 MCG/2 ML INJECTION (J3010) As Ordered ONE (12:45)
[2020-07-26] MEDS ORDERED: KETOROLAC 60MG 2ML VIAL As Ordered ONE (12:45)
[2020-07-26] MEDS ORDERED: SCOPOLAMINE 1MG TRANSDERMAL PATCH As Ordered ONE (13:17)
[2020-07-26] MEDS ORDERED: CONRAY-60 60% 50ML VIAL (Q9961) As Ordered ONE (13:56)
[2020-07-26] MEDS ORDERED: ACETAMINOPHEN 1000MG 100ML IV BTL (OFIRMEV) (J0131 PER 10MG) As Ordered ONE (14:11)
[2020-07-26] MEDS ORDERED: SCOPOLAMINE 1MG TRANSDERMAL PATCH TOP ONE (14:15)
--- NOTE | 2020-07-26 15:21 | REP ---
INDICATION: CYSTO, RIGHT. COMPARISON: None. TECHNIQUE: Two C-arm views abdomen and pelvis performed. FINDINGS: Contrast partially opacifies the right pelvocaliceal system. IMPRESSION: Right ureteral stent is placed with the proximal end coiled in the right renal pelvis the distal end in urinary bladder. 16 seconds fluoroscopy time utilized. <Electronically signed by Bryant Woods > 07/26/20 [id number]
[2020-07-26] MEDS ORDERED: METOCLOPRAMIDE INJ 10MG/2ML VIAL (J2765 PER 1) IV PRN (15:30)
[2020-07-26] MEDS ORDERED: oxyBUTYnin 5 MG TAB PO PRN (15:30)
[2020-07-26] MEDS ORDERED: ONDANSETRON 4MG/2ML VIAL IV PRN (15:30)
[2020-07-26] MEDS ORDERED: fentaNYL 100 MCG/2 ML INJECTION (J3010) IV PRN (15:30)
[2020-07-26] MEDS ORDERED: HYDROMORPHONE HCL 0.5 MG/ 0.5 ML SYRINGE (J1170 PER 1) IV PRN (15:30)
[2020-07-26] MEDS ORDERED: ACETAMINOPHEN TAB 650MG DOSE (2X325MG) PO PRN (15:30)
[2020-07-26] MEDS ORDERED: oxyCODONE 5MG TAB PO PRN (15:30)
[2020-07-26] MEDS ORDERED: LR 1,000 ML IV SCH (15:30)
[2020-07-26] MEDS ORDERED: FLOM0.4C39 PO (15:38)
[2020-07-26 16:35] VITALS: BP 141/67
--- NOTE | 2020-07-26 17:49 | RO ---
OPERATIVE NOTE DATE OF OPERATION: 07/26/2020 PREOPERATIVE DIAGNOSIS: Right kidney stones. POSTOPERATIVE DIAGNOSIS: Right kidney stones. PROCEDURE: Cystoscopy, right ureteroscopy with laser lithotripsy and basket extraction of stones, right retrograde pyelogram with intraoperative images, right ureteral stent placement. SURGEON: Leo Lim MD GOLF CART REPAIRER: None. ANESTHESIA: General. OPERATIVE INDICATION: This is a 59-year-old female who was found to have an obstructing approximately 1 cm proximal right ureteral stone, as well as 2 large stones in her kidney. She was brought to the operating room today for treatment. DESCRIPTION OF PROCEDURE: The patient was brought to the operating room and general anesthesia induced. Prophylactic antibiotics were introduced. She was placed in the dorsal lithotomy position and prepped and draped in the usual sterile fashion. At this point, a rigid cystoscope was inserted in the urethral meatus and advanced into the bladder. A guidewire was then advanced up to the right collecting system. I then advanced a ureteral access sheath over the wire. I went up the access sheath with a flexible ureteroscope. Once inside the ureter I noted the right ureteral stone appeared to have been pushed into the right kidney. I identified three large stones in the upper pole calices of the kidney. All these stones were fragmented into smaller pieces using the Excaliber laser fiber. Of note, I tried to remove these stone fragments using a basket; but due to severe narrowing in the proximal ureter, it was very difficult to remove all the stone fragments. I therefore removed only very small amount and then remainder of the stone fragments I dusted into small enough pieces with the hope that she would pass them on her own. Once done, the retrograde pyelogram was performed, and was notable for moderate to severe right hydronephrosis with no extravasation. I then removed the ureteroscope along with the access sheath and no additional stones were seen inside the ureter. I then utilized the guidewire to advance the 6 Maori x 22 32 cm JJ ureteral stent up the right collecting system. The wire was removed and there were adequate curls of the stent in the right renal pelvis and the bladder. The bladder was emptied of all fluids and this marked the conclusion of the procedure. The patient was taken out of the dorsal lithotomy position and awakened from anesthesia and transported to the recovery room in stable condition. ESTIMATED BLOOD LOSS: 5 ml COMPLICATIONS: None. SPECIMENS: Kidney stone fragment. PLAN: The patient will follow up in the urology clinic in approximately 3 to 4 weeks for possible stent removal. I will get a KUB prior to removing the stent to assess for residual stone burden. If there is still a large amount of stones inside the kidney, then I will have to bring her back for another ureteroscopy to remove the remainder of the fragments. ABBEY
== END 2020-07-26 16:30 | disposition home or self-care (01) ==
LOC: M SDC 11:48
PROVIDERS: ATTEND Urology
DX: N20.0 Calculus of kidney (principal); I10 Essential (primary) hypertension; E78.00 Pure hypercholesterolemia, unspecified; Z98.84 Bariatric surgery status; J45.909 Unspecified asthma, uncomplicated; G47.30 Sleep apnea, unspecified; E11.9 Type 2 diabetes mellitus without complications; K21.9 Gastro-esophageal reflux disease without esophagitis; Z79.84 Long term (current) use of oral hypoglycemic drugs; Z79.899 Other long term (current) drug therapy; Z88.1 Allergy status to other antibiotic agents; Z88.8 Allergy status to other drugs, medicaments and biological substances
CPT/HCPCS: 52356; 74420; 82365; 88300; C1769; C1894; C2617; J0131; J1100; J1885; J1956; J2250; J2405; J3010; Q9961

== ENCOUNTER → 2020-08-14 | Outpatient (CLI) | payer OTHER ==
[~2020-08-14] MED LIST changes: +FLOM0.4C39 PO; -LR 1,000 ML IV ONE; -LevoFLOXacin IV 500 MG in IV 1 EA IV ONE
--- NOTE | 2020-08-14 12:16 | REP ---
INDICATION: CALCULUS OF KIDNEY COMPARISON: None. TECHNIQUE: Supine view of the abdomen and pelvis. FINDINGS: Significantly distended bowel is appreciated and consistent with the given history of gastroparesis. Evidence for prior gastric bypass surgery and cholecystectomy noted. Right renal calculi measure up to approximately 13 mm and right ureteral stent appears to be in satisfactory position. Evidence for ventral hernia repair and left femur fracture repair. IMPRESSION: 1. Right ureteral stent with right renal calculi up to 13 mm suggested. 2. Markedly distended loops of bowel. 3. Postsurgical changes including gastric bypass surgery, cholecystectomy, ventral hernia repair and left femur repair. <Electronically signed by Eloy Doll > 08/14/20 1543
== END ==
LOC: M RAD 11:43
PROVIDERS: ATTEND Urology
DX: N20.0 Calculus of kidney (principal); Z98.84 Bariatric surgery status

== ENCOUNTER → 2020-09-07 | Outpatient (REF) | payer OTHER ==
[~2020-09-07] MED LIST changes: +ASPI81TA26 PO; +LISI10TA22 PO; -LISI10TA4 PO; -SIME40TA PO; +SIME80CH5 PO; +SIME80CH6 PO; -SIME80TA PO
[2020-09-07 15:19] LABS: BASO # 0.1 10^3/uL (0.0-0.2); BASO % 0.7 % (0.0-1.0); EOS # 0.2 10^3/uL (0.0-0.5); EOS % 2.7 % (0.0-3.0); HEMATOCRIT 42.2 % (36.0-47.0); LYMPH # 1.5 10^3/uL (1.5-5.0); LYMPH % 22.6 % (24.0-44.0); MEAN CORPUSCULAR HEMOGLOBIN 26.6 pg (27.0-33.0); MEAN CORPUSCULAR HGB CONC 30.8 g/dl (32.0-36.5); MEAN CORPUSCULAR VOLUME 86.3 fl (80.0-96.0); MONO # 0.6 10^3/uL (0.0-0.8); MONO % 8.3 % (0.0-5.0); NEUTROPHILS # 4.4 10^3/uL (1.5-8.5); NEUTROPHILS % 65.6 % (36.0-66.0); PLATELET COUNT, AUTOMATED 355 10^3/uL (150-450); RED BLOOD COUNT 4.89 10^6/uL (4.00-5.40); WHITE BLOOD COUNT 6.7 10^3/uL (4.0-10.0)
[2020-09-07 16:21] LABS: HEMOGLOBIN A1c 6.2 %
== END ==
LOC: M SFHCPLAZ 10:18
PROVIDERS: ATTEND Family Medicine
DX: R53.83 Other fatigue (principal); E11.9 Type 2 diabetes mellitus without complications
CPT/HCPCS: 36415; 82728; 83036; 85025; G0463

== ENCOUNTER → 2020-09-11 | Outpatient (CLI) | payer OTHER ==
--- NOTE | 2020-09-11 10:10 | REP ---
INDICATION: CALCULUS OF KIDNEY COMPARISON: 08/14/2020 TECHNIQUE: Supine views of the abdomen and pelvis. FINDINGS: Right ureteral stent in satisfactory position. Right intrarenal calculi identified. No obvious left renal calcifications are identified. The bowel gas pattern is nonspecific. Surgical clips noted in the upper abdomen and overlying the pelvis. IMPRESSION: Right ureteral stent with right intrarenal calculi. <Electronically signed by Eloy Doll > 09/11/20 1007
== END ==
LOC: M RAD 09:41
PROVIDERS: ATTEND Urology
DX: N20.0 Calculus of kidney (principal)

== ENCOUNTER → 2020-09-14 | Outpatient (CLI) | payer OTHER ==
--- NOTE | 2020-09-14 18:56 | REP ---
INDICATION: R14.0 ABD DISTENTION Excessive vomiting. Evaluate for hypertrophic pyloric stenosis. COMPARISON: None. TECHNIQUE: Real time ambrocio scale ultrasound examination using curved array transducer. FINDINGS: Liver and visualized pancreas are normal. No obvious focal hepatic or pancreatic lesions are identified. Patient is status post cholecystectomy. No biliary ductal dilatation is appreciated and the common bile duct measures 2.7 mm diameter. Right kidney measures 11.8 x 5.0 x 4.9 cm without hydronephrosis, but includes 14 mm and 10 mm intrarenal calculi along with 5 mm and 13 mm simple cortical cysts. IMPRESSION: 1. Right renal calculi and small simple cysts. No hydronephrosis. 2. Evidence for prior cholecystectomy. <Electronically signed by Eloy Doll > 09/14/20 [id number]
== END ==
LOC: M WHC 08:21
PROVIDERS: ATTEND Family Medicine
DX: Z01.818 Encounter for other preprocedural examination (principal); Z12.4 Encounter for screening for malignant neoplasm of cervix; R14.0 Abdominal distension (gaseous); N20.0 Calculus of kidney; N39.0 Urinary tract infection, site not specified
CPT/HCPCS: 36415; 76705; 80048; 83550; 85027; 87086; 87624; G0123; G0463

== ENCOUNTER → 2020-09-14 | Outpatient (REF) | payer OTHER ==
[~2020-09-14] MED LIST changes: -LISI10TA22 PO; +LISI10TA4 PO; +SIME40TA PO; -SIME80CH5 PO; -SIME80CH6 PO; +SIME80TA PO
== END ==
LOC: M SFHCPLAZ 10:40
PROVIDERS: ATTEND Family Medicine
DX: Z12.4 Encounter for screening for malignant neoplasm of cervix (principal); R87.615 Unsatisfactory cytologic smear of cervix

== ENCOUNTER → 2020-09-14 | Outpatient (CLI) | payer OTHER ==
[2020-09-14 13:41] LABS: HEMOGLOBIN 12.9 g/dl (12.0-15.5); MEAN CORPUSCULAR HEMOGLOBIN 26.5 pg (27.0-33.0); MEAN CORPUSCULAR HGB CONC 30.7 g/dl (32.0-36.5); MEAN CORPUSCULAR VOLUME 86.4 fl (80.0-96.0); PLATELET COUNT, AUTOMATED 339 10^3/uL (150-450); RED BLOOD COUNT 4.86 10^6/uL (4.00-5.40); WHITE BLOOD COUNT 8.6 10^3/uL (4.0-10.0)
[2020-09-14 14:30] LABS: BLOOD UREA NITROGEN 23 MG/DL (7-18); CALCIUM LEVEL 9.7 MG/DL (8.8-10.2); CARBON DIOXIDE LEVEL 26 MEQ/L (21-32); CHLORIDE LEVEL 106 MEQ/L (98-107); CREATININE FOR GFR 0.94 MG/DL (0.55-1.30); GLOMERULAR FILTRATION RATE > 60.0 (>45); GLUCOSE, FASTING 115 MG/DL (70-100); IRON (FE) 40 UG/DL (50-170); PERCENT SATURATION 14.4 % (13.2-45.0); POTASSIUM SERUM 4.7 MEQ/L (3.5-5.1); SODIUM LEVEL 141 MEQ/L (136-145); TOTAL IRON BINDING CAPACITY 278 UG/DL (250-450)
== END ==
LOC: M PLALAB 09:10
PROVIDERS: ATTEND Urology
DX: Z01.818 Encounter for other preprocedural examination (principal); N20.0 Calculus of kidney; N39.0 Urinary tract infection, site not specified

== ENCOUNTER 2020-09-18 06:11 | Day surgery (SDC) | payer OTHER ==
[~2020-09-18] VITALS: Ht 175.3 cm; Wt 106.1 kg
[~2020-09-18 06:11] MED LIST changes: +LevoFLOXacin IV 500 MG in IV 1 EA IV ONE
--- OUTSIDE RECORDS SUMMARY | 2020-09-18 06:14 | CCD ---
Author Author [facility] Organization 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 20 Active 090889604 Problem Essential hypertension I10 Active 87276704 Problem SIMON (obstructive sleep apnea) G47.33 Active 78 981866 Problem Arthritis of right ankle M19.071 Active 4498320 934958611 Problem Allergic rhinitis, unspecified seasonality, unspecifie d trigger J30.9 Active 10893472 Problem Overactive bladder N32.81 Active 616685029 Problem Irregular heart rate I49.9 Active 543024525 Problem Mixed hyperlipidemia E78.2 Active 923999690 Problem Kidney stone N20.0 Active 69706428 Problem Type 2 diabetes mellitus wit hout complication, without long-term current use of insulin E11.9 Active 287472160 Problem Nocturnal leg cramps G47.62 Active 576582138 Problem Abnormal ECG R94.31 Active 254142294 Problem Cardiomegaly I51.7 Active 5794825 Problem Incontinence of feces, unspecified fecal incontinence type R15.9 Active 84953892 ALLERGIES Allergen (clinical drug ingredient) Drug/Non Drug Allergy do cumented on EMR Reaction Allergy Type Onset Date Status naproxen Naprosyn([facility] Code:[address]-24) Hives Drug Allergy Active cephalexin Keflex([facility] Code:[address]-24) Hives Drug Allergy Active ENCOUNTERS from 1960 to 2020-07-31 Encounter Location Date Provider Diagnosis [facility] U[facility] [address] [place] [address] Jun Brian Angeles Kidney stone N20.0 IMMUNIZATIONS Vaccine Route Administration Date Status Influenza (Pharmacy Given) Unknown May 23, 2020 Admin istered Influenza (18 yrs & older) Flublok Unknown Jun 11, 2019 Administered SOCIAL HISTORY Tobacco Use: Social History Observation Description Date Details (start date - stop date) Never Smoker Sex Assigned At : Social History Observation Description Sex Assigned At Unknown Education: Question Answer Notes Level of Education: High School Audit Question Answer Notes Total Score: 1 Interpretation: Alcohol Education Language: Question Answer Notes Languages spoken: Algerian Rastafari: Question Answer Notes Rastafari 08 Baptism Domestic Violence: Question Answer Notes Status: Sexual Hx: Question Answer Notes Had sex in the last 12 months (vaginal, oral, or anal)? No Have you ever had an STD? No Drug and Alcohol Question Answer Notes Total Score: 0 Interpretation: No problems reported Alcohol Screening: Question Answer Notes Did you have a drink containing alcohol in the past year? No Points 0 Interpretation Negative Tobacco Use: Question Answer Notes Are you a: never smoker REASON FOR REFERRAL No Information VITAL SIGNS Weight 237 lbs Jun, Height 69 in Jun, BMI 34.99 kg/m2 Jun, Heart Rate 88 /min Jun, Respiratory Rate 18 /min Jun, Temperature 96.7 degrees Fahrenheit Jun, Oximetry 98% Jun, Blood pressure systolic 130 mm Hg Jun, Blood pressure diastolic 66 mm Hg Jun, MEDICATIONS Medication SIG (Take, Route, Frequency, Duration) Notes Start Da te End Date Status Docusate Sodium 100 MG 1 capsule as needed Orally Once a day for 30 day(s) Active Oxybutynin Chloride ER 10 MG 1 tablet Orally Once a day for 90 days Not-Taking Urea 40 % 1 application to affected ar ea as needed Externally Once a day for 90 days Active Januvia 100 MG 1 tablet Orally Once a day Active Metformin HCl 500 MG 1 tablet with a meal Orally Once a day for 30 da y(s) Active Albuterol Sulfate HFA 108 (90 Base) MCG/ACT 2 puffs as needed Inhalation every 6 hrs as needed Active Test Strips - as directed bid; Dx E11.9 for 30 Days Feb Active Tylenol 325 MG 3tablets Orally 2 times a day Active Lidoderm 5 % 1 patch to skin remove after 12 hours Externally Once a day for 90 day(s) Active Lipitor 40 MG 1 tablet Orally Once a day Active Protonix 40 MG 1 tablet Orally Once a day for 90 days Active Vanicream - as directed Externally bid for 90 days Active Ondansetron 4 MG 1 tablet on the tongue and a llow to dissolve Orally Once a day as needed Active Multivitamin Adults - 1 tablet Orally Daily for 90 days Feb, Active Amlodipine Besy-Benazepril HCl 10-40 MG as directed Or ally once a day for 90 days Active Flonase 2 sprays nasally riana a day for 90 days Active Aspirin 81 81 MG 1 tablet Orally Once a day for 90 days Not-Taking Simethicone 80 MG 1 tablet after meals and at bedtime as needed Orally twice a day for 90 days Active Loratadine 10 MG 1 tablet Orally Once a day for 90 days Active Alcohol Prep 70 % as directed BID; Dx E11.9 for 30 Days Feb, Active Nystatin-Triamcinolone 209994-0.1 UNIT/GM 1 applicatio n to affected area Externally Twice a day for up to 7 days Mar, Active Advair Diskus 250-50 MCG/DOSE 1 puff Inhalation Twice a day for 90 da ys Active Jardiance 25 MG 1 tablet Orally Once a day for 90 days Feb, Active Colace 100 MG 1 capsule as needed Orally Once a day for 90 days Not-Taking PROCEDURES No Information RESULTS No Results REASON FOR VISIT Kidney stone MEDICAL (GENERAL) HISTORY Type Description Date Medical History Diabetes mellitus type 2 Medical History Hypertension Medical History Hyperlipidemia Medical History Asthma - Dr. Hines Medical History SIMON - on CPAP - Dr. Hines Medical History Seasonal allergies Medical History GERD Medical History History of left intertrochanteric femur fracture 09/2018 Medical History Iron deficiency anemia 2/2 g astric bypass surgery; hx IV iron infusions - Dr. Montelongo Medical History OAB Medical History Quirino adan - Dr. Zuñiga Medical History Nuclear medicine stress test 07/2018 low risk - Dr. Bell Surgical History compound right ankle 09/2005 Surgical History gastric bypass 02/2008 Surgical History left knee surgery 12/2008 Surgical History cholecystectomy 07/2010 Surgical History abdominoplasty 11/2010 Surgical History right shoulder surgery 10/2014 Surgical History right eye surgery 05/2017 Surgical History left eye surgery 06/2017 Surgical History ORIF of left intertrochanteric femur fra cture 09/2018 Surgical History Colonoscopy - diverticula, repeat in 10 years 10/2013 Surgical History cateract surgery 05/2020 Hospitalization History surgery related Goals Section No Information Health Concerns No Information MEDICAL EQUIPMENT No Information MENTAL STATUS No Information FUNCTIONAL STATUS No Information ASSESSMENTS Encounter Date Diagnosis Assessment Notes Treatment Notes Treatm ent Clinical Notes Jun, Kidney stone (ICD-10 - N20.0) I discussed ESWLvs. ureteroscopy with laser to manage her 1 cm stone at [facility]. Risks and benefits of both were discussed in detail. She understands and wishes to proceed with ureteroscopy. I will make arrangements. She cannot tolerate narcotics and wishes to continue with Tylenol for pain at present. PLAN OF TREATMENT Treatment Notes Assessment Notes Clinical Notes Kidney stone I discussed ESWLvs. ureteroscopy with laser to manage her 1 cm stone at [facility]. Risks and benefits of both were discussed in detail. She understands and wishes to proceed with ureteroscopy. I will make arrangements. She cannot tolerate narcotics and wishes to continue with Tylenol for pain at present. Future Test Test Name Order Date [facility] URINALYSIS 20200711 CBC with Auto Differential 20200711 Basic Metabolic Profile (BMP) 20200711 [facility] RIBS-BILAT WITHOUT 1(VIEW) CXR 20200711 Electrocardiogram (EKG) 20200711 Next Appt Details Provider Name:Leo Lim, 02:30:00 PM, [address], [place], [address], Provider Name:Yael Aviles, 2020-09-07 09:30:00 AM, [address] [place], [address], Insurance Providers Payer Name Payer Address Payer Phone Insured Name Patient Relati onship to Insured Coverage Start Date Coverage End Date [facility]ANCE [address] [place] [id number] Geovanny Méndez
--- OUTSIDE RECORDS SUMMARY | 2020-09-18 06:14 | CCD ---
Author Author [facility] Organization [facility] Address Unknown Phone Unavailable Care Team Providers Care Bedspread Folder Name Role Phone Leo Lim Unavailable PROBLEMS Type Condition ICD9-CM Code [id number] Code Onset Dates Condition S tatus SNOMED Code Notes Problem Gastroesophageal reflux disease without esophagitis K21.9 Active 353549599 Problem Mild intermittent asthma without complication J45. 20 Active 152037725 Problem Essential hypertension I10 Active 37330492 Problem SIMON (obstructive sleep apnea) G47.33 Active 78 203916 Problem Arthritis of right ankle M19.071 Active 1136264 895317000 Problem Allergic rhinitis, unspecified seasonality, unspecifie d trigger J30.9 Active 35633388 Problem Overactive bladder N32.81 Active 316897120 Problem Irregular heart rate I49.9 Active 368567435 Problem Mixed hyperlipidemia E78.2 Active 233614495 Problem Kidney stone N20.0 Active 89129102 Problem Type 2 diabetes mellitus wit hout complication, without long-term current use of insulin E11.9 Active 640309105 Problem Nocturnal leg cramps G47.62 Active 884881984 Problem Abnormal ECG R94.31 Active 486516750 Problem Cardiomegaly I51.7 Active 8649462 Problem Incontinence of feces, unspecified fecal incontinence type R15.9 Active 77834696 ALLERGIES Allergen (clinical drug ingredient) Drug/Non Drug Allergy do cumented on EMR Reaction Allergy Type Onset Date Status naproxen Naprosyn([facility] Code:[address]-75) Hives Drug Allergy Active cephalexin Keflex([facility] Code:[address]-04) Hives Drug Allergy Active ENCOUNTERS from 1960 to 2020-07-27 Encounter Location Date Provider Diagnosis [facility] Urology [address] [place] [address] Jul Leo Lim Kidney stone N20.0 IMMUNIZATIONS Vaccine Route Administration [...] Education Language: Question Answer Notes Languages spoken: Luxembourger Jainism: Question Answer Notes Jainism 08 Jew Domestic Violence: Question Answer Notes Status: Sexual [...] REASON FOR REFERRAL No Information VITAL SIGNS No information MEDICATIONS Medication SIG (Take, Route, Frequency, Duration) [...] E11.9 for 30 Days Feb, Active Nystatin-Triamcinolone 138391-5.1 UNIT/GM 1 applicatio n to affected area [...] Information RESULTS No Results REASON FOR VISIT Appt Change, KUB MEDICAL (GENERAL) HISTORY Type Description Date Medical [...] Dr. Montelongo Medical History OAB Medical History Hammer toes - Dr. Zuñiga Medical History Nuclear medicine [...] Notes Treatment Notes Treatm ent Clinical Notes Jul, Kidney stone (ICD-10 - N20.0) PLAN OF TREATMENT Treatment Notes Test Name Order Date [facility] Abdomen,Flat Plate (KUB) 2020-07-27 Next Appt Details Provider Name:Leo Calhoun Raphael, 02:30:00 PM, [address] [place], [address], Provider Name:Yael Aviles, 2020-09-07 09:30:00 AM, [address] [place], [address], Insurance Providers Payer Name Payer Address Payer Phone Insured Name Patient Relati onship to Insured Coverage Start Date Coverage End Date [facility] [address] [place] [id number] Geovanny Méndez
--- OUTSIDE RECORDS SUMMARY | 2020-09-18 06:14 | CCD ---
Author Author [facility] Organization [facility] Address Unknown Phone Unavailable Care Team Providers Care Production Staff Worker Name Role Phone Leo Lim Unavailable PROBLEMS Type Condition ICD9-CM Code TNK07-SS Code Onset Dates Condition S tatus SNOMED Code Notes Problem Gastroesophageal reflux disease without esophagitis K21.9 Active 418388248 Problem Mild intermittent asthma without complication J45. 20 Active 464173749 Problem Essential hypertension I10 Active 89105971 Problem SMION (obstructive sleep apnea) G47.33 Active 78 236716 Problem Arthritis of right ankle M19.071 Active 4835601 157277822 Problem Allergic rhinitis, unspecified seasonality, unspecifie d trigger J30.9 Active 67974990 Problem Overactive bladder N32.81 Active 996500113 Problem Irregular heart rate I49.9 Active 195093594 Problem Mixed hyperlipidemia E78.2 Active 511474132 Problem Kidney stone N20.0 Active 18755802 Problem Type 2 diabetes mellitus wit hout complication, without long-term current use of insulin E11.9 Active 012218028 Problem Nocturnal leg cramps G47.62 Active 745066835 Problem Abnormal ECG R94.31 Active 747144077 Problem Cardiomegaly I51.7 Active 2478295 Problem Incontinence of feces, unspecified fecal incontinence type R15.9 Active 43526606 ALLERGIES Allergen (clinical drug ingredient) Drug/Non Drug Allergy do cumented on EMR Reaction Allergy Type Onset Date Status naproxen Naprosyn([facility] Code:[address]-51) Hives Drug Allergy Active cephalexin Keflex([facility] Code:[address]-63) Hives Drug Allergy Active ENCOUNTERS from 1960 to 2020-08-02 Encounter Location Date Provider Diagnosis [facility] Urology [address] [place] [address] Jul Leo Lim IMMUNIZATIONS Vaccine Route Administration Date Status Influenza [...] Education Language: Question Answer Notes Languages spoken: Portuguese Hindu: Question Answer Notes Hindu 08 Tenriism Domestic Violence: Question Answer Notes Status: Sexual [...] E11.9 for 30 Days Feb, Active Nystatin-Triamcinolone 309669-5.1 UNIT/GM 1 applicatio n to affected area [...] Information RESULTS No Results REASON FOR VISIT auth MEDICAL (GENERAL) HISTORY Type Description Date Medical [...] No Information FUNCTIONAL STATUS No Information ASSESSMENTS No Information PLAN OF TREATMENT Next Appt Details Provider Name:Leo Lj Lim, 02:30:00 PM, [address], [place], [address], Provider Name:Yael Aviles, 2020-09-07 09:30:00 AM, [address] [place], [address], Insurance Providers Payer Name Payer Address Payer Phone Insured Name Patient Relati onship to Insured Coverage Start Date Coverage End Date [facility] [address] [facility] [id number] Geovanny Méndez
--- OUTSIDE RECORDS SUMMARY | 2020-09-18 06:14 | CCD ---
Author Author [facility] Organization [facility] Address Unknown Phone Unavailable Care Team Providers Care Wad Compressor Operator Adjuster Name Role Phone Yael Aviles Unavailable PROBLEMS Type Condition ICD9-CM Code [id number] Code Onset Dates Condition S tatus SNOMED Code Notes Problem Type 2 diabetes mellitus wit hout complication, without long-term current use of insulin E11.9 Active 242772620 Problem Mild intermittent asthma without complication J45. 20 Active 166277878 Problem Arthritis of right ankle M19.071 Active 7251025 266712482 Problem SIMON (obstructive sleep apnea) G47.33 Active 78 685103 Problem Gastroesophageal reflux disease without esophagitis K21.9 Active 410891404 Problem Overactive bladder N32.81 Active 166808225 Problem Allergic rhinitis, unspecified seasonality, unspecifie d trigger J30.9 Active 80665596 Problem Nocturnal leg cramps G47.62 Active 994480260 Problem Irregular heart rate I49.9 Active 904172948 Problem Mixed hyperlipidemia E78.2 Active 937463422 Problem Kidney stone N20.0 Active 32057107 Problem Essential hypertension I10 Active 22902451 Problem Abnormal ECG R94.31 Active 748972826 Problem Cardiomegaly I51.7 Active 2594384 Problem Incontinence of feces, unspecified fecal incontinence type R15.9 Active 26259522 Problem Gastroparesis K31.84 Active 030185697 ALLERGIES Allergen (clinical drug ingredient) Drug/Non Drug Allergy do cumented on EMR Reaction Allergy Type Onset Date Status naproxen Naprosyn(NDC Code:[address]-53) Hives Drug Allergy Active cephalexin Keflex(ND Code:[address]-37) Hives Drug Allergy Active ENCOUNTERS from 1960 to 2020-09-11 Encounter Location Date Provider Diagnosis [facility] [address] [place] [id number] Aug, Yael Aviles Type 2 diabetes mellitus without complic ation, without long-term current use of insulin E11.9 ; Essential hypertension I10 ; Gastroparesis K31.84 ; Fatigue, unspecified type R53.83 and Abdominal distention R14.0 IMMUNIZATIONS Vaccine Route Administration Date Status Influenza [...] Education Language: Question Answer Notes Languages spoken: Tamazight Evangelical: Question Answer Notes Evangelical 08 Alevism Domestic Violence: Question Answer Notes Status: Sexual [...] FOR REFERRAL No Information VITAL SIGNS Weight 232 lbs Aug, Height 69 in Aug, BMI 34.26 kg/m2 Aug, Heart Rate 78 /min Aug, Respiratory Rate 18 /min Aug, Temperature 96.5 degrees Fahrenheit Aug, Oximetry 96 Aug, Blood pressure systolic 120 mm Hg Aug, Blood pressure diastolic 68 mm Hg Aug, MEDICATIONS Medication SIG (Take, Route, Frequency, Duration) Notes Start Da te End Date Status Aspirin 81 81 MG 1 tablet Orally Once a day for 90 days Not-Taking Protonix 40 MG 1 tablet Orally Once a day for 90 days Active Tylenol 325 MG 3tablets Orally 2 times a day Active Vanicream - as directed Externally bid for 90 days Active Test Strips - as directed bid; Dx E11.9 for 30 Days Feb Active Jardiance 25 MG 1 tablet Orally Once a day Feb, Active Urea 40 % 1 application to affected ar ea as needed Externally Once a day for 90 days Active Oxybutynin Chloride ER 10 MG 1 tablet Orally Once a day for 90 days Not-Taking Multivitamin Adults - 1 tablet Orally Daily for 90 days Feb, Active Albuterol Sulfate HFA 108 (90 Base) MCG/ACT 2 puffs as needed Inhalation every 6 hrs as needed Active Colace 100 MG 1 capsule as needed Orally Once a day for 90 days Not-Taking Alcohol Prep 70 % as directed BID; Dx E11.9 for 30 Days Feb, Active Simethicone 80 MG 1 tablet after meals and at bedtime as needed Orally twice a day Active Loratadine 10 MG 1 tablet Orally Once a day for 90 days Active Lidoderm 5 % 1 patch to skin remove after 12 hours Externally Once a day for 90 day(s) Active Nystatin-Triamcinolone 638190-9.1 UNIT/GM 1 applicatio n to affected area Externally Twice a day for up to 7 days Mar, Active Ondansetron 4 MG 1 tablet on the tongue and a llow to dissolve Orally Once a day as needed Active Amlodipine Besy-Benazepril HCl 10-40 MG as directed Orally once a day Active Flonase 2 sprays nasally twice a day for 90 days Active Lipitor 40 MG 1 tablet Orally Once a day Active Januvia 100 MG 1 tablet Orally Once a day Active Docusate Sodium 100 MG 1 capsule as needed Orally Once a day for 30 day(s) Active Advair Diskus 250-50 MCG/DOSE 1 puff Inhalation Twice a day for 90 da ys Active PROCEDURES No Information RESULTS Component Value Reference Range CBC with Differential Reviewed date:09/08/2020 10:39:29 Interpretation: Performing Lab:[facility], [facility] [address] [facility] [id number] , ,[place] [address] WHITE BLOOD COUNT 6.7 4.0-10.0 RED BLOOD COUNT 4.89 4.00-5.40 HEMOGLOBIN 13.0 12.0-15.5 HEMATOCRIT 42.2 36.0-47.0 MEAN CORPUSCULAR VOLUME 86.3 80.0-96.0 MEAN CORPUSCULAR HEMOGLOBIN 26.6 27.0-33.0 MEAN CORPUSCULAR HGB CONC 30.8 32.0-36.5 RED CELL DISTRIBUTION WIDTH 14.8 11.5-14.5 PLATELET COUNT, AUTOMATED 355 150-450 NEUTROPHILS % 65.6 36.0-66.0 LYMPH % 22.6 24.0-44.0 MONO % 8.3 0.0-5.0 EOS % 2.7 0.0-3.0 BASO % 0.7 0.0-1.0 NEUTROPHILS # 4.4 1.5-8.5 LYMPH # 1.5 1.5-5.0 MONO # 0.6 0.0-0.8 EOS # 0.2 0.0-0.5 BASO # 0.1 0.0-0.2 FERRITIN Reviewed date:09/08/2020 10:39:35 Interpretation: Performing Lab:[facility] [address] [facility] [address] , ,[place] [address] FERRITIN [phone] HEMOGLOBIN A1c Reviewed date:09/08/2020 10:39:22 Interpretation: Performing Lab:[facility], [facility] [address] [address] , ,[place] [address] HEMOGLOBIN A1c 6.2 ESTIMATED AVERAGE GLUCOSE 131 60-110 REASON FOR VISIT F/U DM2 MEDICAL (GENERAL) HISTORY Type Description Date Medical [...] years 10/2013 Surgical History cateract surgery 05/2020 Surgical History kidney stone removed 07/2020 Hospitalization History surgery related Goals Section No Information Health Concerns No Information MEDICAL EQUIPMENT No Information MENTAL STATUS No Information FUNCTIONAL STATUS No Information ASSESSMENTS Encounter Date Diagnosis Assessment Notes Treatment Notes Treatm ent Clinical Notes Aug, Type 2 diabetes mellitus wit hout complication, without long-term current use of insulin (ICD-10 - E11.9) A1c and home glucose readings are at goal; stop metformin to see if gassiness improves. Aug, Essential hypertension (ICD-10 - I10) Per JNC 8 guidelines, goal BP < 140/90; is meeting goal on current regimen. Advised heart-healthy diet, sodium restriction. Aug, Gastroparesis (ICD-10 - K31.84) Likely cause of her distention and gassiness; given patient information from Uptodate and dietary recommendations for gastroparesis. Stop metformin as above. Aug, Fatigue, unspecified type (ICD-10 - R53.83) States she lost a lot of blood via urine from kidney stone. Aug, Abdominal distention (ICD-10 - R14.0) Check ultrasound to r/o ascites. PLAN OF TREATMENT Medication Medication Name Sig Start Date Stop Date Simethicone 80 MG 1 tablet after meals and at bedtime as needed Orally twice a day Januvia 100 MG 1 tablet Orally Once a day Jardiance 25 MG 1 tablet Orally Once a day Feb, Amlodipine Besy-Benazepril HCl 10-40 MG as directed Orally once a day Flonase 2 sprays nasally twice a day for 90 days Vanicream - as directed Externally bid for 90 days Treatment Notes Assessment Notes Clinical Notes Type 2 diabetes mellitus without complic ation, without long-term current use of insulin A1c and home glucose reading s are at goal; stop metformin to see if gassiness improves. Essential hypertension Per JNC 8 guideli harjeet, goal BP < 140/90; is meeting goal on current regimen. Advised heart-healthy diet, sodium restriction. Gastroparesis Likely cause of her distention and gassiness; given patient information from Uptodate and dietary recommendations for gastroparesis. Stop metformin as above. Fatigue, unspecified type States she los t a lot of blood via urine from kidney stone. Abdominal distention Check ultrasound to r/o ascites. Future Test Test Name Order Date ABDOMEN LIMITED US [id number] Next Appt Details 1 week Reason:Pap/pelvic Provider Name:Yael Calvert Kolbysaida, 2020-09-14 10:00:00 AM, [address] [place], [address], Provider Name:Donato Jean, 2020-09-18 2 08:45:00 AM, [address], [place], [address], Follow Up:1 weekPap/pelvic Insurance Providers Payer Name Payer Address Payer Phone Insured Name Patient Relati onship to Insured Coverage Start Date Coverage End Date [facility] [address] [place] [id number] Geovanny Méndez
--- OUTSIDE RECORDS SUMMARY | 2020-09-18 06:14 | CCD ---
Author Author [facility] Organization [facility] Address Unknown Phone Unavailable Care Team Providers Care Production Superintendent Hydro Name Role Phone Leo Lim Unavailable PROBLEMS Type Condition ICD9-CM Code [id number] Code Onset Dates Condition S tatus SNOMED Code Notes Problem Arthritis of right ankle M19.071 Active 3632115 919880765 Problem Type 2 diabetes mellitus wit hout complication, without long-term current use of insulin E11.9 Active 530745575 Problem Gastroesophageal reflux disease without esophagitis K21.9 Active 270811899 Problem Mild intermittent asthma without complication J45. 20 Active 808999858 Problem Essential hypertension I10 Active 30901537 Problem SIMON (obstructive sleep apnea) G47.33 Active 78 885690 Problem Allergic rhinitis, unspecified seasonality, unspecifie d trigger J30.9 Active 80993902 Problem Nocturnal leg cramps G47.62 Active 926812034 Problem Abnormal ECG R94.31 Active 558722125 Problem Preop testing Z01.818 Active 150130861 Problem Overactive bladder N32.81 Active 658754759 Problem UTI (urinary tract infection) N39.0 Active 68 684898 Problem Mixed hyperlipidemia E78.2 Active 069373854 Problem Cardiomegaly I51.7 Active 7359353 Problem Incontinence of feces, unspecified fecal incontinence type R15.9 Active 34634133 Problem Irregular heart rate I49.9 Active 024562798 Problem Kidney stone N20.0 Active 77496445 ALLERGIES Allergen (clinical drug ingredient) Drug/Non Drug Allergy do cumented on EMR Reaction Allergy Type Onset Date Status naproxen Naprosyn(NDC Code:[address]-60) Hives Drug Allergy Active cephalexin Keflex(NDC Code:[address]-29) Hives Drug Allergy Active ENCOUNTERS from 1960 to 2020-08-17 Encounter Location Date Provider Diagnosis [facility] [address] [place] [address] [place] [address] Jul Leo Lim Kidney stone N20.0 ; Preop testing Z01.8 18 and UTI (urinary tract infection) N39.0 IMMUNIZATIONS Vaccine Route Administration Date Status Influenza [...] Education Language: Question Answer Notes Languages spoken: Turkish Baptist: Question Answer Notes Baptist 08 Yarsanism Domestic Violence: Question Answer Notes Status: Sexual [...] FOR REFERRAL No Information VITAL SIGNS Weight 238.4 lbs Jul, Height 69 in Jul, BMI 35.20 kg/m2 Jul, Heart Rate 84 /min Jul, Respiratory Rate 18 /min Jul, Temperature 97.3 degrees Fahrenheit Jul, Oximetry 97% Jul, Blood pressure systolic 127 mm Hg Jul, Blood pressure diastolic 74 mm Hg Jul, MEDICATIONS Medication SIG (Take, Route, Frequency, Duration) Notes Start Da te End Date Status Ondansetron 4 MG 1 tablet on the tongue and a llow to dissolve Orally Once a day as needed Active Loratadine 10 MG 1 tablet Orally Once a day for 90 days Active Lipitor 40 MG 1 tablet Orally Once a day Active Albuterol Sulfate HFA 108 (90 Base) MCG/ACT 2 puffs as needed Inhalation every 6 hrs as needed Active Advair Diskus 250-50 MCG/DOSE 1 puff Inhalation Twice a day for 90 da ys Active Aspirin 81 81 MG 1 tablet Orally Once a day for 90 days Not-Taking Vanicream - as directed Externally bid for 90 days Active Oxybutynin Chloride ER 10 MG 1 tablet Orally Once a day for 90 days Not-Taking Protonix 40 MG 1 tablet Orally Once a day for 90 days Active Nystatin-Triamcinolone 391211-1.1 UNIT/GM 1 applicatio n to affected area Externally Twice a day for up to 7 days Mar, Active Simethicone 80 MG 1 tablet after meals and at bedtime as needed Orally twice a day for 90 days Active Januvia 100 MG 1 tablet Orally Once a day Active Jardiance 25 MG 1 tablet Orally Once a day for 90 days Feb, Active Tylenol 325 MG 3tablets Orally 2 times a day Active Test Strips - as directed bid; Dx E11.9 for 30 Days Feb Active Docusate Sodium 100 MG 1 capsule as needed Orally Once a day for 30 day(s) Active Multivitamin Adults - 1 tablet Orally Daily for 90 days Feb, Active Alcohol Prep 70 % as directed BID; Dx E11.9 for 30 Days Feb, Active Urea 40 % 1 application to affected ar ea as needed Externally Once a day for 90 days Active Flonase 2 sprays nasally riana a day for 90 days Active Colace 100 MG 1 capsule as needed Orally Once a day for 90 days Not-Taking Lidoderm 5 % 1 patch to skin remove after 12 hours Externally Once a day for 90 day(s) Active Metformin HCl 500 MG 1 tablet with a meal Orally Once a day for 30 da y(s) Active Amlodipine Besy-Benazepril HCl 10-40 MG as directed Or ally once a day for 90 days Active PROCEDURES No Information RESULTS No Results REASON FOR VISIT s/p laser lithotripsy. cysto w. stent removal with [facility] MEDICAL (GENERAL) HISTORY Type Description Date [...] Notes Jul, Kidney stone (ICD-10 - N20.0) - informed consent signed - will need preop CBC, BMP, and a urine culture 1 wk prior to surgery - will schedule Jul, Preop testing (ICD-10 - Z01.818) Jul, UTI (urinary tract infection) (ICD-10 - N39.0) Jul, Other Ureteroscopy material was pr inted PLAN OF TREATMENT Treatment Notes Assessment Notes Clinical Notes Kidney stone - informed consent s igned- will need preop CBC, BMP, and a urine culture 1 wk prior to surgery- will schedule Treatment Notes Test Name Order Date CBC - Complete Blood Count 2020-08-17 URINE CULTURE 2020-08-17 Basic Metabolic Profile (BMP) 2020-08-17 Next Appt Details surgery Reason: Provider Name:Yael Aviles, 2020-09-07 09:30:00 AM, [address] [place], [address], Insurance Providers Payer Name Payer Address Payer Phone Insured Name Patient Relati onship to Insured Coverage Start Date Coverage End Date [facility] [address] [place] [id number] Geovanny Méndez
--- OUTSIDE RECORDS SUMMARY | 2020-09-18 06:14 | CCD ---
Author Author [facility] Organization [facility] Address Unknown Phone Unavailable Care Team Providers Care Front Office Associate Name Role Phone Yael Aviles Unavailable PROBLEMS Type Condition ICD9-CM Code [id number] Code Onset Dates Condition S tatus SNOMED Code Notes Problem Gastroesophageal reflux disease without esophagitis K21.9 Active 900337676 Problem Mild intermittent asthma without complication J45. 20 Active 892761993 Problem Essential hypertension I10 Active 32109074 Problem SIMON (obstructive sleep apnea) G47.33 Active 78 518488 Problem Arthritis of right ankle M19.071 Active 1144178 713162345 Problem Allergic rhinitis, unspecified seasonality, unspecifie d trigger J30.9 Active 22701963 Problem Overactive bladder N32.81 Active 379030897 Problem Irregular heart rate I49.9 Active 863469604 Problem Mixed hyperlipidemia E78.2 Active 313044639 Problem Kidney stone N20.0 Active 29325105 Problem Type 2 diabetes mellitus wit hout complication, without long-term current use of insulin E11.9 Active 259462820 Problem Nocturnal leg cramps G47.62 Active 880804707 Problem Abnormal ECG R94.31 Active 831086833 Problem Cardiomegaly I51.7 Active 0245433 Problem Incontinence of feces, unspecified fecal incontinence type R15.9 Active 39961302 ALLERGIES Allergen (clinical drug ingredient) Drug/Non Drug Allergy do cumented on EMR Reaction Allergy Type Onset Date Status naproxen Naprosyn([facility] Code:[address]-38) Hives Drug Allergy Active cephalexin Keflex([facility] Code:[address]-19) Hives Drug Allergy Active ENCOUNTERS from 1960 to 2020-08-04 Encounter Location Date Provider Diagnosis [facility] [address] [place] [address] Jul, Yael Aviles Kidney stone N20.0 ; SIMON (obstructive sl eep apnea) G47.33 and Mild intermittent asthma without complication J45.20 IMMUNIZATIONS Vaccine Route Administration Date Status Influenza [...] Education Language: Question Answer Notes Languages spoken: Spanish Muslim: Question Answer Notes Muslim 08 Yazidism Domestic Violence: Question Answer Notes Status: Sexual [...] E11.9 for 30 Days Feb, Active Nystatin-Triamcinolone 113509-1.1 UNIT/GM 1 applicatio n to affected area [...] Information RESULTS No Results REASON FOR VISIT [facility] MEDICAL (GENERAL) HISTORY Type Description Date Medical [...] Notes Jul, Kidney stone (ICD-10 - N20.0) Jul, SIMON (obstructive sleep apnea) (ICD-10 - G47.33) Jul, Mild intermittent asthma without complication (I CD-10 - J45.20) PLAN OF TREATMENT Next Appt Details Provider Name:Leo Calhoun Raphael, 02:30:00 PM, [address] [place], [address], Provider Name:Yael Calvert Kolbysaida, 2020-09-07 09:30:00 AM, [address] [place], [address], Insurance Providers Payer Name Payer Address Payer Phone Insured Name Patient Relati onship to Insured Coverage Start Date Coverage End Date [facility] INS[facility] [address] [place] [id number] Geovanny Méndez
--- OUTSIDE RECORDS SUMMARY | 2020-09-18 06:15 | CCD ---
Author Author [facility] Organization [facility] Address Unknown Phone Unavailable Care Team Providers Care Chromium Plater Name Role Phone Jacqueline Calabrese Unavailable PROBLEMS Type Condition ICD9-CM Code MCA30-PE Code Onset Dates Condition S tatus SNOMED Code Notes Problem Mild intermittent asthma without complication J45. 20 Active 380115648 Problem SIMON (obstructive sleep apnea) G47.33 Active 78 979044 Problem Gastroesophageal reflux disease without esophagitis K21.9 Active 762972387 Problem Mixed hyperlipidemia E78.2 Active 127322989 Problem Arthritis of right ankle M19.071 Active 6333498 648906464 Problem Allergic rhinitis, unspecified seasonality, unspecifie d trigger J30.9 Active 70720268 Problem Incontinence of feces, unspecified fecal incontinence type R15.9 Active 37967747 Problem Type 2 diabetes mellitus wit hout complication, without long-term current use of insulin E11.9 Active 458418701 Problem Irregular heart rate I49.9 Active 562579956 Problem Essential hypertension I10 Active 02591842 Problem Overactive bladder N32.81 Active 714198698 Problem Nocturnal leg cramps G47.62 Active 296375431 Problem Abnormal ECG R94.31 Active 222287051 Problem Cardiomegaly I51.7 Active 6535530 ALLERGIES Allergen (clinical drug ingredient) Drug/Non Drug Allergy do cumented on EMR Reaction Allergy Type Onset Date Status naproxen Naprosyn(NDC Code:[address]-57) Hives Drug Allergy Active cephalexin Keflex(NDC Code:[address]-01) Hives Drug Allergy Active ENCOUNTERS from 1960 to 2020-07-07 Encounter Location Date Provider Diagnosis [facility] [place] [place] [address] Jun, Jacqueline Calabrese Right flank pain R10.9 ; Gross hematuria R31.0 ; Irregular heart rate I49.9 ; Hydronephrosis, right N13.30 and ABELARDO (acute kidney injury) N17.9 IMMUNIZATIONS Vaccine Route Administration Date Status Influenza [...] Education Language: Question Answer Notes Languages spoken: Scottish Church: Question Answer Notes Church 08 [employer] Domestic Violence: Question Answer Notes Status: Sexual Hx: Question Answer Notes Had sex in the last 12 months (vaginal, oral, or anal)? No Have you ever had an STD? No Drug and Alcohol Question Answer Notes Total Score: 0 Interpretation: No problems reported Tobacco Use: Question Answer Notes Are you a: never smoker REASON FOR REFERRAL No Information VITAL SIGNS Weight 234 lbs Jun, Height 69 in Jun, BMI 34.55 kg/m2 Jun, Heart Rate 96 /min Jun, Respiratory Rate 18 /min Jun, Temperature 97.3 degrees Fahrenheit Jun, Oximetry 98 Jun, Blood pressure systolic 118 mm Hg Jun, Blood pressure diastolic 60 mm Hg Jun, MEDICATIONS Medication SIG (Take, Route, Frequency, Duration) Notes Start Da te End Date Status Albuterol Sulfate HFA 108 (90 Base) MCG/ACT 2 puffs as needed Inhalation every 6 hrs as needed Active Januvia 100 MG 1 tablet Orally Once a day Active Ondansetron 4 MG 1 tablet on the tongue and a llow to dissolve Orally Once a day as needed Active Lidoderm 5 % 1 patch to skin remove after 12 hours Externally Once a day for 90 day(s) Active Simethicone 80 MG 1 tablet after meals and at bedtime as needed Orally twice a day for 90 days Active Tylenol 325 MG 3tablets Orally 2 times a day Active Multivitamin Adults - 1 tablet Orally Daily for 90 days Feb, Active Vanicream - as directed Externally bid for 90 days Active Protonix 40 MG 1 tablet Orally Once a day for 90 days Active Lipitor 40 MG 1 tablet Orally Once a day Active Colace 100 MG 1 capsule as needed Orally Once a day for 90 days Not-Taking Test Strips - as directed bid; Dx E11.9 for 30 Days Feb Active Amlodipine Besy-Benazepril HCl 10-40 MG as directed Or ally once a day for 90 days Active Alcohol Prep 70 % as directed BID; Dx E11.9 for 30 Days Feb, Active Oxybutynin Chloride ER 10 MG 1 tablet Orally Once a day for 90 days Active Jardiance 25 MG 1 tablet Orally Once a day for 90 days Feb, Active Nystatin-Triamcinolone 981046-8.1 UNIT/GM 1 applicatio n to affected area Externally Twice a day for up to 7 days Mar, Active Aspirin 81 81 MG 1 tablet Orally Once a day for 90 days Active Advair Diskus 250-50 MCG/DOSE 1 puff Inhalation Twice a day for 90 da ys Active Loratadine 10 MG 1 tablet Orally Once a day for 90 days Active Urea 40 % 1 application to affected ar ea as needed Externally Once a day for 90 days Active Flonase 2 sprays nasally riana a day for 90 days Active PROCEDURES No Information RESULTS Component Value Reference Range CBC with Differential Reviewed date:07/04/2020 15:09:55 Interpretation: Performing Lab:[facility] [address] [address] , ,[place] [address] WHITE BLOOD COUNT 6.9 4.0-10.0 RED BLOOD COUNT 4.66 4.00-5.40 HEMOGLOBIN 12.2 12.0-15.5 HEMATOCRIT 39.8 36.0-47.0 MEAN CORPUSCULAR VOLUME 85.4 80.0-96.0 MEAN CORPUSCULAR HEMOGLOBIN 26.2 27.0-33.0 MEAN CORPUSCULAR HGB CONC 30.7 32.0-36.5 RED CELL DISTRIBUTION WIDTH 14.5 11.5-14.5 PLATELET COUNT, AUTOMATED 349 150-450 Comprehensive Metabolic Profile (CMP) Reviewed date:07/04/2020 15:16:01 Interpretation: Performing Lab:[facility] [address] [address] , [place] [address] GLUCOSE, FASTING 96 70-100 BLOOD UREA NITROGEN 26 7-18 CREATININE FOR GFR 1.57 0.55-1.30 GLOMERULAR FILTRATION RATE 35.7 >45 SODIUM LEVEL 136 136-145 POTASSIUM SERUM 4.2 3.5-5.1 CHLORIDE LEVEL 105 98-107 CARBON DIOXIDE LEVEL 23 21-32 CALCIUM LEVEL 9.2 8.8-10.2 AST/SGOT 14 7-37 ALT/SGPT 21 12-78 ALKALINE PHOSPHATASE 68 45-117 BILIRUBIN,TOTAL 0.5 0.2-1.0 TOTAL PROTEIN 7.0 6.4-8.2 ALBUMIN 3.4 3.2-5.2 ALBUMIN/GLOBULIN RATIO 0.9 1.2-2.2 REASON FOR VISIT blood in urine MEDICAL (GENERAL) HISTORY Type Description Date Medical [...] Treatment Notes Treatm ent Clinical Notes Jun, Right flank pain (ICD-10 - R10.9) Jun, Gross hematuria (ICD-10 - R31.0) Jun, Irregular heart rate (ICD-10 - I49.9) Will fax results to cardiology office Jun, Hydronephrosis, right (ICD-10 - N13.30) Given US findings and lab results, pt referred to the ED, as she will need a stat CT - pt agrees and will go today Jun, ABELARDO (acute kidney injury) (ICD-10 - N17.9) PLAN OF TREATMENT Treatment Notes Assessment Notes Clinical Notes Irregular heart rate Will fax results to cardiology office Hydronephrosis, right Given US findings and lab re sults, pt referred to the ED, as she will need a stat CT - pt agrees and will go today Treatment Notes Test Name Order Date Ultrasound : Kidneys and Bladder 2020-07-07 ELECTROCARDIOGRAM, COMPLETE EKG 2020-07-07 Next Appt Details Provider Name:Brian Angeles, 2020-06 08:00:00 AM, [address], [place], [address], Provider Name:Yael Aviles, 2020-09-07 09:30:00 AM, [address] [place], [address], Insurance Providers Payer Name Payer Address Payer Phone Insured Name Patient Relati onship to Insured Coverage Start Date Coverage End Date [facility] [address] [place] [id number] Geovanny Méndez
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
--- OUTSIDE RECORDS SUMMARY | 2020-09-18 06:15 | CCD | Continuity of Care Document ---
Author Author [facility]inny [facility] Organization Unknown Address [address] [place] [address] Phone [phone] Care Team Providers Care Energy Systems Engineer Name Role Phone Yael Aviles MD AUTM [phone] Fabiano Foster Publi AUTM [phone] Problems Description No Information Available Social History Type Date Description Comments Sex Unknown Tobacco Use Start: Unknown Never Smoked Cigarettes ETOH Use Occasionally consumes alcohol Allergies, Adverse Reactions, Alerts Active Allergies Reaction Severity Comments Date Keflex 07/03/2020 Naproxen 07/03/2020 Medications Active Medications SIG Qnty Indications Ordering Provide r Date Nitrofurantoin Monohyd Macro 100mg Capsules 1 cap by mouth twice a day for 5 days 10caps N39.0 Hipolito Singh JR., M.D. 07/03/2020 Fluticasone Propionate Nasal [place] 24- H our 50mcg/Act Suspension 2 actuations per nostril once a day Unknown Advair Diskus 250-50mcg/Dose Aeros ol 1 puff twice a day Unknown Metformin HCL 500mg Tablets Unknown Januvia 100mg Tablets Unknown Jardiance 25mg Tablets Unknown Lotrel 10-20mg Capsules Unknown Pantoprazole Sodium 40mg Tablets DR Unknown Loradamed 10mg Tablets Unknown Oxybutynin Chloride 5mg Tablets 2 by mouth every day Unknown Urea 20 Intensive Hydrating Cream 20% Cream Unknown Aspirin [address] Unknown Lipitor 10mg Tablets Unknown Ondansetron 8mg Tablets Dispers 1 tablet dissolve on tongue every 8 hours as needed for nausea/vomiting Unknown Albuterol Fha 90mcg/Act Aerosol 2 puffs q4hrs./prn sob or wheezing Unknown Docusate Calcium 240mg Capsules Unknown Immunizations Description No Information Available Vital Signs Date Vital Result Comment 07/03/2020 9:37am BP Systolic 125 mmHg BP Diastolic 70 mmHg Heart Rate 78 /min Respiratory Rate 16 /min O2 % BldC Oximetry 98 % Body Temperature 97.9 F Weight 235.00 lb Height 69 inches 5'9" BMI (Body Mass Index) 34.7 kg/m2 Pain Level 3 Results Test Acquired Date Facility Test Result H/L Range Note Laboratory test finding 07/03/[address] [id number] [phone] Urine Culture <pending> Procedures Description No Information Available Medical Devices Description No Information Available Encounters Type Date Location Provider Dx Diagnosis Office Visit 07/03/2020 9:15a [facility] Edison Morton P [place] N39.0 Urinary tract infection, site not specified R10.9 Unspecified abdominal pain Z20.828 Contact w and exposure to ot h viral communicable diseases Assessments Date Code Description Provider 07/03/2020 N39.0 Urinary tract infection, site no t specified Manju Beck 07/03/2020 R10.9 Unspecified abdominal pain Manju White 07/03/2020 Z20.828 Contact with and (leo spected) exposure to other viral communicable diseases Manju Beck Plan of Treatment 07/03/2020 - Manju Beck* N39.0 Urinary tract infection, site not specified* New Medication:* Nitrofurantoin Monohyd Macro 100 mg - 1 cap by mouth twice a day for 5 days * Comments:* Supportive careIncrease fluidsUrine sent for C&S - will call as neededFollow with PCP * R10.9 Unspecified abdominal pain* Comments:* urine sent for C&SWill start MacrobidRecommend follow up with PCP to ensure hematuria resolvesWill notify of abnormal urine culture results * Z20.828 Contact with and (suspected) exposure to other viral communicable diseases* Comments:* rapid COVID-19 negative via SOFIA2 SARS antigen Functional Status Description No Information Available Mental Status Description No Information Available Referrals Description No Information Available
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
--- OUTSIDE RECORDS SUMMARY | 2020-09-18 06:15 | CCD | Continuity of Care Document ---
Author Author Ginny MORTON Organization Unknown Address [address] [place] [address] Phone [phone] Care Team Providers Care Skein Bleacher Name Role Phone Yael Aviles MD AUTM [phone] Fabiano Foster Publi AUTM [phone] Problems Description No Information Available Social History [...] Singh JR., M.D. 07/03/2020 Fluticasone Propionate Nasal [place] 24- H our 50mcg/Act Suspension 2 actuations [...] H/L Range Note Laboratory test finding 07/03/[address] [id number] [phone] Urine Culture <pending> Procedures Description No Information [...]
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
--- OUTSIDE RECORDS SUMMARY | 2020-09-18 06:16 | CCD ---
Author Author [facility] Organization [facility] Address Unknown Phone Unavailable Care Team Providers Care Blood Bank Order Control Clerk Name Role Phone DRAZEK, I TEAGAN PA Unavailable Unavailable DRAZEK, I TEAGAN PA Unavailable Unavailable DRAZEK, I TEAGAN PA Unavailable Unavailable DRAZEK, I TEAGAN PA Unavailable Unavailable DRAZEK, I TEAGAN PA Unavailable Unavailable DRAZEK, I TEAGAN PA Unavailable Unavailable DRAZEK, I TEAGAN PA Unavailable Unavailable DRAZEK, I TEAGAN PA Unavailable Unavailable DRAZEK, I TEAGAN PA Unavailable Unavailable DRAZEK, I TEAGAN PA Unavailable Unavailable DRAZEK, I TEAGAN PA Unavailable Unavailable DRAZEK, I TEAGAN PA Unavailable Unavailable DRAZEK, I TEAGAN PA Unavailable Unavailable DRAZEK, I TEAGAN PA Unavailable Unavailable DRAZEK, I TEAGAN PA Unavailable Unavailable DRAZEK, I TEAGAN PA Unavailable Unavailable DRAZEK, I TEAGAN PA Unavailable Unavailable DRAZEK, I TEAGAN PA Unavailable Unavailable DRAZEK, I TEAGAN PA Unavailable Unavailable DRAZEK, I TEAGAN PA Unavailable Unavailable DRAZEK, I TEAGAN PA Unavailable Unavailable DRAZEK, I TEAGAN PA Unavailable Unavailable DRAZEK, I TEAGAN PA Unavailable Unavailable DRAZEK, I TEAGAN PA Unavailable Unavailable DRAZEK, I TEAGAN PA Unavailable Unavailable DRAZEK, I TEAGAN PA Unavailable Unavailable DRAZEK, I TEAGAN PA Unavailable Unavailable DRAZEK, I TEAGAN PA Unavailable Unavailable DRAZEK, I TEAGAN PA Unavailable Unavailable DRAZEK, I TEAGAN PA Unavailable Unavailable Dylan, L Francheska PA Unavailable Unavailable Dylan, L Francheska PA Unavailable Unavailable Dylan, L Francheska PA Unavailable Unavailable Dylan, L Francheska PA Unavailable Unavailable Dylan, L Francheska PA Unavailable Unavailable Dylan, L Francheska PA Unavailable Unavailable Dylan, L Francheska PA Unavailable Unavailable Dylan, L Francheska PA Unavailable Unavailable Dylan, L Francheska PA Unavailable Unavailable Dylan, L Francheska PA Unavailable Unavailable Dylan, L Francheska PA Unavailable Unavailable Dylan, L Francheska PA Unavailable Unavailable Dylan, L Francheska PA Unavailable Unavailable Dylan, L Francheska PA Unavailable Unavailable Dylan, L Francheska PA Unavailable Unavailable Dylan, L Francheska PA Unavailable Unavailable Dylan, L Francheska PA Unavailable Unavailable Dylan, L Francheska PA Unavailable Unavailable Dylan, L Francheska PA Unavailable Unavailable Dylan, L Francheska PA Unavailable Unavailable Dylan, L Francheska PA Unavailable Unavailable Dylan, L Francheska PA Unavailable Unavailable Dylan, L Francheska PA Unavailable Unavailable PRAVEEN, BRADLEY PA Unavailable Unavailable PRAVEEN, BRADLEY PA Unavailable Unavailable PRAVEEN, BRADLEY PA Unavailable Unavailable PRAVEEN, BRADLEY PA Unavailable Unavailable PRAVEEN, BRADLEY PA Unavailable Unavailable PRAVEEN, BRADLEY PA Unavailable Unavailable PRAVEEN, BRADLEY PA Unavailable Unavailable PRAVEEN, BRADLEY PA Unavailable Unavailable PRAVEEN, BRADLEY PA Unavailable Unavailable PRAVEEN, BRADLEY PA Unavailable Unavailable PRAVEEN, BRADLEY PA Unavailable Unavailable PRAVEEN, BRADLEY PA Unavailable Unavailable PRAVEEN, BRADLEY PA Unavailable Unavailable PRAVEEN, BRADLEY PA Unavailable Unavailable PRAVEEN, BRADLEY PA Unavailable Unavailable PRAVEEN, BRADLEY PA Unavailable Unavailable PRAVEEN, BRADLEY PA Unavailable Unavailable PRAVEEN, BRADLEY PA Unavailable Unavailable PRAVEEN, BRADLEY PA Unavailable Unavailable PRAVEEN, BRADLEY PA Unavailable Unavailable PRAVEEN, BRADLEY PA Unavailable Unavailable PRAVEEN, BRADLEY PA Unavailable Unavailable PRAVEEN, BRADLEY PA Unavailable Unavailable PRAVEEN, BRADLEY PA Unavailable Unavailable PRAVEEN, BRADLEY PA Unavailable Unavailable PRAVEEN, BRADLEY PA Unavailable Unavailable PRAVEEN, BRADLEY PA Unavailable Unavailable PRAVEEN, BRADLEY PA Unavailable Unavailable PRAVEEN, BRADLEY PA Unavailable Unavailable PRAVEEN, BRADLEY PA Unavailable Unavailable PRAVEEN, BRADLEY PA Unavailable Unavailable PRAVEEN, BRADLEY PA Unavailable Unavailable PRAVEEN, BRADLEY PA Unavailable Unavailable PRAVEEN, BRADLEY PA Unavailable Unavailable PRAVEEN, BRADLEY PA Unavailable Unavailable PRAVEEN, BRADLEY PA Unavailable Unavailable PRAVEEN, BRADLEY PA Unavailable Unavailable PRAVEEN, BRADLEY PA Unavailable Unavailable Darrel Hines MD Unavailable Unavailable Darrel Hines MD Unavailable Unavailable Darrel Hines MD Unavailable Unavailable Darrel Hines MD Unavailable Unavailable Darrel Hines MD Unavailable Unavailable Darrel Hines MD Unavailable Unavailable Darrel Hines MD Unavailable Unavailable Darrel Hines MD Unavailable Unavailable Darrel Hines MD Unavailable Unavailable Darrel Hines MD Unavailable Unavailable Darrel Hines MD Unavailable Unavailable Darrel Hines MD Unavailable Unavailable Darrel Hines MD Unavailable Unavailable Darrel Hines MD Unavailable Unavailable Darrel Hines MD Unavailable Unavailable Darrel Hines MD Unavailable Unavailable Darrel Hines MD Unavailable Unavailable Darrel Hines MD Unavailable Unavailable Darrel Hines MD Unavailable Unavailable Darrel Hines MD Unavailable Unavailable Darrel Hines MD Unavailable Unavailable Darrel Hines MD Unavailable Unavailable Darrel Hines MD Unavailable Unavailable Darrel Hines MD Unavailable Unavailable Darrel Hines MD Unavailable Unavailable Darrel Hines MD Unavailable Unavailable Darrel Hines MD Unavailable Unavailable Darrel Hines MD Unavailable Unavailable Darrel Hines MD Unavailable Unavailable Darrel Hines MD Unavailable Unavailable Darrel Hines MD Unavailable Unavailable Darrel Hines MD Unavailable Unavailable Darrel Hines MD Unavailable Unavailable Darrel Hines MD Unavailable Unavailable Darrel Hines MD Unavailable Unavailable Darrel Hines MD Unavailable Unavailable Darrel Hines MD Unavailable Unavailable Darrel Hines MD Unavailable Unavailable Darrel Hines MD Unavailable Unavailable Darrel Hines MD Unavailable Unavailable Darrel Hines MD Unavailable Unavailable Darrel Hines MD Unavailable Unavailable Darrel Hines MD Unavailable Unavailable Darrel Hines MD Unavailable Unavailable Darrel Hines MD Unavailable Unavailable Darrel Hines MD Unavailable Unavailable Darrel Hines MD Unavailable Unavailable Darrel Hines MD Unavailable Unavailable Darrel Hines MD Unavailable Unavailable Darrel Hines MD Unavailable Unavailable Darrel Hines MD Unavailable Unavailable CHRISTIANO GREENE MD Unavailable Unavailable CHRISTIANO GREENE MD Unavailable Unavailable CHRISTIANO GREENE MD Unavailable Unavailable CHRISTIANO GREENE MD Unavailable Unavailable CHRISTIANO GREENE MD Unavailable Unavailable CHRISTIANO GREENE MD Unavailable Unavailable CHRISTIANO GREENE MD Unavailable Unavailable CHRISTIANO GREENE MD Unavailable Unavailable CHRISTIANO GREENE MD Unavailable Unavailable CHRISTIANO GREENE MD Unavailable Unavailable GREENE, CHRISTIANO MD Unavailable Unavailable GREENE, CHRISTIANO MD Unavailable Unavailable GREENE, CHRISTIANO MD Unavailable Unavailable GREENE, CHRISTIANO MD Unavailable Unavailable GREENE, CHRISTIANO MD Unavailable Unavailable GREENE, CHRISTIANO MD Unavailable Unavailable GREENE, CHRISTIANO MD Unavailable Unavailable GREENE, CHRISTIANO MD Unavailable Unavailable GREENE, CHRISTIANO MD Unavailable Unavailable GREENE, CHRISTIANO MD Unavailable Unavailable GREENE, CHRISTIANO MD Unavailable Unavailable GREENE, CHRISTIANO MD Unavailable Unavailable GREENE, CHRISTIANO MD Unavailable Unavailable GREENE, CHRISTIANO MD Unavailable Unavailable GREENE, CHRISTIANO MD Unavailable Unavailable GREENE, CHRISTIANO MD Unavailable Unavailable GREENE, CHRISTIANO MD Unavailable Unavailable GREENE, CHRISTIANO MD Unavailable Unavailable GREENE, CHRISTIANO MD Unavailable Unavailable GREENE, CHRISTIANO MD Unavailable Unavailable Re-disclosure Warning The records that you are about to access may contain information from federally-assisted alcohol or drug abuse programs. If such information is present, then the following federally mandated warning applies: This information has been disclosed to you from records protected by federal confidentiality rules (42 CFR part 2). The federal rules prohibit you from making any further disclosure of this information unless further disclosure is expressly permitted by the written consent of the person to whom it pertains or as otherwise permitted by 42 CFR part 2. A general authorization for the release of medical or other information is NOT sufficient for this purpose. The Federal rules restrict any use of the information to criminally investigate or prosecute any alcohol or drug abuse patient.The records that you are about to access may contain highly sensitive health information, the redisclosure of which is protected by Article 27-F of the [facility] Public Health law. If you continue you may have access to information: Regarding HIV / AIDS; Provided by facilities licensed or operated by the [facility] Office of Mental Health; or Provided by the [facility] Office for People With Developmental Disabilities. If such information is present, then the following [facility] mandated warning applies: This information has been disclosed to you from confidential records which are protected by state law. State law prohibits you from making any further disclosure of this information without the specific written consent of the person to whom it pertains, or as otherwise permitted by law. Any unauthorized further disclosure in violation of state law may result in a fine or chcf sentence or both. A general authorization for the release of medical or other information is NOT sufficient authorization for further disc losure. Allergies and Adverse Reactions Type Description Substance Reaction Status Data Source(s ) Drug allergy Naprosyn Naproxen Hives Active eCW1 ([facility]) Drug allergy Keflex Cephalexin Hives Active eCW1 ([facility]) Family History Family Member Name Family Member Gender Family Member Status Date o f Status Description Data Source(s) Unknown Male Problem MEDENT ([facility]) Unknown Male Problem [facility] ([facility]) Unknown Male Problem [facility] Female Problem MEDENT ([facility] Unknown Female Problem MEDENT ([facility] Unknown Female Problem MEDENT ([facility] Unknown Female Problem MEDENT ([facility] Unknown Unknown Problem MED[facility] ([facility]) Unknown Unknown Problem MEDENT ([facility]) Encounters Encounter Providers Location Date Indications Data Source(s ) Out[place] [address] [facility] [address] 09/07/2020 12:00:00 AM EST eCW1 ([facility]) [place] [address] [facility] [address] 08/15/2020 12:00:00 AM EST eCW1 ([facility]) [place] [address] [facility] [place] [address] 08/02/2020 12:00:00 AM EST [facility] Unknown [address] [facility] [place] [address] 08/02/2020 12:00:00 AM EST eCW1 ([facility]) Unknown [address] [facility] [place] [address] 07/26/2020 12:00:00 AM EST eCW1 ([facility]) Unknown [address] [facility] [place] [address] 07/18/2020 12:00:00 AM EST eCW1 ([facility]) [place] [address] [facility] [address] 07/11/2020 12:00:00 AM EST [facility]CW1 [facility] [place] [address] [facility] [address] 07/05/2020 12:00:00 AM EST [facility] Unknown [address] [facility] [place] [address] 07/05/2020 12:00:00 AM EST eCW1 [facility]) Unknown [address] [facility] [place] [address] 07/05/2020 12:00:00 AM EST eCW1 ([facility]) Outpatient [address] [facility] [place] [address] 07/04/2020 12:00:00 AM EST [facility] Unknown [address] [facility] [place] [address] 07/04/2020 12:00:00 AM EST [facility]) Outpatient Attender: BRADLEY washington 07/03/2020 08:15:00 AM EST MEDENT ([facility]) [place] [address] [facility] [address] 07/03/2020 12:00:00 AM EST [facility] [place] [address] [facility] [address] 06/07/2020 12:00:00 AM EDT eCW1 ([facility]) Outpatient [address] [facility] [place] [address] 06/06/2020 12:00:00 AM EDT eCW1 ([facility]) Unknown [address] [facility] [place] [address] 06/06/2020 12:00:00 AM EDT eCW1 ([facility]) Outpatient [address] [facility] [place] [address] 05/17/2020 12:00:00 AM EDT eCW1 ([facility]) [place] [address] [facility] [address] 03/03/2020 12:00:00 AM EDT [facility]) [place] [address] [facility] [address] 01/25/2020 12:00:00 AM EDT eCW1 ([facility]) [place] [address] [facility] [address] 01/25/2020 12:00:00 AM EDT eCW1 ([facility]) Outpatient Referrer: TEAGAN PALOMO 12/30/2019 09:05:00 PM EDT [facility] [address] [place] [address], [place] [address] 12/17/2019 12:00:00 AM EDT eCW1 ([facility]) [facility] [address] [place] [address], [place] [address] 12/16/2019 12:00:00 AM EDT eCW1 ([facility]) [facility] [address] [place] [address], [place] [address] 12/15/2019 12:00:00 AM EDT eCW1 ([facility]) [facility] [address] [place] [address], [place] [address] 12/02/2019 12:00:00 AM EDT [facility]1 ([facility]) [address] [address] 12/01/2019 12:00:00 AM EDT [facility]1 [facility] [address] [place] [address], [place] [address] 11/05/2019 12:00:00 AM EDT [facility]1 [facility] [address] [place] [address], [place] [address] 11/05/2019 12:00:00 AM EDT eCW1 ([facility]) Outpatient Attender: CHRISTIANO GREENE MD Physical Therapy 08:45:00 AM EST MEDENT ([facility]) [place] [id number] [facility] [address] 09/09/2019 12:00:00 AM EST eCW1 ([facility]) Outpatient Attender: Francheska PALOMO Main Office 09/02/2019 07:45:0 0 AM EST MED[facility] ([facility]) [address] [address] 08/25/2019 12:00:00 AM EST eCW1 ([facility]) [address] [address] 07/29/2019 12:00:00 AM EST eCW1 ([facility]) Outpatient Attender: Marcelo Krishnamurthy/Angelica/Leonard/Laury mcgee 07/28/2019 08:15:00 AM EST MEDENT ([facility]) [address] [address] 07/27/2019 12:00:00 AM EST eCW1 ([facility]) Immunizations Vaccine Date Status Description Data Source(s) IIV3. This is one of two codes replacing CVX 15, which is being retired. 05/23/2020 10:23:00 AM EDT completed eCW1 ([facility]) IIV3. This is one of two codes replacing CVX 15, which is being retired. 05/23/2020 10:23:00 AM EDT completed eCW1 ([facility]) IIV3. This is one of two codes replacing CVX 15, which is being retired. 05/23/2020 10:23:00 AM EDT completed eCW1 ([facility]) IIV3. This is one of two codes replacing CVX 15, which is being retired. 05/23/2020 10:23:00 AM EDT completed eCW1 ([facility]) IIV3. This is one of two codes replacing CVX 15, which is being retired. 05/23/2020 10:23:00 AM EDT completed eCW1 ([facility]) IIV3. This is one of two codes replacing CVX 15, which is being retired. 05/23/2020 10:23:00 AM EDT completed eCW1 ([facility]) IIV3. This is one of two codes replacing CVX 15, which is being retired. 05/23/2020 10:23:00 AM EDT completed eCW1 ([facility]) IIV3. This is one of two codes replacing CVX 15, which is being retired. 05/23/2020 10:23:00 AM EDT completed eCW1 ([facility]) IIV3. This is one of two codes replacing CVX 15, which is being retired. 05/23/2020 10:23:00 AM EDT completed eCW1 ([facility]) IIV3. This is one of two codes replacing CVX 15, which is being retired. 05/23/2020 10:23:00 AM EDT completed eCW1 ([facility]) IIV3. This is one of two codes replacing CVX 15, which is being retired. 05/23/2020 10:23:00 AM EDT completed eCW1 ([facility]) IIV3. This is one of two codes replacing CVX 15, which is being retired. 05/23/2020 10:23:00 AM EDT completed eCW1 ([facility]) IIV3. This is one of two codes replacing CVX 15, which is being retired. 05/23/2020 10:23:00 AM EDT completed eCW1 ([facility]) IIV3. This is one of two codes replacing CVX 15, which is being retired. 05/23/2020 10:23:00 AM EDT completed eCW1 ([facility]) IIV3. This is one of two codes replacing CVX 15, which is being retired. 05/23/2020 10:23:00 AM EDT completed eCW1 ([facility]) IIV3. This is one of two codes replacing CVX 15, which is being retired. 05/23/2020 10:23:00 AM EDT completed eCW1 ([facility]) IIV3. This is one of two codes replacing CVX 15, which is being retired. 05/23/2020 10:23:00 AM EDT completed eCW1 ([facility]) Medications Medication Brand Name Start Date Product Form Dose Route Admi nistrative Instructions Pharmacy Instructions Status Indications Reaction Description Data Source(s) 0.4 mg 07/26/2020 12:00:00 AM EST capsule 30 TAKE ONE CAPSULE BY MOUTH EVERY DAY TAKE ONE CAPSULE BY MOUTH EVERY DAY SOLD: 07/26/2020 [facility] 100 mg 07/03/2020 12:00:00 AM EST capsule 10 TAKE ONE CAPSULE BY MOUTH TWICE A DAY FOR 5 DAYS TAKE ONE CAPSULE BY MOUTH TWICE A DAY FOR 5 DAYS SOLD: 07/03/2020 [facility] NITROFURANTOIN, MACROCRYSTALS 25 MG / Ni trofurantoin, Monohydrate 75 MG Oral Capsule Nitrofurantoin Monohyd Macro 07/03/2020 12:00:00 AM EST ORAL active MEDENT ([facility]) Isopropyl Alcohol 0.7 ML/ML Medicated Pad Alcohol Prep 70 % Alcohol Prep 70 % 03/03/2020 12:00:00 AM EDT active Alcohol Prep 70 % eCW1 ([facility]) Isopropyl Alcohol 0.7 ML/ML Medicated Pad Alcohol Prep 70 % Alcohol Prep 70 % 03/03/2020 12:00:00 AM EDT active Alcohol Prep 70 % eCW1 ([facility]) Test Strips - UNK 03/03/2020 12:00:00 AM EDT acti ve Test Strips - eCW1 ([facility]) Isopropyl Alcohol 0.7 ML/ML Medicated Pad Alcohol Prep 70 % Alcohol Prep 70 % 03/03/2020 12:00:00 AM EDT active Alcohol Prep 70 % eCW1 ([facility]) empagliflozin 25 MG Oral Tablet [Jardiance] Jardiance 25 MG Jardiance 25 MG 03/03/2020 12:00:00 AM EDT 1.0 {tablet} active Jardiance 25 MG eCW1 ([facility]) Isopropyl Alcohol 0.7 ML/ML Medicated Pad Alcohol Prep 70 % Alcohol Prep 70 % 03/03/2020 12:00:00 AM EDT active Alcohol Prep 70 % eCW1 ([facility]) Isopropyl Alcohol 0.7 ML/ML Medicated Pad Alcohol Prep 70 % Alcohol Prep 70 % 03/03/2020 12:00:00 AM EDT active Alcohol Prep 70 % eCW1 ([facility]) Test Strips - UNK 03/03/2020 12:00:00 AM EDT acti ve Test Strips - eCW1 ([facility]) empagliflozin 25 MG Oral Tablet [Jardiance] Jardiance 25 MG Jardiance 25 MG 03/03/2020 12:00:00 AM EDT 1.0 {tablet} active Jardiance 25 MG eCW1 ([facility]) empagliflozin 25 MG Oral Tablet [Jardiance] Jardiance 25 MG Jardiance 25 MG 03/03/2020 12:00:00 AM EDT 1.0 {tablet} active Jardiance 25 MG eCW1 ([facility]) empagliflozin 25 MG Oral Tablet [Jardiance] Jardiance 25 MG Jardiance 25 MG 03/03/2020 12:00:00 AM EDT 1.0 {tablet} active Jardiance 25 MG eCW1 ([facility]ending [facility]) Isopropyl Alcohol 0.7 ML/ML Medicated Pad Alcohol Prep 70 % Alcohol Prep 70 % 03/03/2020 12:00:00 AM EDT active Alcohol Prep 70 % eCW1 ([facility]) Test Strips - UNK 03/03/2020 12:00:00 AM EDT acti ve Test Strips - eCW1 ([facility]) empagliflozin 25 MG Oral Tablet [Jardiance] Jardiance 25 MG Jardiance 25 MG 03/03/2020 12:00:00 AM EDT 1.0 {tablet} active Jardiance 25 MG eCW1 ([facility]) empagliflozin 25 MG Oral Tablet [Jardiance] Jardiance 25 MG Jardiance 25 MG 03/03/2020 12:00:00 AM EDT 1.0 {tablet} active Jardiance 25 MG eCW1 ([facility]) Test Strips - UNK 03/03/2020 12:00:00 AM EDT acti ve Test Strips - eCW1 ([facility]) empagliflozin 25 MG Oral Tablet [Jardiance] Jardiance 25 MG Jardiance 25 MG 03/03/2020 12:00:00 AM EDT 1.0 {tablet} active Jardiance 25 MG eCW1 ([facility]) empagliflozin 25 MG Oral Tablet [Jardiance] Jardiance 25 MG Jardiance 25 MG 03/03/2020 12:00:00 AM EDT 1.0 {tablet} active Jardiance 25 MG eCW1 ([facility]) Test Strips - UNK 03/03/2020 12:00:00 AM EDT acti ve Test Strips - eCW1 ([facility]) Test Strips - UNK 03/03/2020 12:00:00 AM EDT acti ve Test Strips - eCW1 ([facility]) empagliflozin 25 MG Oral Tablet [Jardiance] Jardiance 25 MG Jardiance 25 MG 03/03/2020 12:00:00 AM EDT 1.0 {tablet} active Jardiance 25 MG eCW1 ([facility]) Test Strips - UNK 03/03/2020 12:00:00 AM EDT acti ve Test Strips - eCW1 ([facility]) Test Strips - UNK 03/03/2020 12:00:00 AM EDT acti ve Test Strips - eCW1 ([facility]) empagliflozin 25 MG Oral Tablet [Jardiance] Jardiance 25 MG Jardiance 25 MG 03/03/2020 12:00:00 AM EDT 1.0 {tablet} active Jardiance 25 MG eCW1 ([facility]) empagliflozin 25 MG Oral Tablet [Jardiance] Jardiance 25 MG Jardiance 25 MG 03/03/2020 12:00:00 AM EDT 1.0 {tablet} active Jardiance 25 MG eCW1 ([facility] To [facility]) Test Strips - UNK 03/03/2020 12:00:00 AM EDT acti ve Test Strips - eCW1 ([facility]) Isopropyl Alcohol 0.7 ML/ML Medicated Pad Alcohol Prep 70 % Alcohol Prep 70 % 03/03/2020 12:00:00 AM EDT active Alcohol Prep 70 % eCW1 ([facility]) Isopropyl Alcohol 0.7 ML/ML Medicated Pad Alcohol Prep 70 % Alcohol Prep 70 % 03/03/2020 12:00:00 AM EDT active Alcohol Prep 70 % eCW1 ([facility]) Isopropyl Alcohol 0.7 ML/ML Medicated Pad Alcohol Prep 70 % Alcohol Prep 70 % 03/03/2020 12:00:00 AM EDT active Alcohol Prep 70 % eCW1 ([facility]) Test Strips - UNK 03/03/2020 12:00:00 AM EDT acti ve Test Strips - eCW1 ([facility]) Isopropyl Alcohol 0.7 ML/ML Medicated Pad Alcohol Prep 70 % Alcohol Prep 70 % 03/03/2020 12:00:00 AM EDT active Alcohol Prep 70 % eCW1 ([facility]) Test Strips - UNK 03/03/2020 12:00:00 AM EDT acti ve Test Strips - eCW1 ([facility]) Isopropyl Alcohol 0.7 ML/ML Medicated Pad Alcohol Prep 70 % Alcohol Prep 70 % 03/03/2020 12:00:00 AM EDT active Alcohol Prep 70 % eCW1 ([facility]ending [facility] To [facility]) empagliflozin 25 MG Oral Tablet [Jardiance] Jardiance 25 MG Jardiance 25 MG 03/03/2020 12:00:00 AM EDT 1.0 {tablet} active Jardiance 25 MG eCW1 (Pending Sale To [facility]) Test Strips - UNK 03/03/2020 12:00:00 AM EDT acti ve Test Strips - eCW1 (Pending Sale To [facility]) Isopropyl Alcohol 0.7 ML/ML Medicated Pad Alcohol Prep 70 % Alcohol Prep 70 % 03/03/2020 12:00:00 AM EDT active Alcohol Prep 70 % eCW1 (Pending Sale To [facility]) Isopropyl Alcohol 0.7 ML/ML Medicated Pad Alcohol Prep 70 % Alcohol Prep 70 % 03/03/2020 12:00:00 AM EDT active Alcohol Prep 70 % eCW1 (Pending Sale To [facility]) Isopropyl Alcohol 0.7 ML/ML Medicated Pad Alcohol Prep 70 % Alcohol Prep 70 % 03/03/2020 12:00:00 AM EDT active Alcohol Prep 70 % eCW1 (Pending Sale To [facility]) Test Strips - UNK 03/03/2020 12:00:00 AM EDT acti ve Test Strips - eCW1 (Pending Sale To [facility]) Test Strips - UNK 03/03/2020 12:00:00 AM EDT acti ve Test Strips - eCW1 (Pending Sale To [facility]) Test Strips - UNK 03/03/2020 12:00:00 AM EDT acti ve Test Strips - eCW1 (Pending Sale To [facility]) Isopropyl Alcohol 0.7 ML/ML Medicated Pad Alcohol Prep 70 % Alcohol Prep 70 % 03/03/2020 12:00:00 AM EDT active Alcohol Prep 70 % eCW1 (Pending Sale To [facility]) empagliflozin 25 MG Oral Tablet [Jardiance] Jardiance 25 MG Jardiance 25 MG 03/03/2020 12:00:00 AM EDT 1.0 {tablet} active Jardiance 25 MG eCW1 (Pending Sale To [facility]) empagliflozin 25 MG Oral Tablet [Jardiance] Jardiance 25 MG Jardiance 25 MG 03/03/2020 12:00:00 AM EDT 1.0 {tablet} active Jardiance 25 MG eCW1 (Pending Sale To [facility]) empagliflozin 25 MG Oral Tablet [Jardiance] Jardiance 25 MG Jardiance 25 MG 03/03/2020 12:00:00 AM EDT 1.0 {tablet} active Jardiance 25 MG eCW1 (Pending Sale To [facility]) Isopropyl Alcohol 0.7 ML/ML Medicated Pad Alcohol Prep 70 % Alcohol Prep 70 % 03/03/2020 12:00:00 AM EDT active Alcohol Prep 70 % eCW1 (Pending Sale To [facility]) empagliflozin 25 MG Oral Tablet [Jardiance] Jardiance 25 MG Jardiance 25 MG 03/03/2020 12:00:00 AM EDT 1.0 {tablet} active Jardiance 25 MG eCW1 (Pending Sale To [facility]) Test Strips - UNK 03/03/2020 12:00:00 AM EDT acti ve Test Strips - eCW1 (Pending Sale To [facility]) empagliflozin 25 MG Oral Tablet [Jardiance] Jardiance 25 MG Jardiance 25 MG 03/03/2020 12:00:00 AM EDT 1.0 {tablet} active Jardiance 25 MG eCW1 (Pending Sale To [facility]) empagliflozin 25 MG Oral Tablet [Jardiance] Jardiance 25 MG Jardiance 25 MG 03/03/2020 12:00:00 AM EDT 1.0 {tablet} active Jardiance 25 MG eCW1 (Pending Sale To [facility]) Isopropyl Alcohol 0.7 ML/ML Medicated Pad Alcohol Prep 70 % Alcohol Prep 70 % 03/03/2020 12:00:00 AM EDT active Alcohol Prep 70 % eCW1 (Pending Sale To [facility]) Isopropyl Alcohol 0.7 ML/ML Medicated Pad Alcohol Prep 70 % Alcohol Prep 70 % 03/03/2020 12:00:00 AM EDT active Alcohol Prep 70 % eCW1 (Pending Sale To [facility]) Test Strips - UNK 03/03/2020 12:00:00 AM EDT acti ve Test Strips - eCW1 (Pending Sale To [facility]) Test Strips - UNK 03/03/2020 12:00:00 AM EDT acti ve Test Strips - eCW1 (Pending Sale To [facility]) 0.12 % 12/20/2019 12:00:00 AM EDT mouthwash 473 RINSE AFFECTED AREA TWO TIMES A DAY FOR 10 DAYS RINSE AFFECTED AREA TWO TIMES A DAY FOR 10 DAYS SOLD: 12/20/2019 [facility] 500 mg 12/20/2019 12:00:00 AM EDT capsule 30 TAKE ONE CAPSULE BY MOUTH THREE TIMES A DAY TAKE ONE CAPSULE BY MOUTH THREE TIMES A DAY SOLD: 12/20/2019 [facility] empagliflozin 10 MG Oral Tablet [Jardiance] Jardiance 10 MG Jardiance 10 MG 12/02/2019 12:00:00 AM EDT 1.0 {tablet} active Jardiance 10 MG eCW1 (Pending Sale To [facility]) empagliflozin 10 MG Oral Tablet [Jardiance] Jardiance 10 MG Jardiance 10 MG 12/02/2019 12:00:00 AM EDT active 1 tablet eCW1 (Pending Sale To [facility]) empagliflozin 10 MG Oral Tablet [Jardiance] Jardiance 10 MG Jardiance 10 MG 12/02/2019 12:00:00 AM EDT 1.0 {tablet} active Jardiance 10 MG eCW1 (Pending Sale To [facility]) empagliflozin 10 MG Oral Tablet [Jardiance] Jardiance 10 MG Jardiance 10 MG 12/02/2019 12:00:00 AM EDT active 1 tablet eCW1 (Pending Sale To [facility]) 24 HR Oxybutynin chloride 10 MG Extended Release Oral Tablet Oxybutynin Chloride ER 09/01/2019 12:00:00 AM EST ORAL active MEDENT ([facility]) Amlodipine 10 MG / Benazepril hydrochloride 40 MG Oral Capsu le [Lotrel] Lotrel 09/01/2019 12:00:00 AM EST ORAL active [facility] ([facility]) Insurance Providers Payer name Policy type / Coverage type Policy ID Covered green party ID Covered green party's relationship to haley Policy Haley Plan Information [facility] [id number] [facility] [id number] [facility] [id number] S [id number] [facility] Referrals Commercial [id number] Family D[facility] [employer] ( Workers Compensation [id number] Self [id number] [facility] [id number] [facility] [id number] ANSI-Not a Secondary Insurance [id number] [place] [id number] Commercial [id number] Family Dependent [id number] ANSI-Not a Secondary Insurance [id number] ANSI-Not a Secondary Insurance [id number] ANSI-Not a Secondary Insurance [id number] ANSI-Not a Secondary Insurance [id number] Referrals Commercial [id number] Family Dependent [id number] [facility] Federal Service Medigap Part B [id number] Family De pendent [id number] [place] Referrals Commercial [id number] Self [id number] [facility] Federal Service Medigap Part B [id number] Family De pendent [id number] [place] Referrals Commercial [id number] Self [id number] [facility] Federal Service Medigap Part B [id number] Family De pendent [id number] [place] Referrals Commercial [id number] Self [id number] [facility] [id number] [facility] Federal Service Medigap Part B [id number] Family De pendent [id number] [place] Commercial [id number] Self [id number] [facility] Service Medigap Part B [id number] Family De pendent [id number] [place] Commercial [id number] Self [id number] [employer] Health Maintenance Organization (HMO) [id number] Family Dependent [id number] [employer] Health Maintenance [employer] (HMO) [id number] Family Dependent [id number] [employer] Health Maintenance Organization (HMO) [id number] Family Dependent [id number] U [id number] Self [id number] E [id number] Self [id number] [facility] [id number] 2 [id number] East 2018 Commercial [id number] Family Dependent [id number] Prime Medigap Part B [id number] Family Dependent [id number] [place] (2017) Health Maintenance Organization (HMO) [id number] Family Dependent [id number] [place] 2018 Commercial [id number] Family Dependent [id number] [place] 2018 Commercial [id number] Family Dependent [id number] Prime Commercial [id number] Family Dependent [id number] Health Net Federal Serv Commercial [id number] Family Dependen t [id number] Health [employer] Commercial [id number] Family Dependen t [id number] U [id number] Self [id number] [facility] O [id number] P [id number] [facility] F [id number] SPOUSE [id number] Health Net Federal Serv Commercial [id number] Family Dependen t [id number] Region 1 Prime Commercial [id number] Family Dependent [id number] Health Net Federal Serv Commercial Family Dependen t Region 1 Prime Commercial Family Dependent [facility] [id number] HU2 [id number] [facility]/ AD O [id number] P [id number] SELF PAY UNAVAILABLE SP UNAVAILA BLE NO FAULT [id number] HU2 [id number] NO FAULT [id number] HU2 [id number] U [id number] Self [id number] E [id number] Self [id number] U [id number] Spouse [id number] NO FAULT P [id number] S [id number] 18 [id number] COMMERCIAL -CLINIC UNAVAILABLE UNAVAILABLE NO FAULT [id number] HU2 [id number] /[employer]ALTH[employer] FED.SER [id number] PT [id number] COMM MISSING INFO MISSING PT [place] SSING [facility] O [id number] U [id number] Problems, Conditions, and Diagnoses Code Display Name Description Problem Type Effective Dates Data Source(s) K31.84 [id number] Gastroparesis Problem 09/07/2020 12:00:00 AM EST eCW1 (Pending Sale To [facility]) N39.0 Urinary tract infectious disease UTI (urinary tract in fection) Problem 08/15/2020 12:00:00 AM EST eCW1 (Pending Sale To [facility]) Z01.818 Pre-procedure evaluation check Preop testing Problem 08/15/2020 12:00:00 AM EST eCW1 (Pending Sale To [facility]) N20.0 51994306 Kidney stone Problem 07/11/2020 12:00:00 AM EST eCW1 (Pending Sale To [facility]) I49.9 [id number] Irregular heart rate Problem 07/04/2020 12:0 0:00 AM EST eCW1 (Pending Sale To [facility]) R15.9 [id number] Incontinence of feces, unspecifi ed fecal incontinence type Problem 06/06/2020 12:00:00 AM EDT eCW1 ([facility]) G47.62 [id number] Nocturnal leg cramps Problem 09/09/2019 12:0 0:00 AM EST eCW1 (Pending Sale To [facility]) G47.62 916072558 Nocturnal leg cramps Problem 09/09/2019 12:0 0:00 AM EST eCW1 (Pending Sale To [facility]) [id number] Obesity Obesity Problem 09/02/2019 12:00:00 AM ES T MEDENT ([facility]) [id number] Dietary management surveillance Dietary manageme nt surveillance Problem 09/02/2019 12:00:00 AM EST [facility] ([facility]) I51.7 9830953 Cardiomegaly Problem 08/25/2019 12:00:00 AM EST eCW1 (Pending Sale To [facility]) R94.31 [id number] Abnormal ECG Problem 08/25/2019 12:00:00 AM EST eCW1 (Pending Sale To [facility]) R94.31 [id number] Abnormal ECG Problem 08/25/2019 12:00:00 AM EST eCW1 (Pending Sale To [facility]) I51.7 1311193 Cardiomegaly Problem 08/25/2019 12:00:00 AM EST eCW1 (Pending Sale To [facility]) Surgeries/Procedures Procedure Description Date Indications Data Source(s) ARTHROCENTESIS ASPIR&/INJECTION INTERM JT/BURSA 2019 12:00:00 AM EST MEDENT ([facility]) ECG ROUTINE ECG W/LEAST 12 LDS W/I&R 09/02/2019 12:00: 00 AM EST [facility] ([facility]) Spirometry 07/28/2019 12:00:00 AM EST Brian GARCIAENT ([facility]) Results ID Date Data Source [id number] 09/13/2020 11:10:00 AM EST [facility] Name Value Range Interpretation Code Description Data Oriana rce(s) Supporting Document(s) SARS coronavirus 2 RNA Not Detected [facility] [place] This lab was ordered by [facility] and reported by [facility]. ID Date Data Source [id number] 09/07/2020 12:00:00 AM EST eCW1 ([facility]) Name Value Range Interpretation Code Description Data Oriana rce(s) Supporting Document(s) Hemoglobin A1c/Hemoglobin.total in Blood 6.2 HEMOGLOBIN A1c eCW1 (Pending Sale To [facility]) ID Date Data Source FERRITIN 09/07/2020 12:00:00 AM EST eCW1 ([facility]) Name Value Range Interpretation Code Description Data Oriana rce(s) Supporting Document(s) 253 8-252 FERRITIN eCW1 ([facility]) ID Date Data Source CBC with Differential 09/07/2020 12:00:00 AM EST eCW1 ([facility]) Name Value Range Interpretation Code Description Data Oriana rce(s) Supporting Document(s) 13.0 12.0-15.5 HEMOGLOBIN eCW1 ([facility]) 6.7 4.0-10.0 WHITE BLOOD COUNT eCW1 ([facility]) 4.89 4.00-5.40 RED BLOOD COUNT eCW1 ([facility]) 42.2 36.0-47.0 HEMATOCRIT eCW1 ([facility]) 30.8 32.0-36.5 MEAN CORPUSCULAR HGB CONC eCW1 (Pending Sale To [facility]) 14.8 11.5-14.5 RED CELL DISTRIBUTION WID TH eCW1 (Pending Sale To [facility]) 26.6 27.0-33.0 MEAN CORPUSCULAR HEMOGLOB IN eCW1 (Pending Sale To [facility]) 86.3 80.0-96.0 MEAN CORPUSCULAR VOLUME e CW1 (Pending Sale To [facility]) 8.3 0.0-5.0 MONO % eCW1 ([facility]) 22.6 24.0-44.0 LYMPH % eCW1 ([facility]) 65.6 36.0-66.0 NEUTROPHILS % eCW1 (Pending Sale To [facility]) 355 150-450 PLATELET COUNT, AUTOMATED eCW1 (Pending Sale To [facility]) 1.5 1.5-5.0 LYMPH # eCW1 ([facility]) 4.4 1.5-8.5 NEUTROPHILS # eCW1 (Pending Sale To [facility]) 0.7 0.0-1.0 BASO % eCW1 ([facility]) 2.7 0.0-3.0 EOS % eCW1 ([facility]) 0.1 0.0-0.2 BASO # eCW1 ([facility]) 0.2 0.0-0.5 EOS # eCW1 ([facility]) 0.6 0.0-0.8 MONO # eCW1 ([facility]) ID Date Data Source [facility] Chest, 2 view (PA\\Lat) 07/18/2020 12:00:00 AM EST eCW1 ( Pending Sale To [facility]) Name Value Range Interpretation Code Description Data Oriana rce(s) Supporting Document(s) [facility] Chest, 2 view (PA\\Lat) eCW 1 (Pending Sale To [facility]) ID Date Data Source Comprehensive Metabolic Profile (CMP) 07/04/2020 12:00:00 AM EST eCW1 (Pending Sale To [facility]) Name Value Range Interpretation Code Description Data Oriana rce(s) Supporting Document(s) 26 7-18 BLOOD UREA NITROGEN eCW1 (Pending sale to [facility]) 96 70-100 GLUCOSE, FASTING eCW1 ([facility]) 1.57 0.55-1.30 CREATININE FOR GFR eCW1 ([facility]) 136 136-145 SODIUM LEVEL eCW1 ([facility]) 35.7 >45 GLOMERULAR FILTRATION RATE eCW 1 (Pending Sale To [facility]) 4.2 3.5-5.1 POTASSIUM SERUM eCW1 ([facility]) 23 21-32 CARBON DIOXIDE LEVEL eCW1 ([facility]) 105 98-107 CHLORIDE LEVEL eCW1 (Pending Sale To [facility]) 14 7-37 AST/SGOT eCW1 ([facility]) 9.2 8.8-10.2 CALCIUM LEVEL eCW1 (Pending Sale To [facility]) 3.4 3.2-5.2 ALBUMIN eCW1 ([facility]) 0.5 0.2-1.0 BILIRUBIN,TOTAL eCW1 ([facility]) 68 45-117 ALKALINE PHOSPHATASE eCW1 ([facility]) 21 12-78 ALT/SGPT eCW1 ([facility]) 7.0 6.4-8.2 TOTAL PROTEIN eCW1 (Pending Sale To [facility]) 0.9 1.2-2.2 ALBUMIN/GLOBULIN RATIO eCW1 ([facility]) ID Date Data Source [id number] 07/03/2020 09:48:00 AM EST MEDENT ([facility]) Name Value Range Interpretation Code Description Data Oriana rce(s) Supporting Document(s) Bacteria identified in Urine by Culture Laboratory test result [facility]) ID Date Data Source Basic Metabolic Profile (BMP) 06/07/2020 09:31:45 AM EDT eCW 1 (Pending Sale To [facility]) Name Value Range Interpretation Code Description Data Oriana rce(s) Supporting Document(s) 123 GLUCOSE, FASTING eCW1 ([facility]) 25 BLOOD UREA NITROGEN eCW1 (Pending sale to [facility]) 0.98 CREATININE FOR GFR eCW1 ([facility]) 138 SODIUM LEVEL eCW1 ([facility]) 108 CHLORIDE LEVEL eCW1 (Pending Sale To [facility]) 4.5 POTASSIUM SERUM eCW1 ([facility]) > 60.0 GLOMERULAR FILTRATION RATE eCW 1 (Pending Sale To [facility]) 25 CARBON DIOXIDE LEVEL eCW1 ([facility]) 9.5 CALCIUM LEVEL eCW1 (Pending Sale To [facility]) ID Date Data Source [id number] 06/07/2020 07:25:00 AM EDT [facility] Name Value Range Interpretation Code Description Data Oriana rce(s) Supporting Document(s) SARS-CoV-2 (COVID19) [facility] This lab was ordered by [facility] and reported by [facility]. ID Date Data Source [id number] 05/24/2020 07:24:00 AM EDT [facility] Name Value Range Interpretation Code Description Data Oriana rce(s) Supporting Document(s) SARS-CoV-2 (COVID19) [facility] This lab was ordered by [facility] and reported by [employer]. Procedure Social History Code Duration Value Status Description Data Source(s ) Smoking 09/07/2020 12:00:00 AM EST Never Smoker completed Never S moker eCW1 (Pending Sale To [facility]) Smoking 08/15/2020 12:00:00 AM EST Never Smoker completed Never S moker eCW1 (Pending Sale To [facility]) Smoking 07/11/2020 12:00:00 AM EST Never Smoker completed Never S moker eCW1 (Pending Sale To [facility]) Smoking 07/11/2020 12:00:00 AM EST Never Smoker completed Never S moker eCW1 (Pending Sale To [facility]) Smoking 07/11/2020 12:00:00 AM EST Never Smoker completed Never S moker eCW1 (Pending Sale To [facility]) Smoking 07/11/2020 12:00:00 AM EST Never Smoker completed Never S moker eCW1 (Pending Sale To [facility]) Smoking 07/11/2020 12:00:00 AM EST Never Smoker completed Never S moker eCW1 (Pending Sale To [facility]) Smoking 07/11/2020 12:00:00 AM EST Never Smoker completed Never S moker eCW1 (Pending Sale To [facility]) Smoking 07/04/2020 12:00:00 AM EST Never Smoker completed Never S moker eCW1 (Pending Sale To [facility]) Smoking 07/04/2020 12:00:00 AM EST Never Smoker completed Never S moker eCW1 (Pending Sale To [facility]) Smoking 07/04/2020 12:00:00 AM EST Never Smoker completed Never S moker eCW1 (Pending Sale To [facility]) Smoking 07/04/2020 12:00:00 AM EST Never Smoker completed Never S moker eCW1 (Pending Sale To [facility]) Smoking 07/04/2020 12:00:00 AM EST Never Smoker completed Never S moker eCW1 (Pending Sale To [facility]) Smoking 06/06/2020 12:00:00 AM EDT Never Smoker completed Never S moker eCW1 (Pending Sale To [facility]) Smoking 06/06/2020 12:00:00 AM EDT Never Smoker completed Never S moker eCW1 (Pending Sale To [facility]) Smoking 06/06/2020 12:00:00 AM EDT Never Smoker completed Never S moker eCW1 (Pending Sale To [facility]) Smoking 06/06/2020 12:00:00 AM EDT Never Smoker completed Never S moker eCW1 (Pending Sale To [facility]) Smoking 03/03/2020 12:00:00 AM EDT Never Smoker completed Never S moker eCW1 (Pending Sale To [facility]) Smoking 12/16/2019 12:00:00 AM EDT Never Smoker completed Never S moker eCW1 (Pending Sale To [facility]) Smoking 12/16/2019 12:00:00 AM EDT Never Smoker completed Never S moker eCW1 (Pending Sale To [facility]) Vital Signs ID Date Data Source UNK Name Value Range Interpretation Code Description Data Source(s) Diastolic blood pressure 68 mm[Hg] 68 mm[Hg] eCW1 (Pending Sale To [facility]) Systolic blood pressure 120 mm[Hg] 120 mm[Hg] e CW1 (Pending Sale To [facility]) Body temperature 96.5 [degF] 96.5 [degF] eCW1 ( Pending Sale To [facility]) Respiratory rate 18 /min 18 /min eCW1 ([facility]) Heart rate 78 /min 78 /min eCW1 ([facility]) Body mass index (BMI) [Ratio] 34.26 kg/m2 34.26 kg/m2 eCW1 (Pending Sale To [facility]) Body height 69 [in_i] 69 [in_i] eCW1 ([facility]) Body weight 232 [lb_av] 232 [lb_av] eCW1 ([facility]) Diastolic blood pressure 74 mm[Hg] 74 mm[Hg] eCW1 (Pending Sale To [facility]) Systolic blood pressure 127 mm[Hg] 127 mm[Hg] e CW1 (Pending Sale To [facility]) Body temperature 97.3 [degF] 97.3 [degF] eCW1 ( Pending Sale To [facility]) Respiratory rate 18 /min 18 /min eCW1 ([facility]) Heart rate 84 /min 84 /min eCW1 ([facility]) Body mass index (BMI) [Ratio] 35.20 kg/m2 35.20 kg/m2 eCW1 (Pending Sale To [facility]) Body height 69 [in_i] 69 [in_i] eCW1 ([facility]) Body weight 238.4 [lb_av] 238.4 [lb_av] eCW1 ([facility]) Diastolic blood pressure 66 mm[Hg] 66 mm[Hg] eCW1 (Pending Sale To [facility]) Systolic blood pressure 130 mm[Hg] 130 mm[Hg] e CW1 (Pending Sale To [facility]) Body temperature 96.7 [degF] 96.7 [degF] eCW1 ( Pending Sale To [facility]) Respiratory rate 18 /min 18 /min eCW1 ([facility]) Heart rate 88 /min 88 /min eCW1 ([facility]) Body mass index (BMI) [Ratio] 34.99 kg/m2 34.99 kg/m2 eCW1 (Pending Sale To [facility]) Body height 69 [in_i] 69 [in_i] eCW1 ([facility]) Body weight 237 [lb_av] 237 [lb_av] eCW1 ([facility]) Diastolic blood pressure 60 mm[Hg] 60 mm[Hg] eCW1 (Pending Sale To [facility]) Systolic blood pressure 118 mm[Hg] 118 mm[Hg] e CW1 (Pending Sale To [facility]) Body temperature 97.3 [degF] 97.3 [degF] eCW1 ( Pending Sale To [facility]) Respiratory rate 18 /min 18 /min eCW1 ([facility]) Heart rate 96 /min 96 /min eCW1 ([facility]) Body mass index (BMI) [Ratio] 34.55 kg/m2 34.55 kg/m2 eCW1 (Pending Sale To [facility]) Body height 69 [in_i] 69 [in_i] eCW1 ([facility]) Body weight 234 [lb_av] 234 [lb_av] eCW1 ([facility]) Body mass index (BMI) [Ratio] 34.7 kg/m2 34.7 k g/m2 MEDENT ([facility] [place], [facility]) Body height 69 [in_i] 69 [in_i] MEDENT ([facility], [facility]) 5'9" Body weight 235.00 [lb_av] 235.00 [lb_av] MEDEN T ([facility], [facility]) Body temperature 97.9 [degF] 97.9 [degF] MEDENT ([facility], [facility]) Oxygen saturation in Arterial blood by Pulse oximetry 98 % 98 % MEDENT ([facility], [facility]) Respiratory rate 16 /min 16 /min MEDENT ( [facility], [facility]) Heart rate 78 /min 78 /min MEDENT ([facility] [place], [facility]) Diastolic blood pressure 70 mm[Hg] 70 mm[Hg] MEDENT ([facility], [facility]) Systolic blood pressure 125 mm[Hg] 125 mm[Hg] M EDENT ([facility], [facility]) Diastolic blood pressure 58 mm[Hg] 58 mm[Hg] eCW1 (Pending Sale To [facility]) Systolic blood pressure 90 mm[Hg] 90 mm[Hg] e CW1 (Pending Sale To [facility]) Body temperature 96.3 [degF] 96.3 [degF] eCW1 ( Pending Sale To [facility]) Respiratory rate 20 /min 20 /min eCW1 ([facility]) Heart rate 96 /min 96 /min eCW1 ([facility]) Body mass index (BMI) [Ratio] 34.85 kg/m2 34.85 kg/m2 eCW1 (Pending Sale To [facility]) Body height 69 [in_i] 69 [in_i] eCW1 ([facility]) Body weight 236 [lb_av] 236 [lb_av] eCW1 ([facility]) Diastolic blood pressure 70 mm[Hg] 70 mm[Hg] eCW1 (Pending Sale To [facility]) Systolic blood pressure 120 mm[Hg] 120 mm[Hg] e CW1 (Pending Sale To [facility]) Body temperature 97.5 [degF] 97.5 [degF] eCW1 ( Pending Sale To [facility]) Respiratory rate 18 /min 18 /min eCW1 ([facility]) Heart rate 95 /min 95 /min eCW1 ([facility]) Body mass index (BMI) [Ratio] 34.85 kg/m2 34.85 kg/m2 eCW1 (Pending Sale To [facility]) Body height 69 [in_i] 69 [in_i] eCW1 ([facility]) Body weight 236 [lb_av] 236 [lb_av] eCW1 ([facility]) Diastolic blood pressure 66 mm[Hg] 66 mm[Hg] eCW1 (Pending Sale To [facility]) Systolic blood pressure 110 mm[Hg] 110 mm[Hg] e CW1 (Pending Sale To [facility]) Body temperature 96 [degF] 96 [degF] eCW1 ([facility]) Respiratory rate 18 /min 18 /min eCW1 ([facility]) Heart rate 92 /min 92 /min eCW1 ([facility]) Body mass index (BMI) [Ratio] 35.44 kg/m2 35.44 kg/m2 eCW1 (Pending Sale To [facility]) Body height 69 [in_us] 69 [in_us] eCW1 ([facility]) Body weight Measured 240 [lb_av] 240 [lb_av] eC W1 (Pending Sale To [facility]) Diastolic blood pressure 60 mm[Hg] 60 mm[Hg] eCW1 (Pending Sale To [facility]) Systolic blood pressure 118 mm[Hg] 118 mm[Hg] e CW1 (Pending Sale To [facility]) Body temperature 97 [degF] 97 [degF] eCW1 ([facility]) Respiratory rate 18 /min 18 /min eCW1 ([facility]) Heart rate 88 /min 88 /min eCW1 (Formerly [facility]) Body mass index (BMI) [Ratio] 35.29 kg/m2 35.29 kg/m2 eCW1 (Pending Sale To [facility]) Body height 69 [in_us] 69 [in_us] eCW1 ([facility]) Body weight Measured 239 [lb_av] 239 [lb_av] eC W1 (Pending Sale To [facility]) Diastolic blood pressure--sitting 62 mm[Hg] 62 mm[Hg] MEDENT ([facility]) large cuff, Ra Systolic blood pressure--sitting 110 mm[Hg] 110 mm[Hg] MEDENT ([facility]) large cuff, Ra Heart rate 63 /min 63 /min MEDENT ([facility]) Body mass index (BMI) [Ratio] 34.1 kg/m2 34.1 k g/m2 MEDENT ([facility]) Body height 69 [in_i] 69 [in_i] MEDENT ([facility]) 5'9" Body weight 231.00 [lb_av] 231.00 [lb_av] MEDEN T ([facility]) Body weight 104.385 kg 104.385 kg [facility] ([facility]) Body mass index (BMI) [Ratio] 34.0 kg/m2 34.0 k g/m2 MEDENT ([facility]) Body weight 230.12 [lb_av] 230.12 [lb_av] [facility] Body height 69 [in_i] 69 [in_i] [facility] 5'9" Oxygen saturation in Arterial blood by Pulse oximetry 97 % 97 % [facility] ([facility]) Heart rate 76 /min 76 /min [facility] ([facility]) Diastolic blood pressure 76 mm[Hg] 76 mm[Hg] [facility] Systolic blood pressure 122 mm[Hg] 122 mm[Hg] [facility] Patient Treatment Plan of Care Planned Activity Planned Date Details Description Data Source (s) empagliflozin 25 MG Oral Tablet [Jardiance] 03/03/2020 12:00:00 AM EDT eCW1 (Pending Sale To [facility]) empagliflozin 25 MG Oral Tablet [Jardiance] 03/03/2020 12:00:00 AM EDT eCW1 (Pending Sale To [facility]) empagliflozin 25 MG Oral Tablet [Jardiance] 03/03/2020 12:00:00 AM EDT eCW1 (Pending Sale To [facility]) Isopropyl Alcohol 0.7 ML/ML Medicated Pad 03/03/2020 12:00:00 AM ED T eCW1 (Pending Sale To [facility]) empagliflozin 25 MG Oral Tablet [Jardiance] 03/03/2020 12:00:00 AM EDT eCW1 (Pending Sale To [facility]) Test Strips - 03/03/2020 12:00:00 AM EDT eCW1 (Pending Sale To [facility]) empagliflozin 25 MG Oral Tablet [Jardiance] 03/03/2020 12:00:00 AM EDT eCW1 (Pending Sale To [facility]) empagliflozin 25 MG Oral Tablet [Jardiance] 03/03/2020 12:00:00 AM EDT eCW1 (Pending Sale To [facility]) empagliflozin 10 MG Oral Tablet [Jardiance] 12/02/2019 12:00:00 AM EDT eCW1 (Pending Sale To [facility]) empagliflozin 10 MG Oral Tablet [Jardiance] 12/02/2019 12:00:00 AM EDT eCW1 (Pending Sale To [facility]) empagliflozin 10 MG Oral Tablet [Jardiance] 12/02/2019 12:00:00 AM EDT eCW1 (Pending Sale To [facility]) empagliflozin 10 MG Oral Tablet [Jardiance] 12/02/2019 12:00:00 AM EDT eCW1 (Pending Sale To [facility])
[2020-09-18] MEDS ORDERED: LIDOCAINE 2% 100MG/5ML SDV (FOR ANES.) As Ordered ONE (07:10)
[2020-09-18] MEDS ORDERED: propofoL 200 MG/20 ML VIAL As Ordered ONE (07:10)
[2020-09-18] MEDS ORDERED: MIDAZOLAM INJ 2MG/2ML VIAL (J2250 PER 1MG) As Ordered ONE (07:11)
[2020-09-18] MEDS ORDERED: CONRAY-60 60% 50ML VIAL (Q9961) As Ordered ONE (07:11)
[2020-09-18] MEDS ORDERED: fentaNYL 100 MCG/2 ML INJECTION (J3010) As Ordered ONE ×2 (07:11→08:08)
[2020-09-18] MEDS ORDERED: ROCURONIUM BROMIDE 50 MG/5 ML VIAL As Ordered ONE (07:33)
[2020-09-18] MEDS ORDERED: ONDANSETRON 4MG/2ML VIAL As Ordered ONE (07:38)
[2020-09-18] MEDS ORDERED: dexameTHASONE 4 MG/ML 1ML VIAL (J1100 PER 1MG) As Ordered ONE (07:38)
[2020-09-18] MEDS ORDERED: SUGAMMADEX SODIUM 500 MG/5 ML VIAL (BRIDION) As Ordered ONE (07:42)
[2020-09-18] MEDS ORDERED: ePHEDrine SULFATE 25 MG/5 ML(5MG/ML) SYRINGE As Ordered ONE (07:47)
[2020-09-18] MEDS ORDERED: ACETAMINOPHEN 1000MG 100ML IV BTL (OFIRMEV) (J0131 PER 10MG) As Ordered ONE (07:54)
[2020-09-18] MEDS ORDERED: METOCLOPRAMIDE INJ 10MG/2ML VIAL (J2765 PER 1) As Ordered ONE (07:54)
--- NOTE | 2020-09-18 08:50 | REP ---
INDICATION: RIGHT URETERAL STENT PLACEMENT. COMPARISON: None. TECHNIQUE: Intraoperative fluoroscopic imaging using portable C-arm technique. FINDINGS: Right intrarenal calculi and mild hydronephrosis identified with subsequent ureteral stent placement in satisfactory position. Total fluoroscopic time 17 seconds. IMPRESSION: Satisfactory right ureteral stent placement. <Electronically signed by Eloy Doll > 09/18/20 0871
[2020-09-18] MEDS ORDERED: ONDANSETRON 4MG/2ML VIAL IV PRN (09:15)
[2020-09-18] MEDS ORDERED: fentaNYL 100 MCG/2 ML INJECTION (J3010) IV PRN (09:15)
[2020-09-18] MEDS ORDERED: PERCOCET 5MG/325MG TAB PO PRN (09:15)
[2020-09-18] MEDS ORDERED: LR 1,000 ML IV SCH (09:15)
[2020-09-18] MEDS ORDERED: oxyCODONE 5MG TAB PO PRN (09:15)
[2020-09-18 10:15] VITALS: BP 126/62
--- NOTE | 2020-09-18 11:14 | RO ---
OPERATIVE NOTE DATE OF OPERATION: 09/18/2020 PREOPERATIVE DIAGNOSIS: Right kidney stones. POSTOPERATIVE DIAGNOSIS: Right kidney stones. PROCEDURE: Cystoscopy, right ureteroscopy with basket extraction of stones, right retrograde pyelogram with intraoperative interpreted images, right ureteral stent exchange. SURGEON: Leo Lim MD COMPONENT LAB TECH: None. ANESTHESIA: General. OPERATIVE INDICATIONS: This is a 59-year-old female who was brought to the operating room about a month and a half for right ureteroscopy, laser lithotripsy. Of note, she had a moderate amount of narrowing in her proximal ureter and for that reason, we were not able to extract the stones at that time. A follow-up x-ray after the procedure showed that the stone fragments had not passed and therefore she was brought to the operating room today to remove the stone fragments. DESCRIPTION OF PROCEDURE: The patient was brought to the operating room and general anesthesia was induced. Prophylactic antibiotics were infused. She was placed in the dorsal lithotomy position, and prepped and draped in the usual sterile fashion. A rigid cystoscope was inserted in the urethral meatus and advanced into the bladder. The previously placed right ureteral stent was seen. The stent was withdrawn until the distal end was protruding from the urethral meatus. A guidewire was advanced up the stent. The stent was then removed completely. I then advanced a ureteral access sheath over the wire. I went up the access sheath with a flexible ureteroscope and then the kidney was thoroughly examined. Within the upper pole calices, there was a moderate amount of small stone fragments. Of note prior to entering the kidney, there was still some narrowing in the proximal ureter but I was able to advance the scope easier than the last procedure. I then utilized the basket to remove all the stone fragments from the upper pole calices. Once done, only very tiny stone pieces remained which should easily pass. At this point, a retrograde pyelogram was performed and it was notable for mild right hydronephrosis with no extravasation. I then withdrew the ureteroscope along with access sheath and no additional stones were seen inside the ureter. I then utilized the guidewire to advance a 7 Macedonian x 22-32 cm JJ ureteral stent into the right collecting system. The wire was removed and there were adequate curls of the stent in the right renal pelvis and in the bladder. The bladder was emptied of all fluids and this marked the conclusion of the procedure. The patient was taken out of dorsal lithotomy position, awakened from anesthesia and transported to the recovery room in stable condition. ESTIMATED BLOOD LOSS: 5 mL COMPLICATIONS: None. SPECIMENS: Kidney stones. PLAN: The patient will follow up in urology clinic in 1-2 weeks for stent removal. ABBEY
== END 2020-09-18 10:30 | disposition home or self-care (01) ==
LOC: M SDC 06:11
PROVIDERS: ATTEND Urology
DX: N20.0 Calculus of kidney (principal); I10 Essential (primary) hypertension; E78.5 Hyperlipidemia, unspecified; E11.9 Type 2 diabetes mellitus without complications; K21.9 Gastro-esophageal reflux disease without esophagitis; D64.9 Anemia, unspecified; Z79.82 Long term (current) use of aspirin; K52.9 Noninfective gastroenteritis and colitis, unspecified; J45.909 Unspecified asthma, uncomplicated; Z79.51 Long term (current) use of inhaled steroids; Z79.899 Other long term (current) drug therapy; Z88.1 Allergy status to other antibiotic agents; Z88.8 Allergy status to other drugs, medicaments and biological substances
CPT/HCPCS: 52332; 52352; 74420; 82365; 88300; C1769; C1894; C2617; J0131; J1100; J1956; J2250; J2405; J2765; J3010; Q9961

== ENCOUNTER → 2020-10-05 | Outpatient (CLI) | payer OTHER ==
[~2020-10-05] MED LIST changes: +GASTROGRAFIN SOLUTION 30ML (Q9963) As Ordered ONE; +ISOVUE-370 76% 100ML VIAL As Ordered ONE; +LISI10TA22 PO; -LISI10TA4 PO; -LevoFLOXacin IV 500 MG in IV 1 EA IV ONE; -SIME40TA PO; +SIME80CH5 PO; +SIME80CH6 PO; -SIME80TA PO
--- NOTE | 2020-10-06 06:34 | REP ---
INDICATION: ABD PAIN W/ DISTENTION. COMPARISON: 07/04/2020 TECHNIQUE: Axial contrast-enhanced images from the lung bases to the pubic symphysis using oral and 100 cc Isovue 370 intravenous contrast material. Delayed images of the abdomen along with coronal and sagittal reformations obtained. This CT examination was performed using the following dose reduction techniques: Automated exposure control, adjustment of mA and/or kv according to the patient's size, and the use of iterative reconstruction technique. FINDINGS: Liver, spleen, pancreas, gallbladder, bilateral adrenal glands are normal. Kidneys demonstrate age-related cortical thinning along with nonobstructing intrarenal calculi measuring up to 11 mm in the right kidney and 9 mm in the left kidney as well as 1.1 cm benign appearing left renal cyst. Evidence for prior gastric bypass surgery and cholecystectomy. Marked air-filled distention of the redundant transverse colon is appreciated to the region of the splenic flexure without obvious focal obstructing mass lesion and findings are nonspecific and nearly identical/unchanged as compared to 07/04/2020. Small bowel is relatively normal. The descending and sigmoid colon appear relatively normal. No free air, free fluid/ascites or drainable collection/abscess. Pelvis demonstrates normal bladder and age-appropriate uterus/adnexa. No ascites. No free air. No intraperitoneal or retroperitoneal adenopathy. Abdominal aorta and vasculature appear normal. Musculoskeletal structures are intact and without acute osseous abnormality. IMPRESSION: 1. Chronic air-filled dilated redundant transverse colon essentially unchanged as compared with 07/04/2020 and without obvious focal obstructing lesion/abnormality. 2. Nonobstructing bilateral nephroliths measuring up to between 9 and 11 mm. <Electronically signed by Eloy Doll > 10/06/20 0631
== END ==
LOC: M RAD 14:32
PROVIDERS: ATTEND Family Medicine
DX: N20.0 Calculus of kidney (principal); R10.84 Generalized abdominal pain; R14.0 Abdominal distension (gaseous)
CPT/HCPCS: 74177; Q9963; Q9967

== ENCOUNTER → 2020-10-11 | Outpatient (CLI) | payer OTHER ==
[~2020-10-11] MED LIST changes: -GASTROGRAFIN SOLUTION 30ML (Q9963) As Ordered ONE; -ISOVUE-370 76% 100ML VIAL As Ordered ONE
[2020-10-11 14:46] LABS: BLOOD UREA NITROGEN 23 MG/DL (7-18); CALCIUM LEVEL 9.7 MG/DL (8.8-10.2); CARBON DIOXIDE LEVEL 26 MEQ/L (21-32); CHLORIDE LEVEL 106 MEQ/L (98-107); CREATININE FOR GFR 0.92 MG/DL (0.55-1.30); FREE T4 0.95 NG/DL (0.76-1.46); GLOMERULAR FILTRATION RATE > 60.0 (>45); GLUCOSE, FASTING 110 MG/DL (70-100); POTASSIUM SERUM 4.3 MEQ/L (3.5-5.1); SODIUM LEVEL 140 MEQ/L (136-145); THYROID STIMULATING HORMONE 0.772 uIU/ML (0.358-3.740)
== END ==
LOC: M PLALAB 10:24
PROVIDERS: ATTEND Physician Assistant
DX: R00.2 Palpitations (principal)

== ENCOUNTER 2020-11-22 07:36 | Day surgery (SDC) | payer OTHER ==
[~2020-11-22] VITALS: Ht 175.3 cm; Wt 129.7 kg
[~2020-11-22 07:36] MED LIST changes: +ALIG4CAP; +DICY20TA3 PO; +ELIQ5TAB; +LIPI80TA PO; +META0.52 PO; +NS 1,000 ML IV ONE; +OXYB10TA23
[2020-11-22] MEDS ORDERED: fentaNYL 100 MCG/2 ML INJECTION (J3010) As Ordered ONE (08:51)
--- NOTE | 2020-11-22 09:10 | ROOR ---
Patient Name: Ginny Méndez Procedure Date: 11/22/2020 8:42 AM Date of : 1960 Age: 59 Room: [facility] Gender: Female Note Status: Finalized Procedure: Upper Endoscopy + Biopsies Indications: Heartburn, Abdominal bloating Providers: Robert Nava MD Referring MD: Yael Aviles MD Requesting Provider: Medicines: Monitored Anesthesia Care Complications: No immediate complications. Procedure: Pre-Anesthesia Assessment: - The heart rate, respiratory rate, oxygen saturations, blood pressure, adequacy of pulmonary ventilation, and response to care were monitored throughout the procedure. The Endoscope was introduced through the mouth, and advanced to the second part of duodenum. The upper GI endoscopy was accomplished without difficulty. The patient tolerated the procedure well. Findings: The Z-line was regular and was found 40 cm from the incisors. Diffuse, white plaques were found in the entire esophagus. Biopsies were taken with a cold forceps for histology. Evidence of a gastric bypass was found. A gastric pouch with a small size was found. The staple line appeared intact. The gastrojejunal anastomosis was characterized by healthy appearing mucosa. The exam was otherwise without abnormality. Impression: - Z-line regular, 40 cm from the incisors. - Esophageal plaques were found, suspicious for candidiasis. Biopsied. - Gastric bypass with a small-sized pouch and intact staple line. Gastrojejunal anastomosis characterized by healthy appearing mucosa. - The examination was otherwise normal. Recommendation: - Await pathology results. - Discharge patient to home. - Continue present medications. - Diflucan (fluconazole) 100 mg PO daily for 10 days. - Await pathology results. - Telephone GI clinic for pathology results in 1 week. - Return to referring physician. - The findings and recommendations were discussed with the patient. Procedure Code(s): --- Professional --- 12488, Esophagogastroduodenoscopy, flexible, transoral; with biopsy, single or multiple Diagnosis Code(s): --- Professional --- K22.9, Disease of esophagus, unspecified Z98.84, Bariatric surgery status R12, Heartburn R14.0, Abdominal distension (gaseous) CPT copyright 2019 [employer]. All rights reserved. The codes documented in this report are preliminary and upon rock drill operator review may be revised to meet current compliance requirements. Robert Nava MD Robert Nava MD 11/22/2020 9:09:46 AM Electronically signed by Robert Nava MD Number of Addenda: 0 Note Initiated On: 11/22/2020 8:42 AM Estimated Blood Loss: Estimated blood loss: none.
[2020-11-22] MEDS ORDERED: propofoL 200 MG/20 ML VIAL As Ordered ONE (09:15)
[2020-11-22] MEDS ORDERED: LIDOCAINE 2% 100MG/5ML SDV (FOR ANES.) As Ordered ONE (09:15)
--- NOTE | 2020-11-22 09:31 | ROOR ---
Patient Name: Ginny Méndez Procedure Date: 11/22/2020 8:50 AM Date of : 1960 Age: 59 Room: [facility] Gender: Female Note Status: Finalized Procedure: Total Colonoscopy to Cecum + Bx. To r/o Microscopic Colitis Indications: Clinically significant diarrhea of unexplained origin Providers: Robert Nava MD Referring MD: Yael Aviles MD Requesting Provider: Medicines: Monitored Anesthesia Care Complications: No immediate complications. Procedure: Pre-Anesthesia Assessment: - The heart rate, respiratory rate, oxygen saturations, blood pressure, adequacy of pulmonary ventilation, and response to care were monitored throughout the procedure. The Colonoscope was introduced through the anus and advanced to the cecum, identified by appendiceal orifice and ileocecal valve. The colonoscopy was performed without difficulty. The patient tolerated the procedure well. The quality of the bowel preparation was excellent. Findings: The perianal and digital rectal examinations were normal. No other significant abnormalities were identified in a careful examination of the remainder of the colon. The exam was otherwise without abnormality on direct and retroflexion views. Biopsies for histology were taken with a cold forceps from the ascending colon, transverse colon and descending colon for evaluation of microscopic colitis. Impression: - The examination was otherwise normal on direct and retroflexion views. - Biopsies were taken with a cold forceps from the ascending colon, transverse colon and descending colon for evaluation of microscopic colitis. - The exam was otherwise normal to the cecum. Recommendation: - Patient has a contact number available for emergencies. The signs and symptoms of potential delayed complications were discussed with the patient. Return to normal activities tomorrow. Written discharge instructions were provided to the patient. - High fiber diet. - Discharge patient to home. - Continue present medications. - Await pathology results. - Telephone GI clinic for pathology results in 1 week. - Return to referring physician. - The findings and recommendations were discussed with the patient. Procedure Code(s): --- Professional --- 02533, Colonoscopy, flexible; with biopsy, single or multiple Diagnosis Code(s): --- Professional --- R19.7, Diarrhea, unspecified CPT copyright 2019 [employer]. All rights reserved. The codes documented in this report are preliminary and upon call center agent review may be revised to meet current compliance requirements. Robert Nava MD Robert Nava MD 11/22/2020 9:31:18 AM Electronically signed by Robert Nava MD Number of Addenda: 0 Note Initiated On: 11/22/2020 8:50 AM Estimated Blood Loss: Estimated blood loss: none.
[2020-11-22 10:00] VITALS: BP 115/67
== END 2020-11-22 10:10 | disposition home or self-care (01) ==
LOC: M OPP 07:36
PROVIDERS: ATTEND Internal Medicine Gastroenterology
DX: K22.9 Disease of esophagus, unspecified (principal); Z98.84 Bariatric surgery status; R12 Heartburn; R14.0 Abdominal distension (gaseous); R19.7 Diarrhea, unspecified; I48.91 Unspecified atrial fibrillation; E11.9 Type 2 diabetes mellitus without complications; I10 Essential (primary) hypertension; Z79.82 Long term (current) use of aspirin; Z79.84 Long term (current) use of oral hypoglycemic drugs; Z79.899 Other long term (current) drug therapy; Z88.1 Allergy status to other antibiotic agents; Z88.8 Allergy status to other drugs, medicaments and biological substances
CPT/HCPCS: 43239; 45380; 88305; J3010

== ENCOUNTER → 2020-12-29 | Outpatient (REF) | payer OTHER ==
[~2020-12-29] MED LIST changes: -HM C500T3 PO; +HM C500T4 PO; -NS 1,000 ML IV ONE
== END ==
LOC: M SFHCWAGY 12:55
PROVIDERS: ATTEND Family Medicine
DX: Z12.4 Encounter for screening for malignant neoplasm of cervix (principal)
CPT/HCPCS: 87624; G0123; G0463

== ENCOUNTER → 2021-01-01 | Outpatient (REF) | payer OTHER ==
[2021-01-01 10:41] LABS: BLOOD UREA NITROGEN 17 MG/DL (7-18); CALCIUM LEVEL 8.4 MG/DL (8.8-10.2); CARBON DIOXIDE LEVEL 27 MEQ/L (21-32); CHLORIDE LEVEL 107 MEQ/L (98-107); CHOLESTEROL LEVEL 98 MG/DL (<200); CHOLESTEROL RISK RATIO 1.781 (<5); CREATININE FOR GFR 0.74 MG/DL (0.55-1.30); GLOMERULAR FILTRATION RATE > 60.0 (>45); GLUCOSE, FASTING 106 MG/DL (70-100); HDL CHOLESTEROL 55 MG/DL (>40); LDL CHOLESTEROL 27 MG/DL (<100); NON-HDL-C 43 MG/DL; SODIUM LEVEL 139 MEQ/L (136-145); TRIGLYCERIDES LEVEL 81 MG/DL (<150)
[2021-01-01 11:41] LABS: HEMOGLOBIN A1c 6.2 %
== END ==
LOC: M PLALAB 08:00
PROVIDERS: ATTEND Family Medicine
DX: E11.9 Type 2 diabetes mellitus without complications (principal); E78.2 Mixed hyperlipidemia; I10 Essential (primary) hypertension

== ENCOUNTER → 2021-05-07 | Outpatient (CLI) | payer OTHER ==
[~2021-05-07] MED LIST changes: -AMLO10CA22; +AMLO10CA30; -BENA40TA5 PO; +BENA40TA84 PO
[2021-05-07 10:57] LABS: APPEARANCE, URINE HAZY (CLEAR); BILIRUBIN, URINE AUTO NEGATIVE (NEGATIVE); BLOOD, URINE BLOOD NEGATIVE (NEGATIVE); COLOR, URINE YELLOW (YELLOW); GLUCOSE, URINE (UA) AUTO 3+ mg/dL (NEGATIVE); KETONE, URINE AUTO NEGATIVE (NEGATIVE); LEUKOCYTE ESTERASE, URINE AUTO NEGATIVE (NEGATIVE); NITRITE, URINE AUTO NEGATIVE (NEGATIVE); PROTEIN, URINE AUTO NEGATIVE (NEGATIVE); SPECIFIC GRAVITY URINE AUTO 1.018 (1.002-1.035); UROBILINOGEN, URINE AUTO 0.2 mg/dL (0.0-2.0)
[2021-05-07 10:59] LABS: BASO % 0.4 % (0.0-1.0); EOS # 0.2 10^3/uL (0.0-0.5); EOS % 4.6 % (0.0-3.0); HEMATOCRIT 36.5 % (36.0-47.0); HEMOGLOBIN 11.4 g/dl (12.0-15.5); LYMPH # 1.3 10^3/uL (1.5-5.0); LYMPH % 25.9 % (24.0-44.0); MEAN CORPUSCULAR HEMOGLOBIN 25.8 pg (27.0-33.0); MEAN CORPUSCULAR HGB CONC 31.2 g/dl (32.0-36.5); MEAN CORPUSCULAR VOLUME 82.6 fl (80.0-96.0); MONO # 0.6 10^3/uL (0.0-0.8); MONO % 12.1 % (2.0-8.0); NEUTROPHILS # 2.8 10^3/uL (1.5-8.5); NEUTROPHILS % 56.8 % (36.0-66.0); PLATELET COUNT, AUTOMATED 250 10^3/uL (150-450); RED BLOOD COUNT 4.42 10^6/uL (4.00-5.40)
[2021-05-07 11:02] LABS: BACTERIA, URINE AUTO NEGATIVE (NEGATIVE); RBC, URINE AUTO 3 /HPF (0-3); SQUAMOUS EPITHELIAL CELL UR AU 1 /HPF (0-6); WBC, URINE AUTO 0 /HPF (0-3)
[2021-05-07 11:19] LABS: HEMOGLOBIN A1c 6.3 %
[2021-05-07 11:34] LABS: ALBUMIN 3.5 GM/DL (3.2-5.2); ALT/SGPT 32 U/L (12-78); BILIRUBIN,TOTAL 0.7 MG/DL (0.2-1.0); BLOOD UREA NITROGEN 21 MG/DL (7-18); CALCIUM LEVEL 9.7 MG/DL (8.8-10.2); CARBON DIOXIDE LEVEL 24 MEQ/L (21-32); CHLORIDE LEVEL 112 MEQ/L (98-107); CREATININE FOR GFR 0.51 MG/DL (0.55-1.30); GLOMERULAR FILTRATION RATE > 60.0 (>45); GLUCOSE, FASTING 111 MG/DL (70-100); POTASSIUM SERUM 3.8 MEQ/L (3.5-5.1); SODIUM LEVEL 142 MEQ/L (136-145); THYROID STIMULATING HORMONE < 0.005 uIU/ML (0.358-3.740); TOTAL PROTEIN 6.5 GM/DL (6.4-8.2)
[2021-05-07 11:35] LABS: ERYTHROCYTE SEDIMENTATION RATE 13 mm/hr (0-30)
== END ==
LOC: M PLALAB 08:03
PROVIDERS: ATTEND Family Medicine
DX: E11.9 Type 2 diabetes mellitus without complications (principal); R63.4 Abnormal weight loss

== ENCOUNTER → 2021-05-09 | Outpatient (CLI) | payer OTHER ==
[~2021-05-09] MED LIST changes: +AMLO10CA22; -AMLO10CA30; +BENA40TA5 PO; -BENA40TA84 PO
[2021-05-09 10:29] LABS: HEMATOCRIT 38.5 % (36.0-47.0); HEMOGLOBIN 11.9 g/dl (12.0-15.5); MEAN CORPUSCULAR HEMOGLOBIN 25.7 pg (27.0-33.0); MEAN CORPUSCULAR HGB CONC 30.9 g/dl (32.0-36.5); MEAN CORPUSCULAR VOLUME 83.2 fl (80.0-96.0); PLATELET COUNT, AUTOMATED 262 10^3/uL (150-450); RED BLOOD COUNT 4.63 10^6/uL (4.00-5.40); WHITE BLOOD COUNT 4.8 10^3/uL (4.0-10.0)
[2021-05-09 11:05] LABS: FERRITIN 467 NG/ML (8-252); FREE T3 12.5 PG/ML (2.2-4.0); FREE T4 2.75 NG/DL (0.76-1.46); IRON (FE) 53 UG/DL (50-170); PERCENT SATURATION 22.6 % (13.2-45.0); THYROID STIMULATING HORMONE < 0.005 uIU/ML (0.358-3.740); TOTAL IRON BINDING CAPACITY 235 UG/DL (250-450); TOTAL T3 341.8 NG/DL (60.0-181.0)
== END ==
LOC: M PLALAB 07:47
PROVIDERS: ATTEND Family Medicine
DX: R79.89 Other specified abnormal findings of blood chemistry (principal); D64.9 Anemia, unspecified

== ENCOUNTER → 2021-05-21 | Outpatient (CLI) | payer OTHER ==
--- NOTE | 2021-05-21 12:25 | REP ---
INDICATION: CALCULUS OF KIDNEY COMPARISON: None. TECHNIQUE: Two incomplete supine views of the abdomen and pelvis FINDINGS: Significant distension of the large bowel is appreciated and correlation with physical examination is recommended. If the patient is symptomatic, underlying large bowel obstruction or possible element of volvulus cannot be excluded. Small bowel is unremarkable. Surgical material in the left upper quadrant suggest prior gastric bypass surgery. Surgical clips are also identified and consistent with prior cholecystectomy. Evaluation of the urinary tract system is limited due to overlying bowel gas. Nonobstructing left renal calculus measures 9 x 4 mm. IMPRESSION: 1. Nonobstructing left renal calculus. 2. Significant air-filled distention of the large bowel requires correlation. If the patient is symptomatic, differential diagnosis may include element of large bowel obstruction or volvulus. <Electronically signed by Eloy Doll > 05/21/21 4320
== END ==
LOC: M RAD 11:47
PROVIDERS: ATTEND Urology
DX: N20.0 Calculus of kidney (principal); R14.0 Abdominal distension (gaseous)

== ENCOUNTER → 2021-06-05 | Outpatient (CLI) | payer OTHER ==
--- NOTE | 2021-06-06 13:21 | REP ---
INDICATION: HYPERTHYROIDISM. COMPARISON: 05/12/2012. TECHNIQUE/RADIOTRACER AND DOSE: Following the oral administration of 403 uCi iodine 123 as sodium iodine, thyroid uptake is measured and thyroid scan is performed. FINDINGS: The 2 hour uptake is 20.67%, normal range 6-12%. The 24 hour uptake is 54.43%, normal range 25 to 30 5%. Thyroid scan shows diffuse increased uptake of radiotracer throughout both lobes with no focal hot or cold nodule. IMPRESSION: Increased thyroid uptake as above, with no focal hot or cold nodule.. <Electronically signed by Bryant Woods > 06/06/21 1310
== END ==
LOC: M RAD 11:29
PROVIDERS: ATTEND Family Medicine
DX: E05.90 Thyrotoxicosis, unspecified without thyrotoxic crisis or storm (principal)
CPT/HCPCS: 78014; A9516

== ENCOUNTER → 2021-06-06 | Outpatient (CLI) | payer OTHER ==
--- NOTE | 2021-06-06 09:22 | REPMRS ---
Patient History The patient states she has not had a clinical breast exam in over a year. Patient is postmenopausal and is nulliparous. Benign stereotactic core biopsy of the right breast, 2017. No Hormone Replacement Therapy Patient states no breast complaints today. Patient has signed MRS History Sheet. Digital Woman Screen Mammo: June 06, 2021 - Exam #: [id number] Bilateral CC and MLO view(s) were taken. Technologist: Yessi Palmer, Special Service Officer Prior study comparison: February 10, 2019, bilateral digital woman screen mammo performed at [facility]. July 19, 2016, bilateral digital mammo screening bilat, performed at [facility]. FINDINGS: There are scattered fibroglandular densities. Screening. Digital screening (2D) mammography was performed bilaterally in the CC and MLO projections. Additionally, breast tomosynthesis (3D mammography) was performed bilaterally in the CC and MLO projections. Todays exam was compared to the prior exam/exams. By history, the patient has no complaints of a palpable breast abnormality or other significant breast complaints. The breasts are unchanged in size and shape. There are no geetha-soft tissue densities or spiculated masses. There is no internal architectural distortion. Once again, stable benign appearing calcifications are seen.There are no suspicious geetha-calcific clusters. Skin thickening or nipple retraction is not present. IMPRESSION: BI-RADS Category 2- Benign Findings. There is no evidence of malignant alteration of the breasts. Followup examination recommended in one year. The Volpara volumetric breast density category is B, there are scattered areas of fibroglandular densities. This mammogram was read with the assistance of [facility] [employer],an FDA approved computer aided detection system for mammography. The lifetime Tyrer-Cuzick score is 11 % Negative x-ray reports should not delay surgical consultation if a dominant or clinically suspicious mass is present. Not all breast cancers can be identified by mammography. Therefore, we recommend that you continue to perform regular breast self-examination and physical examination and then promptly contact your physician of any concerns or changes. Adenosis and dense breasts may obscure an underlying neoplasm. Assessment: BI-RADS/ACR category 2 mammogram. Benign Findings. Recommendation Routine screening mammogram of both breasts in 1 year. Electronically Signed By: Lan Gilliland DO 06/06/21 0901
== END ==
LOC: M WHC 08:00
PROVIDERS: ATTEND Family Medicine
DX: Z12.31 Encounter for screening mammogram for malignant neoplasm of breast (principal); R92.1 Mammographic calcification found on diagnostic imaging of breast

== ENCOUNTER → 2021-06-20 | Outpatient (CLI) | payer OTHER ==
[2021-06-20 15:45] LABS: FREE T4 3.76 NG/DL (0.76-1.46); THYROID STIMULATING HORMONE < 0.005 uIU/ML (0.358-3.740)
== END ==
LOC: M PLALAB 11:05
PROVIDERS: ATTEND Nurse Practitioner Family
DX: E05.00 Thyrotoxicosis with diffuse goiter without thyrotoxic crisis or storm (principal)

== ENCOUNTER → 2021-07-30 | Outpatient (CLI) | payer OTHER ==
[~2021-07-30] MED LIST changes: -AMLO10CA22; +AMLO10CA30; -BENA40TA5 PO; +BENA40TA84 PO
[2021-07-30 12:09] LABS: FREE T4 0.73 NG/DL (0.76-1.46); THYROID STIMULATING HORMONE < 0.005 uIU/ML (0.358-3.740)
== END ==
LOC: M PLALAB 08:44
PROVIDERS: ATTEND Internal Medicine Endocrinology, Diabetes & Metabolism
DX: E05.00 Thyrotoxicosis with diffuse goiter without thyrotoxic crisis or storm (principal)

== ENCOUNTER → 2021-08-27 | Outpatient (CLI) | payer OTHER ==
[2021-08-27 10:54] LABS: FREE T4 0.47 NG/DL (0.76-1.46); THYROID STIMULATING HORMONE 2.34 uIU/ML (0.358-3.740)
== END ==
LOC: M PLALAB 07:53
PROVIDERS: ATTEND Nurse Practitioner Family
DX: E05.00 Thyrotoxicosis with diffuse goiter without thyrotoxic crisis or storm (principal)

== ENCOUNTER → 2021-09-28 | Outpatient (CLI) | payer OTHER ==
[2021-09-28 11:21] LABS: FREE T4 0.82 NG/DL (0.76-1.46); THYROID STIMULATING HORMONE 0.291 uIU/ML (0.358-3.740)
== END ==
LOC: M PLALAB 08:05
PROVIDERS: ATTEND Nurse Practitioner Family
DX: E05.00 Thyrotoxicosis with diffuse goiter without thyrotoxic crisis or storm (principal)

== ENCOUNTER → 2021-10-10 | Outpatient (CLI) | payer OTHER ==
[2021-10-10 10:50] LABS: BLOOD UREA NITROGEN 16 MG/DL (7-18); CALCIUM LEVEL 9.3 MG/DL (8.8-10.2); CARBON DIOXIDE LEVEL 24 MEQ/L (21-32); CHLORIDE LEVEL 108 MEQ/L (98-107); CREATININE FOR GFR 0.63 MG/DL (0.55-1.30); GLOMERULAR FILTRATION RATE > 60.0 (>45); GLUCOSE, FASTING 112 MG/DL (70-100); MAGNESIUM LEVEL 2.1 MG/DL (1.8-2.4); POTASSIUM SERUM 3.9 MEQ/L (3.5-5.1); SODIUM LEVEL 142 MEQ/L (136-145)
[2021-10-10 11:01] LABS: VITAMIN B12 LEVEL 400 PG/ML (247-911)
[2021-10-10 11:11] LABS: CREATININE, URINE 76.5 MG/DL; MAU/CREAT RATIO 216.9 MCG/MG (0.0-30.0)
[2021-10-10 11:38] LABS: HEMOGLOBIN A1c 6.1 %
== END ==
LOC: M PLALAB 07:46
PROVIDERS: ATTEND Family Medicine
DX: E11.42 Type 2 diabetes mellitus with diabetic polyneuropathy (principal); L98.9 Disorder of the skin and subcutaneous tissue, unspecified
CPT/HCPCS: 36415; 80048; 82043; 82607; 83036; 83735; G0463

== ENCOUNTER → 2021-12-05 | Outpatient (CLI) | payer OTHER ==
[2021-12-05 10:55] LABS: HEMATOCRIT 36.5 % (36.0-47.0); HEMOGLOBIN 11.6 g/dl (12.0-15.5); MEAN CORPUSCULAR HGB CONC 31.8 g/dl (32.0-36.5); MEAN CORPUSCULAR VOLUME 88.2 fl (80.0-96.0); PLATELET COUNT, AUTOMATED 257 10^3/uL (150-450); RED BLOOD COUNT 4.14 10^6/uL (4.00-5.40); WHITE BLOOD COUNT 4.7 10^3/uL (4.0-10.0)
[2021-12-05 11:43] LABS: BLOOD UREA NITROGEN 17 MG/DL (7-18); CALCIUM LEVEL 9.3 MG/DL (8.8-10.2); CARBON DIOXIDE LEVEL 26 MEQ/L (21-32); CHLORIDE LEVEL 111 MEQ/L (98-107); CREATININE FOR GFR 0.66 MG/DL (0.55-1.30); FERRITIN 182 NG/ML (8-252); GLOMERULAR FILTRATION RATE > 60.0 (>45); GLUCOSE, FASTING 100 MG/DL (70-100); IRON (FE) 50 UG/DL (50-170); MAGNESIUM LEVEL 2.2 MG/DL (1.8-2.4); PERCENT SATURATION 18.3 % (13.2-45.0); POTASSIUM SERUM 3.9 MEQ/L (3.5-5.1); SODIUM LEVEL 141 MEQ/L (136-145); TOTAL 25(OH) VITAMIN D 28.6 NG/ML (30.0-100.0); TOTAL IRON BINDING CAPACITY 273 UG/DL (250-450)
[2021-12-05 12:15] LABS: CREATININE, URINE 60.7 MG/DL; MAU/CREAT RATIO 845.1 MCG/MG (0.0-30.0)
[2021-12-11 14:38] LABS: VITAMIN B12 LEVEL 270 PG/ML (247-911)
== END ==
LOC: M PLALAB 07:29
PROVIDERS: ATTEND Family Medicine
DX: K90.9 Intestinal malabsorption, unspecified (principal); E55.9 Vitamin D deficiency, unspecified; I10 Essential (primary) hypertension; R80.9 Proteinuria, unspecified; E05.00 Thyrotoxicosis with diffuse goiter without thyrotoxic crisis or storm

== ENCOUNTER → 2021-12-05 | Outpatient (CLI) | payer OTHER ==
[2021-12-05 11:37] LABS: FREE T4 0.86 NG/DL (0.76-1.46); THYROID STIMULATING HORMONE 0.091 uIU/ML (0.358-3.740)
== END ==
LOC: M PLALAB 07:31
PROVIDERS: ATTEND Nurse Practitioner Family
DX: E05.00 Thyrotoxicosis with diffuse goiter without thyrotoxic crisis or storm (principal)

== ENCOUNTER → 2021-12-06 | Outpatient (CLI) | payer OTHER | LOC: M SLEEP 20:00 | PROVIDERS: ATTEND Internal Medicine Pulmonary Disease | DX: R06.83 Snoring (principal) ==

== ENCOUNTER → 2021-12-19 | Outpatient (CLI) | payer OTHER ==
[2021-12-19 17:53] LABS: CREATININE, URINE 24.1 MG/DL
== END ==
LOC: M PLALAB 09:18
PROVIDERS: ATTEND Family Medicine
DX: R80.9 Proteinuria, unspecified (principal)

== ENCOUNTER → 2021-12-19 | Outpatient (CLI) | payer OTHER ==
[2021-12-19 19:38] LABS: BLOOD UREA NITROGEN 22 MG/DL (7-18); CALCIUM LEVEL 9.3 MG/DL (8.8-10.2); CARBON DIOXIDE LEVEL 24 MEQ/L (21-32); CHLORIDE LEVEL 111 MEQ/L (98-107); CREATININE FOR GFR 0.58 MG/DL (0.55-1.30); FREE T4 0.87 NG/DL (0.76-1.46); GLOMERULAR FILTRATION RATE > 60.0 (>45); GLUCOSE, FASTING 96 MG/DL (70-100); PHOSPHORUS LEVEL 4.5 MG/DL (2.5-4.9); POTASSIUM SERUM 4.1 MEQ/L (3.5-5.1); SODIUM LEVEL 143 MEQ/L (136-145); THYROID STIMULATING HORMONE 0.181 uIU/ML (0.358-3.740)
[2021-12-19 21:47] LABS: VITAMIN B12 LEVEL 293 PG/ML
[2021-12-20 12:05] LABS: DRVV SCREEN 39.5 SEC
[2021-12-20 12:15] LABS: PTT LUPUS TYPE ANTICOAG SCREEN 1.1 (0-1.2)
[2021-12-21 08:17] LABS: ALBUMIN % 56.8 % (55.8-66.1); ALPHA-1-GLOBULIN % 4.2 % (2.9-4.9); ALPHA-2-GLOBULINS % 12.7 % (7.1-11.8); BETA-1-GLOBULINS % 5.6 % (4.7-7.2)
[2021-12-21 08:18] LABS: ALBUMIN 3.98 GM/DL (3.29-5.55); ALPHA-1-GLOBULINS 0.29 GM/DL (0.17-0.41); ALPHA-2-GLOBULINS 0.89 GM/DL (0.42-0.99); BETA-1-GLOBULINS 0.39 GM/DL (0.28-0.60); BETA-2-GLOBULINS 0.38 GM/DL (0.19-0.55); BETA-2-GLOBULINS % 5.4 % (3.2-6.5); GAMMA GLOBULIN % 15.3 % (11.1-18.8); GAMMA GLOBULINS 1.07 GM/DL (0.65-1.58)
== END ==
LOC: M PLALAB 09:13
PROVIDERS: ATTEND Psychiatry & Neurology Neurology
DX: M54.50 Low back pain, unspecified (principal); G62.9 Polyneuropathy, unspecified; R80.9 Proteinuria, unspecified

== ENCOUNTER → 2021-12-25 | Outpatient (REF) | payer OTHER ==
[2021-12-25 13:48] LABS: APPEARANCE, URINE HAZY (CLEAR); BACTERIA, URINE AUTO NEGATIVE (NEGATIVE); BILIRUBIN, URINE AUTO NEGATIVE (NEGATIVE); BLOOD, URINE BLOOD NEGATIVE (NEGATIVE); CALCIUM OXALATE CRYSTALS LARGE; COLOR, URINE YELLOW (YELLOW); GLUCOSE, URINE (UA) AUTO NEGATIVE (NEGATIVE); KETONE, URINE AUTO NEGATIVE (NEGATIVE); LEUKOCYTE ESTERASE, URINE AUTO NEGATIVE (NEGATIVE); MUCUS, URINE SMALL (NEGATIVE); NITRITE, URINE AUTO NEGATIVE (NEGATIVE); PROTEIN, URINE AUTO 2+ mg/dL (NEGATIVE); RBC, URINE AUTO 1 /HPF (0-3); SPECIFIC GRAVITY URINE AUTO 1.016 (1.002-1.035); SQUAMOUS EPITHELIAL CELL UR AU 0 /HPF (0-6); UROBILINOGEN, URINE AUTO 0.2 mg/dL (0.0-2.0); WBC, URINE AUTO 1 /HPF (0-3)
== END ==
LOC: M SFHCPLAZ 13:13
PROVIDERS: ATTEND Physician Assistant
DX: R80.9 Proteinuria, unspecified (principal)

== ENCOUNTER → 2022-02-04 | Outpatient (CLI) | payer OTHER ==
[2022-02-04 14:42] LABS: CREATININE, URINE 75.7 MG/DL; MAU/CREAT RATIO 364.5 MCG/MG (0.0-30.0)
[2022-02-04 15:02] LABS: HEMOGLOBIN A1c 6.2 %
[2022-02-04 15:45] LABS: ALBUMIN 3.7 GM/DL (3.2-5.2); ALT/SGPT 34 U/L (12-78); BILIRUBIN,TOTAL 0.5 MG/DL (0.2-1.0); BLOOD UREA NITROGEN 19 MG/DL (7-18); CALCIUM LEVEL 9.2 MG/DL (8.8-10.2); CARBON DIOXIDE LEVEL 25 MEQ/L (21-32); CHLORIDE LEVEL 109 MEQ/L (98-107); CREATININE FOR GFR 0.66 MG/DL (0.55-1.30); FREE T4 1.19 NG/DL (0.76-1.46); GLOMERULAR FILTRATION RATE > 60.0 (>45); GLUCOSE, FASTING 130 MG/DL (70-100); POTASSIUM SERUM 3.9 MEQ/L (3.5-5.1); SODIUM LEVEL 142 MEQ/L (136-145); THYROID STIMULATING HORMONE < 0.005 uIU/ML (0.358-3.740); TOTAL PROTEIN 6.9 GM/DL (6.4-8.2)
== END ==
LOC: M PLALAB 09:35
PROVIDERS: ATTEND Physician Assistant
DX: E11.9 Type 2 diabetes mellitus without complications (principal); R79.89 Other specified abnormal findings of blood chemistry

== ENCOUNTER → 2022-03-07 | Outpatient (CLI) | payer OTHER ==
[2022-03-07 11:21] LABS: FREE T4 1.01 NG/DL (0.76-1.46); THYROID STIMULATING HORMONE 0.015 uIU/ML (0.358-3.740)
== END ==
LOC: M PLALAB 08:58
PROVIDERS: ATTEND Nurse Practitioner Family
DX: E05.00 Thyrotoxicosis with diffuse goiter without thyrotoxic crisis or storm (principal)

== ENCOUNTER → 2022-04-23 | Outpatient (CLI) | payer OTHER ==
[2022-04-23 17:10] LABS: HEMOGLOBIN A1c 6.4 %
== END ==
LOC: M PLALAB 11:51
PROVIDERS: ATTEND Physician Assistant
DX: E11.9 Type 2 diabetes mellitus without complications (principal); E53.8 Deficiency of other specified B group vitamins
CPT/HCPCS: 36415; 82607; 83036; G0463

== ENCOUNTER → 2022-07-15 | Outpatient (CLI) | payer OTHER ==
[2022-07-15 15:56] LABS: THYROID STIMULATING HORMONE 0.857 uIU/ML (0.55-4.78)
[2022-07-15 15:58] LABS: FREE T4 0.96 NG/DL (0.89-1.76)
== END ==
LOC: M PLALAB 10:33
PROVIDERS: ATTEND Internal Medicine Endocrinology, Diabetes & Metabolism
DX: E05.00 Thyrotoxicosis with diffuse goiter without thyrotoxic crisis or storm (principal)

== ENCOUNTER → 2022-07-17 | Outpatient (CLI) | payer OTHER ==
[2022-07-17 11:37] LABS: BASO % 0.6 % (0.0-1.0); EOS # 0.2 10^3/uL (0.0-0.5); EOS % 2.5 % (0.0-3.0); HEMATOCRIT 43.1 % (36.0-47.0); HEMOGLOBIN 13.7 g/dl (12.0-15.5); LYMPH # 1.6 10^3/uL (1.5-5.0); LYMPH % 25.3 % (24.0-44.0); MEAN CORPUSCULAR HEMOGLOBIN 28.2 pg (27.0-33.0); MEAN CORPUSCULAR HGB CONC 31.8 g/dl (32.0-36.5); MEAN CORPUSCULAR VOLUME 88.7 fl (80.0-96.0); MONO # 0.5 10^3/uL (0.0-0.8); NEUTROPHILS % 63.4 % (36.0-66.0); PLATELET COUNT, AUTOMATED 268 10^3/uL (150-450); RED BLOOD COUNT 4.86 10^6/uL (4.00-5.40); WHITE BLOOD COUNT 6.3 10^3/uL (4.0-10.0)
[2022-07-17 12:19] LABS: ALBUMIN 3.7 G/DL (3.2-5.2); ALKALINE PHOSPHATASE 98 U/L (46-116); ALT/SGPT 26 U/L (7.0-40); AST/SGOT 24 U/L (<34); BILIRUBIN,TOTAL 0.5 MG/DL (0.3-1.2); BLOOD UREA NITROGEN 17 MG/DL (9-23); CALCIUM LEVEL 8.9 MG/DL (8.3-10.6); CARBON DIOXIDE LEVEL 23 MMOL/L (20-31); CHLORIDE LEVEL 108 MMOL/L (98-107); CHOLESTEROL LEVEL 89 MG/DL (<200); CHOLESTEROL RISK RATIO 1.85 (<5); CREATININE FOR GFR 0.71 MG/DL (0.55-1.30); GLOMERULAR FILTRATION RATE > 60.0 (>45); GLUCOSE, FASTING 135 MG/DL (74-106); HDL CHOLESTEROL 47.9 MG/DL (>40); LDL CHOLESTEROL 27.3 MG/DL (<100); NON-HDL-C 41 MG/DL; POTASSIUM SERUM 3.7 MMOL/L (3.5-5.1); SODIUM LEVEL 140 MMOL/L (136-145); TOTAL PROTEIN 6.6 G/DL (5.7-8.2); TRIGLYCERIDES LEVEL 69 MG/DL (<150); VITAMIN B12 LEVEL 850 PG/ML (211-911)
[2022-07-17 12:53] LABS: HEMOGLOBIN A1c 6.3 % (4.0-6.0)
[2022-07-17 15:47] LABS: FOLATE > 24.0 NG/ML (>5.4)
[2022-07-20 16:08] LABS: F002-IgE Milk < 0.10 kU/L (Class 0); F004-IgE Wheat < 0.10 kU/L (Class 0); F013-IgE Peanut < 0.10 kU/L (Class 0); F014-IgE Soybean < 0.10 kU/L (Class 0); F026-IgE Pork 0.18 kU/L (Class 0/I); F027-IgE Beef < 0.10 kU/L (Class 0); F245-IgE Egg, Whole < 0.10 kU/L (Class 0); FX02-IgE Food Mix (Sea Foods) Negative (.)
== END ==
LOC: M PLALAB 08:46
PROVIDERS: ATTEND Physician Assistant
DX: E11.9 Type 2 diabetes mellitus without complications (principal); E53.8 Deficiency of other specified B group vitamins; K21.9 Gastro-esophageal reflux disease without esophagitis; N20.0 Calculus of kidney; K59.39 Other megacolon; Z98.890 Other specified postprocedural states

== ENCOUNTER → 2022-07-17 | Outpatient (CLI) | payer OTHER | LOC: M PLAIMG 08:49 | PROVIDERS: ATTEND Urology | DX: N20.0 Calculus of kidney (principal); K59.39 Other megacolon; Z98.890 Other specified postprocedural states ==

== ENCOUNTER → 2022-08-14 | Outpatient (CLI) | payer OTHER | LOC: M WHC 10:58 | PROVIDERS: ATTEND Physician Assistant | DX: Z12.31 Encounter for screening mammogram for malignant neoplasm of breast (principal) ==

== ENCOUNTER → 2022-08-21 | Outpatient (CLI) | payer OTHER | LOC: M RAD 08:42 | PROVIDERS: ATTEND Physician Assistant | DX: R14.0 Abdominal distension (gaseous) (principal); R16.2 Hepatomegaly with splenomegaly, not elsewhere classified; K76.0 Fatty (change of) liver, not elsewhere classified ==

== ENCOUNTER → 2022-09-09 | Outpatient (CLI) | payer OTHER | LOC: M RAD 11:00 | PROVIDERS: ATTEND Physician Assistant | DX: R14.0 Abdominal distension (gaseous) (principal) ==

== ENCOUNTER → 2022-09-19 | Outpatient (CLI) | payer OTHER ==
[2022-09-19 11:58] LABS: IRON (FE) 28 UG/DL (50-170)
[2022-09-19 11:59] LABS: ALBUMIN 3.8 G/DL (3.2-5.2); ALKALINE PHOSPHATASE 102 U/L (46-116); ALT/SGPT 30 U/L (7.0-40); AST/SGOT 24 U/L (<34); BILIRUBIN,DIRECT 0.4 MG/DL (<0.4); BILIRUBIN,TOTAL 0.8 MG/DL (0.3-1.2); BLOOD UREA NITROGEN 20 MG/DL (9-23); CREATININE FOR GFR 0.71 MG/DL (0.55-1.30); GLOMERULAR FILTRATION RATE > 60.0 (>45); PERCENT SATURATION 10.1 % (13.2-45.0); TOTAL IRON BINDING CAPACITY 276 UG/DL (250-425); TOTAL PROTEIN 6.6 G/DL (5.7-8.2)
[2022-09-19 12:24] LABS: CLOSTRIDIUM DIFFICILE PCR NEGATIVE (NEGATIVE)
[2022-09-19 12:54] LABS: HEPATITIS B SURFACE ANTIGEN NEGATIVE (NEGATIVE)
[2022-09-19 13:18] LABS: HEPATITIS B SURFACE ANTIBODY NEGATIVE (POSITIVE)
[2022-09-20 23:07] LABS: ANTI-MITOCHONDRIAL ANTIBODY <20.0 Units (0.0-20.0); ANTINUCLEAR ANTIBODIES DIRECT Negative (Negative); HEPATITIS A IgG TOTAL Negative (Negative); LIVER-KIDNEY MICROSOMAL ABY <20.1 Units (0.0-20.0)
== END ==
LOC: M PLALAB 07:50
PROVIDERS: ATTEND Internal Medicine Gastroenterology
DX: R16.2 Hepatomegaly with splenomegaly, not elsewhere classified (principal); R14.0 Abdominal distension (gaseous)

== ENCOUNTER → 2022-09-26 | Outpatient (CLI) | payer OTHER ==
[~2022-09-26] MED LIST changes: +GASTROGRAFIN SOLUTION 30ML As Ordered ONE; +ISOVUE-370 76% 100ML VIAL As Ordered ONE
== END ==
LOC: M RAD 13:25
PROVIDERS: ATTEND Internal Medicine Gastroenterology
DX: R14.0 Abdominal distension (gaseous) (principal)

== ENCOUNTER → 2022-10-23 | Outpatient (CLI) | payer OTHER ==
[~2022-10-23] MED LIST changes: -GASTROGRAFIN SOLUTION 30ML As Ordered ONE; -ISOVUE-370 76% 100ML VIAL As Ordered ONE
[2022-10-23 13:49] LABS: BASO # 0.1 10^3/uL (0.0-0.2); BASO % 0.9 % (0.0-1.0); EOS # 0.3 10^3/uL (0.0-0.5); EOS % 4.6 % (0.0-3.0); HEMATOCRIT 45.4 % (36.0-47.0); HEMOGLOBIN 14.5 g/dl (12.0-15.5); LYMPH # 2.2 10^3/uL (1.5-5.0); LYMPH % 31.5 % (24.0-44.0); MEAN CORPUSCULAR HEMOGLOBIN 28.5 pg (27.0-33.0); MEAN CORPUSCULAR HGB CONC 31.9 g/dl (32.0-36.5); MEAN CORPUSCULAR VOLUME 89.4 fl (80.0-96.0); MONO # 0.6 10^3/uL (0.0-0.8); MONO % 8.5 % (2.0-8.0); NEUTROPHILS # 3.8 10^3/uL (1.5-8.5); NEUTROPHILS % 54.2 % (36.0-66.0); PLATELET COUNT, AUTOMATED 267 10^3/uL (150-450); RED BLOOD COUNT 5.08 10^6/uL (4.00-5.40)
[2022-10-23 13:54] LABS: IRON (FE) 73 UG/DL (50-170); PERCENT SATURATION 24.6 % (13.2-45.0); TOTAL IRON BINDING CAPACITY 297 UG/DL (250-425)
[2022-10-23 13:58] LABS: ALBUMIN 3.8 G/DL (3.2-5.2); ALKALINE PHOSPHATASE 101 U/L (46-116); ALT/SGPT 48 U/L (7.0-40); AST/SGOT 35 U/L (<34); BILIRUBIN,TOTAL 0.9 MG/DL (0.3-1.2); BLOOD UREA NITROGEN 16 MG/DL (9-23); CALCIUM LEVEL 8.9 MG/DL (8.3-10.6); CARBON DIOXIDE LEVEL 27 MMOL/L (20-31); CHLORIDE LEVEL 105 MMOL/L (98-107); CREATININE FOR GFR 0.63 MG/DL (0.55-1.30); FREE T4 0.88 NG/DL (0.89-1.76); GLOMERULAR FILTRATION RATE > 60.0 (>45); GLUCOSE, FASTING 123 MG/DL (74-106); POTASSIUM SERUM 4.1 MMOL/L (3.5-5.1); SODIUM LEVEL 141 MMOL/L (136-145); THYROID STIMULATING HORMONE 1.655 uIU/ML (0.55-4.78); TOTAL PROTEIN 6.8 G/DL (5.7-8.2); VITAMIN B12 LEVEL 639 PG/ML (211-911)
[2022-10-23 14:02] LABS: HEMOGLOBIN A1c 6.4 % (4.0-6.0)
== END ==
LOC: M PLALAB 09:37
PROVIDERS: ATTEND Physician Assistant
DX: E53.8 Deficiency of other specified B group vitamins (principal)

== ENCOUNTER → 2022-12-16 | Outpatient (CLI) | payer OTHER ==
[~2022-12-16] MED LIST changes: +E-Z-GAS II EFFERVESCENT PACKET (SODIUM BICARB./CITRIC ACID/SIMETHICONE) As Ordered ONE; +E-Z-HD 98% w/w 340GM SUSP BTL As Ordered ONE; +E-Z-PAQUE 96% w/w SUSP 176GM BTL As Ordered ONE
== END ==
LOC: M RAD 09:31
PROVIDERS: ATTEND Internal Medicine Gastroenterology
DX: R14.0 Abdominal distension (gaseous) (principal)

== ENCOUNTER → 2023-01-07 | Outpatient (CLI) | payer OTHER ==
[~2023-01-07] MED LIST changes: -E-Z-GAS II EFFERVESCENT PACKET (SODIUM BICARB./CITRIC ACID/SIMETHICONE) As Ordered ONE; -E-Z-HD 98% w/w 340GM SUSP BTL As Ordered ONE; -E-Z-PAQUE 96% w/w SUSP 176GM BTL As Ordered ONE
== END ==
LOC: M PLAIMG 11:01
PROVIDERS: ATTEND Physician Assistant
DX: M25.561 Pain in right knee (principal); M17.11 Unilateral primary osteoarthritis, right knee; M85.861 Other specified disorders of bone density and structure, right lower leg; R25.2 Cramp and spasm; E11.9 Type 2 diabetes mellitus without complications; E05.90 Thyrotoxicosis, unspecified without thyrotoxic crisis or storm; K90.9 Intestinal malabsorption, unspecified
CPT/HCPCS: 73564; G0463

== ENCOUNTER → 2023-01-20 | Outpatient (CLI) | payer OTHER ==
[2023-01-20 10:56] LABS: FREE T4 1.07 NG/DL (0.89-1.76); THYROID STIMULATING HORMONE 0.045 uIU/ML (0.55-4.78)
== END ==
LOC: M PLALAB 07:54
PROVIDERS: ATTEND Nurse Practitioner Family
DX: E05.00 Thyrotoxicosis with diffuse goiter without thyrotoxic crisis or storm (principal)

== ENCOUNTER → 2023-01-20 | Outpatient (CLI) | payer OTHER ==
[2023-01-20 10:45] LABS: BASO # 0.1 10^3/uL (0.0-0.2); BASO % 0.7 % (0.0-1.0); EOS # 0.3 10^3/uL (0.0-0.5); EOS % 4.1 % (0.0-3.0); HEMATOCRIT 44.2 % (36.0-47.0); HEMOGLOBIN 14.1 g/dl (12.0-15.5); LYMPH # 1.8 10^3/uL (1.5-5.0); LYMPH % 24.2 % (24.0-44.0); MEAN CORPUSCULAR HEMOGLOBIN 28.6 pg (27.0-33.0); MEAN CORPUSCULAR HGB CONC 31.9 g/dl (32.0-36.5); MEAN CORPUSCULAR VOLUME 89.7 fl (80.0-96.0); MONO # 0.6 10^3/uL (0.0-0.8); MONO % 7.7 % (2.0-8.0); NEUTROPHILS # 4.6 10^3/uL (1.5-8.5); NEUTROPHILS % 63.2 % (36.0-66.0); PLATELET COUNT, AUTOMATED 286 10^3/uL (150-450); RED BLOOD COUNT 4.93 10^6/uL (4.00-5.40); WHITE BLOOD COUNT 7.3 10^3/uL (4.0-10.0)
[2023-01-20 10:50] LABS: TOTAL IRON BINDING CAPACITY 300 UG/DL (250-425)
[2023-01-20 10:51] LABS: ALKALINE PHOSPHATASE 86 U/L (46-116); ALT/SGPT 35 U/L (7.0-40); AST/SGOT 20 U/L (<34); BILIRUBIN,TOTAL 0.6 MG/DL (0.3-1.2); BLOOD UREA NITROGEN 20 MG/DL (9-23); CARBON DIOXIDE LEVEL 26 MMOL/L (20-31); CHLORIDE LEVEL 110 MMOL/L (98-107); CREATININE FOR GFR 0.69 MG/DL (0.55-1.30); GLOMERULAR FILTRATION RATE > 60.0 (>45); GLUCOSE, FASTING 146 MG/DL (74-106); IRON (FE) 70 UG/DL (50-170); MAGNESIUM LEVEL 1.7 MG/DL (1.8-2.4); PERCENT SATURATION 23.3 % (13.2-45.0); POTASSIUM SERUM 4.3 MMOL/L (3.5-5.1); SODIUM LEVEL 143 MMOL/L (136-145); TOTAL PROTEIN 6.8 G/DL (5.7-8.2)
[2023-01-20 10:55] LABS: FREE T4 1.01 NG/DL (0.89-1.76); THYROID STIMULATING HORMONE 0.049 uIU/ML (0.55-4.78); TOTAL 25(OH) VITAMIN D 32.9 NG/ML (20.0-100.0)
[2023-01-20 10:56] LABS: VITAMIN B12 LEVEL 426 PG/ML (211-911)
[2023-01-20 11:18] LABS: HEMOGLOBIN A1c 6.6 % (4.0-6.0)
== END ==
LOC: M PLALAB 07:58
PROVIDERS: ATTEND Physician Assistant
DX: E11.9 Type 2 diabetes mellitus without complications (principal); R25.2 Cramp and spasm; K90.9 Intestinal malabsorption, unspecified; E05.00 Thyrotoxicosis with diffuse goiter without thyrotoxic crisis or storm; M25.561 Pain in right knee

== ENCOUNTER → 2023-02-17 | Outpatient (CLI) | payer OTHER | LOC: M RAD 08:07 | PROVIDERS: ATTEND Surgery | DX: K63.89 Other specified diseases of intestine (principal) ==

== ENCOUNTER → 2023-03-25 | Outpatient (CLI) | payer OTHER ==
[2023-03-25 11:47] LABS: FREE T4 0.96 NG/DL (0.89-1.76)
[2023-03-25 11:48] LABS: THYROID STIMULATING HORMONE 0.222 uIU/ML (0.55-4.78)
== END ==
LOC: M PLALAB 08:18
PROVIDERS: ATTEND Nurse Practitioner Family
DX: E05.00 Thyrotoxicosis with diffuse goiter without thyrotoxic crisis or storm (principal)

== ENCOUNTER 2023-03-28 20:26 | Emergency (ER) | payer OTHER ==
[~2023-03-28] VITALS: Ht 175.3 cm; Wt 101.0 kg
[2023-03-28 20:28] VITALS: TEMP 97.8
[2023-03-28 22:19] LABS: BASO % 0.5 % (0.0-1.0); EOS # 0.4 10^3/uL (0.0-0.5); EOS % 4.4 % (0.0-3.0); HEMATOCRIT 42.6 % (36.0-47.0); HEMOGLOBIN 13.8 g/dl (12.0-15.5); LYMPH # 2.5 10^3/uL (1.5-5.0); LYMPH % 30.5 % (24.0-44.0); MEAN CORPUSCULAR HEMOGLOBIN 28.5 pg (27.0-33.0); MEAN CORPUSCULAR HGB CONC 32.4 g/dl (32.0-36.5); MONO # 0.6 10^3/uL (0.0-0.8); NEUTROPHILS # 4.7 10^3/uL (1.5-8.5); NEUTROPHILS % 57.4 % (36.0-66.0); PLATELET COUNT, AUTOMATED 265 10^3/uL (150-450); RED BLOOD COUNT 4.84 10^6/uL (4.00-5.40); WHITE BLOOD COUNT 8.1 10^3/uL (4.0-10.0)
[2023-03-28] MEDS ORDERED: SIMETHICONE 80MG CHEW TAB PO ONE (22:35)
[2023-03-28] MEDS ORDERED: ISOVUE-370 76% 100ML VIAL As Ordered ONE (22:47)
[2023-03-28 23:08] LABS: BLOOD UREA NITROGEN 18 MG/DL (9-23); CARBON DIOXIDE LEVEL 27 MMOL/L (20-31); CHLORIDE LEVEL 105 MMOL/L (98-107); CREATININE FOR GFR 0.67 MG/DL (0.55-1.30); GLOMERULAR FILTRATION RATE > 60.0 (>45); GLUCOSE, FASTING 98 MG/DL (74-106); POTASSIUM SERUM 4.1 MMOL/L (3.5-5.1); SODIUM LEVEL 142 MMOL/L (136-145)
[2023-03-28 23:10] LABS: CK-MB VALUE MASS < 1.0 NG/ML (<3.6); CPK CREATINE PHOSPHOKINASE 92 U/L (34-145); MB/CK RELATIVE INDEX 1.08 (< OR =4)
[2023-03-29 01:45] LABS: CK-MB VALUE MASS < 1.0 NG/ML (<3.6)
[2023-03-29 01:46] LABS: CPK CREATINE PHOSPHOKINASE 77 U/L (34-145); MB/CK RELATIVE INDEX 1.29 (< OR =4)
[2023-03-29] MEDS ORDERED: ELIQ5TAB PO ×2 (03:49→04:00)
[2023-03-29] MEDS ORDERED: APIXABAN 5 MG TAB (ELIQUIS) PO ONE (03:50)
[2023-03-29 04:15] VITALS: BP 143/84; O2SAT 98
== END 2023-03-29 04:27 | disposition home or self-care (01) ==
LOC: M ED 20:26
DX: I48.91 Unspecified atrial fibrillation (principal); E11.40 Type 2 diabetes mellitus with diabetic neuropathy, unspecified; K21.9 Gastro-esophageal reflux disease without esophagitis; Z79.82 Long term (current) use of aspirin; Z79.899 Other long term (current) drug therapy; Z88.6 Allergy status to analgesic agent; Z88.8 Allergy status to other drugs, medicaments and biological substances
CPT/HCPCS: 71045; 71275; 74177; 80048; 82550; 82553; 84484; 85025; 93005; 93041; 94760; 99285; Q9967

== ENCOUNTER → 2023-07-14 | Outpatient (CLI) | payer OTHER ==
[~2023-07-14] MED LIST changes: +ELIQ5TAB PO
[2023-07-14 13:54] LABS: HEMATOCRIT 32.1 % (36.0-47.0); HEMOGLOBIN 9.8 g/dl (12.0-15.5); MEAN CORPUSCULAR HEMOGLOBIN 27.7 pg (27.0-33.0); MEAN CORPUSCULAR HGB CONC 30.5 g/dl (32.0-36.5); MEAN CORPUSCULAR VOLUME 90.7 fl (80.0-96.0); PLATELET COUNT, AUTOMATED 439 10^3/uL (150-450); RED BLOOD COUNT 3.54 10^6/uL (4.00-5.40)
[2023-07-14 14:12] LABS: BLOOD UREA NITROGEN 18 MG/DL (9-23); CALCIUM LEVEL 8.4 MG/DL (8.3-10.6); CARBON DIOXIDE LEVEL 25 MMOL/L (20-31); CHLORIDE LEVEL 107 MMOL/L (98-107); CREATININE FOR GFR 0.85 MG/DL (0.55-1.30); GLOMERULAR FILTRATION RATE > 60.0 (>45); GLUCOSE, FASTING 128 MG/DL (74-106); POTASSIUM SERUM 5.2 MMOL/L (3.5-5.1); SODIUM LEVEL 141 MMOL/L (136-145)
== END ==
LOC: M LAB 12:02
PROVIDERS: ATTEND Nurse Practitioner Family
DX: Z93.2 Ileostomy status (principal)

== ENCOUNTER → 2023-07-23 | Outpatient (CLI) | payer OTHER ==
[2023-07-23 14:30] LABS: HEMATOCRIT 32.1 % (36.0-47.0); HEMOGLOBIN 9.9 g/dl (12.0-15.5); MEAN CORPUSCULAR HEMOGLOBIN 27.3 pg (27.0-33.0); MEAN CORPUSCULAR HGB CONC 30.8 g/dl (32.0-36.5); MEAN CORPUSCULAR VOLUME 88.4 fl (80.0-96.0); PLATELET COUNT, AUTOMATED 385 10^3/uL (150-450); RED BLOOD COUNT 3.63 10^6/uL (4.00-5.40); WHITE BLOOD COUNT 6.1 10^3/uL (4.0-10.0)
[2023-07-23 15:04] LABS: ALBUMIN 2.8 G/DL (3.2-5.2); ALKALINE PHOSPHATASE 72 U/L (46-116); ALT/SGPT 37 U/L (7.0-40); AST/SGOT 39 U/L (<34); BILIRUBIN,TOTAL 0.4 MG/DL (0.3-1.2); BLOOD UREA NITROGEN 12 MG/DL (9-23); CALCIUM LEVEL 8.6 MG/DL (8.3-10.6); CARBON DIOXIDE LEVEL 24 MMOL/L (20-31); CHLORIDE LEVEL 113 MMOL/L (98-107); CREATININE FOR GFR 0.69 MG/DL (0.55-1.30); GLOMERULAR FILTRATION RATE > 60.0 (>45); GLUCOSE, FASTING 95 MG/DL (74-106); POTASSIUM SERUM 4.7 MMOL/L (3.5-5.1); SODIUM LEVEL 142 MMOL/L (136-145); TOTAL PROTEIN 5.9 G/DL (5.7-8.2)
== END ==
LOC: M LAB 14:06
PROVIDERS: ATTEND Surgery
DX: R19.8 Other specified symptoms and signs involving the digestive system and abdomen (principal); Z93.2 Ileostomy status

== ENCOUNTER → 2023-08-26 | Outpatient (CLI) | payer OTHER ==
[2023-08-26 12:37] LABS: FREE T4 0.87 NG/DL (0.89-1.76); THYROID STIMULATING HORMONE 0.131 uIU/ML (0.55-4.78)
== END ==
LOC: M PLALAB 08:07
PROVIDERS: ATTEND Nurse Practitioner Family
DX: E05.00 Thyrotoxicosis with diffuse goiter without thyrotoxic crisis or storm (principal)

== ENCOUNTER → 2023-09-16 | Outpatient (REF) | payer OTHER ==
[2023-09-16 15:06] LABS: ALBUMIN 3.3 G/DL (3.2-5.2); ALKALINE PHOSPHATASE 73 U/L (46-116); ALT/SGPT 29 U/L (7.0-40); AST/SGOT 26 U/L (<34); BILIRUBIN,TOTAL 0.4 MG/DL (0.3-1.2); BLOOD UREA NITROGEN 13 MG/DL (9-23); CALCIUM LEVEL 8.9 MG/DL (8.3-10.6); CARBON DIOXIDE LEVEL 23 MMOL/L (20-31); CHLORIDE LEVEL 110 MMOL/L (98-107); CREATININE FOR GFR 0.79 MG/DL (0.55-1.30); GLOMERULAR FILTRATION RATE > 60.0 (>45); GLUCOSE, FASTING 87 MG/DL (74-106); MAGNESIUM LEVEL 1.8 MG/DL (1.8-2.4); POTASSIUM SERUM 4.8 MMOL/L (3.5-5.1); SODIUM LEVEL 137 MMOL/L (136-145); TOTAL PROTEIN 6.7 G/DL (5.7-8.2)
[2023-09-16 16:18] LABS: HEMOGLOBIN A1c 6.1 % (4.0-6.0)
== END ==
LOC: M LABDRAWP 13:30
PROVIDERS: ATTEND Family Medicine
DX: E11.9 Type 2 diabetes mellitus without complications (principal); E83.42 Hypomagnesemia

== ENCOUNTER → 2023-09-26 | Outpatient (CLI) | payer OTHER | LOC: M WHC 08:36 | PROVIDERS: ATTEND Family Medicine | DX: Z12.31 Encounter for screening mammogram for malignant neoplasm of breast (principal); R92.323 Mammographic fibroglandular density, bilateral breasts; N20.0 Calculus of kidney; E05.00 Thyrotoxicosis with diffuse goiter without thyrotoxic crisis or storm ==

== ENCOUNTER → 2023-09-26 | Outpatient (CLI) | payer OTHER ==
[2023-09-26 14:49] LABS: THYROID STIMULATING HORMONE 1.193 uIU/ML (0.55-4.78)
[2023-09-26 14:50] LABS: FREE T4 0.67 NG/DL (0.89-1.76)
== END ==
LOC: M PLALAB 09:27
PROVIDERS: ATTEND Nurse Practitioner Family
DX: E05.00 Thyrotoxicosis with diffuse goiter without thyrotoxic crisis or storm (principal)

== ENCOUNTER → 2023-09-26 | Outpatient (CLI) | payer OTHER | LOC: M PLAIMG 09:35 | PROVIDERS: ATTEND Physician Assistant | DX: N20.0 Calculus of kidney (principal) ==

== ENCOUNTER → 2023-11-17 | Outpatient (CLI) | payer OTHER ==
[2023-11-17 13:36] LABS: FREE T4 0.81 NG/DL (0.89-1.76); THYROID STIMULATING HORMONE 0.377 uIU/ML (0.55-4.78)
== END ==
LOC: M PLALAB 09:02
PROVIDERS: ATTEND Nurse Practitioner Family
DX: E05.00 Thyrotoxicosis with diffuse goiter without thyrotoxic crisis or storm (principal)

== ENCOUNTER → 2023-11-21 | Outpatient (CLI) | payer OTHER ==
[2023-11-21 17:59] LABS: HEMATOCRIT 35.2 % (36.0-47.0); HEMOGLOBIN 10.7 g/dl (12.0-15.5); MEAN CORPUSCULAR HEMOGLOBIN 25.8 pg (27.0-33.0); MEAN CORPUSCULAR HGB CONC 30.4 g/dl (32.0-36.5); PLATELET COUNT, AUTOMATED 327 10^3/uL (150-450); RED BLOOD COUNT 4.14 10^6/uL (4.00-5.40); WHITE BLOOD COUNT 5.8 10^3/uL (4.0-10.0)
[2023-11-21 20:20] LABS: HEMOGLOBIN A1c 5.8 % (4.0-6.0)
== END ==
LOC: M PLALAB 14:51
PROVIDERS: ATTEND Family Medicine
DX: G25.81 Restless legs syndrome (principal); D64.9 Anemia, unspecified; E11.9 Type 2 diabetes mellitus without complications

== ENCOUNTER → 2024-01-05 | Outpatient (CLI) | payer MEDICARE, OTHER | LOC: M PLALAB 08:00 | PROVIDERS: ATTEND Surgery | DX: A09 Infectious gastroenteritis and colitis, unspecified (principal) ==

== ENCOUNTER → 2024-01-06 | Outpatient (CLI) | payer MEDICARE, OTHER ==
[2024-01-06 14:01] LABS: BASO % 0.4 % (0.0-1.0); EOS # 0.1 10^3/uL (0.0-0.5); EOS % 0.7 % (0.0-3.0); HEMOGLOBIN 10.4 g/dl (12.0-15.5); LYMPH # 1.2 10^3/uL (1.5-5.0); LYMPH % 10.3 % (24.0-44.0); MEAN CORPUSCULAR HEMOGLOBIN 25.1 pg (27.0-33.0); MEAN CORPUSCULAR HGB CONC 29.7 g/dl (32.0-36.5); MEAN CORPUSCULAR VOLUME 84.3 fl (80.0-96.0); MONO # 0.5 10^3/uL (0.0-0.8); MONO % 4.7 % (2.0-8.0); NEUTROPHILS # 9.3 10^3/uL (1.5-8.5); NEUTROPHILS % 83.6 % (36.0-66.0); PLATELET COUNT, AUTOMATED 355 10^3/uL (150-450); RED BLOOD COUNT 4.15 10^6/uL (4.00-5.40); WHITE BLOOD COUNT 11.2 10^3/uL (4.0-10.0)
== END ==
LOC: M PLALAB 09:03
PROVIDERS: ATTEND Internal Medicine Cardiovascular Disease
DX: I48.0 Paroxysmal atrial fibrillation (principal); D64.9 Anemia, unspecified

== ENCOUNTER → 2024-01-08 | Outpatient (REF) | payer MEDICARE, OTHER | LOC: M LAB REF 11:59 | PROVIDERS: ATTEND Internal Medicine Cardiovascular Disease | DX: I48.0 Paroxysmal atrial fibrillation (principal) ==

== ENCOUNTER → 2024-01-23 | Outpatient (CLI) | payer MEDICARE, OTHER ==
[~2024-01-23] MED LIST changes: +GASTROGRAFIN SOLUTION 30ML As Ordered ONE; +ISOVUE-370 76% 100ML VIAL As Ordered ONE; +ONDA-282; -ONDA4TAB6
== END ==
LOC: M RAD 08:21
PROVIDERS: ATTEND Surgery
DX: N20.0 Calculus of kidney (principal); R14.0 Abdominal distension (gaseous)
CPT/HCPCS: 74177; Q9963; Q9967

== ENCOUNTER → 2024-01-27 | Outpatient (REF) | payer MEDICARE, OTHER ==
[~2024-01-27] MED LIST changes: -GASTROGRAFIN SOLUTION 30ML As Ordered ONE; -ISOVUE-370 76% 100ML VIAL As Ordered ONE
== END ==
LOC: M LAB REF 13:26
PROVIDERS: ATTEND Nurse Practitioner Family
DX: A04.71 Enterocolitis due to Clostridium difficile, recurrent (principal); A09 Infectious gastroenteritis and colitis, unspecified

== ENCOUNTER → 2024-02-17 | Outpatient (CLI) | payer MEDICARE, OTHER ==
[2024-02-17 13:55] LABS: HEMATOCRIT 30.7 % (36.0-47.0); HEMOGLOBIN 9.1 g/dl (12.0-15.5); MEAN CORPUSCULAR HEMOGLOBIN 24.1 pg (27.0-33.0); MEAN CORPUSCULAR HGB CONC 29.6 g/dl (32.0-36.5); MEAN CORPUSCULAR VOLUME 81.2 fl (80.0-96.0); PLATELET COUNT, AUTOMATED 333 10^3/uL (150-450); RED BLOOD COUNT 3.78 10^6/uL (4.00-5.40); WHITE BLOOD COUNT 5.2 10^3/uL (4.0-10.0)
[2024-02-17 13:58] LABS: ALBUMIN 3.2 G/DL (3.2-5.2); ALKALINE PHOSPHATASE 95 U/L (46-116); ALT/SGPT 24 U/L (7.0-40); AST/SGOT 14 U/L (<34); BILIRUBIN,TOTAL 0.4 MG/DL (0.3-1.2); BLOOD UREA NITROGEN 20 MG/DL (9-23); CALCIUM LEVEL 8.9 MG/DL (8.3-10.6); CARBON DIOXIDE LEVEL 24 MMOL/L (20-31); CHLORIDE LEVEL 111 MMOL/L (98-107); GLOMERULAR FILTRATION RATE > 60.0 (>45); GLUCOSE, FASTING 78 MG/DL (74-106); POTASSIUM SERUM 4.8 MMOL/L (3.5-5.1); SODIUM LEVEL 141 MMOL/L (136-145); TOTAL PROTEIN 6.3 G/DL (5.7-8.2)
== END ==
LOC: M PLALAB 09:21
PROVIDERS: ATTEND Nurse Practitioner Family
DX: A04.72 Enterocolitis due to Clostridium difficile, not specified as recurrent (principal); R10.84 Generalized abdominal pain; R19.7 Diarrhea, unspecified

== ENCOUNTER → 2024-03-08 | Outpatient (CLI) | payer MEDICARE, OTHER ==
[2024-03-08 17:06] LABS: FREE T4 2.79 NG/DL (0.89-1.76); THYROID STIMULATING HORMONE 0.008 uIU/ML (0.55-4.78)
== END ==
LOC: M PLALAB 10:34
PROVIDERS: ATTEND Nurse Practitioner Family
DX: E05.00 Thyrotoxicosis with diffuse goiter without thyrotoxic crisis or storm (principal)

== ENCOUNTER → 2024-04-01 | Outpatient (CLI) | payer MEDICARE, OTHER ==
[2024-04-01 13:07] LABS: MEAN CORPUSCULAR HEMOGLOBIN 22.2 pg (27.0-33.0); MEAN CORPUSCULAR VOLUME 76.4 fl (80.0-96.0); PLATELET COUNT, AUTOMATED 319 10^3/uL (150-450); RED BLOOD COUNT 4.06 10^6/uL (4.00-5.40); WHITE BLOOD COUNT 6.4 10^3/uL (4.0-10.0)
[2024-04-01 13:13] LABS: IRON (FE) 19 UG/DL (50-170); PERCENT SATURATION 5.5 % (13.2-45.0); TOTAL IRON BINDING CAPACITY 343 UG/DL (250-425)
[2024-04-01 13:14] LABS: ALBUMIN 3.1 G/DL (3.2-5.2); ALKALINE PHOSPHATASE 93 U/L (46-116); ALT/SGPT 20 U/L (7.0-40); AST/SGOT 19 U/L (<34); BILIRUBIN,TOTAL 0.4 MG/DL (0.3-1.2); BLOOD UREA NITROGEN 18 MG/DL (9-23); CALCIUM LEVEL 8.8 MG/DL (8.3-10.6); CARBON DIOXIDE LEVEL 24 MMOL/L (20-31); CHLORIDE LEVEL 110 MMOL/L (98-107); CREATININE FOR GFR 0.68 MG/DL (0.55-1.30); GLOMERULAR FILTRATION RATE > 60.0 (>45); GLUCOSE, FASTING 141 MG/DL (74-106); MAGNESIUM LEVEL 1.7 MG/DL (1.8-2.4); POTASSIUM SERUM 4.6 MMOL/L (3.5-5.1); SODIUM LEVEL 139 MMOL/L (136-145); TOTAL PROTEIN 6.3 G/DL (5.7-8.2)
[2024-04-01 13:16] LABS: FERRITIN 9.1 NG/ML (7.3-270.7)
[2024-04-01 13:26] LABS: HEMOGLOBIN A1c 6.5 % (4.0-6.0)
== END ==
LOC: M PLALAB 11:07
PROVIDERS: ATTEND Family Medicine
DX: D64.9 Anemia, unspecified (principal); I10 Essential (primary) hypertension; E83.42 Hypomagnesemia; Z79.899 Other long term (current) drug therapy

== ENCOUNTER → 2024-04-15 | Outpatient (CLI) | payer MEDICARE, OTHER ==
[2024-04-15 10:53] LABS: FREE T4 1.96 NG/DL (0.89-1.76); THYROID STIMULATING HORMONE 0.008 uIU/ML (0.55-4.78)
== END ==
LOC: M PLALAB 08:54
PROVIDERS: ATTEND Nurse Practitioner Family
DX: E05.00 Thyrotoxicosis with diffuse goiter without thyrotoxic crisis or storm (principal)

== ENCOUNTER 2024-04-16 13:01 | Outpatient (CLI) | payer MEDICARE, OTHER ==
[~2024-04-16] VITALS: Ht 175.3 cm; Wt 93.2 kg
[~2024-04-16 13:01] MED LIST changes: +ALBUTEROL SULFATE 2.5MG/0.5ML INH NEB SOLN INH PRN; +EPINEPHrine INJ 1 MG/ML 1ML AMP IM PRN; +diphenhydrAMINE 50MG/ML VIAL IV PRN; +methylPREDNISolone 125MG 2ML VIAL IV PRN
[2024-04-16 13:15] VITALS: BP 134/63; O2SAT 100
[2024-04-16] MEDS: FERRIC CARBOXYMALTOSE INJ 750 MG in NS 250 ML (>50kg) IV ONE (13:27)
[2024-04-16] MEDS ORDERED: NS 1,000 ML IV SCH (13:30)
[2024-04-16 14:55] VITALS: BP 155/69; O2SAT 100
== END 2024-04-16 16:15 ==
LOC: M INFU 13:01
PROVIDERS: ATTEND Family Medicine
DX: D50.9 Iron deficiency anemia, unspecified (principal); Z88.6 Allergy status to analgesic agent; Z88.8 Allergy status to other drugs, medicaments and biological substances
CPT/HCPCS: 96365; J1439

== ENCOUNTER 2024-04-23 12:25 | Outpatient (CLI) | payer MEDICARE, OTHER ==
[~2024-04-23] VITALS: Ht 162.6 cm; Wt 90.9 kg
[2024-04-23] MEDS: FERRIC CARBOXYMALTOSE INJ 750 MG in NS 250 ML (>50kg) IV ONE (12:24)
[2024-04-23 12:25] VITALS: BP 155/70; O2SAT 98
[2024-04-23] MEDS: ACETAMINOPHEN TAB 650MG DOSE (2X325MG) PO ONE (12:25)
[2024-04-23] MEDS ORDERED: NS 1,000 ML IV SCH (12:30)
[2024-04-23 13:40] VITALS: BP 135/63; O2SAT 99
== END 2024-04-23 13:40 ==
LOC: M INFU 12:25
PROVIDERS: ATTEND Family Medicine
DX: D50.9 Iron deficiency anemia, unspecified (principal); Z88.8 Allergy status to other drugs, medicaments and biological substances; Z88.6 Allergy status to analgesic agent
CPT/HCPCS: 96365; J1439

== ENCOUNTER → 2024-07-02 | Outpatient (CLI) | payer MEDICARE, OTHER ==
[~2024-07-02] MED LIST changes: -ALBUTEROL SULFATE 2.5MG/0.5ML INH NEB SOLN INH PRN; +ATOR-398 PO; -EPINEPHrine INJ 1 MG/ML 1ML AMP IM PRN; -LIPI80TA PO; -diphenhydrAMINE 50MG/ML VIAL IV PRN; -methylPREDNISolone 125MG 2ML VIAL IV PRN
[2024-07-02 17:38] LABS: HEMATOCRIT 39.7 % (36.0-47.0); HEMOGLOBIN 12.4 g/dl (12.0-15.5); MEAN CORPUSCULAR HEMOGLOBIN 26.2 pg (27.0-33.0); MEAN CORPUSCULAR HGB CONC 31.2 g/dl (32.0-36.5); MEAN CORPUSCULAR VOLUME 83.8 fl (80.0-96.0); PLATELET COUNT, AUTOMATED 332 10^3/uL (150-450); RED BLOOD COUNT 4.74 10^6/uL (4.00-5.40); WHITE BLOOD COUNT 7.2 10^3/uL (4.0-10.0)
[2024-07-02 17:58] LABS: MAU/CREAT RATIO 9.4 MCG/MG (0.0-30.0)
[2024-07-02 18:02] LABS: ALBUMIN 3.5 G/DL (3.2-5.2); ALKALINE PHOSPHATASE 115 U/L (35-104); ALT/SGPT 20 U/L (7.0-40); AST/SGOT 15 U/L (<34); BILIRUBIN,TOTAL 0.3 MG/DL (0.3-1.2); BLOOD UREA NITROGEN 20 MG/DL (9-23); CALCIUM LEVEL 9.6 MG/DL (8.3-10.6); CARBON DIOXIDE LEVEL 22 MMOL/L (20-31); CHLORIDE LEVEL 111 MMOL/L (98-107); CREATININE FOR GFR 0.76 MG/DL (0.55-1.30); GLOMERULAR FILTRATION RATE > 60.0 (>45); GLUCOSE, FASTING 102 MG/DL (74-106); IRON (FE) 33 UG/DL (50-170); PERCENT SATURATION 11.7 % (13.2-45.0); POTASSIUM SERUM 4.7 MMOL/L (3.5-5.1); SODIUM LEVEL 142 MMOL/L (136-145); TOTAL IRON BINDING CAPACITY 281 UG/DL (250-425); TOTAL PROTEIN 7.3 G/DL (5.7-8.2)
[2024-07-02 18:04] LABS: FERRITIN 128.1 NG/ML (7.3-270.7)
[2024-07-02 18:20] LABS: HEMOGLOBIN A1c 6.2 % (4.0-6.0)
[2024-07-04 05:27] LABS: PROTEIN, TOTAL SO 6.9 g/dL (6.1-8.1)
[2024-07-06 07:27] LABS: ALBUMIN SO 3.6 g/dL (3.8-4.8); ALPHA 1 GLOBULINS SO 0.3 g/dL (0.2-0.3); BETA 2 GLOBULIN SO 0.5 g/dL (0.2-0.5); BETA GLOBULIN SO 0.4 g/dL (0.4-0.6); GAMMA GLOBULINS SO 1.1 g/dL (0.8-1.7)
== END ==
LOC: M PLALAB 14:35
PROVIDERS: ATTEND Family Medicine
DX: D64.9 Anemia, unspecified (principal); E11.9 Type 2 diabetes mellitus without complications; E05.00 Thyrotoxicosis with diffuse goiter without thyrotoxic crisis or storm

== ENCOUNTER → 2024-07-02 | Outpatient (CLI) | payer MEDICARE, OTHER ==
[2024-07-02 17:36] LABS: FREE T4 1.32 NG/DL (0.89-1.76); THYROID STIMULATING HORMONE 0.008 uIU/ML (0.55-4.78)
== END ==
LOC: M PLALAB 14:32
PROVIDERS: ATTEND Nurse Practitioner Family
DX: E05.00 Thyrotoxicosis with diffuse goiter without thyrotoxic crisis or storm (principal)

== ENCOUNTER → 2024-07-09 | Outpatient (CLI) | payer MEDICARE, OTHER ==
[~2024-07-09] MED LIST changes: -ADV250INH INH; +ADVA1AER9 INH; -ALIG4CAP; +ALIG4CAP3
== END ==
LOC: M EKG 14:00
PROVIDERS: ATTEND Internal Medicine Cardiovascular Disease
DX: I48.0 Paroxysmal atrial fibrillation (principal); I44.0 Atrioventricular block, first degree

== ENCOUNTER → 2024-08-02 | Outpatient (CLI) | payer MEDICARE, OTHER ==
[~2024-08-02] MED LIST changes: +ALIG4CAP; -ALIG4CAP3
[2024-08-02 10:45] LABS: THYROID STIMULATING HORMONE 0.016 uIU/ML (0.55-4.78)
[2024-08-02 10:46] LABS: FREE T4 0.74 NG/DL (0.89-1.76)
== END ==
LOC: M PLALAB 08:21
PROVIDERS: ATTEND Internal Medicine Endocrinology, Diabetes & Metabolism
DX: E05.00 Thyrotoxicosis with diffuse goiter without thyrotoxic crisis or storm (principal)

== ENCOUNTER → 2024-09-02 | Outpatient (CLI) | payer MEDICARE, OTHER ==
[~2024-09-02] MED LIST changes: -ALIG4CAP; +ALIG4CAP3
[2024-09-02 11:42] LABS: THYROID STIMULATING HORMONE 0.344 uIU/ML (0.55-4.78)
[2024-09-02 11:43] LABS: FREE T4 0.78 NG/DL (0.89-1.76)
== END ==
LOC: M PLALAB 08:15
PROVIDERS: ATTEND Nurse Practitioner Family
DX: E05.00 Thyrotoxicosis with diffuse goiter without thyrotoxic crisis or storm (principal)

== ENCOUNTER → 2024-09-27 | Outpatient (CLI) | payer MEDICARE, OTHER | LOC: M PLAIMG 11:12 | PROVIDERS: ATTEND Physician Assistant | DX: N20.0 Calculus of kidney (principal); R14.0 Abdominal distension (gaseous); Z90.49 Acquired absence of other specified parts of digestive tract ==

== ENCOUNTER → 2024-10-07 | Outpatient (CLI) | payer MEDICARE, OTHER | LOC: M PLAIMG 11:19 | PROVIDERS: ATTEND Physician Assistant Medical | DX: S91.104A Unspecified open wound of right lesser toe(s) without damage to nail, initial encounter (principal); X58.XXXA Exposure to other specified factors, initial encounter; Y92.9 Unspecified place or not applicable; Y93.9 Activity, unspecified; Y99.9 Unspecified external cause status ==

== ENCOUNTER → 2024-10-20 | Outpatient (REF) | payer MEDICARE, OTHER ==
[2024-10-20 18:46] LABS: ALBUMIN 3.5 G/DL (3.2-5.2); ALKALINE PHOSPHATASE 113 U/L (35-104); ALT/SGPT 36 U/L (7.0-40); AST/SGOT 31 U/L (<34); BILIRUBIN,TOTAL 0.2 MG/DL (0.3-1.2); BLOOD UREA NITROGEN 18 MG/DL (9-23); CARBON DIOXIDE LEVEL 22 MMOL/L (20-31); CHLORIDE LEVEL 110 MMOL/L (98-107); CREATININE FOR GFR 0.83 MG/DL (0.55-1.30); GLOMERULAR FILTRATION RATE > 60.0 (>45); GLUCOSE, FASTING 145 MG/DL (74-106); POTASSIUM SERUM 4.4 MMOL/L (3.5-5.1); SODIUM LEVEL 141 MMOL/L (136-145); TOTAL PROTEIN 7.1 G/DL (5.7-8.2)
[2024-10-20 18:48] LABS: FERRITIN 47.3 NG/ML (7.3-270.7)
[2024-10-20 19:01] LABS: HEMATOCRIT 37.5 % (36.0-47.0); HEMOGLOBIN 11.6 g/dl (12.0-15.5); MEAN CORPUSCULAR HEMOGLOBIN 28.4 pg (27.0-33.0); MEAN CORPUSCULAR HGB CONC 30.9 g/dl (32.0-36.5); MEAN CORPUSCULAR VOLUME 91.7 fl (80.0-96.0); PLATELET COUNT, AUTOMATED 348 10^3/uL (150-450); RED BLOOD COUNT 4.09 10^6/uL (4.00-5.40); WHITE BLOOD COUNT 6.4 10^3/uL (4.0-10.0)
[2024-10-20 19:11] LABS: HEMOGLOBIN A1c 6.1 % (4.0-6.0)
== END ==
LOC: M SFHCPLAZ 15:34
PROVIDERS: ATTEND Family Medicine
DX: D64.9 Anemia, unspecified (principal); E11.9 Type 2 diabetes mellitus without complications

== ENCOUNTER → 2024-11-08 | Outpatient (CLI) | payer MEDICARE, OTHER ==
[2024-11-08 10:51] LABS: THYROID STIMULATING HORMONE 2.476 uIU/ML (0.55-4.78)
[2024-11-08 10:52] LABS: FREE T4 0.78 NG/DL (0.89-1.76)
== END ==
LOC: M PLALAB 07:51
PROVIDERS: ATTEND Nurse Practitioner Family
DX: E05.00 Thyrotoxicosis with diffuse goiter without thyrotoxic crisis or storm (principal)

== ENCOUNTER → 2024-11-09 | Outpatient (CLI) | payer MEDICARE, OTHER | LOC: M SOG 07:50 | PROVIDERS: ATTEND Physician Assistant | DX: M79.641 Pain in right hand (principal); M19.041 Primary osteoarthritis, right hand ==

== ENCOUNTER 2024-12-30 14:11 | Emergency (ER) | payer MEDICARE, OTHER ==
[~2024-12-30 14:11] MED LIST changes: -FLOM0.4C39 PO; +LIDO1ADH93 TD; +LIDO1ADH93 TOP; -LIDO5DIS41 TD; -LIDO5DIS41 TOP; +TAMS-18 PO
[2024-12-30 15:29] LABS: BASO # 0.1 10^3/uL (0.0-0.2); BASO % 0.7 % (0.0-1.0); EOS # 0.2 10^3/uL (0.0-0.5); EOS % 2.3 % (0.0-3.0); HEMATOCRIT 40.4 % (36.0-47.0); HEMOGLOBIN 12.4 g/dl (12.0-15.5); LYMPH # 2.1 10^3/uL (1.5-5.0); LYMPH % 28.8 % (24.0-44.0); MEAN CORPUSCULAR HEMOGLOBIN 27.9 pg (27.0-33.0); MEAN CORPUSCULAR HGB CONC 30.7 g/dl (32.0-36.5); MONO # 0.4 10^3/uL (0.0-0.8); MONO % 5.6 % (2.0-8.0); NEUTROPHILS # 4.6 10^3/uL (1.5-8.5); NEUTROPHILS % 62.5 % (36.0-66.0); PLATELET COUNT, AUTOMATED 328 10^3/uL (150-450); RED BLOOD COUNT 4.44 10^6/uL (4.00-5.40); WHITE BLOOD COUNT 7.3 10^3/uL (4.0-10.0)
[2024-12-30 15:47] LABS: INR 1.16; PARTIAL THROMBOPLASTIN TIME 59.6 SECONDS (24.8-34.2); PROTHROMBIN TIME 15.1 SECONDS (12.5-14.5)
[2024-12-30 15:49] LABS: CALCIUM LEVEL 9.2 MG/DL (8.3-10.6); CREATININE FOR GFR 0.97 MG/DL (0.55-1.30); GLOMERULAR FILTRATION RATE 64.5 (>45); MAGNESIUM LEVEL 1.9 MG/DL (1.8-2.4); POTASSIUM SERUM 4.4 MMOL/L (3.5-5.1)
[2024-12-30 15:52] LABS: THYROID STIMULATING HORMONE 1.25 uIU/ML (0.55-4.78)
[2024-12-30] MEDS: ACETAMINOPHEN 500 MG TAB PO ONE (16:31)
[2024-12-30 17:15] VITALS: BP 125/60; TEMP 97.9; O2SAT 99
== END 2024-12-30 17:23 | disposition home or self-care (01) ==
LOC: M ED 14:11
DX: S06.0X0A Concussion without loss of consciousness, initial encounter (principal); W01.0XXA Fall on same level from slipping, tripping and stumbling without subsequent striking against object, initial encounter; Y92.009 Unspecified place in unspecified non-institutional (private) residence as the place of occurrence of the external cause; Y93.9 Activity, unspecified; Y99.9 Unspecified external cause status; E11.9 Type 2 diabetes mellitus without complications; I10 Essential (primary) hypertension; Z79.82 Long term (current) use of aspirin; Z79.899 Other long term (current) drug therapy; Z88.6 Allergy status to analgesic agent; Z88.8 Allergy status to other drugs, medicaments and biological substances

== ENCOUNTER → 2025-01-04 | Outpatient (CLI) | payer MEDICARE, OTHER | LOC: M SOG 09:23 | PROVIDERS: ATTEND Physician Assistant | DX: M79.641 Pain in right hand (principal) ==

== ENCOUNTER → 2025-05-03 | Outpatient (CLI) | payer MEDICARE, OTHER ==
[~2025-05-03] MED LIST changes: -ACE65ERTAB PO; +ACET-1593 PO; +CRAN500T4 PO; -HM C500T4 PO; +SIME1CAP3 PO
[2025-05-03 14:29] LABS: FREE T4 0.97 NG/DL (0.89-1.76)
== END ==
LOC: M PLALAB 09:59
PROVIDERS: ATTEND Nurse Practitioner Family
DX: E05.00 Thyrotoxicosis with diffuse goiter without thyrotoxic crisis or storm (principal)

== ENCOUNTER → 2025-05-30 | Outpatient (CLI) | payer MEDICARE, OTHER ==
[2025-05-30 10:32] LABS: PLATELET COUNT, AUTOMATED 404 10^3/uL (150-450)
[2025-05-30 11:10] LABS: ALT/SGPT 10.0 U/L (7.0-40); AST/SGOT 17.0 U/L (<34); CALCIUM LEVEL 8.6 MG/DL (8.3-10.6); CARBON DIOXIDE LEVEL 22.0 MMOL/L (20-31); CHLORIDE LEVEL 109.0 MMOL/L (98-107); CHOLESTEROL LEVEL 97.0 MG/DL (<200); CHOLESTEROL RISK RATIO 1.94 (<5); CREATININE FOR GFR 0.91 MG/DL (0.55-1.30); GLOMERULAR FILTRATION RATE 69.6 (>45); LDL CHOLESTEROL 28.3 MG/DL (<100); NON-HDL-C 47.1 MG/DL; POTASSIUM SERUM 4.5 MMOL/L (3.5-5.1); SODIUM LEVEL 141.0 MMOL/L (136-145); TRIGLYCERIDES LEVEL 94.0 MG/DL (<150)
[2025-05-30 11:34] LABS: ESTIMATED AVERAGE GLUCOSE 166.0 MG/DL (60-110)
== END ==
LOC: M PLALAB 08:34
PROVIDERS: ATTEND Family Medicine
DX: E11.9 Type 2 diabetes mellitus without complications (principal); D64.9 Anemia, unspecified

== ENCOUNTER 2025-06-22 15:30 | Outpatient (CLI) | payer MEDICARE, OTHER ==
[~2025-06-22] VITALS: Ht 175.3 cm; Wt 106.0 kg
[2025-06-22 15:30] VITALS: BP 132/62; O2SAT 98
[~2025-06-22 15:30] MED LIST changes: +ALBUTEROL SULFATE 2.5 MG/0.5 ML INH CONCENTRATE NEB SOLN INH PRN; +EPINEPHrine INJ 1 MG/ML 1ML AMP IM PRN; +diphenhydrAMINE 50 MG/ML VIAL IV PRN
[2025-06-22] MEDS: FERRIC CARBOXYMALTOSE 750 MG (VIAL MATE) IN 100ML NS IV ONE (15:42)
[2025-06-22 16:22] VITALS: BP 110/53; O2SAT 97
== END 2025-06-22 16:23 | disposition home or self-care (01) ==
LOC: M INFU 15:30
PROVIDERS: ATTEND Family Medicine
DX: D50.9 Iron deficiency anemia, unspecified (principal); Z88.6 Allergy status to analgesic agent; Z88.8 Allergy status to other drugs, medicaments and biological substances
CPT/HCPCS: 96365; J1439

== ENCOUNTER → 2025-06-27 | Outpatient (CLI) | payer MEDICARE, OTHER ==
[~2025-06-27] MED LIST changes: -ALBUTEROL SULFATE 2.5 MG/0.5 ML INH CONCENTRATE NEB SOLN INH PRN; -EPINEPHrine INJ 1 MG/ML 1ML AMP IM PRN; -diphenhydrAMINE 50 MG/ML VIAL IV PRN
== END ==
LOC: M PLAIMG 08:24
PROVIDERS: ATTEND Registered Nurse
DX: I77.810 Thoracic aortic ectasia (principal)

== ENCOUNTER → 2025-06-28 | Outpatient (CLI) | payer MEDICARE, OTHER ==
[2025-06-28 15:21] LABS: MAGNESIUM LEVEL 2.0 MG/DL (1.8-2.4)
[2025-06-28 15:25] LABS: FREE T4 0.98 NG/DL (0.89-1.76)
== END ==
LOC: M PLALAB 12:43
PROVIDERS: ATTEND Nurse Practitioner Family
DX: R06.02 Shortness of breath (principal); R25.2 Cramp and spasm; I48.0 Paroxysmal atrial fibrillation; Z79.01 Long term (current) use of anticoagulants

== ENCOUNTER 2025-06-29 15:00 | Outpatient (CLI) | payer MEDICARE, OTHER ==
[~2025-06-29] VITALS: Ht 175.3 cm; Wt 106.8 kg
[~2025-06-29 15:00] MED LIST changes: +ALBUTEROL SULFATE 2.5 MG/0.5 ML INH CONCENTRATE NEB SOLN INH PRN; +EPINEPHrine INJ 1 MG/ML 1ML AMP IM PRN; +diphenhydrAMINE 50 MG/ML VIAL IV PRN
[2025-06-29 15:35] VITALS: BP 120/74; O2SAT 100
[2025-06-29] MEDS: FERRIC CARBOXYMALTOSE 750 MG (VIAL MATE) IN 100ML NS IV ONE (15:40)
[2025-06-29 16:23] VITALS: BP 116/58; O2SAT 99
== END 2025-06-29 16:25 | disposition home or self-care (01) ==
LOC: M INFU 15:00
PROVIDERS: ATTEND Family Medicine
DX: D50.9 Iron deficiency anemia, unspecified (principal); Z88.6 Allergy status to analgesic agent; Z88.8 Allergy status to other drugs, medicaments and biological substances
CPT/HCPCS: 96365; J1439

== ENCOUNTER → 2025-08-03 | Outpatient (CLI) | payer MEDICARE, OTHER ==
[~2025-08-03] MED LIST changes: +ACET-1387 PO; -ACET-1593 PO; -ALBUTEROL SULFATE 2.5 MG/0.5 ML INH CONCENTRATE NEB SOLN INH PRN; -EPINEPHrine INJ 1 MG/ML 1ML AMP IM PRN; -diphenhydrAMINE 50 MG/ML VIAL IV PRN
[2025-08-03 11:55] LABS: PLATELET COUNT, AUTOMATED 342 10^3/uL (150-450)
== END ==
LOC: M PLALAB 07:26
PROVIDERS: ATTEND Family Medicine
DX: D50.9 Iron deficiency anemia, unspecified (principal)

== ENCOUNTER → 2025-08-03 | Outpatient (CLI) | payer MEDICARE, OTHER ==
[2025-08-03 11:56] LABS: BASO # 0.1 10^3/uL (0.0-0.2); BASO % 1.0 % (0.0-1.0); EOS # 0.2 10^3/uL (0.0-0.5); EOS % 4.1 % (0.0-3.0); LYMPH # 1.6 10^3/uL (1.5-5.0); LYMPH % 30.6 % (24.0-44.0); MONO # 0.4 10^3/uL (0.0-0.8); MONO % 7.8 % (2.0-8.0); NEUTROPHILS # 2.9 10^3/uL (1.5-8.5); NEUTROPHILS % 56.3 % (36.0-66.0); PLATELET COUNT, AUTOMATED 351 10^3/uL (150-450)
[2025-08-03 12:12] LABS: ALT/SGPT 19.0 U/L (7.0-40); AST/SGOT 22.0 U/L (<34); CALCIUM LEVEL 9.0 MG/DL (8.3-10.6); CARBON DIOXIDE LEVEL 24.0 MMOL/L (20-31); CHLORIDE LEVEL 107.0 MMOL/L (98-107); CREATININE FOR GFR 0.98 MG/DL (0.55-1.30); GLOMERULAR FILTRATION RATE 63.7 (>45); POTASSIUM SERUM 4.9 MMOL/L (3.5-5.1); SODIUM LEVEL 140.0 MMOL/L (136-145)
[2025-08-03 12:13] LABS: FREE T4 0.93 NG/DL (0.89-1.76); TOTAL T3 123.5 NG/DL (60.0-181.0)
== END ==
LOC: M PLALAB 07:24
PROVIDERS: ATTEND Nurse Practitioner Family
DX: E05.00 Thyrotoxicosis with diffuse goiter without thyrotoxic crisis or storm (principal); D50.9 Iron deficiency anemia, unspecified

== ENCOUNTER → 2025-08-08 | Outpatient (CLI) | payer MEDICARE, OTHER ==
[2025-08-08 19:12] LABS: IRON (FE) 29.0 UG/DL (50-170); PERCENT SATURATION 8.9 % (13.2-45.0)
[2025-08-08 19:18] LABS: ESTIMATED AVERAGE GLUCOSE 108.0 MG/DL (60-110)
[2025-08-18 09:56] LABS: RBC FOLATE 623.0 NG/ML (280-791)
== END ==
LOC: M PLALAB 15:27
PROVIDERS: ATTEND Nurse Practitioner Adult Health
DX: E11.9 Type 2 diabetes mellitus without complications (principal); D50.9 Iron deficiency anemia, unspecified